=== PATIENT | female | born 1955 | race Caucasian/White ===

== ENCOUNTER → 2016-07-27 | Outpatient (CLI) | payer OTHER ==
[~2016-07-27] MED LIST: AMLO-114 PO; ASPCH81X PO; ASPEC81 PO; BUSP5TAB59 PO; CARV12.52 PO; CARV25TA2 PO; CYM/30 PO; DIAZ10GE; DORZ1SOL6 OPB; DSY/150 PO; DULO60CA44 PO; ESTCR PV; FESO4TAB PO; FURO-85 PO; HYDR-5688 PO; LPT20 PO; LRS20 PO; LSN40 PO; LYR50 PO; MTR/600 PO; OXYC-57 PO; PHEN-876 PO; POTA20TA16 PO; SULF400T7 PO; VITAMIN D3 PO
[2016-07-27 13:06] LABS: BLOOD UREA NITROGEN 16 mg/dl (7-18); BUN/CREATININE RATIO 15.5 (10-20); CARBON DIOXIDE 30 mmol/L (21-32); CHLORIDE 95 mmol/L (98-107); GLUCOSE 108 mg/dl (70-99); POTASSIUM 3.4 mmol/L (3.5-5.1); SODIUM 132 mmol/L (136-145)
== END | disposition home or self-care (01) ==
LOC: C.LABPBG 11:15
PROVIDERS: ATTEND Family Medicine
DX: E87.6 Hypokalemia (principal); E87.1 Hypo-osmolality and hyponatremia

== ENCOUNTER → 2016-08-05 | Outpatient (CLI) | payer OTHER ==
--- NOTE | 2016-08-05 11:52 | DIAGNOSTIC IMAGING REPORT ---
RIGHT HIP UNILATERAL 2 VIEWS CLINICAL HISTORY: M25.551 Hip pain, bilateral with bilateral hip pain. R/o [id number] Right COMPARISON: None. DISCUSSION: The bones and joint spaces appear intact. There is no evidence of fracture, dislocation or bony disease. There is no evidence for soft tissue swelling. IMPRESSION: Negative study. Electronically signed by: Sandip Flood M.D. 08/05/2016 11:51 AM Dictated Date/Time: 08/05/2016 11:49 AM
--- NOTE | 2016-08-05 11:54 | DIAGNOSTIC IMAGING REPORT ---
LEFT HIP UNILATERAL 2 VIEWS CLINICAL HISTORY: Left hip pain COMPARISON: None. DISCUSSION: No fractures or dislocations are visualized. There are no erosive or destructive changes. IMPRESSION: Unremarkable conventional radiographic evaluation left hip. Electronically signed by: Juvenal Sen M.D. 08/05/2016 11:53 AM Dictated Date/Time: 08/05/2016 11:52 AM
== END | disposition home or self-care (01) ==
LOC: C.RAD1850 11:21
PROVIDERS: ATTEND Family Medicine
DX: M25.551 Pain in right hip (principal); M25.552 Pain in left hip

== ENCOUNTER → 2016-08-18 | Outpatient (CLI) | payer OTHER ==
[2016-08-18 13:09] LABS: BLOOD UREA NITROGEN 14 mg/dl (7-18); BUN/CREATININE RATIO 15.1 (10-20); CALCIUM 8.9 mg/dl (8.5-10.1); CARBON DIOXIDE 24 mmol/L (21-32); CHLORIDE 105 mmol/L (98-107); CREATININE 0.94 mg/dl (0.60-1.20); GLUCOSE 116 mg/dl (70-99); MAGNESIUM 2.1 mg/dl (1.8-2.4); POTASSIUM 3.5 mmol/L (3.5-5.1); SODIUM 138 mmol/L (136-145); URIC ACID 4.9 mg/dl (2.6-7.2)
[2016-08-18 13:10] LABS: PHOSPHORUS 2.8 mg/dl (2.5-4.9)
== END | disposition home or self-care (01) ==
LOC: C.LABPBG 09:49
PROVIDERS: ATTEND Internal Medicine Nephrology
DX: I10 Essential (primary) hypertension (principal)

== ENCOUNTER 2016-11-15 12:54 | Inpatient (IN) | payer OTHER ==
[~2016-11-15] VITALS: Ht 165.1 cm; Wt 70.6 kg
[~2016-11-15 12:54] MED LIST changes: -AMLO-114 PO; -ASPCH81X PO; -ASPEC81 PO; -BUSP5TAB59 PO; -CARV25TA2 PO; -CYM/30 PO; -DIAZ10GE; -FESO4TAB PO; -FURO-85 PO; -HYDR-5688 PO; -LPT20 PO; -LYR50 PO; -PHEN-876 PO; -POTA20TA16 PO; -SULF400T7 PO
[2016-11-15] MEDS ORDERED: CARV25TA2 PO (13:47)
[2016-11-15] MEDS ORDERED: LYR50 PO (13:47)
[2016-11-15] MEDS ORDERED: BUSP5TAB59 PO (13:47)
[2016-11-15] MEDS ORDERED: CYM/30 PO (13:48)
[2016-11-15 13:57] LABS: BASO % 0.6 %; BASO ABS # 0.03 K/uL (0-0.2); COMPLETE YES; EOS % 4.5 %; HEMATOCRIT 43.1 % (37-47); IG% 0.2 %; LYMPH % 31.5 %; LYMPH ABS # 1.54 K/uL (1.2-3.4); MEAN CORPUSCULAR HGB CONC 34.1 g/dl (32-36); MEAN PLATELET VOLUME 10.6 fL (7.4-10.4); MONO % 3.9 %; NEUT % 59.3 %; PLATELET COUNT 154 K/uL (130-400); RED BLOOD COUNT 5.07 M/uL (4.2-5.4); WHITE BLOOD COUNT 4.89 K/uL (4.8-10.8)
--- NOTE | 2016-11-15 13:58 | EMERGENCY ROOM VISIT NOTE ---
History Report prepared by Kendal: Hilaria Negron Under the Supervision of: Dr. Bertha Kuhn D.O. First contact with patient: 13:00 Chief Complaint: HYPERTENSION Stated Complaint: HYPERTENSION REFERRED BY MD History of Present Illness The patient is a 61 year old female who presents to the Emergency Room with complaints of constant hypertension beginning [employer]. The patient has a history of hypertension and has been on medication for this for years. She states that recently her hypertension has not been well controlled on her medications. Her PCP referred her to Dr. Sánchez of nephrology for further management. The patient was at Dr. Sánchez's office today. Her BP was 180/109 and she was sent to the ED for further evaluation. The patient notes a burning sensation in her throat and chest that has been going on for a couple of days. The patient denies fevers, chills, shortness of breath, vomiting, nausea, leg pain or swelling, recent changes in medications, and any increased stress of anxiety. She has occasional headaches that she thinks are due to neck pain from her fibromyalgia. She has a significant family history of heart disease. She denies any personal cardiac history. She had a stress test a couple of years ago and has never been followed by cardiology. She started taking Lyrica in May and has noticed some increased swelling since starting that. The patient had yogurt, cereal, and fruit for breakfast. Last night she had a chicken sandwich at [id number] for dinner. Source of History: patient Onset: [employer]WER Position: other (global) Symptom Intensity: 180/109 Quality: other (hypertension) Timing: constant Associated Symptoms: + chest pain, No SOB, No fevers, No nausea, No vomiting Note: Pt notes burning pain in throat. Review of Systems See HPI for pertinent positives & negatives. A total of 10 systems reviewed and were otherwise negative. Past Medical & Surgical Medical Problems: (1) Fibromyalgia (2) Hypertension (3) Lumbar degenerative disc disease Family History Heart disease Social History Smoking Status: Never Smoker Drug Use: none Marital Status: Housing Status: lives with family Current/Historical Medications Scheduled Buspirone Hcl (Buspirone Hcl), 1 TAB PO BID Carvedilol (Coreg), 25 MG PO BID Dorzolamide Hcl-Timolol Maleat (Cosopt Oph), 1 DROPS OPB BID Duloxetine HCl (Cymbalta), 1 CAP PO DAILY Lisinopril (Lisinopril), 1 TAB PO DAILY Pregabalin (Lyrica), 50 MG PO BID Trazodone HCl (Trazodone HCl), 1 TAB PO HS Allergies Coded Allergies: No Known Allergies (Verified , NONE, 12/03/15) Physical Exam Vital Signs Date Time Temp Pulse Resp B/P Pulse Ox O2 Delivery O2 Flow Rate FiO2 11/15/16 15:21 198/101 11/15/16 15:16 206/142 11/15/16 15:11 214/102 11/15/16 15:06 194/131 11/15/16 15:02 195/146 11/15/16 14:56 181/98 11/15/16 14:54 55 12 96 11/15/16 14:52 173/120 11/15/16 14:46 161/88 11/15/16 14:45 64 20 161/88 94 Room Air 11/15/16 14:41 169/120 11/15/16 14:36 178/94 11/15/16 14:31 175/97 11/15/16 14:26 167/95 11/15/16 14:26 60 16 167/95 94 Room Air 11/15/16 14:25 55 11/15/16 14:24 63 13 93 11/15/16 14:20 Room Air 11/15/16 14:19 58 18 173/100 96 Room Air 11/15/16 14:16 173/100 11/15/16 13:01 36.4 57 18 195/90 98 Room Air Physical Exam HEENT: Head - normocephalic and atraumatic Pupils are equal, round, and reactive to light. Extraocular eye muscles are intact, and sclera are anicteric. Nose - moist nasal mucosa without discharge. Mouth - moist buccal mucosa. Oropharynx is nonerythematous and there is no tonsillar exudate or edema noted. Neck: Supple; no JVD, nuchal rigidity, cervical lymphadenopathy. Heart: Regular rate and rhythm. There is a normal S1 and S2 with no murmurs, clicks, or gallops appreciated. Lungs: Clear to auscultation bilaterally with no wheezes, rales, or rhonchi. Abdomen: Soft, completely nontender, nondistended, with good bowel sounds. There are no palpable pulsatile masses or hepatosplenomegaly. There is no guarding, rigidity, or rebound noted. Extremities: No evidence of cyanosis, clubbing, or edema. There are easily palpable peripheral pulses. Skin: warm and dry with good turgor and no rashes. Medical Decision & Procedures ER Provider Diagnostic Interpretation: Radiology results as stated below per my review and the radiologist's interpretation: CHEST ONE VIEW PORTABLE CLINICAL HISTORY: Chest pain. Hypertension. COMPARISON STUDY: Chest radiograph November 20, 2015. FINDINGS: Lung volumes are normal. Lungs are clear. Cardiac size is at upper limits of normal. There is no evidence of pulmonary edema. No pneumothorax or pleural effusion is present. IMPRESSION: No acute cardiopulmonary findings. Electronically signed by: Zack Villela M.D. 11/15/2016 1:57 PM Dictated Date/Time: 11/15/2016 1:56 PM Laboratory Results 11/15/16 13:48 Red Blood Count 5.07, Mean Corpuscular Volume 85.0, Mean Corpuscular Hemoglobin 29.0, Mean Corpuscular Hemoglobin Concent 34.1, Mean Platelet Volume 10.6, Neutrophils (%) (Auto) 59.3, Lymphocytes (%) (Auto) 31.5, Monocytes (%) (Auto) 3.9, Eosinophils (%) (Auto) 4.5, Basophils (%) (Auto) 0.6, Neutrophils # (Auto) 2.90, Lymphocytes # (Auto) 1.54, Monocytes # (Auto) 0.19, Eosinophils # (Auto) 0.22, Basophils # (Auto) 0.03 11/15/16 13:48 Test 11/15/16 13:48 White Blood Count 4.89 K/uL (4.8-10.8) Red Blood Count 5.07 M/uL (4.2-5.4) Hemoglobin 14.7 g/dL (12.0-16.0) Hematocrit 43.1 % (37-47) Mean Corpuscular Volume 85.0 fL (80-100) Mean Corpuscular Hemoglobin 29.0 pg (25-34) Mean Corpuscular Hemoglobin Concent 34.1 g/dl (32-36) Platelet Count 154 K/uL (130-400) Mean Platelet Volume 10.6 fL (7.4-10.4) Neutrophils (%) (Auto) 59.3 % Lymphocytes (%) (Auto) 31.5 % Monocytes (%) (Auto) 3.9 % Eosinophils (%) (Auto) 4.5 % Basophils (%) (Auto) 0.6 % Neutrophils # (Auto) 2.90 K/uL (1.4-6.5) Lymphocytes # (Auto) 1.54 K/uL (1.2-3.4) Monocytes # (Auto) 0.19 K/uL (0.11-0.59) Eosinophils # (Auto) 0.22 K/uL (0-0.5) Basophils # (Auto) 0.03 K/uL (0-0.2) RDW Standard Deviation 39.6 fL (36.4-46.3) RDW Coefficient of Variation 12.8 % (11.5-14.5) Immature Granulocyte % (Auto) 0.2 % Immature Granulocyte # (Auto) 0.01 K/uL (0.00-0.02) Prothrombin Time 10.8 SECONDS (9.0-12.0) Prothromb Time International Ratio 1.0 (0.9-1.1) Activated Partial Thromboplast Time 26.8 SECONDS (21.0-31.0) Partial Thromboplastin Ratio 1.0 Anion Gap 7.0 mmol/L (3-11) Est Creatinine Clear Calc Drug Dose 66.7 ml/min Estimated GFR () 82.2 Estimated GFR (Non- 70.9 BUN/Creatinine Ratio 13.7 (10-20) Calcium Level 8.9 mg/dl (8.5-10.1) Magnesium Level 2.2 mg/dl (1.8-2.4) Total Bilirubin 1.0 mg/dl (0.2-1) Direct Bilirubin 0.2 mg/dl (0-0.2) Aspartate Amino Transf (AST/SGOT) 12 U/L (15-37) Alanine Aminotransferase (ALT/SGPT) 21 U/L (12-78) Alkaline Phosphatase 81 U/L (45-117) Total Creatine Kinase 82 U/L (26-192) Creatine Kinase MB < 0.5 ng/ml (0.5-3.6) Creatine Kinase MB Ratio (0-3.0) Troponin I < 0.015 ng/ml (0-0.045) Pro-B-Type Natriuretic Peptide 271 pg/ml (0-900) Total Protein 7.4 gm/dl (6.4-8.2) Albumin 4.0 gm/dl (3.4-5.0) Triglycerides Level 343 mg/dl (0-150) Cholesterol Level 189 mg/dl (0-200) HDL Cholesterol 38 mg/dl LDL Cholesterol, Calculated 82 mg/dl VLDL Cholesterol, Calculated 69 mg/dl Cholesterol/HDL Ratio 5.0 Thyroid Stimulating Hormone (TSH) 1.910 uIu/ml (0.300-4.500) Laboratory results per my review. Medications Administered Medications (Trade) Dose Ordered Sig/Ana Cristina Route Start Time Stop Time Status Last Admin Dose Admin Nitroglycerin (Nitrostat Tab) 0.4 mg NOW STAT SL 11/15/16 14:17 11/15/16 14:19 DC 11/15/16 14:20 0.4 MG Procedure Medications Administered: Nitrostat Tab 0.4 mg SL ECG Indication: chest pain Rate (beats per minute): 62 Rhythm: normal sinus Findings: no acute ischemic change, other (Trigeminy) Comparison ECG Date: 11/19/16 Change: PVCs are new. ED Course 1325: Past medical records reviewed. The patient was evaluated in room A10. A complete history and physical exam was performed. A twelve-lead EKG was obtained. An IV lock was initiated and labs are drawn as above. She had chest x-ray as described above. 1415: I reevaluated the patient. She is still having chest tightness and her repeat BP is 173/100. 1417: Nitrostat Tab 0.4 mg SL 1432: Per nurse, the patient's chest pressure has resolved with the nitro and her BP has improved. 1451: I spoke with Dr. Garcia. We discussed the patient's results and treatment plan. The patient will be evaluated by the [facility] for further management. 1457: I reassessed the patient at this time. She is feeling better and resting comfortably. I discussed the results and treatment plan with the patient. I answered all pertaining questions that she had. She expressed understanding and verbalized agreement. Medical Decision The patient is a 61 year old female who presents to the ED with hypertension. Differential diagnosis includes hypertensive crisis, cardiac ischemia, acute coronary syndrome, STEMI. Laboratory results as stated below per my review. Normal white count, stable H&H, normal renal function and glucose, normal LFTs, negative troponin, normal BNP. The patient presents with some upper chest tightness and elevated blood pressure. She was referred here by her dining room manager. EKG and cardiac enzymes were negative but the patient's chest discomfort was relieved with nitroglycerin. I discussed the case with the [facility] hospitalist and they will evaluate for further management. Consults Time Called: [phone] Consulting Physician: Dr. Garcia Returned Call: [phone] Garcia. We discussed the patient's results and treatment plan. The patient will be evaluated by the [facility] for further management. Impression Primary Impression: Chest tightness Additional Impression: Uncontrolled hypertension Scribe Attestation The scribe's documentation has been prepared under my direction and personally reviewed by me in its entirety. I confirm that the note above accurately reflects all work, treatment, procedures, and medical decision making performed by me. Departure Information Dispostion Being Evaluated By Hospitalist Referrals Natasha Saldaña MD (PCP) Patient Instructions My [facility] Health Problem Qualifiers
[2016-11-15 14:17] LABS: ALT/SGPT 21 U/L (12-78); AST/SGOT 12 U/L (15-37); BLOOD UREA NITROGEN 12 mg/dl (7-18); BUN/CREATININE RATIO 13.7 (10-20); CALCIUM 8.9 mg/dl (8.5-10.1); CARBON DIOXIDE 30 mmol/L (21-32); CHLORIDE 108 mmol/L (98-107); CREATININE 0.88 mg/dl (0.60-1.20); GLUCOSE 98 mg/dl (70-99); POTASSIUM 3.7 mmol/L (3.5-5.1); SODIUM 145 mmol/L (136-145)
[2016-11-15] MEDS ORDERED: NITROGLYCERIN 0.4 MG SL PER TAB CHARGE SL STA (14:17)
[2016-11-15] MEDS ORDERED: NITROGLYCERIN 0.4 MG SL PER TAB CHARGE ONE (14:19)
[2016-11-15 14:22] LABS: ALKALINE PHOSPHATASE 81 U/L (45-117)
[2016-11-15] MEDS ORDERED: PANTOprazole SOD 40 MG TAB PO SCH (15:22)
[2016-11-15] MEDS ORDERED: HYDROCHLOROTHIAZIDE 25 MG TAB PO SCH (15:23)
[2016-11-15] MEDS ORDERED: ACETAMINOPHEN 325 MG TAB PO PRN (15:30)
[2016-11-15] MEDS ORDERED: MAGNESIUM HYDROXIDE SUSP 30 ML UDC PO PRN (15:30)
[2016-11-15] MEDS ORDERED: ONDANSETRON INJ 2 MG/ML 2 ML VIAL IV PRN (15:30)
[2016-11-15] MEDS ORDERED: HydrALAZINE HCL 20 MG/ML VIAL IV. PRN (15:30)
--- NOTE | 2016-11-15 15:39 | History and Physical ---
History & Physical Date & Time of Service: November 15, 2016 at 15:25 Chief Complaint: Hypertension Referred By Primary Care Physician: Natasha Saldaña MD History of Present Illness Source: patient Pt is a 61 yo female with hx of HTN, depression, fibromyalgia presents to the ER as a referral from Dr Sánchez for accelerated blood pressure. Pt has been treated for HTN for many years, and is currently taking coreg and lisinopril. Pt reports taking her blood pressure on and off for past few weeks with SBP ranging from 140s - 170s. Pt also reports on and off chest pressure for past few weeks with burning sensation in her throat. Pt reports chest pressure today resolved with nitro. She has strong fam hx with noted brother and mother with cardiovascular events in their 30s. She has had a stress ECHO two yrs ago which was unremarkable. Pt reports numbness in her bilateral feet but states she has had this for many yrs. . Family History Heart disease CA DM II Social History Smoking Status: Never Smoker Smokeless Tobacco Use: No Alcohol Use: none Drug Use: none Marital Status: Immunizations History of Influenza Vaccine: Unknown History of Tetanus Vaccine?: Unknown History of Pneumococcal: Unknown History of Hepatitis B Vaccine: Unknown Multi-Drug Resistant Organisms History of MDRO: No Allergies Coded Allergies: No Known Allergies (Verified , NONE, 12/03/15) Home Medications Scheduled Buspirone Hcl (Buspirone Hcl), 1 TAB PO BID Carvedilol (Coreg), 25 MG PO BID Dorzolamide Hcl-Timolol Maleat (Cosopt Oph), 1 DROPS OPB BID Duloxetine HCl (Cymbalta), 1 CAP PO DAILY Lisinopril (Lisinopril), 1 TAB PO DAILY Pregabalin (Lyrica), 50 MG PO BID Trazodone HCl (Trazodone HCl), 1 TAB PO HS Review of Systems Constitutional: No chills, No fever Eyes: No eye pain, No worsening of vision ENT: No hearing loss, No unusual epistaxis Respiratory: No cough, No sputum Cardiovascular: No chest pain, No orthopnea Abdomen: No nausea, No pain Musculoskeletal: No joint pain, No muscle pain Genitourinary - Female: No dysuria, No urinary frequency, No urinary urgency Neurologic: + numbness/tingling (bilateral feet), No paralysis, No weakness Psychiatric: + anxiety, No depression symptoms Integumentary: No itch, No rash Physical Exam Vital Signs Date Time Temp Pulse Resp B/P Pulse Ox O2 Delivery O2 Flow Rate FiO2 11/15/16 14:45 64 20 161/88 94 Room Air 11/15/16 14:26 60 16 167/95 94 Room Air 11/15/16 14:25 55 11/15/16 14:20 Room Air 11/15/16 14:19 58 18 173/100 96 Room Air 11/15/16 13:01 36.4 57 18 195/90 98 Room Air General Appearance: WD/WN, no apparent distress Head: normocephalic, atraumatic Eyes: normal inspection, PERRL, EOMI Neck: supple, no adenopathy Respiratory/Chest: chest non-tender, lungs clear, normal breath sounds Cardiovascular: no edema, no gallop Abdomen/GI: non tender, soft Back: no CVA tenderness, no muscle spasm Extremities/Musculoskelatal: normal inspection, no calf tenderness Neurologic/Psych: alert, oriented x 3 Skin: warm/dry, no rash Diagnostics Laboratory Results Results Past 24 Hours Test 11/15/16 13:48 Range/Units White Blood Count 4.89 4.8-10.8 K/uL Red Blood Count 5.07 4.2-5.4 M/uL Hemoglobin 14.7 12.0-16.0 g/dL Hematocrit 43.1 37-47 % Mean Corpuscular Volume 85.0 80-100 fL Mean Corpuscular Hemoglobin 29.0 25-34 pg Mean Corpuscular Hemoglobin Concent 34.1 32-36 g/dl Platelet Count 154 130-400 K/uL Mean Platelet Volume 10.6 7.4-10.4 fL Neutrophils (%) (Auto) 59.3 % Lymphocytes (%) (Auto) 31.5 % Monocytes (%) (Auto) 3.9 % Eosinophils (%) (Auto) 4.5 % Basophils (%) (Auto) 0.6 % Neutrophils # (Auto) 2.90 1.4-6.5 K/uL Lymphocytes # (Auto) 1.54 1.2-3.4 K/uL Monocytes # (Auto) 0.19 0.11-0.59 K/uL Eosinophils # (Auto) 0.22 0-0.5 K/uL Basophils # (Auto) 0.03 0-0.2 K/uL RDW Standard Deviation 39.6 36.4-46.3 fL RDW Coefficient of Variation 12.8 11.5-14.5 % Immature Granulocyte % (Auto) 0.2 % Immature Granulocyte # (Auto) 0.01 0.00-0.02 K/uL Sodium Level 145 136-145 mmol/L Potassium Level 3.7 3.5-5.1 mmol/L Chloride Level 108 98-107 mmol/L Carbon Dioxide Level 30 21-32 mmol/L Anion Gap 7.0 3-11 mmol/L Blood Urea Nitrogen 12 7-18 mg/dl Creatinine 0.88 0.60-1.20 mg/dl Est Creatinine Clear Calc Drug Dose 66.7 ml/min Estimated GFR () 82.2 Estimated GFR (Non- 70.9 BUN/Creatinine Ratio 13.7 10-20 Random Glucose 98 70-99 mg/dl Calcium Level 8.9 8.5-10.1 mg/dl Total Bilirubin 1.0 0.2-1 mg/dl Direct Bilirubin 0.2 0-0.2 mg/dl Aspartate Amino Transf (AST/SGOT) 12 15-37 U/L Alanine Aminotransferase (ALT/SGPT) 21 12-78 U/L Alkaline Phosphatase 81 45-117 U/L Total Creatine Kinase 82 26-192 U/L Creatine Kinase MB < 0.5 0.5-3.6 ng/ml Creatine Kinase MB Ratio 0-3.0 Troponin I < 0.015 0-0.045 ng/ml Pro-B-Type Natriuretic Peptide 271 0-900 pg/ml Total Protein 7.4 6.4-8.2 gm/dl Albumin 4.0 3.4-5.0 gm/dl Impression Assessment and Plan Pt is a 61 yo female referred to ED by Dr Sánchez for uncontrolled BP in addition to chest pressure on/off for past few weeks Chest pain r/o ACS - Will cont to trend trops, EKG noted sinus rhythm with noted PVCs. Due to strong fam hx and chest pressure relieved with nitro, will also obtain stress ECHO. Noted GERD in past and pt reports possibly taking omeprazole at that time. Will also start on PPI as well. Will cont on lisinopril and add ASA and statin daily in addition to nitro PRN chest pressures. Will also check HgA1c and lipid panel. Hypertensive urgency - Will restart on coreg, lisinopril and add amlodipine and hydralazine PRN. Fibromylagia - Cont lyrica at this time Anxiety - Cont buspar VTE Prophylaxis VTE Risk Assessment Done? Y/N: Yes Risk Level: Moderate
[2016-11-15] MEDS ORDERED: ATORVASTATIN 40 MG TAB PO SCH (15:40)
[2016-11-15] MEDS ORDERED: AMLODIPINE BESYLATE 5 MG TAB PO SCH (15:45)
[2016-11-15 16:01] VITALS: BP 207/113; PULSE 60; TEMP 36.6; O2SAT 97; Ht 165.1 cm; Wt 70.6 kg
[2016-11-15 16:24] LABS: PROTHROMBIN TIME (PATIENT) 10.8 SECONDS (9.0-12.0)
[2016-11-15 16:30] LABS: MAGNESIUM 2.2 mg/dl (1.8-2.4); THYROID STIMULATING HORMONE 1.91 uIu/ml (0.300-4.500)
[2016-11-15 18:10] VITALS: BP 170/90; PULSE 66
[2016-11-15 19:04] VITALS: BP 163/97; PULSE 65; TEMP 36.9; O2SAT 97
[2016-11-15 20:00] VITALS: O2SAT 97
[2016-11-15] MEDS: BusPIRone 15 MG TAB PO SCH (20:49)
[2016-11-15] MEDS: PREGABALIN 50 MG CAP PO SCH (20:49)
[2016-11-15] MEDS: CARVEDILOL 25 MG TAB PO SCH (20:50)
[2016-11-15] MEDS: DORZOLAMIDE/TIMOLOL 22.3/6.8MG/ML 10 ML BTL OPB SCH (20:51)
[2016-11-15] MEDS ORDERED: TRAZODONE HCL 50 MG TAB PO SCH (21:00)
[2016-11-15] MEDS: HEPARIN SOD 5000 UNIT/0.5 ML CARP SQ SCH (21:34)
[2016-11-15 22:20] VITALS: BP 130/80; PULSE 49
[2016-11-15 23:32] VITALS: BP 113/67; PULSE 68; TEMP 36.7; O2SAT 95
[2016-11-16] VITALS (8 sets, daily range): BP systolic 120–176; BP diastolic 72–82; PULSE 57–64; TEMP 36.5–36.7; O2SAT 96–97
[2016-11-16 06:22] LABS: ESTIMATED AVERAGE GLUCOSE 114 mg/dl; HA1C FLAG Normal (Normal)
[2016-11-16] MEDS: HEPARIN SOD 5000 UNIT/0.5 ML CARP SQ SCH ×2 (06:22→14:00)
[2016-11-16 06:47] LABS: BASO % 0.8 %; BASO ABS # 0.04 K/uL (0-0.2); COMPLETE YES; HEMATOCRIT 41.4 % (37-47); IG% 0.2 %; LYMPH % 33.4 %; LYMPH ABS # 1.65 K/uL (1.2-3.4); MEAN CELL VOLUME 84.8 fL (80-100); MEAN CORPUSCULAR HEMOGLOBIN 29.3 pg (25-34); MEAN CORPUSCULAR HGB CONC 34.5 g/dl (32-36); MEAN PLATELET VOLUME 10.5 fL (7.4-10.4); MONO % 5.1 %; NEUT % 56.5 %; PLATELET COUNT 151 K/uL (130-400); RED BLOOD COUNT 4.88 M/uL (4.2-5.4); WHITE BLOOD COUNT 4.94 K/uL (4.8-10.8)
[2016-11-16 07:18] LABS: BLOOD UREA NITROGEN 18 mg/dl (7-18); CARBON DIOXIDE 31 mmol/L (21-32); CHLORIDE 108 mmol/L (98-107); GLUCOSE 111 mg/dl (70-99); POTASSIUM 3.6 mmol/L (3.5-5.1); SODIUM 145 mmol/L (136-145)
[2016-11-16] MEDS ORDERED: LISINOPRIL 40 MG TAB PO SCH (09:00)
[2016-11-16] MEDS ORDERED: DULOXETINE (CYMBALTA) 30 MG CAP PO SCH (09:00)
[2016-11-16] MEDS ORDERED: PANTOprazole SOD 40 MG TAB PO SCH (09:00)
[2016-11-16] MEDS ORDERED: ASPIRIN 81 MG ECTAB PO SCH (09:00)
[2016-11-16] MEDS ORDERED: AMLODIPINE BESYLATE 5 MG TAB PO SCH (09:00)
[2016-11-16] MEDS ORDERED: ATORVASTATIN 40 MG TAB PO SCH (09:00)
[2016-11-16] MEDS ORDERED: HYDROCHLOROTHIAZIDE 25 MG TAB PO SCH (09:00)
[2016-11-16] MEDS: DORZOLAMIDE/TIMOLOL 22.3/6.8MG/ML 10 ML BTL OPB SCH (10:15)
[2016-11-16] MEDS: BusPIRone 15 MG TAB PO SCH (10:16)
[2016-11-16] MEDS: CARVEDILOL 25 MG TAB PO SCH (10:17)
[2016-11-16] MEDS: PREGABALIN 50 MG CAP PO SCH (10:23)
--- NOTE | 2016-11-16 11:50 | CARDIOLOGY CONSULTATION ---
DATE OF CONSULTATION: 11/16/2016 DATE OF CONSULTATION: 11/16/2016. REFERRING PHYSICIAN: Dr. Jaleesa Rodriguez. CHIEF COMPLAINT: Chest pain. HISTORY OF PRESENT ILLNESS: Mrs. Selina Hopkins is a 61-year-old woman without a known history of cardiac disease who was seen by her director of casino marketing yesterday for symptoms of hypertension. At that visit, the patient did describe symptoms of mild chest discomfort across the upper precordium in association with some left sided throat burning. These symptoms have been present for approximately 2 days prior to that evaluation. Based on her elevated blood pressures and symptoms, she was advised to proceed to [facility] for evaluation. The patient was admitted to the hospital and over a period of several hours, her symptoms of chest discomfort eventually resolved. Did not appear to be any specific intervention which relieved her symptoms. The patient states that in general, she is an active person but unable to perform routine exercise due to polymyalgia. She has muscle aches and pains with significant activity but is able to walk regularly and ascend hills. She denies any symptoms of exertional chest pressure or similar symptoms, which she experienced prior to admission during these episodes during activity. She denies limiting dyspnea. She denies orthopnea or paroxysmal nocturnal dyspnea. She has a rare palpitation that is fleeting and mild in nature, not associated with additional symptoms. She has not had any recent dizziness, lightheadedness, or syncope. At the time of this interview, the patient claims to be feeling well. She has not had any recurrence of her mild chest discomfort. She does complain of persistent left sided throat burning. PAST MEDICAL HISTORY: Significant for: 1. Aforementioned hypertension which has been difficult to control. 2. Anemia. 3. Depression. 4. Hyperlipidemia. 5. Fibromyalgia. 6. Glaucoma. 7. Heartburn. 8. Degenerative disc disease involving the lumbar spine. 9. Trigger finger. 10. Trochanteric bursitis. 11. Uterine leiomyomas. PAST SURGICAL HISTORY: Significant for dilatation and curettage and hysterectomy. FAMILY HISTORY: Significant for coronary artery disease as well as cancer. SOCIAL HISTORY: The patient denies significant alcohol use. She is a lifelong nonsmoker. OUTPATIENT MEDICATIONS: Include amlodipine, buspirone, carvedilol, duloxetine, furosemide, potassium supplementation, lisinopril, Lyrica, and eyedrops for glaucoma. MEDICAL ALLERGIES: No known medical allergies. REVIEW OF SYSTEMS: A complete 10-system review of systems was performed and the pertinent positives noted in the history of present illness, the remainder being negative. PHYSICAL EXAMINATION: GENERAL: The patient does not appear in acute distress. She is a pleasant individual who is alert and oriented. Mood and affect appear normal and she answered all questions appropriately. CURRENT VITAL SIGNS: Include blood pressure 176/79 with pulse of 64. HEAD, EYES, EARS, NOSE, AND THROAT: Sclerae are anicteric. Pupils equal, reactive to light and accommodation. Extraocular movements were intact. Palpation of submandibular region did not reveal any significant lymphadenopathy. The carotids are palpable bilaterally. There were no bruits on auscultation. I did not appreciate any jugular venous distention. Thyroid was not enlarged. LUNGS: Auscultation of both lung baugh reveal them to be clear. There were no rales, wheezes or rhonchi. She had normal respiratory effort without use of accessory muscles. CARDIAC EXAMINATION: Revealed her to be in a regular rhythm. There were no murmurs appreciated. S1, S2 appeared normal. PMI was not markedly displaced. ABDOMEN: Soft and nontender. EXTREMITIES: Evaluation of both wrists revealed radial pulses that were equal in intensity. There is no evidence of cyanosis or clubbing. Evaluation of lower extremities did not reveal any significant peripheral edema. I did not appreciate any rashes on exam today. LABORATORY STUDIES: Since admission include a white cell count of 4.9, hemoglobin of 14.3 and a platelet count of 151. Sodium is 145, potassium is 3.6, BUN was 18, creatinine was 1. Cardiac troponins were all less than detectable limit. A 12-lead EKG was also obtained at the time of admission. This revealed the patient to be in a normal sinus rhythm with a single PVC. There are no acute ST or T-wave changes. Review of the patient's records reveals a stress echocardiogram performed in 2014 that did not demonstrate any evidence of inducible ischemia. Preserved left ventricular function was noted at that time. ASSESSMENT AND PLAN: 1. Atypical chest discomfort: The patient does have risk factors for coronary artery disease. The symptoms could be construed as ischemic in nature. However, the prolonged duration of her symptoms in the absence of rise in her cardiac biomarkers suggests that this was not cardiac in nature. The patient is scheduled to undergo stress echocardiogram again today and we will review those results. At this point, I will not pursue any additional cardiac evaluation provided that study is normal. 2. Hypertension. The patient continues to have evidence of high blood pressures; however, medical regimen has just been adjusted. Will defer management of this to her director of casino marketing currently.
--- NOTE | 2016-11-16 13:10 | EXERCISE STRESS ECHO ---
*NOTICE TO RECEIVING DEMOCRAT AGENCY This information is strictly Confidential and protected under [place] law. [place] law prohibits you from making any further disclosure of this information unless further disclosure is expressly permitted by the written consent of the person to whom it pertains or is authorized by law. A general authorization for the release of medical or other information is not sufficient for this purpose. Hospital accepts no responsibility if the information is made available to any other person, INCLUDING THE PATIENT. Interpretation Summary * Name: JALIL DIETRICH Study Date: 11/16/2016 08:36 AM BP: 145/97 mmHg * Patient Location: .2T\S\S234\S\1 HR: 50 * : 1955 (M/d/yyyy) Gender: Female Height: 65 in * Age: 61 yrs Ethnicity: [place] Weight: 158 lb * Ordering Physician: Ben Garcia * Referring Physician: Ludmila Sánchez * Performed By: Kira Medel [facility] * * Reason For Study: CHEST PRESSURE * BSA: 1.8 m2 * -- Conclusions -- * There is mild asymmetric left ventricular hypertrophy. * Left ventricular systolic function is normal. * Diagnostic exercise echocardiogram with likely false positive EKG response but no evidence of inducible ischemia. * Hypertensive BP response to exercise. * Right ventricular systolic pressure is elevated at 30-40mmHg. Procedure Details * ECHOEX, CPT #[id number] * ECHO COLOR FLOW, CPT #[id number] * ECHO DOPPLER, CPT #[id number] Left Ventricular Findings with Stress * Diagnostic exercise echocardiogram with likely false positive EKG response but no evidence of inducible ischemia. Hypertensive BP response to exercise. Left Ventricle * There is mild asymmetric left ventricular hypertrophy. * Left ventricular systolic function is normal. * Ejection Fraction = 55-60%. Right Ventricle * The right ventricle is normal in size and function. Atria * The left atrial size is normal. * Right atrial size is normal. Mitral Valve * The mitral valve anatomy is normal. * There is trace mitral regurgitation. Tricuspid Valve * The tricuspid valve is not well visualized, but is grossly normal. * There is trace tricuspid regurgitation. * Right ventricular systolic pressure is elevated at 30-40mmHg. Aortic Valve * The aortic valve is normal in structure and function. * No hemodynamically significant valvular aortic stenosis. * There is no significant aortic regurgitation. Great Vessels * The aortic root is normal size. Pericardium * There is no pericardial effusion. Stress Parameters * Normal baseline electrocardiogram. * There was 1mm flat to upsloping ST segement depressions at peak exertion. * The stress portion of this study was personally supervised by the undersigned interpreting physician. * Rest heart rate was '50' BPM. * Rest blood pressure was '145/97' * Maximum heart rate achieved was 131 bpm. * Maximum heart rate was 82 % of maximum age-predicted heart rate. * Maximum blood pressure was '210/95' * Total exercise time was '06:00' * Maximum exercise MET level achieved was '7.00' METS * Maximum treadmill speed was '2.50' miles per hour. * Maximum treadmill elevation was '12.00'% grade. Left Ventricular Findings with Stress * The baseline EKG was normal. There were ischemic ST segment depressions at peak exertion. Baseline echocardiogram was normal. There was normal augmentation and no inducible wall abnormalities with exertion. Hypertensive BP response No symptoms reported Norris treadmill score: 1 (moderate risk) MMode 2D Measurements and Calculations IVSd 1.5 cm IVSs 1.9 cm LVIDd 3.6 cm LVIDs 2.5 cm LVPWd 1.1 cm LVPWs 1.5 cm IVS/LVPW 1.4 FS 32.7 % EDV(Teich) 56.0 ml ESV(Teich) 21.2 ml EF(Teich) 62.0 % EDV(cubed) 48.3 ml ESV(cubed) 14.7 ml EF(cubed) 69.5 % % IVS thick 29.8 % % LVPW thick 39.9 % LV mass(C)d 156.8 grams LV mass(C)dI 87.6 grams/m\S\2 LV mass(C)s 155.0 grams LV mass(C)sI 86.6 grams/m\S\2 SV(Teich) 34.7 ml SI(Teich) 19.4 ml/m\S\2 SV(cubed) 33.6 ml SI(cubed) 18.8 ml/m\S\2 Ao root diam 3.2 cm Ao root area 8.2 cm\S\2 ACS 1.9 cm LA dimension 3.8 cm LA/Ao 1.2 LVOT diam 2.1 cm LVOT area 3.4 cm\S\2 LVAd ap4 24.9 cm\S\2 LVLd ap4 7.2 cm EDV(MOD-sp4) 71.4 ml EDV(sp4-el) 73.2 ml LVAs ap4 14.3 cm\S\2 LVLs ap4 5.9 cm ESV(MOD-sp4) 30.3 ml ESV(sp4-el) 29.6 ml EF(MOD-sp4) 57.6 % EF(sp4-el) 59.5 % LVAd ap2 26.6 cm\S\2 LVLd ap2 7.6 cm EDV(MOD-sp2) 79.1 ml EDV(sp2-el) 79.1 ml LVAs ap2 14.6 cm\S\2 LVLs ap2 6.0 cm ESV(MOD-sp2) 30.2 ml ESV(sp2-el) 30.1 ml EF(MOD-sp2) 61.8 % EF(sp2-el) 61.9 % LVLd %diff 4.9 % EDV(MOD-bp) 73.7 ml LVLs %diff 2.5 % ESV(MOD-bp) 30.1 ml EF(MOD-bp) 59.1 % SV(MOD-sp4) 41.1 ml SI(MOD-sp4) 23.0 ml/m\S\2 SV(MOD-sp2) 48.8 ml SI(MOD-sp2) 27.3 ml/m\S\2 SV(MOD-bp) 43.6 ml SI(MOD-bp) 24.4 ml/m\S\2 SV(sp4-el) 43.5 ml SI(sp4-el) 24.3 ml/m\S\2 SV(sp2-el) 49.0 ml SI(sp2-el) 27.4 ml/m\S\2 Doppler Measurements and Calculations MV E max brown 74.4 cm/sec MV A max brown 73.3 cm/sec MV E/A 1.0 MV P1/2t max brown 87.1 cm/sec MV P1/2t 78.4 msec MVA(P1/2t) 2.8 cm\S\2 MV dec slope 325.6 cm/sec\S\2 MV dec time 0.27 sec Ao V2 max 103.6 cm/sec Ao max PG 4.3 mmHg Ao max PG (full) 0.35 mmHg JORY(V,A) 3.2 cm\S\2 JORY(V,D) 3.2 cm\S\2 LV V1 max PG 3.9 mmHg LV V1 max 99.2 cm/sec PA V2 max 83.6 cm/sec PA max PG 2.8 mmHg PI max brown 194.2 cm/sec PI max PG 15.1 mmHg PI dec slope 119.3 cm/sec\S\2 PI P1/2t 476.7 msec TR max brown 289.6 cm/sec
[2016-11-16] MEDS ORDERED: FUROSEMIDE 20 MG TAB PO ONE (15:15)
[2016-11-16] MEDS ORDERED: ASPEC81 PO (15:16)
[2016-11-16] MEDS ORDERED: LPT20 PO (15:16)
[2016-11-16] MEDS ORDERED: AMLO-114 PO (15:16)
[2016-11-16] MEDS ORDERED: FURO-85 PO (15:16)
--- NOTE | 2016-11-16 15:24 | Discharge Instructions ---
Discharge Instructions Date of Service November 16, 2016. Admission Reason for Admission: Chest Tightness, Uncontrolled Hypertension Discharge Discharge Diagnosis / Problem: Chest pain, Hypertensive urgency Discharge Goals Goal(s): Improve disease control, Diagnostic testing, Therapeutic intervention Activity Recommendations Activity Limitations: resume your previous activity Driving or Machine Use: no limitations . Instructions / Follow-Up Instructions / Follow-Up You were admitted for uncontrolled blood pressure and chest pain. You had testing that showed you did not have a heart attack, and your cardiac stress test was negative for signs of heart disease. You were started on amlodipine 10mg daily and restarted on your home furosemide (water pill), in addition to your lisinopril and Coreg. Your cholesterol is also a bit high and it is recommended that you start on a cholesterol pill called atorvastatin. You should also remain on a baby aspirin 81mg once daily. An ultrasound of your heart showed elevated pressure on the right side of the heart. Because of your history of daytime fatigue and snoring, you should be referred to a Sleep Medicine specialist for a sleep study. Untreated sleep apnea can lead to elevated blood pressure and heart problems. Please follow up with your PCP within 1 week. Current Hospital Diet Patient's current hospital diet: Low Sodium Diet (2gm Na) Discharge Diet Recommended Diet: AHA Diet (Heart Healthy), Diabetes Type 2 Diet Procedures Procedures Performed: Stress Echocardiogram Chest xray Pending Studies Studies pending at discharge: no Laboratory Results Hemoglobin A1c Test 11/15/16 13:48 Range/Units Estimated Average Glucose 114 mg/dl Hemoglobin A1c 5.6 4.5-5.6 % Lipid Panel Test 11/15/16 13:48 Range/Units Triglycerides Level 343 H 0-150 mg/dl Cholesterol Level 189 0-200 mg/dl HDL Cholesterol 38 mg/dl Cholesterol/HDL Ratio 5.0 LDL Cholesterol, Calculated 82 mg/dl Medical Emergencies . Who to Call and When: Medical Emergencies: If at any time you feel your situation is an emergency, please call 911 immediately. . Non-Emergent Contact Non-Emergency issues call your: Primary Care Provider Call Non-Emergent contact if: your pain is not controlled, your pain is worsening, your pain is unusual for you, you have any medication questions . . "Provider Documentation" section prepared by Jaleesa Rodriguez. . VTE Core Measure Inpt VTE Proph given/why not?: Unfractionated heparin SQ
[2016-12-02] MEDS ORDERED: ASPCH81X PO (14:08)
[2016-12-02] MEDS ORDERED: POTA20TA16 PO (14:08)
[2016-12-02] MEDS ORDERED: AMLO-114 PO (14:08)
[2016-12-02] MEDS ORDERED: CYM/30 PO (14:09)
[2016-12-06] MEDS ORDERED: SULF400T7 PO (07:43)
[2016-12-06] MEDS ORDERED: HYDR-5688 PO (08:12)
--- NOTE | 2016-12-08 14:52 | Discharge Summary ---
Discharge Summary Date of Service November 16, 2016. 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 * Left ventricular systolic function is normal. * Diagnostic exercise echocardiogram with likely false positive EKG response but no evidence of inducible ischemia. * Hypertensive BP response to exercise. * Right ventricular systolic pressure is elevated at 30-40mmHg. Chest xray-negative Consultations: Cardiology Medication Reconciliation New Medications: Furosemide (Lasix) 20 Mg Tab 20 MG PO QAM, #30 TAB Continued Medications: Carvedilol (Coreg) 25 Mg Tab 25 MG PO BID, TAB Dorzolamide Hcl-Timolol Maleat (Cosopt Oph) 1 Minerva Minerva 1 DROPS OPB BID, #10 ML 3 Refills Lisinopril (Lisinopril) 40 Mg Tab 1 TAB PO QAM Pregabalin (Lyrica) 50 Mg Cap 50 MG PO BID, CAP Trazodone HCl (Trazodone HCl) 150 Mg Tab 1 TAB PO HS Referrals At Discharge Follow up Referrals: Gis Mapping Technician Referral - Within 2 Weeks with Osmany Obrien, DO Discharge Exam Physical Exam: General Appearance: WD/WN, no apparent distress Head: normocephalic, atraumatic Eyes: normal inspection, PERRL, EOMI Neck: supple, no adenopathy Respiratory/Chest: chest non-tender, lungs clear, normal breath sounds Cardiovascular: no edema, no gallop Abdomen/GI: non tender, soft Back: no CVA tenderness, no muscle spasm Extremities/Musculoskelatal: normal inspection, no calf tenderness Neurologic/Psych: alert, oriented x 3 Skin: warm/dry, no rash Review of Systems: Constitutional: No fever, No chills Eyes: No problem reported ENT: No problem reported Respiratory: + problem reported (possible sleep apnea symptoms), No shortness of breath Cardiovascular: No chest pain Abdomen: No problem reported Musculoskeletal: No problem reported Genitourinary - Female: No problem reported Neurologic: No problem reported Psychiatric: No problem reported Endocrine: No problem reported Hematologic / Lymphatic: No problem reported Integumentary: No problem reported Hospital Course Pt is a 61 yo female with hx of HTN, depression, fibromyalgia presents to the ER as a referral from Dr Sánchez for accelerated blood pressure. Pt has been treated for HTN for many years, and is currently taking coreg and lisinopril. Pt reports taking her blood pressure on and off for past few weeks with SBP ranging from 140s - 170s. Pt also reports on and off chest pressure for past few weeks with burning sensation in her throat. Pt reports chest pressure today resolved with nitro. She has strong fam hx with noted brother and mother with cardiovascular events in their 30s. She has had a stress ECHO two yrs ago which was unremarkable. Pt reports numbness in her bilateral feet but states she has had this for many yrs. Chest pain r/o ACS, Hypertensive urgency - EKG noted sinus rhythm with noted PVCs. Troponins trended and were all negative. Stress ECHO and Cardiology consultation obtained. Stress test was negative for signs of ischemia. Cardiology did not advocate for any further workup at this time. Because of the elevated right sided pressures and possible symptoms of MARIE at home, she was referred to Sleep/Pulm medicine for as an outpatient to obtain sleep study. Noted GERD in past and pt reports possibly taking omeprazole at that time. She was also started on PPI as well. She had no further episodes of chest pain during her hospitalization. Lipid panel showed hypertriglyceridemia and low HDL. She was started on atorvastatin and should have LFTs and repeat lipid panel done in 4-6 weeks. For her hypertensive urgency, she was started on amlodipine 10mg daily and restarted on her home furosemide in addition to her lisinopril and Coreg. She was recommended to remain on a baby aspirin 81mg once daily. Fibromylagia - Cont lyrica at this time Anxiety - Cont buspar Dispo-to home Total Time Spent: Greater than 30 minutes This includes examination of the patient, discharge planning, medication reconciliation, and communication with other providers. Discharge Instructions Please refer to the electronic Patient Visit Report (Discharge Instructions) for additional information. Follow-Up PCP within 1 week Sleep Medicine/Pulm within 1 month Additional Copies To Natasha Saldaña MD
[2017-02-24] MEDS ORDERED: PHEN-876 PO (10:05)
[2017-02-24] MEDS ORDERED: FESO4TAB PO (10:05)
[2017-02-24] MEDS ORDERED: OXYC-57 PO (10:05)
[2017-02-24] MEDS ORDERED: DIAZ10GE (10:05)
== END 2016-11-16 16:19 | disposition home or self-care (01) | DRG 305 ==
LOC: ENRESERVTM → ENRESERVDT → C.EDB 12:55 → C.2T 15:21
PROVIDERS: ADMIT Hospitalist; ATTEND Hospitalist
DX: I16.0 Hypertensive urgency (principal); R07.89 Other chest pain; I10 Essential (primary) hypertension; M79.7 Fibromyalgia; H40.9 Unspecified glaucoma; F32.9 Major depressive disorder, single episode, unspecified; F41.9 Anxiety disorder, unspecified; Z82.49 Family history of ischemic heart disease and other diseases of the circulatory system; Z79.899 Other long term (current) drug therapy

== ENCOUNTER → 2016-11-18 | Outpatient (CLI) | payer OTHER ==
[~2016-11-18] MED LIST changes: +AMLO-114 PO; +ASPCH81X PO; +ASPEC81 PO; +BUSP5TAB59 PO; -CARV12.52 PO; +CARV25TA2 PO; +CYM/30 PO; +DIAZ10GE; -DULO60CA44 PO; -ESTCR PV; +FESO4TAB PO; +FURO-85 PO; +HYDR-5688 PO; +LPT20 PO; -LRS20 PO; +LYR50 PO; -MTR/600 PO; +PHEN-876 PO; +POTA20TA16 PO; +SULF400T7 PO; -VITAMIN D3 PO
--- NOTE | 2016-11-18 09:33 | DIAGNOSTIC IMAGING REPORT ---
DOPPLER ULTRASOUND OF THE RENAL ARTERIES CLINICAL HISTORY: Hypertension. COMPARISON STUDY: No priors. TECHNIQUE: Doppler sonography of the renal arteries was performed to assess renal artery stenosis. Images are reviewed in the transverse and longitudinal planes. FINDINGS: The kidneys appear normal in size and echotexture. There is no hydronephrosis. The right kidney measures 11.3 cm in length and the left kidney measures 10.9 cm in length. On the right, intrarenal arterial resistive indices range from 0.69 to 0.73. Intrarenal arterial waveforms are normal with brisk upstrokes. The right renal arterial waveform is normal, and velocities within the right renal artery measure up to 98 cm/sec. The right renal vein is patent. On the left, intrarenal arterial resistive indices range from 0.64 to 0.65. Intrarenal arterial waveforms are normal with brisk upstrokes. The left renal arterial waveform is normal, and velocities within the left renal artery measure up to 57 cm/sec. The left renal vein is patent. The abdominal aorta is patent. Velocities within the abdominal aorta measure up to 83 cm/s. IMPRESSION: There is no sonographic evidence of renal artery stenosis. Electronically signed by: Checo Titus M.D. 11/18/2016 9:31 AM Dictated Date/Time: 11/18/2016 9:30 AM
== END | disposition home or self-care (01) ==
LOC: C.ULTR 08:27
PROVIDERS: ATTEND Internal Medicine Nephrology
DX: I10 Essential (primary) hypertension (principal)

== ENCOUNTER → 2016-12-06 | Day surgery (SDC) | payer OTHER ==
[2016-12-02 14:09] VITALS: Ht 165.1 cm; Wt 68.2 kg
[~2016-12-06] VITALS: Ht 165.1 cm; Wt 68.2 kg
[~2016-12-06] MED LIST changes: -ASPEC81 PO; +ATROPINE SULFATE 0.1 MG/ML 5ML SYR IV PRN; +BUPIVACAINE 0.5 % 5 MG/1 ML MPF 30ML VIAL ONE; -BUSP5TAB59 PO; +CEFAZOLIN 1000MG/55 ML D5W IV SCH; +EpHEDrine SULFATE INJ 50 MG/ML AMP IV PRN; +FENTANYL CITRATE INJ 50 MCG/1 ML 2 ML VIAL IV PRN; +FENTANYL CITRATE INJ 50 MCG/1 ML 2 ML VIAL ONE; +LACTATED RINGER'S 1000ML 1,000 ML IV SCH; +LIDOCAINE HCL 1% 20 ML VIAL ONE; +LIDOCAINE HCL 2% 2 ML VIAL (20MG/ML) ONE; -LPT20 PO; +MIDAZOLAM HCL 1 MG/ML 2ML VIAL ONE; +ONDANSETRON INJ 2 MG/ML 2 ML VIAL IV PRN; +ONDANSETRON INJ 2 MG/ML 2 ML VIAL ONE; +OXYCODONE/ACETAMINOPHEN 5-325 TAB PO PRN; +PROPOFOL IV EMULSION 10 MG/ML 20 ML VIAL IV ONE; +SODIUM CHLORIDE 0.9% 1000ML 1,000 ML IV SCH
--- NOTE | 2016-12-06 07:13 | History & Physical Bridge - SC ---
H&P Re-Evaluation Bridge Note: I have examined the patient, reviewed the History & Physical and in the interval since the performance of the History & Physical I have noted the following changes of clinical significance: No changes noted
--- NOTE | 2016-12-06 08:08 | [facility] Post Operative Brief Note ---
Immediate Operative Summary Operative Date Dec 06, 2016. Pre-Operative Diagnosis Left Ring Finger Trigger Digit Post-Operative Diagnosis Same Procedure(s) Performed Left Ring Finger Trigger Finger Release Surgeon Dr Mcclelland Fiberglass Boat Maker Surgeon(s) Oneil Eubanks PA-C Estimated Blood Loss 0ml Findings ABOVE Specimens None Anesthesia LOCAL IV SEDATION Complication(s) None Disposition
[2016-12-06 08:10] VITALS: TEMP 36.6
--- NOTE | 2016-12-06 08:13 | Discharge Instructions-SurgCtr ---
Discharge Instructions Date of Service Dec 06, 2016. Visit Reason for Visit: Left Ring Trigger Finger Discharge Discharge Diagnosis / Problem: SAME ABOVE Discharge Goals Goal(s): Decrease discomfort, Improve function Activity Recommendations Activity Limitations: as noted below Lifting Limitations: gradually increase as tolerated Exercise/Sports Limitations: until after follow-up appointment Shower/Bathe: may shower/bathe in 3 days Anesthesia . Post Anesthesia Instructions: If you have had General Anesthesia or IV Sedation: * Do not drive today. * Resume driving when surgeon permits. * Do not make important decisions or sign legal documents today. * Call surgeon for: 1. Temperature elevations greater than 101 degrees F. 2. Uncontrollable pain. 3. Excessive bleeding. 4. Persistent nausea and vomiting. 5. Medication intolerance (nausea, vomiting or rash). * For nausea and vomiting use only clear liquids such as: tea, soda, bouillon until nausea subsides, then gradually increase diet as tolerated. * If you have any concerns or questions, call your surgeon's office. If physician is unavailable and it is an emergency, call 911 or go to the nearest emergency room. . Instructions / Follow-Up Instructions / Follow-Up MEDICATIONS: * Resume previous medications unless instructed otherwise by your surgeon. * Always take pain medication on a full stomach or with food to avoid upset stomach. * Do not drink alcohol or drive while taking narcotics. * Ibuprofen or Tylenol may be taken if narcotic not needed. SPECIAL CARE INSTRUCTIONS: __ None _X_ Keep extremity elevated and iced x 48 hours; apply ice 20-30 minutes 8-10 times/day. May remove at night. __ Sling __24 hrs/day __ Remove at night __ Shoulder Immobilizer __ 24 hrs/day __ Remove at night _X_ Dressing __ Maintain until seen in office, may shower with plastic over site _X_ Remove dressings in 24-48 hours and then may shower _X_ Cover incisions with band-aids after showering __ Do not remove steri-strips Call physician if chills or temperature rises above 102 degrees or pain unrelieved by prescribed pain medications at . . Diet Recommendations Home Diet: resume previous diet Procedures Procedures Performed: Left Ring Finger Trigger Finger Release Pending Studies Studies pending at discharge: no Medical Emergencies . Who to Call and When: Medical Emergencies: If at any time you feel your situation is an emergency, please call 911 immediately. . Non-Emergent Contact Non-Emergency issues call your: Primary Care Provider . . "Provider Documentation" section prepared by Rivera Eubanks. .
--- NOTE | 2016-12-06 08:33 | Anesthesia Progress Nt - [facility] ---
Anesthesia Post Op Note Date & Time Dec 06, 2016 at 08:32 Vital Signs Pain Intensity: 0 Vital Signs Past 12 Hours Date Time Temp Pulse Resp B/P (MAP) Pulse Ox O2 Delivery O2 Flow Rate FiO2 12/06/16 08:10 36.6 43 12 97/61 (73) 93 Room Air 12/06/16 07:20 36.3 54 16 124/70 (88) 97 Room Air Notes Mental Status: alert / awake / arousable, participated in evaluation Pt Amnestic to Procedure: Yes Nausea / Vomiting: adequately controlled Pain: adequately controlled Airway Patency, RR, SpO2: stable & adequate BP & HR: stable & adequate Hydration State: stable & adequate Anesthetic Complications: no major complications apparent
--- NOTE | 2016-12-06 08:35 | OPERATIVE REPORT ---
DATE OF OPERATION: 12/06/2016 PREOPERATIVE DIAGNOSIS: Left ring trigger finger. POSTOPERATIVE DIAGNOSIS: Same with flexor tendon sheath cyst of the A1 lisa. PROCEDURE: Left ring finger trigger release with removal of cyst and release of the A1 lisa, left ring finger. SURGEON: Dr. Mcclelland. ROOFER HELPER VINYL COATING: Rivera Eubanks PA-C. ANESTHESIOLOGIST: Dr. Baum. ANESTHESIA: Local with IV sedation. DRAINS: None. COMPLICATIONS: None. CONDITION: The patient tolerated the procedure well and returned to the recovery room in apparent satisfactory condition. INDICATIONS FOR SURGERY: Selina is a 51-year-old female who has had triggering of her left ring finger. It has gotten progressively worse. We went over treatment options and elected to go ahead and proceed with surgery. Procedure, expected outcomes and side effects were all explained in detail. OPERATION AND FINDINGS: PROCEDURE: The patient was taken to the OR at which time she was placed supine on the operating table and given IV sedation by the anesthesia department. Left hand was prepped and draped in the usual sterile manner for surgery. We infiltrated the anticipated incision site 1% Xylocaine then we put a forearm tourniquet up to 250 mmHg. We made a transverse incision over the A1 lisa, dissected it out. We encountered a flexor tendon sheath cyst which was removed at that time and then we divided the A1 lisa with an 11 blade. Wound was inspected, finger taken through a range of motion and no longer triggering. The wound was copiously irrigated. Incision was closed with 4-0 nylon sutures. ____ Marcaine without Marcaine without epinephrine was placed in skin edges. We first dressed with Xeroform, 2 x 2, and some postoperative dressing and a Coban and returned back to recovery room in apparent satisfactory condition. I attest to the content of the Intraoperative Record and any orders documented therein. Any exception s are noted below.
[2016-12-06 08:44] VITALS: BP 133/69; PULSE 77; O2SAT 95
== END | disposition home or self-care (01) ==
LOC: X.SURG 06:52
PROVIDERS: ATTEND Orthopaedic Surgery
DX: M65.342 Trigger finger, left ring finger (principal); M67.842 Other specified disorders of synovium, left hand; I10 Essential (primary) hypertension; F32.9 Major depressive disorder, single episode, unspecified

== ENCOUNTER → 2016-12-07 | Outpatient (CLI) | payer OTHER ==
[~2016-12-07] MED LIST changes: -ATROPINE SULFATE 0.1 MG/ML 5ML SYR IV PRN; -BUPIVACAINE 0.5 % 5 MG/1 ML MPF 30ML VIAL ONE; -CEFAZOLIN 1000MG/55 ML D5W IV SCH; -EpHEDrine SULFATE INJ 50 MG/ML AMP IV PRN; -FENTANYL CITRATE INJ 50 MCG/1 ML 2 ML VIAL IV PRN; -FENTANYL CITRATE INJ 50 MCG/1 ML 2 ML VIAL ONE; -LACTATED RINGER'S 1000ML 1,000 ML IV SCH; -LIDOCAINE HCL 1% 20 ML VIAL ONE; -LIDOCAINE HCL 2% 2 ML VIAL (20MG/ML) ONE; -MIDAZOLAM HCL 1 MG/ML 2ML VIAL ONE; -ONDANSETRON INJ 2 MG/ML 2 ML VIAL IV PRN; -ONDANSETRON INJ 2 MG/ML 2 ML VIAL ONE; -OXYCODONE/ACETAMINOPHEN 5-325 TAB PO PRN; -PROPOFOL IV EMULSION 10 MG/ML 20 ML VIAL IV ONE; -SODIUM CHLORIDE 0.9% 1000ML 1,000 ML IV SCH
--- NOTE | 2016-12-07 11:15 | DIAGNOSTIC IMAGING REPORT ---
CT LUMBAR SPINE WITHOUT CT DOSE: 521.20 mGycm CLINICAL HISTORY: SPINAL STENOSIS TECHNIQUE: Helical images were acquired in transverse plane. Reformatted sagittal and coronal images were reviewed. CONTRAST: No contrast was administered COMPARISON STUDY: MRI dated 11/17/2015 FINDINGS: L1-2 level: There is no evidence of significant disc bulge or focal herniation. There is no evidence of spinal or foraminal stenosis. L2-3 level: There is no stomach and disc bulge or focal herniation. There is no significant spinal or foraminal stenosis. No evidence of recurrent disc herniation. No evidence of spinal or foraminal stenosis L3-4 level: There is a mild circumferential disc bulge. There is minimal triangular spinal canal narrowing. There is no foraminal stenosis. L4-5 level: There are postsurgical changes of a discectomy and interbody fusion. There is a posterior laminectomy defect. There is a posterior spinal fusion with pedicle screw fixation. There is a small left-sided bony epidural fragment. There is no spinal or foraminal stenosis. L5-S1 level: There is a mild circumferential disc bulge. In addition there is an equivocal small left foraminal disc protrusion. There is no significant spinal stenosis. IMPRESSION: 1. Postsurgical changes at the L4-5 level. There is a 4 mm left-sided bony epidural fragment. There is no significant spinal stenosis 2. Mild disc bulge and minimal spinal stenosis the L3-4 level 3. Mild circumferential disc bulge the L5-S1 level. In addition there is equivocal small left foraminal disc protrusion. Electronically signed by: Juvenal Sen M.D. 12/07/2016 11:14 AM Dictated Date/Time: 12/07/2016 11:07 AM
== END | disposition home or self-care (01) ==
LOC: C.CTS 10:48
PROVIDERS: ATTEND Orthopaedic Surgery Orthopaedic Surgery of the Spine
DX: M48.06 Spinal stenosis, lumbar region (principal)

== ENCOUNTER → 2016-12-19 | Outpatient (CLI) | payer OTHER ==
--- NOTE | 2016-12-19 09:32 | DIAGNOSTIC IMAGING REPORT ---
RENAL ULTRASOUND HISTORY: Pain R30.0 Dysuria with c/o recurrent dysuria w/o [id number] COMPARISON: None. FINDINGS: Right kidney: Maximum dimension 11.3 cm. Maximum dimension 11.0 cm. Left kidney: No hydronephrosis. Normal corticomedullary differentiation and cortical thickness. Bladder: No bladder wall thickening. The bilateral ureteral jets were identified. IMPRESSION: Normal renal ultrasound. No evidence for hydronephrosis. Electronically signed by: Sandip Flood M.D. 12/19/2016 9:30 AM Dictated Date/Time: 12/19/2016 9:29 AM
== END | disposition home or self-care (01) ==
LOC: C.ULTRBC 08:36
PROVIDERS: ATTEND Family Medicine
DX: R30.0 Dysuria (principal)

== ENCOUNTER → 2017-01-18 | Outpatient (CLI) | payer OTHER | END | disposition home or self-care (01) | LOC: C.PATHSPEC 16:57 | PROVIDERS: ATTEND Nurse Practitioner Adult Health | DX: R31.0 Gross hematuria (principal) ==

== ENCOUNTER → 2017-01-18 | Outpatient (CLI) | payer OTHER ==
[2017-01-18 17:28] LABS: BLOOD UREA NITROGEN 16 mg/dl (7-18); BUN/CREATININE RATIO 17.6 (10-20); CALCIUM 9.3 mg/dl (8.5-10.1); CARBON DIOXIDE 28 mmol/L (21-32); CHLORIDE 106 mmol/L (98-107); CREATININE 0.91 mg/dl (0.60-1.20); GLUCOSE 93 mg/dl (70-99); POTASSIUM 3.9 mmol/L (3.5-5.1); SODIUM 139 mmol/L (136-145)
== END | disposition home or self-care (01) ==
LOC: C.LABPBG 12:13
PROVIDERS: ATTEND Family Medicine
DX: E87.6 Hypokalemia (principal); E87.1 Hypo-osmolality and hyponatremia

== ENCOUNTER → 2017-02-01 | Outpatient (CLI) | payer OTHER ==
[~2017-02-01] MED LIST changes: +OPTIRAY 320 IV PRN
--- NOTE | 2017-02-01 12:22 | DIAGNOSTIC IMAGING REPORT ---
ABDOMEN AND PELVIS CT WITH AND WITHOUT IV CONTRAST, UROGRAM PROTOCOL CT DOSE: 1889.72 mGycm HISTORY: R31.0 Gross hematuria. not diabetic, no latex allergy, no iodine a TECHNIQUE: Multiaxial CT images of the abdomen and pelvis were performed both before and after the use of intravenous contrast to evaluate the urinary system. Maximal intensity projection images were performed at the workstation by the radiologist. A dose lowering technique was utilized adhering to the principles of ALARA. COMPARISON STUDY: Renal ultrasound 12/19/2016. FINDINGS: No renal or ureteral calculi. No hydronephrosis. No suspicious filling defects seen within the opacified bilateral renal collecting systems, ureters, or bladder. Of note, only the posterior bladder is opacified. There are few tiny hypodense lesions within the kidneys measure up to 3 mm. These are too small to characterize. Small bilateral pleural effusions. Patchy bibasilar densities favor atelectasis. L4-5 posterior decompression and fusion. Small fat-containing umbilical hernia. Mild hepatic steatosis. The spleen, adrenal glands, pancreas, and gallbladder are unremarkable. No retroperitoneal lymphadenopathy. Hysterectomy. No bowel wall thickening or obstruction. Normal appendix. IMPRESSION: 1. No renal or ureteral stones. No hydronephrosis. 2. No suspicious filling defects seen within the opacified bilateral renal collecting systems, ureters, or bladder. 3. Small bilateral pleural effusions. Electronically signed by: Andrez Santana M.D. 02/01/2017 12:21 PM Dictated Date/Time: 02/01/2017 12:11 PM
== END | disposition home or self-care (01) ==
LOC: C.CTS 10:48
PROVIDERS: ATTEND Nurse Practitioner Adult Health
DX: R31.0 Gross hematuria (principal); J90 Pleural effusion, not elsewhere classified

== ENCOUNTER → 2017-03-15 | Outpatient (CLI) | payer OTHER ==
[~2017-03-15] MED LIST changes: -HYDR-5688 PO; -LYR50 PO; -OPTIRAY 320 IV PRN; -SULF400T7 PO
--- NOTE | 2017-03-15 15:17 | MAMMOGRAPHY REPORT ---
BILATERAL DIGITAL SCREENING MAMMOGRAM TOMOSYNTHESIS WITH CAD: 03/15/2017 CLINICAL HISTORY: Routine screening. TECHNIQUE: Breast tomosynthesis in addition to standard 2D mammography was performed. Current study was also evaluated with a Computer Aided Detection (CAD) system. COMPARISON: Comparison is made to exams dated: 02/15/2016 mammogram - [facility], mammogram, 08/14/2013 mammogram, 08/07/2012 mammogram, 08/02/2011 mammogram, and 12/23/2009 mammo gram - [facility] BREAST COMPOSITION: There are scattered areas of fibroglandular density in both breasts. FINDINGS: The parenchymal pattern is unchanged. No developing mass, architectural distortion or clus ter of suspicious microcalcifications is seen in either breast. IMPRESSION: ACR BI-RADS CATEGORY 2: BENIGN There is no mammographic evidence of malignancy. A 1 year screening mammogram is recommended. The pa tient will receive written notification of the results. Approximately 10% of breast cancers are not detected with mammography. A negative mammographic report should not delay biopsy if a clinically suggestive mass is present. Oly Hernandez M.D. ay/:03/15/2017 13:32:40 Research Assistant Professor: Isabella SAMANIEGO(Delfina)(Fidel), [facility] letter sent: Normal 1/2 BI-RADS Code: ACR BI-RADS Category 2: Benign
== END | disposition home or self-care (01) ==
LOC: C.MAMM 13:02
PROVIDERS: ATTEND Family Medicine
DX: Z12.31 Encounter for screening mammogram for malignant neoplasm of breast (principal)

== ENCOUNTER → 2017-05-16 | Outpatient (CLI) | payer OTHER ==
[2017-05-16 12:20] LABS: BLOOD UREA NITROGEN 16 mg/dl (7-18); BUN/CREATININE RATIO 18.8 (10-20); CALCIUM 9.2 mg/dl (8.5-10.1); CARBON DIOXIDE 29 mmol/L (21-32); CHLORIDE 104 mmol/L (98-107); CHOLESTEROL 191 mg/dl (0-200); CREATININE 0.87 mg/dl (0.60-1.20); GLUCOSE 89 mg/dl (70-99); POTASSIUM 3.8 mmol/L (3.5-5.1); SODIUM 138 mmol/L (136-145)
[2017-05-16 12:24] LABS: CHOLESTEROL/HDL RATIO 3.5; HDL CHOLESTEROL 55 mg/dl; LDL CHOLESTEROL CALCULATED 90 mg/dl; TRIGLYCERIDES 229 mg/dl (0-150); VERY LOW DENSITY LIPOPROT CALC 46 mg/dl
== END | disposition home or self-care (01) ==
LOC: C.LABPBG 09:16
PROVIDERS: ATTEND Family Medicine
DX: I10 Essential (primary) hypertension (principal); E78.5 Hyperlipidemia, unspecified

== ENCOUNTER → 2017-05-24 | Outpatient (CLI) | payer OTHER ==
[~2017-05-24] MED LIST changes: -FURO-85 PO
--- NOTE | 2017-05-24 13:15 | DIAGNOSTIC IMAGING REPORT ---
CERVICAL SPINE 3 VIEWS CLINICAL HISTORY: Cervicalgia. FINDINGS: AP, lateral, and odontoid views of the cervical spine are obtained. No prior studies are available for comparison at the time of dictation. The skeletal structures are osteopenic. There is no radiographic evidence of fracture or subluxation involving the cervical spine. The odontoid process and lateral masses are intact as visualized on the open-mouth view. The spinolaminar line is preserved. Vertebral body height is maintained throughout the cervical spine. There is minimal anterolisthesis at C3-C4 and C4-C5. Alignment is otherwise preserved. Small anterior osteophytes are seen in the lower cervical region. There is moderate disc space narrowing at C5-C6. A posterior disc osteophyte complex at this level may contribute to mild acquired compromise of the central canal. The disc spaces are otherwise preserved. Multilevel facet arthropathy is noted on the frontal view. The prevertebral soft tissues are within normal limits. Partially imaged apical lung parenchyma appears clear. IMPRESSION: 1. No acute bony abnormality is seen involving the cervical spine. 2. Mild spondylotic change as above, greatest at C5-C6. Dictated: 05/24/2017 12:54 PM Transcribed: 05/24/2017 1:15 PM CHERELLE_Sean Electronically signed by: Checo Titus M.D. 05/24/2017 1:26 PM Dictated Date/Time: 05/24/2017 12:54 PM
== END | disposition home or self-care (01) ==
LOC: C.RAD1850 12:16
PROVIDERS: ATTEND Family Medicine
DX: M54.2 Cervicalgia (principal)

== ENCOUNTER → 2018-01-22 | Outpatient (CLI) | payer OTHER ==
[~2018-01-22] MED LIST changes: -AMLO-114 PO; +AMLO10TA3 PO; +LISI40TA3 PO; -LSN40 PO; +POTA-639 PO; -POTA20TA16 PO
== END | disposition home or self-care (01) ==
LOC: C.PATHSPEC 17:09
PROVIDERS: ATTEND Urology
DX: R31.0 Gross hematuria (principal)

== ENCOUNTER 2019-01-26 17:03 | Inpatient (IN) ==
[2019-01-26] MEDS ORDERED: ASPIRIN CHEW 324 MG PO STA (17:15)
[2019-01-26] MEDS ORDERED: NITROGLYCERIN 2% OINTMENT 30GM TUBE EXT STA ×2 (17:15→18:05)
[2019-01-26] MEDS ORDERED: ACETAMINOPHEN 325 MG TAB PO STA (17:17)
[2019-01-26 17:35] LABS: Basophils # (auto) 0.03 K/uL (0-0.2); Basophils % (auto) 0.6 %; Eosinophils # (auto) 0.22 K/uL (0-0.5); Eosinophils % (auto) 4.6 %; Hematocrit (blood only) 41.7 % (37-47); Hemoglobin 14.4 g/dL (12.0-16.0); Immature Granulocytes # (auto) 0.01 K/uL (0.00-0.02); Immature Granulocytes % (auto) 0.2 %; Lymphocytes # (auto) 1.34 K/uL (1.2-3.4); Mean Corpuscular Hgb Conc 34.5 g/dL (32-36); Mean Platelet Volume 9.8 fL (7.4-10.4); Monocytes # (auto) 0.37 K/uL (0.11-0.59); Monocytes % (auto) 7.7 %; Neutrophils # (auto) 2.82 K/uL (1.4-6.5); Neutrophils % (auto) 58.9 %; Platelet Count 140 K/uL (130-400); RDW Coefficient of Variation 12.6 % (11.5-14.5); RDW Standard Deviation 39.7 fL (36.4-46.3); Red Blood Count 4.85 M/uL (4.2-5.4); White Blood Count 4.79 K/uL (4.8-10.8)
--- NOTE | 2019-01-26 17:38 | XRay Report ---
XR chest 1V portable HISTORY: 63 years-old Female Chest Pain acute atypical chest pain COMPARISON: Chest radiograph 11/15/2016 TECHNIQUE: Portable AP view of the chest FINDINGS: Cardiomediastinal and hilar silhouettes are within normal limits. No pneumothorax, pleural effusion, focal airspace consolidation or overt pulmonary edema. Bones of the chest appear grossly intact. IMPRESSION: No acute process. The above report was generated using voice recognition software. It may contain grammatical, syntax o r spelling errors. Electronically signed by: Hebert Wilkins M.D. 01/26/2019 5:37 PM
[2019-01-26 17:49] LABS: Partial Thromboplastin Ratio 0.9; Partial Thromboplastin Time 25.2 Seconds (21.0-31.0); Prothrombin Time 10.3 Seconds (9.0-12.0)
[2019-01-26 17:54] LABS: Alanine Aminotransferase 38 U/L (12-78); Albumin Level 4.1 gm/dl (3.4-5.0); Aspartate Aminotransferase 23 U/L (15-37); BUN Creatinine Ratio 14.7 (10-20); Blood Urea Nitrogen 15 mg/dl (7-18); Calcium 9.4 mg/dl (8.5-10.1); Carbon Dioxide 28 mmol/L (21-32); Chloride 107 mmol/L (98-107); Est GFR (African American) 69.4; Est GFR (Non-African American) 59.9; Glucose 127 mg/dl (70-99); Magnesium 2.2 mg/dl (1.8-2.4); Potassium 3.3 mmol/L (3.5-5.1); Sodium 141 mmol/L (136-145)
[2019-01-26 17:58] LABS: Albumin Globulin Ratio 1.2 (0.9-2); Alkaline Phosphatase 100 U/L (45-117); Bilirubin,Total 0.8 mg/dl (0.2-1); Globulin 3.3 gm/dl (2.5-4.0); Total Protein 7.4 gm/dl (6.4-8.2); Troponin I < 0.015 ng/ml (0-0.045)
[2019-01-26] MEDS ORDERED: ONDANSETRON INJ 2 MG/ML 2 ML VIAL IV STA (18:15)
[2019-01-26] MEDS ORDERED: MoRPHine SULFATE 2 MG/ML CARP IV STA (18:15)
[2019-01-26] MEDS ORDERED: fentaNYL citrate 100 MCG/2 ML VIAL ONE (18:28)
[2019-01-26] MEDS ORDERED: MIDAZOLAM HCL 1 MG/ML 2ML VIAL ONE (18:28)
[2019-01-26] MEDS ORDERED: HEPARIN (PORCINE) 1000 UNIT/ML 10 ML (CATH LAB USE ONLY) ONE (18:28)
[2019-01-26] MEDS ORDERED: NITROGLYCERIN/D5W 100MCG/ML 20ML SYR ONE (18:28)
[2019-01-26] MEDS ORDERED: NiCARDipine HCL INJ 2.5 MG/ML 10 ML AMP ONE (18:28)
[2019-01-26] MEDS ORDERED: HydrALAZINE HCL 20 MG/ML VIAL ONE (19:07)
[2019-01-26] MEDS ORDERED: EPTIFIBATIDE 2 MG/ML 10 ML VIAL (CATH LAB USE ONLY) ONE (19:27)
[2019-01-26] MEDS ORDERED: EPTIFIBATIDE 0.75 MG/ML 75MG VIAL (CATH LAB USE ONLY) ONE (19:27)
[2019-01-26] MEDS ORDERED: TICAGRELOR 90 MG TAB PO ONE (19:38)
--- NOTE | 2019-01-26 19:59 | Critical Care Consultation ---
Date of Consultation January 26, 2019 Assessment & Plan (1) Admitted to intensive care unit: Reason critically ill: Selina Hopkins is a 63 y/o female with hx HTN, fibromyaglia, hld, depression, interstitial cystitis who is s/p PCI with overlapping stent placement x4 to distal LAD for 95% lesion causing symptoms of typical cardiac chest pain. 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 - initial in ED was negative but might have been drawn too acutely since takes 3-6 hours after sx onset, useful to check for any significant cardiac myocyte damage Pulm lungs clear to auscultation, no signs of ischemic HF causing pulmonary edema 95% on RA GI Diet: Heart healthy Renal/Lytes Hypokalemic 3.3, will replace Creatinine 1.0, will monitor trend BMP IVF: Normosol @ 100mL/hr Does not have strong Is on Elmiron at home TID dosing for interstitial cystitis; called pharmacist and ordered Endo No hx of DM or thyroid dysfunction, will work up with A1C and TSH, respectively Heme: Recheck platelets tonight per osteologist recs s/p PCI w/CBC * WBC, Hgb, Plt all WNL CBC in AM ID No concerns for infectious process, feeling well prior to events today, no recent cough, colds, illnesses afebrile Lines PIV: Right AC 20G Left AC 18G DVT: SCDs Resuscitation status: Full Code (2) ACS (acute coronary syndrome): (3) Hyperlipidemia: (4) Chest pain, precordial: (5) Abnormal EKG: (6) Fibromyalgia: (7) Hypertension: (8) Depression: Supervising Physician Co-Signing Physician Notes Dr. Tello was resident physician during care of patient. I discussed the case with the resident. I generally agree with the findings and plan. Ordered Brilinta, could consider transition to Plavix will defer to cardiology. History of Present Illness Reason for Consultation: s/p PCI w/stent placement History of Present Illness Mrs. Selina Hopkins is a 63 y/o female w/past medical history of HTN, fibromyalgia, depression, HLD, interstitial cystitis who presented to the [facility] ED with chest pain. She notes onset of exertional chest pain for about one week with one episode while walking in [place], another episode yesterday while walking outside visiting [facility], and an episode starting today at 2:30pm while carrying boxes up stairs. She noted chest pain was across her chest and felt like a tightness, which she attributed to her Fibromyaglia pain. She noted pain radiated to her throat and described it as a 4/10 pain. Pain would relieve with rest. She never took an ASA. No prior history of CAD, but significant family history. Her daughter urged her to go to ED for evaluation. She notes having mild shortness of breath with chest pain. No nausea, vomiting, syncope, diaphoresis with chest pain episodes. At [facility] she had abnormal ECG changes and a code heart alert was callled for ST elevation in V2 and changes from prior ECG. 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 She tolerated the procedure well without complications. She notes that her chest pain is much better s/p procedure with pain 1/10. She notes she has a headache. Otherwise, no shortness of breath, diaphoresis, palpitations, nausea, dizziness. Allergies Allergy/AdvReac Type Severity Reaction Status Date / Time No Known Allergies Allergy NONE Verified 01/26/19 17:59 Home Medications Home Medications Medication Instructions Recorded Confirmed Type amlodipine 0 mg PO DAILY 01/26/19 01/26/19 History carvedilol 25 mg PO BID 01/26/19 01/26/19 History dorzolamide-timolol 1 drp OPB BID 01/26/19 01/26/19 History duloxetine 60 mg PO BID 01/26/19 01/26/19 History fexofenadine [Kelly Allergy] 0 mg PO DAILY PRN 01/26/19 01/26/19 History furosemide 20 mg PO DAILY 01/26/19 01/26/19 History oxycodone-acetaminophen 1 tab PO BID PRN 01/26/19 01/26/19 History pentosan polysulfate sodium 100 mg PO AC 01/26/19 01/26/19 History [Elmiron] pregabalin [Lyrica] 150 mg PO BID 01/26/19 01/26/19 History trazodone 150 mg PO HS 01/26/19 01/26/19 History Patient History Medical History Fibromyalgia (Chronic) Hypertension (Chronic) Anxiety (Chronic) Depression (Chronic) Lumbar degenerative disc disease (Chronic) Snoring (Chronic) Surgical History H/O dilation and curettage (Chronic) H/O: hysterectomy (Chronic) History of lumbar spinal fusion (Chronic) Social History Preferred Language: Sami Communication Ability: Effective 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: No Beliefs That Will Affect Care: None Current Living Situation: Spouse Other Information That Helps Us Care for You: No Feels Safe at Home: Yes Safety Concerns: Feels Safe At This Time Smoking Status: Unknown if ever smoked Hx Alcohol Use: No Hx Substance Use: No Review of Systems Review of Systems: All systems reviewed & are unremarkable except as noted in HPI & below Constitutional: no fever and no chills Eyes: no diplopia and no loss of peripheral vision Ear, Nose, Mouth, Throat: no ear pain and no nasal discharge Respiratory: + dyspnea on exertion; no cough Cardiovascular: + chest pain and + radiating jaw, neck or arm pain; no palpitations and no edema Gastrointestinal: no abdominal pain, no nausea, no vomiting, no blood in stools and no melena Genitourinary: no dysuria and no difficulty urinating Musculoskeletal: + body aches (crhonic consistent with fibromyaglia); no muscle weakness Integumentary: + alopecia (chronic); no rash Neurologic: + headache(s) (s/p NTG); no dizziness and no syncope Psychiatric: no confusion Endocrine: no polydipsia and no polyphagia Hematologic / Lymphatic: no easy bleeding and no coagulopathy Physical Exam Constitutional: WD/WN, vitals as above cooperative and comfortable Eyes: + anicteric sclerae and EOM intact bilaterally Neck: normal visual inspection and trachea midline Respiratory: normal respiratory effort, lungs clear to auscultation Cardiovascular: Rate/Rhythm: regular rate and regular rhythm Extremities: no pedal edema Gastrointestinal (Abdomen): Percussion/Palpation: abdomen soft; abdomen nontender and no guarding Musculoskeletal: Head/Neck/Chest: normocephalic and head atraumatic Skin: no rashes, warm and dry Neurologic: moves all extremities and awake Psychiatric: A+Ox3, euthymic affect Results & Data Vital Signs (Past 12 Hours) Vital Signs Temp Pulse Pulse Resp BP BP Pulse Ox 01/26/19 18:21 65 22 165/89 H 95 01/26/19 17:06 36.6 C 75 16 158/71 H 96 Laboratory Results Laboratory Results - last 24 hr 01/26/19 01/26/19 01/26/19 17:27 17:27 17:27 WBC 4.79 L RBC 4.85 Hgb 14.4 Hct 41.7 MCV 86.0 MCH 29.7 MCHC 34.5 RDW Std Deviation 39.7 RDW Coeff of Beka 12.6 Plt Count 140 MPV 9.8 Immature Gran % (Auto) 0.2 Neut % (Auto) 58.9 Lymph % (Auto) 28.0 Sunflower % (Auto) 7.7 Eos % (Auto) 4.6 Baso % (Auto) 0.6 Immature Gran # (Auto) 0.01 Neut # (Auto) 2.82 Lymph # (Auto) 1.34 Sunflower # (Auto) 0.37 Eos # (Auto) 0.22 Baso # (Auto) 0.03 PT 10.3 INR 1.0 APTT 25.2 PTT Ratio 0.9 Activ Coag Time Kaolin Sodium 141 Potassium 3.3 L Chloride 107 Carbon Dioxide 28 Anion Gap 6.0 BUN 15 Creatinine 1.00 Est Cr Clr Drug Dosing 58.0 Est GFR ( Amer) 69.4 Est GFR (Non-Af Amer) 59.9 BUN/Creatinine Ratio 14.7 Glucose 127 H Calcium 9.4 Magnesium 2.2 Total Bilirubin 0.8 AST 23 ALT 38 Alkaline Phosphatase 100 POC Troponin I Troponin I < 0.015 Total Protein 7.4 Albumin 4.1 Globulin 3.3 Albumin/Globulin Ratio 1.2 Lipase 224 Nasal Screen MRSA (PCR) 01/26/19 01/26/19 01/26/19 17:30 19:07 21:55 WBC 4.90 RBC 4.81 Hgb 14.4 Hct 41.2 MCV 85.7 MCH 29.9 MCHC 35.0 RDW Std Deviation 39.5 RDW Coeff of Beka 12.6 Plt Count 131 MPV 10.2 Immature Gran % (Auto) Neut % (Auto) Lymph % (Auto) Sunflower % (Auto) Eos % (Auto) Baso % (Auto) Immature Gran # (Auto) Neut # (Auto) Lymph # (Auto) Sunflower # (Auto) Eos # (Auto) Baso # (Auto) PT INR APTT PTT Ratio Activ Coag Time Kaolin 279 H Sodium Potassium Chloride Carbon Dioxide Anion Gap BUN Creatinine Est Cr Clr Drug Dosing Est GFR ( Amer) Est GFR (Non-Af Amer) BUN/Creatinine Ratio Glucose Calcium Magnesium Total Bilirubin AST ALT Alkaline Phosphatase POC Troponin I < 0.03 Troponin I Total Protein Albumin Globulin Albumin/Globulin Ratio Lipase Nasal Screen MRSA (PCR) 01/26/19 Unknown WBC RBC Hgb Hct MCV MCH MCHC RDW Std Deviation RDW Coeff of Beka Plt Count MPV Immature Gran % (Auto) Neut % (Auto) Lymph % (Auto) Sunflower % (Auto) Eos % (Auto) Baso % (Auto) Immature Gran # (Auto) Neut # (Auto) Lymph # (Auto) Sunflower # (Auto) Eos # (Auto) Baso # (Auto) PT INR APTT PTT Ratio Activ Coag Time Kaolin Sodium Potassium Chloride Carbon Dioxide Anion Gap BUN Creatinine Est Cr Clr Drug Dosing Est GFR ( Amer) Est GFR (Non-Af Amer) BUN/Creatinine Ratio Glucose Calcium Magnesium Total Bilirubin AST ALT Alkaline Phosphatase POC Troponin I Troponin I Total Protein Albumin Globulin Albumin/Globulin Ratio Lipase Nasal Screen MRSA (PCR) Negative Medications Administered Carvedilol (Coreg) 25 mg PO BID RINA Stop: 02/25/19 20:59 Last Admin: 01/26/19 21:44 Dose: 25 mg Documented by: [id number] Dorzolamide/Timolol (Cosopt) 1 drops OPB BID RINA Stop: 02/25/19 20:59 Last Admin: 01/26/19 21:43 Dose: 1 drops Documented by: [id number] Duloxetine HCl (Cymbalta) 60 mg PO BID RINA Stop: 02/25/19 20:59 Last Admin: 01/26/19 21:43 Dose: 60 mg Documented by: [id number] Parenteral Electrolytes (Normosol-R) 1,000 mls @ 100 mls/hr IV .Q10H RINA Stop: 02/25/19 21:29 Last Admin: 01/26/19 21:47 Dose: 100 mls/hr Documented by: [id number] Pregabalin (Lyrica) 150 mg PO BID RINA Stop: 02/25/19 20:59 Last Admin: 01/26/19 21:43 Dose: 150 mg Documented by: [id number] Trazodone HCl (Desyrel) 150 mg PO HS RINA Stop: 02/25/19 20:59 Last Admin: 01/26/19 21:44 Dose: 150 mg Documented by: [id number] Resident Activity Tracking Resident Involvement: Resident Care Provided Care Provided: Adult Hospital Medicine (ICU)
--- NOTE | 2019-01-26 20:05 | Cardiac Catheterization ---
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 Today had severe chest tightness and radiation to back and throat. Initial EKG with borderline anterior ST elevations. Initial consultation with general cardiology. Recommended activation of cath lab tech. On my arrival patient HD stable with persistent symptoms and borderline EKG with ischemic appearing changes. Decision made for emergent cardiac cath. Full consent obtained and patient and agreed for cath +/- PCI as indicated. CAD Presenation: STEMI Anginal Classification: CCS IV Heart Failure: No Cardiogenic Shock within 24 Hours: No Cardiac Arrest within 24 Hours: No Imaging Studies Past 6 Months: No Stress Studies Past 6 Months: No STEMI OR Non-STEMI Symptom Onset Date: 01/26/19 Symptom Onset Time: 15:01 Thrombolytics: No Coronary Anatomy Dominant: Right Left Main (% Stenosis): Normal LAD (% Stenosis): Mid (40-50% calcified) and Distal (95% (culprit). ROMÁN I) D1 (% Stenosis): Ostial and Normal D2 (% Stenosis): Ostial (90%) D3 (% Stenosis): Normal Circumflex (% Stenosis): Normal OM1 (% Stenosis): Normal OM2 (% Stenosis): Normal OM3 (% Stenosis): Normal L PL1 (% Stenosis): Normal RCA (% Stenosis): Normal R PDA (% Stenosis): Normal R PL1 (% Stenosis): Normal Diagnostic Physicians Name: Jose Francisco Umaña MD Status: Emergency Closure Device Percutaneous Entry Location: Radial Closure Device: Radial Band Recommendations: PCI without planned CABG PCI Indication: PCI for STEMI - Stable First Noted: First EKG Lesion Segment Name: distal LAD Culprit Artery: Yes Stenosis Prior to Rx (%): 95% Pre-Procedure ROMÁN Flow: 1 Previously Treated Lesion: No Lesion Complexity: Non-High/Non-C Lesion Length (mm): 10 mm Thrombus Present: Yes Bifurcation Lesion: No Guidewire Across Lesion: Yes Intraprocedure Events Significant Disection: No Perforation: No Cardiac Cath Procedure Full Procedure Date January 26, 2019 Pre-Procedure Diagnosis Pre-Procedure Diagnosis: STEMI AUC Score AUC Score: 09 Post-Procedure Diagnosis Post-Procedure Diagnosis: Severe CAD Procedure(s) Performed Procedure(s) Performed: Coronary Angiography, Left Heart Cath and Drug Eluting Stent Photography Editor Jose Francisco Umaña MD Estimated Blood Loss Estimated Blood Loss: None (5 ml) Medication(s) Medication(s): Aspirin, Fentanyl, Heparin, Hydralazine, Integrilin, Lidocaine 1%, Nicardipine, Nitroglycerin and Versed Medication(s): Brilinta 180 mg po x1 Summary of Findings LMT: normal LAD: prox normal, Mid long eccentric calcified 40-50%,early distal focal, hazy 95% with ROMÁN I flow. D1-ok, D2-ostial 90%, D3-ok LCx: non dominant mild non-occlusive disease. OM1 small, OM2 lg, branching, OM3 small, L-PLB small RCA: large, Dom. Branches to PDA and R PLB. No significant disease. PCI to LAD with 4 overlapped ROLAN: 0% residual stenosis post PCI ROMÁN III flow post PCI no evidence of dissection/perforation post PCI BRIEF PROCEDURE DESCRIPTION; Patient brought to cath lab tech, prepped and draped in a sterile fashion. Sedated with fentanyl and versed. Soft tissues of right wrist anesthetized with Xylocaine. Right radial access with modified Seldinger technique and 6F radial artery glide sheath placed. Anticoagulation with IV Heparin and antispasmodics with nicardipine and NTG. All catheters advanced and exchanged over J wire. Selective L coronary angiography in orthogonal views with 5F TIG-R diagnostic cath Selective R coronary angiography in orthogonal views with 5F TIG-R diagnostic cath Diagnostic catheters removed. We moved to PCI of the LAD. A 6F EBU 3.5 guide catheter was used to engage the LM. A BMW universal was advanced and positioned distally in the LAD. Patient provided additional IV Heparin as needed to maintain therapeutic anticoagu lation. Integrilin was provided as a double bolus administration. Predilitation was performed with a 2.0x12 mm MINITREK balloon up to 8 isabelle. Given the extent of the diseased segment and geometry of the vessel decision was made to utilize multiple stents. First, a Neena 2.5x15 mm ROLAN was advanced and positioned across the lesion. It was deployed using 11 atms. Balloon was removed and decision was made to place a Neena 2.25x8 mm with its proximal edge just within the distal edge of the first stent in order to properly taper the distal stented segment for vessel size. Deployed at 9 isabelle. The overlapped segment was then post dilated to 16 isabelle. We next implanted a Neena 2.5x12 mm stent at 11 isabelle with its distal edge overlapped with the proximal edge of the first stent to cover the diseased and tortuous mid vessel. Stent balloon removed. Angiography performed. There appeared to be additional unstented disease in the segment so a final Neena 2.5x15 mm stent was deployed at 12 isabelle (overlapped with last stent) to cover this disease. The stent balloon was removed and angiography performed. The BMW guidewire was removed and final angiography performed in orthogonal views. The guide catheter was removed over the J wire. We next completed diagnostic portion of the study. A 5F pigtail catheter was advanced across the aortic valve into the LV. Hemodynamics obtained. LG gram was deferred secondary to IVP dye load, renal function, and possibility of apical thrombus. Catheter was pulled back across aortic valve and aortic hemodynamics recorded. Catheter was then removed from the patient. Radial artery sheath removed. Hemostasis obtained with TR band. The patient remained hemodynamically stable and was asymptomatic. She received 180 mg loading dose of Brilinta. She was then transferred to the ICU for further management. This ended the case. Hemodynamics Rest Ao:: 144/66 mm Hg, 99 mm Hg Final Ao: 139/59 mm Hg, mean 87 mm Hg LV: 135/-11 mm Hg, LVEDP 5 mm Hg Recommendations Recommendations: PCI without planned CABG Radiation Exposure (mGy) 2229, flouro time 16.6 min Contrast (mls) 200 ml visi Fluids (cc crystalloids) Fluids (cc crystalloids): 100 ml Procedural Complication(s) None Disposition ICU
[2019-01-26] MEDS ORDERED: OXYCODONE HCL IR 5 MG TAB (IMMEDIATE RELEASE) PO PRN (20:10)
[2019-01-26] MEDS ORDERED: FEXOFENADINE 60 MG TAB PO PRN (20:10)
[2019-01-26] MEDS ORDERED: MoRPHine SULFATE 4 MG/ML 1 ML CARP\\VIAL IV PRN (20:10)
[2019-01-26] MEDS ORDERED: MoRPHine SULFATE 2 MG/ML CARP IV PRN (20:10)
[2019-01-26] MEDS ORDERED: ICU PROTOCOL FOR HYPERGLYCEMIA PRN ×2 (20:10→21:06)
--- NOTE | 2019-01-26 20:26 | Emergency Department Note ---
Entered by Grace Oshea acting as a scribe for Checo Simpson MD History of Present Illness General Chief complaint: Cardiac Assessment Stated complaint: CHEST DISCOMFORT THAT GOES INTO THROAT,DIZZY Time Seen by Provider: 01/26/19 17:08 Source: patient History of Present Illness Onset (ago): hour(s) 3 Location: chest Radiation: neck Pain Consistency: + other (worsening) Maximum Pain Intensity: 4 Current Pain Intensity: 4 Quality: + other ("gripping") Associated symptoms: + denies other symptoms (congestion) and + other (dizziness); no cough, no diaphoresis, no nausea/vomiting and no shortness of breath The patient is a 63 year old F who presents to the Emergency Room with complai nts of worsening chest pain that started 3 hours ago. She states that her chest pain started today after carrying empty boxes. She notes that she has experienced episodes of chest pain intermittently for the past couple of weeks. She adds that her worst episode of chest pain was one week ago in [facility]. She notes that she was walking when the episode of chest pain occurred, which lasted for 1 hour. She rates her current chest pain as 4 out of 10. She states that her chest pain radiates to her throat. She describes her chest pain as gripping. She notes that she is currently experiencing dizziness. She denies experiencing sweating, nausea, coughing, congestion and shortness of breath. She also denies taking aspirin regularly. She denies a personal history of heart disease. She notes that she has a family history of heart attacks. She adds that her mom had heart problems in her 30s and when she was 63. She states that her brother of a heart attack when he was in his 30s. She states that she has a history of HTN and fibromyalgia. She denies a history of diabetes, high cholesterol, and smoking. Home Medications Home Medications Medication Instructions Recorded Confirmed Type amlodipine 0 mg PO DAILY 01/26/19 01/26/19 History carvedilol 25 mg PO BID 01/26/19 01/26/19 History dorzolamide-timolol 1 drp OPB BID 01/26/19 01/26/19 History duloxetine 60 mg PO BID 01/26/19 01/26/19 History fexofenadine [Kelly Allergy] 0 mg PO DAILY PRN 01/26/19 01/26/19 History furosemide 20 mg PO DAILY 01/26/19 01/26/19 History oxycodone-acetaminophen 1 tab PO BID PRN 01/26/19 01/26/19 History pentosan polysulfate sodium 100 mg PO AC 01/26/19 01/26/19 History [Elmiron] pregabalin [Lyrica] 150 mg PO BID 01/26/19 01/26/19 History trazodone 150 mg PO HS 01/26/19 01/26/19 History Allergies Allergy/AdvReac Type Severity Reaction Status Date / Time No Known Allergies Allergy NONE Verified 01/26/19 17:59 Past Med/Surg History Medical History Fibromyalgia (Chronic) Hypertension (Chronic) Anxiety (Chronic) Depression (Chronic) Lumbar degenerative disc disease (Chronic) Snoring (Chronic) Surgical History H/O dilation and curettage (Chronic) H/O: hysterectomy (Chronic) History of lumbar spinal fusion (Chronic) Social History Preferred Language: Tajik Communication Ability: Effective 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 and A total of 10 systems reviewed and were otherwise negative Physical Exam Vital Signs Vital Signs - 24 hr 01/26/19 17:06 01/26/19 18:21 01/26/19 20:00 Temperature 36.6 C 36.7 C Temperature Source Oral Oral Sepsis Recent Fever Within 48 Hours No Sepsis New/Unexplained Change in Mental Status No Sepsis Action Taken by Nursing No Action Required Pulse Rate 75 Pulse Rate [Right Finger] 65 66 Pulse Rhythm [Right Finger] Regular Regular Pulse Strength [Right Finger] Normal Normal Respiratory Rate 16 22 16 Respiratory Effort / Characteristics Non-Labored Non-Labored Non-Labored Spontaneous Respiratory Depth Normal Normal Normal Respiratory Pattern Regular Regular Blood Pressure 158/71 H Blood Pressure [Left Arm] 165/89 H 153/85 H Blood Pressure Mean 100 Blood Pressure Mean [Left Arm] 114 107 Blood Pressure Position [Left Arm] Lying Lying Pulse Oximetry 96 95 95 Oxygen Delivery Method Room Air Room Air GENERAL: Patient is in no acute distress. HEENT: No acute trauma, normocephalic atraumatic, mucous membranes moist, no nasal congestion, no scleral icterus. NECK: No stridor, no adenopathy, no meningismus, trachea is midline. LUNGS: Clear to auscultation bilaterally, no wheeze, no rhonchi, breath sounds equal. HEART: Without murmurs gallops or rubs, regular rate and rhythm. CHEST: Non-tender chest wall. ABDOMEN: Soft, nontender, bowel sounds positive, no hernias, no peritonitis. EXTREMITIES: No cyanosis or edema, full range of motion of all the joints without pain or difficulty, no signs for acute trauma. NEUROLOGIC: Oriented x 3, no acute motor or sensory deficits, no focal weakness. SKIN: No rash, no jaundice, no diaphoresis. Course 171: The patient was evaluated in room B12B. A complete history and physical exam was performed. 1750: I re-checked the patient and gave her some medications. She states that she is feeling better. 175: I reviewed the patient's case with Dr. Madhu Nova, [facility] [place]. He told me to send him the patient's EKG for him to review. He states that he will call me back after reviewing the EKG. 180: I reviewed the patient's case with Dr. Nova, [facility] [place]. He states that the patient should be sent to the cathode maker. 181: I reviewed the patient's case with Dr. Rothman, [facility] hospitalist. He will evaluate the patient for further management. 1830: I updated Dr. Umaña on the patient's condition. Consultations Consultation #1: I reviewed the patient's case with Dr. Rothman, [facility] hospitalist. He will evaluate the patient for further management. Time: 18:16 Administered Medications Carvedilol (Coreg) 25 mg PO BID [facility] Stop: 02/25/19 20:59 Last Admin: 01/26/19 21:44 Dose: 25 mg Documented by: [id number] Dorzolamide/Timolol (Cosopt) 1 drops OPB BID [facility] Stop: 02/25/19 20:59 Last Admin: 01/26/19 21:43 Dose: 1 drops Documented by: [id number] Duloxetine HCl (Cymbalta) 60 mg PO BID [facility] Stop: 02/25/19 20:59 Last Admin: 01/26/19 21:43 Dose: 60 mg Documented by: [id number] Parenteral Electrolytes (Normosol-R) 1,000 mls @ 100 mls/hr IV .Q10H [facility] Stop: 02/25/19 21:29 Last Admin: 01/26/19 21:47 Dose: 100 mls/hr Documented by: [id number] Pregabalin (Lyrica) 150 mg PO BID [facility] Stop: 02/25/19 20:59 Last Admin: 01/26/19 21:43 Dose: 150 mg Documented by: [id number] Trazodone HCl (Desyrel) 150 mg PO HS [facility] Stop: 02/25/19 20:59 Last Admin: 01/26/19 21:44 Dose: 150 mg Documented by: [id number] Discontinued Medications Acetaminophen (Tylenol) 650 mg PO NOW STA Stop: 01/26/19 17:18 Last Admin: 01/26/19 17:25 Dose: 650 mg Documented by: [id number] Aspirin (Aspirin) 324 mg PO NOW STA Stop: 01/26/19 17:16 Last Admin: 01/26/19 17:25 Dose: 324 mg Documented by: [id number] Eptifibatide (Integrilin (Engineer Chief Use Only)) Confirm Administered Dose 75 mg .ROUTE .STK-MED ONE Stop: 01/26/19 19:28 Last Admin: 01/26/19 19:31 Dose: 75 mg Documented by: [id number] Eptifibatide (Integrilin (Engineer Chief Use Only)) Confirm Administered Dose 40 mg .ROUTE .STK-MED ONE Stop: 01/26/19 19:28 Last Admin: 01/26/19 19:30 Dose: 27.2 mg Documented by: [id number] Fentanyl Citrate (Fentanyl Citrate) Confirm Administered Dose 100 mcg .ROUTE .STK-MED ONE Stop: 01/26/19 18:29 Last Increment: 01/26/19 19:43 Dose: 25 mcg Documented by: [id number] Heparin Sodium (Porcine) (Heparin Iv Bolus (Engineer Chief Use Only)) Confirm Administered Dose 10,000 units .ROUTE .STK-MED ONE Stop: 01/26/19 18:29 Last Admin: 01/26/19 19:43 Dose: 6,000 units Documented by: [id number] Heparin Sodium/Sodium Chloride (Heparin/Nss 1000 Unit/500ml Flush Bag) Confirm Administered Dose 3,000 units IV .STK-MED ONE Stop: 01/26/19 18:29 Last Admin: 01/26/19 19:25 Dose: 3,000 units Documented by: [id number] Hydralazine HCl (Hydralazine Hcl) Confirm Administered Dose 20 mg .ROUTE .STK- MED ONE Stop: 01/26/19 19:08 Last Increment: 01/26/19 19:25 Dose: 10 mg Documented by: [id number] Midazolam HCl (Versed) Confirm Administered Dose 2 mg .ROUTE .ST-MED ONE Stop: 01/26/19 18:29 Last Increment: 01/26/19 19:44 Dose: 1 mg Documented by: [id number] Morphine Sulfate (Morphine Sulfate) 2 mg IV NOW STA Stop: 01/26/19 18:16 Last Admin: 01/26/19 18:26 Dose: 2 mg Documented by: [id number] Nicardipine HCl (Cardene) Confirm Administered Dose 25 mg .ROUTE .STK-MED ONE Stop: 01/26/19 18:29 Last Admin: 01/26/19 19:24 Dose: 25 mg Documented by: [id number] Nitroglycerin (Nitro-Bid 2%) 1 inch EXT NOW STA Stop: 01/26/19 17:16 Last Admin: 01/26/19 17:25 Dose: 1 inch Documented by: [id number] Nitroglycerin (Nitro-Bid 2%) 2 inch EXT NOW STA Stop: 01/26/19 18:06 Last Admin: 01/26/19 18:14 Dose: 2 inch Documented by: [id number] Nitroglycerin/Dextrose (Nitroglycerin/D5w 100 Mcg/Ml 20ml Syringe) Confirm Administered Dose 2,000 mcg .ROUTE .ST-MED ONE Stop: 01/26/19 18:29 Last Admin: 01/26/19 19:25 Dose: 2,000 mcg Documented by: [id number] Ondansetron HCl (Zofran) 4 mg IV NOW STA Stop: 01/26/19 18:16 Last Admin: 01/26/19 18:26 Dose: 4 mg Documented by: [id number] Ticagrelor (Brilinta) Confirm Administered Dose 180 mg PO .EyesBot ONE Stop: 01/26/19 19:39 Last Admin: 01/26/19 19:44 Dose: 180 mg Documented by: [id number] Medical Decision Making Differential Diagnosis Differential diagnosis includes: NC, angina, anemia, electrolyte imbalance, aortic dissection, PE Medical Records Attestation: I reviewed the patient's medical records. Home Medications Current Medication List: was personally reviewed by me Laboratory Data Attestation: I reviewed the patient's lab results. Result diagrams: 01/26/19 21:55 01/26/19 17:27 Lab Results 01/26/19 01/26/19 01/26/19 Range/Units 17:27 17:27 17:27 WBC 4.79 L (4.8-10.8) K/uL RBC 4.85 (4.2-5.4) M/uL Hgb 14.4 (12.0-16.0) g/dL Hct 41.7 (37-47) % MCV 86.0 (80-100) fL MCH 29.7 (25-34) pg MCHC 34.5 (32-36) g/dL RDW Std Deviation 39.7 (36.4-46.3) fL RDW Coeff of Beka 12.6 (11.5-14.5) % Plt Count 140 (130-400) K/uL MPV 9.8 (7.4-10.4) fL Immature Gran % (Auto) 0.2 % Neut % (Auto) 58.9 % Lymph % (Auto) 28.0 % Churchill % (Auto) 7.7 % Eos % (Auto) 4.6 % Baso % (Auto) 0.6 % Immature Gran # (Auto) 0.01 (0.00-0.02) K/uL Neut # (Auto) 2.82 (1.4-6.5) K/uL Lymph # (Auto) 1.34 (1.2-3.4) K/uL Churchill # (Auto) 0.37 (0.11-0.59) K/uL Eos # (Auto) 0.22 (0-0.5) K/uL Baso # (Auto) 0.03 (0-0.2) K/uL PT 10.3 (9.0-12.0) Seconds INR 1.0 (0.9-1.1) APTT 25.2 (21.0-31.0) Seconds PTT Ratio 0.9 Activ Coag Time Kaolin (94-140) SECONDS Sodium 141 (136-145) mmol/L Potassium 3.3 L (3.5-5.1) mmol/L Chloride 107 (98-107) mmol/L Carbon Dioxide 28 (21-32) mmol/L Anion Gap 6.0 (3-11) BUN 15 (7-18) mg/dl Creatinine 1.00 (0.6-1.2) mg/dl Est Cr Clr Drug Dosing 58.0 ml/min Est GFR ( Amer) 69.4 Est GFR (Non-Af Amer) 59.9 BUN/Creatinine Ratio 14.7 (10-20) Glucose 127 H (70-99) mg/dl Calcium 9.4 (8.5-10.1) mg/dl Magnesium 2.2 (1.8-2.4) mg/dl Total Bilirubin 0.8 (0.2-1) mg/dl AST 23 (15-37) U/L ALT 38 (12-78) U/L Alkaline Phosphatase 100 (45-117) U/L POC Troponin I (0-0.045) ng/ml Troponin I < 0.015 (0-0.045) ng/ml Total Protein 7.4 (6.4-8.2) gm/dl Albumin 4.1 (3.4-5.0) gm/dl Globulin 3.3 (2.5-4.0) gm/dl Albumin/Globulin Ratio 1.2 (0.9-2) Lipase 224 (73-393) U/L 01/26/19 01/26/19 Range/Units 17:30 19:07 WBC (4.8-10.8) K/uL RBC (4.2-5.4) M/uL Hgb (12.0-16.0) g/dL Hct (37-47) % MCV (80-100) fL MCH (25-34) pg MCHC (32-36) g/dL RDW Std Deviation (36.4-46.3) fL RDW Coeff of Beka (11.5-14.5) % Plt Count (130-400) K/uL MPV (7.4-10.4) fL Immature Gran % (Auto) % Neut % (Auto) % Lymph % (Auto) % Churchill % (Auto) % Eos % (Auto) % Baso % (Auto) % Immature Gran # (Auto) (0.00-0.02) K/uL Neut # (Auto) (1.4-6.5) K/uL Lymph # (Auto) (1.2-3.4) K/uL Churchill # (Auto) (0.11-0.59) K/uL Eos # (Auto) (0-0.5) K/uL Baso # (Auto) (0-0.2) K/uL PT (9.0-12.0) Seconds INR (0.9-1.1) APTT (21.0-31.0) Seconds PTT Ratio Activ Coag Time Kaolin 279 H (94-140) SECONDS Sodium (136-145) mmol/L Potassium (3.5-5.1) mmol/L Chloride (98-107) mmol/L Carbon Dioxide (21-32) mmol/L Anion Gap (3-11) BUN (7-18) mg/dl Creatinine (0.6-1.2) mg/dl Est Cr Clr Drug Dosing ml/min Est GFR ( Amer) Est GFR (Non-Af Amer) BUN/Creatinine Ratio (10-20) Glucose (70-99) mg/dl Calcium (8.5-10.1) mg/dl Magnesium (1.8-2.4) mg/dl Total Bilirubin (0.2-1) mg/dl AST (15-37) U/L ALT (12-78) U/L Alkaline Phosphatase (45-117) U/L POC Troponin I < 0.03 (0-0.045) ng/ml Troponin I (0-0.045) ng/ml Total Protein (6.4-8.2) gm/dl Albumin (3.4-5.0) gm/dl Globulin (2.5-4.0) gm/dl Albumin/Globulin Ratio (0.9-2) Lipase (73-393) U/L Imaging Data Radiologist's Impression: Radiology results as stated below per my review and the radiologist's interpretation: XR chest 1V portable HISTORY: 63 years-old Female Chest Pain acute atypical chest pain COMPARISON: Chest radiograph 11/15/2016 TECHNIQUE: Portable AP view of the chest FINDINGS: Cardiomediastinal and hilar silhouettes are within normal limits. No pneumothorax, pleural effusion, focal airspace consolidation or overt pulmonary edema. Bones of the chest appear grossly intact. IMPRESSION: No acute process. The above report was generated using voice recognition software. It may contain grammatical, syntax or spelling errors. Electronically signed by: Hebert Wilkins M.D. 01/26/2019 5:37 PM ECG Data Attestation: I personally reviewed and interpreted this ECG as follows: Indication: chest pain Rate (beats per minute): 73 Rhythm: normal sinus Findings: + other (biphasic T-waves in anterior and lateral leads) and + T-wave inversion (Anterior and Lateral); no PVC Comparison ECG Date: from (11/16/16) Change: the following changes noted (T-wave changes are new) Additional Comments: 9401: The patient's second EKG is unchanged. Blood Pressure Blood Pressure Findings: Elevated blood pressure Blood Pressure Disposition: further management by hospitalist [facility] Narrative There is no leukocytosis or concerning anemia. No coagulopathy. No significant electrolyte abnormality or kidney failure. No evidence for liver enzyme elevation. No evidence for pancreatitis. EKG shows biphasic T waves in the anterior and lateral leads. No ST elevation that would meet acute NC and heart alert criteria. This EKG though is markedly changed from previous EKGs. Chest film does not show pneumonia or mediastinal widening. Cardiac troponin testing x1 is not consistent with acute cardiac injury. On exam, the patient was not toxic or tachycardic, she was not hypoxic. The patient received nitroglycerin paste, 1 inch, she was then increased to 2 inches. She was given 4 baby aspirin orally. She received IV morphine for pain, IV Zofran for nausea. Despite this medication regimen, the patient was still having chest discomfort. A repeat EKG was done showing similar findings to the first. The patient has multiple cardiac risk factors. She has EKG changes and chest pain that sounds cardiac in origin. I consulted cardiology and they recommended a heart cath as the patient was still having chest pain with persistent EKG changes. A heart alert was then called. The patient was taken to the cardiac catheterization laboratory for potential intervention. I spoke to cardiology, I spoke to the coin machine servicer repairer on-call. I spoke to case management. I talked with the on-call hospitalist. The patient is aware of all her findings and our concerns. Impression & Plan Chest pain, precordial, Abnormal EKG Critical Care Time Critical Care Time: Yes I have personally spent 50 minutes of critical care time in the direct management of this patient. This includes bedside care, interpretation of d iagnostic studies, and testing, discussion with consultants, patient, and family members, and other required patient management activities. This 50 minutes is in excess of all separately billable procedures. Discharge Plan Visit Data *Final* Discharge Date/Time: 01/26/19 18:37 Chief Complaint: Cardiac Assessment Stated Complaint: CHEST DISCOMFORT THAT GOES INTO THROAT,DIZZY ED Provider: Checo Simpson Discharge Problem: Chest pain, precordial, Abnormal EKG Patient Disposition: Admitted As Inpatient Discharge Instructions Interventions: ED Discharge Assessment Last Done: 01/26/19 18:37 The audeliaibe's documentation has been prepared under my direction and personally reviewed by me in its entirety. I confirm that the note above accurately reflects all work, treatment, procedures, and medical decision making performed by me.
--- NOTE | 2019-01-26 20:34 | Pre Anesthesia Assessment ---
Date of Service January 26, 2019 Pre Sedation Assessment Vital Signs Temp Pulse Pulse Resp BP BP Pulse Ox 01/26/19 18:21 65 22 165/89 H 95 01/26/19 17:06 36.6 C 75 16 158/71 H 96 Cardiovascular RRR, no murmur, no edema + peripheral pulses normal Respiratory normal respiratory effort, lungs clear to auscultation Pre-Sedation Airway Assessment Smoking Status: Unknown if ever smoked Hx Sleep Apnea: No Hx Difficult Intubation: No Short, Thick Neck: No Thyromental Distance: > or= 3.5 Finger Breadths Oral Cavity: + WNL Mallampati Class: II ASA: ASA3 Procedure Planning Contraindications for Sedation: none Notes The planned sedation has been discussed with the patient. Informed Consent was obtained. I have identified the patient, determined the appropriateness of sedation and have assessed the patient immediately prior to the procedure. All medicine(s) and interventions are by my order.
--- NOTE | 2019-01-26 20:35 | Post Anesthesia Assessment ---
Date of Service January 26, 2019 Post Sedation Assessment Vital Signs Temp Pulse Pulse Resp BP BP Pulse Ox 01/26/19 20:30 75 16 160/87 H 95 01/26/19 20:15 67 14 154/86 H 94 01/26/19 18:21 65 22 165/89 H 95 01/26/19 17:06 36.6 C 75 16 158/71 H 96 Recovery Score Activity: Moves 4 extremities Respiration: Deep Breath/Cough Circulation: +/-20% PreAnes Value Consciousness: Fully Awake Oxygen Saturation: > 92% On Room Air Discharge Sedation Level of Care: Fast Track Phase II Post Sedation Plan On clinical assessment, the patient appears to have tolerated the sedation without complications. Patient is recovering as anticipated. Patient will continue to be monitored by nursing and may be discharged to the ICU for management of ME. . Upon Completions of procedure and additional 15 minutes continue every 5 minute vital signs and the P.A.R. score; then discharge to a Phase I or Fast Track to Phase II per the following guidelines: * Discharge Patient to appropriate Phase II area if PAR is 8 or greater or return to pre- procedure baseline. The post - procedure orders will be as directed. * If PAR score is less than 8 or not return to pre-procedure baseline then patient will follow Phase I monitoring till PAR is reached for Phase II. The Phase I may be done in procedure room or may call to secure a Phase I area. * If naloxone or flumazenil are used for reversal, hold in Phase I for continued monitoring from when last reversal dose was given for a minimum of 60 minutes or longer pending the nurse and/or physician discretion of patient condition before discharge to Phase II. Please call the Sedation Physician to re-evaluate and complete post-note for discharge to Phase II area. Do NOT discharge from procedure sedation or Phase 1 until post- sedation evaluation note is complete by procedure /sedation MD Sedation Discharge Instructions to be given to the patient at discharge to home.
--- NOTE | 2019-01-26 21:02 | History & Physical Report ---
Date of Service January 26, 2019 Assessment & Plan (1) ACS (acute coronary syndrome): 63-year-old female with a past medical history of resistant hypertension, hypertriglyceridemia, depression, alopecia and fibromyalgia presents with chest pain that started today at 2:30 PM while carrying boxes upstairs. In the ED, the patient was found to have concerning signs in the anterior leads, borderline ST elevation. Patient was subsequently brought to the Mine Analyst and received stents to her LAD. STEMI, status post stents to LAD Patient transferred to ICU after procedure, critical care consult placed, followed by cardiology Continue home blood pressure medications including carvedilol, amlodipine, furosemide Initiate dual antiplatelet therapy aspirin, Brilinta Initiate high intensity statin Hypertension Continue home meds Depression Continue duloxetine, trazodone Fibromyalgia Continue Lyrica CODE STATUS Full (2) Hyperlipidemia: (3) Chest pain, precordial: (4) Abnormal EKG: (5) Fibromyalgia: (6) Hypertension: (7) Depression: History of Present Illness Primary Care Provider: Natasha Saldaña MD 63-year-old female with a past medical history of resistant hypertension, hypertriglyceridemia, depression, alopecia universalis - presents with chest pain that started today at 2:30 PM while carrying boxes upstairs. She states that the chest pain lasted approximately 1 hour and would come back when she was doing activity. She denies any shortness of breath, but she says that she became dizzy. She denies any lower extremity edema. The patient endorses having an episode of chest pain about a week ago while walking through [place]. She denies a history of previous heart caths or diagnosis of CAD. She denies a history of smoking, but she does report a family history significant for coronary artery disease and arrhythmias. In the ED, the patient was found to have concerning signs in the anterior leads, borderline ST elevation. Patient was subsequently brought to the [facility] and received stents to her LAD. Allergies Allergy/AdvReac Type Severity Reaction Status Date / Time No Known Allergies Allergy NONE Verified 01/26/19 17:59 Home Medications Home Medications Medication Instructions Recorded Confirmed Type amlodipine 0 mg PO DAILY 01/26/19 01/26/19 History carvedilol 25 mg PO BID 01/26/19 01/26/19 History dorzolamide-timolol 1 drp OPB BID 01/26/19 01/26/19 History duloxetine 60 mg PO BID 01/26/19 01/26/19 History fexofenadine [Kelly Allergy] 0 mg PO DAILY PRN 01/26/19 01/26/19 History furosemide 20 mg PO DAILY 01/26/19 01/26/19 History oxycodone-acetaminophen 1 tab PO BID PRN 01/26/19 01/26/19 History pregabalin [Lyrica] 150 mg PO BID 01/26/19 01/26/19 History trazodone 150 mg PO HS 01/26/19 01/26/19 History Past Med/Surg History Medical History Fibromyalgia (Chronic) Hypertension (Chronic) Anxiety (Chronic) Depression (Chronic) Lumbar degenerative disc disease (Chronic) Snoring (Chronic) Surgical History H/O dilation and curettage (Chronic) H/O: hysterectomy (Chronic) History of lumbar spinal fusion (Chronic) Social History Preferred Language: Mongolian Communication Ability: Effective Rag Grader Required: No Beliefs That Will Affect Care: None Current Living Situation: Spouse Other Information That Helps Us Care for You: No Feels Safe at Home: Yes Safety Concerns: Feels Safe At This Time Smoking Status: Unknown if ever smoked Hx Alcohol Use: No Hx Substance Use: No Review of Systems Review of Systems: All systems reviewed & are unremarkable except as noted in HPI & below Physical Exam Constitutional: WD/WN, vitals as above Eyes: PERRL, conjunctivae normal, anicteric sclerae ENMT: external ear and nose normal, oropharynx normal Neck: trachea midline, no thyromegaly Respiratory: normal respiratory effort, lungs clear to auscultation Cardiovascular: RRR, no murmur, no edema Gastrointestinal (Abdomen): normal bowel sounds, soft, nontender, no hepatosplenomegaly Musculoskeletal: no cyanosis or clubbing, extremities motor strength 5/5 Skin: no rashes, warm and dry Neurologic: PERRL, EOMI, accommodation nl, no face palsy, no dysarthria Psychiatric: A+Ox3, euthymic affect Results & Data Vital Signs (Past 12 Hours) Vital Signs Temp Pulse Pulse Resp BP BP Pulse Ox 08/03/19 20:30 75 16 160/87 H 95 01/26/19 20:15 67 14 154/86 H 94 01/26/19 18:21 65 22 165/89 H 95 01/26/19 17:06 36.6 C 75 16 158/71 H 96 Diagnostic Findings [facility], [place] [phone] XRay Report Patient: AJLIL DIETRICH AAdmit Date: 01/26/19 MR#: [id number]: [id number] Acct ID:[id number]: Date: 1955[facility] Zip: [place] [address] Age: 63Location: ED Sex: F Room/Bed: Att Phy: Diagnosis: CHEST DISCOMFORT THAT GOES INTO THROAT,DIZZY Haleigh Phy: Natasha Saldaña MDService Date: 01/26/19 Fam Phy: Interpreting Phy: Austin Wilkins Admit Phy: Ordering Phy: Checo Simpson M.D. cc: ~ XR chest 1V portable HISTORY: 63 years-old Female Chest Pain acute atypical chest pain COMPARISON: Chest radiograph 11/15/2016 TECHNIQUE: Portable AP view of the chest FINDINGS: Cardiomediastinal and hilar silhouettes are within normal limits. No pneumothorax, pleural effusion, focal airspace consolidation or overt pulmonary edema. Bones of the chest appear grossly intact. IMPRESSION: No acute process. The above report was generated using voice recognition software. It may contain grammatical, syntax or spelling errors. Electronically signed by: Hebert Wilkins M.D. 01/26/2019 5:37 PM Dictated: 01/26/19 1736 Transcribed: 01/26/19 1736 Code Status & VTE Plan Code Status Full code VTE Prophylaxis Plan VTE Prophylaxis will be ordered: Yes Supervising Physician Co-Signing Physician Notes Pt seen examined after she arrived in the ICU from the r&d lab technician. The plan and orders were discussed with the medical professionals Fidel Pandya who completed the initial H & P. 63 y/o F Hx HTN, HLD, depression, alopecia universalis - presented with intermittent chest pain brought about with activity. This was accompanied by dizziness. On arrival to the ER with persistent CP, an EKG was diagnostic of an anterior STEMI. She proceeded to the r&d lab technician and her LAD was subsequently stented. She is sitting up and enjoying a turkey sandwich at the time of medical evaluation. She denies any CP, SOB, N/V. OE: AAO x 3 S1,2 R CTAB NT, ND No CCE No deficits P: Placed on a statin, Brilinta, ASA We will have to do better controlling her BP which has been historically difficult - she is taking Norvasc, Coreg, Lasix - a dose adjustment or substitutions would be prudent and will be addressed with cardiology. She should remain on a statin as tolerated PG Care Time/CCT Total # of Minutes Spent Total Time Spent with Patient: Total time spent is greater than 50% in coordination of care (as documented) at patient's floor/unit and/or counseling patient: Resident Activity Tracking Resident Involvement: Resident Care Provided Care Provided: Adult Hospital Medicine
--- NOTE | 2019-01-26 21:05 | Cardiology Consultation ---
Date of Consultation January 26, 2019 Assessment & Plan (1) Hyperlipidemia: check fasting lipid panel. initiate high intensity statin therapy. Present on Admission?: Yes (2) ACS (acute coronary syndrome): s/p PCI. Will remain on DAPT with ASA 81 mg and Brilinta 90 mg bid. Received 180 mg loading dose in dental laboratory supervisor. ASA in ED. Will initiate guideline directed medical therapy for secondary prevention of CAD to include; beta april, statin, +/- ACEi/ARB. Follow cardiac troponin. Obtain ECHO as LVG deferred and EF unknown. Further recommendations pending results. ICU for 24 hours. post procedure labs: CBC, BMP. Present on Admission?: Yes (3) Hypertension: continue coreg at home dose. d/c amlodipine and start ACEi. Titrate for SBP <140 mm Hg. Can use IV hydralazine as needed. Monitor renal function. History of Present Illness Reason for Consultation: Heart Alert Requesting Physician: Checo Simpson Attending Physician: Nirmal Rothman MD History of Present Illness 63 yo female with several week history of intermittent chest, back, and throat discomfort presented with recurrent chest tightness, radiation to back and throat which occurred after walking up basement steps. She decided to seek medical attention as her symptoms did not resolve with rest. In ED symptoms were persistent. EKG was borderline for STEMI. General cardiology was called and recommended patient for emergent cardiac cath. The EKG remained borderline for STEMI and had changes for ongoing ischemia. Since she remained symptomatic she was taken to dental laboratory supervisor for coronary angiography. This demonstrated a severe lesion in the early distal LAD with haziness and reduced distal flow (ROMÁN I). Her LAD was a bit tortuous and there was a long 50% stenosis in the mid LAD immediately preceding the distal lesion. A total of 4 overlapped ROLAN were implanted in the mid and distal LAD to completely cover the diseases segments an d properly taper to vessel size. After PCI there was ROMÁN III flow and the patients symptoms were resolved. No angiographic evidence of complication. She is now ready for admission to ICU. She denies recent syncope, near syncope, orthopnea, PND, tachycardia, palpitations and edema. She does have fibromyalgia so states she has lots of areas which hurt. She thought her angina symptoms were fibromyalgia related. Allergies Allergy/AdvReac Type Severity Reaction Status Date / Time No Known Allergies Allergy NONE Verified 01/26/19 17:59 Home Medications Home Medications Medication Instructions Recorded Confirmed Type amlodipine 0 mg PO DAILY 01/26/19 01/26/19 History carvedilol 25 mg PO BID 01/26/19 01/26/19 History dorzolamide-timolol 1 drp OPB BID 01/26/19 01/26/19 History duloxetine 60 mg PO BID 01/26/19 01/26/19 History fexofenadine [Kelly Allergy] 0 mg PO DAILY PRN 01/26/19 01/26/19 History furosemide 20 mg PO DAILY 01/26/19 01/26/19 History oxycodone-acetaminophen 1 tab PO BID PRN 01/26/19 01/26/19 History pregabalin [Lyrica] 150 mg PO BID 01/26/19 01/26/19 History trazodone 150 mg PO HS 01/26/19 01/26/19 History Patient History Medical History Fibromyalgia (Chronic) Hypertension (Chronic) Anxiety (Chronic) Depression (Chronic) Lumbar degenerative disc disease (Chronic) Snoring (Chronic) Surgical History H/O dilation and curettage (Chronic) H/O: hysterectomy (Chronic) History of lumbar spinal fusion (Chronic) Social History Feels Safe at Home: Yes Smoking Status: Unknown if ever smoked Review of Systems Review of Systems: All systems reviewed & are unremarkable except as noted in HPI & below Physical Exam Constitutional: WD/WN, vitals as above Eyes: PERRL, conjunctivae normal, anicteric sclerae ENMT: external ear and nose normal, oropharynx normal Mallampati Class: II Neck: No JVD, bruits appreciated Respiratory: normal respiratory effort, lungs clear to auscultation Cardiovascular: RRR, no murmur, no edema Vessels: normal peripheral pulses Extremities: normal capillary refill Gastrointestinal (Abdomen): normal bowel sounds, soft, nontender, no hepatosplenomegaly Neurologic: moves all extremities and awake Cranial Nerves: PERRL, EOM intact bilaterally, normal facial strength and tongue midline No tremor Results & Data Vital Signs (Past 12 Hours) Vital Signs Temp Pulse Pulse Resp BP BP Pulse Ox 01/26/19 20:30 75 16 160/87 H 95 01/26/19 20:15 67 14 154/86 H 94 01/26/19 18:21 65 22 165/89 H 95 01/26/19 17:06 36.6 C 75 16 158/71 H 96 PG Care Time/CCT Total # of Minutes Spent Total Time Spent with Patient: Total time spent is greater than 50% in coordination of care (as documented) at patient's floor/unit and/or counseling patient: Critical Care Time: Yes Total Critical Care Time: 1 (hour exclusive of time spent in procedure.)
[2019-01-26] MEDS ORDERED: HydrALAZINE HCL 20 MG/ML VIAL IV PRN (21:16)
[2019-01-26] MEDS: DORZOLAMIDE/TIMOLOL 22.3/6.8MG/ML 10 ML BTL OPB SCH (21:43)
[2019-01-26] MEDS: PREGABALIN 75 MG CAP PO SCH (21:43)
[2019-01-26] MEDS: DULOXETINE HCL 60 MG CAP PO SCH (21:43)
[2019-01-26] MEDS: CARVEDILOL 25 MG TAB PO SCH (21:44)
[2019-01-26] MEDS: TRAZODONE HCL 50 MG TAB PO SCH (21:44)
[2019-01-26] MEDS ORDERED: POTASSIUM CHLORIDE 20 MEQ TABCR PO STA (21:46)
[2019-01-26] MEDS: NORMOSOL-R 1,000 ML IV SCH (21:47)
[2019-01-26 22:11] LABS: Hematocrit (blood only) 41.2 % (37-47); Hemoglobin 14.4 g/dL (12.0-16.0); Mean Corpuscular Volume 85.7 fL (80-100); Mean Platelet Volume 10.2 fL (7.4-10.4); Platelet Count 131 K/uL (130-400); RDW Coefficient of Variation 12.6 % (11.5-14.5); RDW Standard Deviation 39.5 fL (36.4-46.3); Red Blood Count 4.81 M/uL (4.2-5.4)
[2019-01-26] MEDS: PENTOSAN POLYSULFATE SODIUM 100 MG CAP PO SCH (22:25)
[2019-01-27 06:15] LABS: BUN Creatinine Ratio 23.4 (10-20); Blood Urea Nitrogen 18 mg/dl (7-18); Calcium 8.2 mg/dl (8.5-10.1); Carbon Dioxide 28 mmol/L (21-32); Chloride 112 mmol/L (98-107); Chol HDL Ratio 4; Cholesterol 158 mg/dl (0-200); Creatinine Clr Calc Pharmacy 76.3 ml/min; Est GFR (African American) 96.8; Est GFR (Non-African American) 83.5; Glucose 108 mg/dl (70-99); HDL Cholesterol 42 mg/dl; LDL Cholesterol Calculated 74 mg/dl; Potassium 3.9 mmol/L (3.5-5.1); Sodium 143 mmol/L (136-145); Triglycerides 210 mg/dl (0-150); Troponin I < 0.015 ng/ml (0-0.045); VLDL Cholesterol 42 mg/dl
--- NOTE | 2019-01-27 07:04 | Critical Care Progress Note ---
Date of Service January 27, 2019 Assessment & Plan (1) Admitted to intensive care unit: Reason critically ill: Selina Hopkins is a 63 y/o female with hx HTN, fibromyaglia, hld, depression, interstitial cystitis who is s/p PCI with overlapping stent placement x4 to distal LAD for 95% lesion causing symptoms of typical cardiac chest pain. Neuro: Cam negative Morphine 2-4 mg IV PRN q4h for moderate-severe pain respectively okay to continue with home duloxetine 60mg PO BID for depression/anxiety okay to continue with home Lyrica 150 mg PO BID for fibromyalgia Cardiac/vascular PMHX: HTN PCI for 95% occlusion of distal LAD with 4 overlapping ROLAN without any complications Received Brilinta load in dental laboratory assistant, will continue dual anti-platelet therapy with Brilinta 90mg BID and ASA low dose 81mg. Started on high intensity statin therapy with Lipitor 40mg PO qAM, Lisinopril 10mg PO qAM Already on Coreg 25mg PO BID which is adequate dose for Beta-blockade; will discontinue Amlodipine Hydralazine 10mg IV PRN for HTN >150 systolic per cardio recs Will look for underlying causes with A1C for DM (pending), lipid panel (only elevated Triglycerides; LDL 74), TSH normal Currently hemodynamically stable; okay to continue with home Lasix 20mg PO qAM Echocardiogram ordered and pending to look for EF and wall motion abnormalities. [id number] developer Trend troponins - initial in ED was negative but might have been drawn too acutely since takes 3-6 hours after sx onset, useful to check for any s ignificant cardiac myocyte damage Consider sleep study on outpatient basis if not completed previously Pulm lungs clear to auscultation, no signs of ischemic HF causing pulmonary edema 95% on RA GI Diet: Heart healthy Renal/Lytes Hypokalemic 3.9 Creatinine 0.76, will monitor trend BMP IVF: Normosol @ 100mL/hr Does not have strong Is on Elmiron at home TID dosing for interstitial cystitis; called pharmacist and ordered Endo No hx of DM or thyroid dysfunction, A1C pending and TSH WNL Heme: Recheck platelets tonight per licensing worker recs s/p PCI w/CBC * WBC, Hgb, Plt all WNL CBC 8/4 without any significant abnormalities ID No concerns for infectious process, feeling well prior to events today, no recent cough, colds, illnesses afebrile Lines PIV: Right AC 20G Left AC 18G DVT: SCDs Resuscitation status: Full Code (2) ACS (acute coronary syndrome): (3) Hyperlipidemia: (4) Chest pain, precordial: (5) Abnormal EKG: (6) Fibromyalgia: (7) Hypertension: (8) Depression: Supervising Physician Co-Signing Physician Notes Dr. Tello was resident physician during care of patient. I separately evaluated patient for [place] portions of the history and the exam. I was present during the critical portion of medical decision making, and I discussed the case with the resident. I generally agree with the findings and plan. Patient largely symptomatic stable for downgrade out of ICU today Subjective No acute events overnight. No worsening chest pain, shortness of breath, nausea, vomiting, syncope, dizziness, fever. Review of Systems Review of Systems: All systems reviewed & are unremarkable except as noted in HPI & below Physical Exam Constitutional: WD/WN, vitals as above cooperative and comfortable Eyes: + anicteric sclerae and EOM intact bilaterally Neck: normal visual inspection and trachea midline Respiratory: normal respiratory effort, lungs clear to auscultation Cardiovascular: Rate/Rhythm: regular rate and regular rhythm Extremities: no pedal edema Gastrointestinal (Abdomen): Percussion/Palpation: abdomen soft; abdomen nontender and no guarding Musculoskeletal: Head/Neck/Chest: normocephalic and head atraumatic Skin: no rashes, warm and dry Neurologic: moves all extremities and awake Psychiatric: A+Ox3, euthymic affect Results & Data Vital Signs (Past 12 Hours) Vital Signs Temp Pulse Pulse Resp BP BP Pulse Ox 01/27/19 04:00 37 C 57 L 11 L 95/58 L 90 01/27/19 03:30 57 L 11 L 96/63 L 92 01/27/19 03:00 59 L 11 L 104/67 92 01/27/19 02:30 57 L 11 L 97/58 L 92 01/27/19 02:00 61 13 94/56 L 92 01/27/19 01:30 59 L 12 104/65 92 01/27/19 01:00 55 L 14 89/61 L 92 01/27/19 00:30 54 L 16 101/63 93 01/27/19 00:15 55 L 9 L 96/58 L 93 01/27/19 00:00 56 L 12 94/58 L 94 01/26/19 23:45 65 18 100/62 92 01/26/19 23:30 59 L 10 L 97/59 L 92 01/26/19 23:15 62 13 109/64 92 01/26/19 23:00 55 L 13 127/65 94 01/26/19 22:47 58 L 15 126/79 95 01/26/19 22:30 61 15 142/81 H 95 01/26/19 22:15 61 13 119/71 94 01/26/19 22:00 66 19 144/75 H 95 01/26/19 21:45 70 24 138/82 94 01/26/19 21:30 80 12 135/82 95 01/26/19 21:15 67 23 161/78 H 94 01/26/19 21:05 70 18 145/92 H 94 01/26/19 20:45 65 16 170/99 H 94 01/26/19 20:30 75 16 160/87 H 95 01/26/19 20:15 67 14 154/86 H 94 01/26/19 20:00 36.7 C 66 16 153/85 H 95 Laboratory Results Laboratory Results - last 24 hr 01/26/19 01/26/19 01/26/19 17:27 17:27 17:27 WBC 4.79 L RBC 4.85 Hgb 14.4 Hct 41.7 MCV 86.0 MCH 29.7 MCHC 34.5 RDW Std Deviation 39.7 RDW Coeff of Beka 12.6 Plt Count 140 MPV 9.8 Immature Gran % (Auto) 0.2 Neut % (Auto) 58.9 Lymph % (Auto) 28.0 Clarke % (Auto) 7.7 Eos % (Auto) 4.6 Baso % (Auto) 0.6 Immature Gran # (Auto) 0.01 Neut # (Auto) 2.82 Lymph # (Auto) 1.34 Clarke # (Auto) 0.37 Eos # (Auto) 0.22 Baso # (Auto) 0.03 PT 10.3 INR 1.0 APTT 25.2 PTT Ratio 0.9 Activ Coag Time Kaolin Sodium 141 Potassium 3.3 L Chloride 107 Carbon Dioxide 28 Anion Gap 6.0 BUN 15 Creatinine 1.00 Est Cr Clr Drug Dosing 58.0 Est GFR ( Amer) 69.4 Est GFR (Non-Af Amer) 59.9 BUN/Creatinine Ratio 14.7 Glucose 127 H Estimat Average Glucose Hemoglobin A1c Calcium 9.4 Magnesium 2.2 Total Bilirubin 0.8 AST 23 ALT 38 Alkaline Phosphatase 100 POC Troponin I Troponin I < 0.015 Total Protein 7.4 Albumin 4.1 Globulin 3.3 Albumin/Globulin Ratio 1.2 Triglycerides Cholesterol LDL Cholesterol, Calc VLDL Cholesterol, Calc HDL Cholesterol Cholesterol/HDL Ratio Lipase 224 TSH Nasal Screen MRSA (PCR) 01/26/19 01/26/19 01/26/19 17:30 19:07 21:55 WBC 4.90 RBC 4.81 Hgb 14.4 Hct 41.2 MCV 85.7 MCH 29.9 MCHC 35.0 RDW Std Deviation 39.5 RDW Coeff of Beka 12.6 Plt Count 131 MPV 10.2 Immature Gran % (Auto) Neut % (Auto) Lymph % (Auto) Clarke % (Auto) Eos % (Auto) Baso % (Auto) Immature Gran # (Auto) Neut # (Auto) Lymph # (Auto) Clarke # (Auto) Eos # (Auto) Baso # (Auto) PT INR APTT PTT Ratio Activ Coag Time Kaolin 279 H Sodium Potassium Chloride Carbon Dioxide Anion Gap BUN Creatinine Est Cr Clr Drug Dosing Est GFR ( Amer) Est GFR (Non-Af Amer) BUN/Creatinine Ratio Glucose Estimat Average Glucose Hemoglobin A1c Calcium Magnesium Total Bilirubin AST ALT Alkaline Phosphatase POC Troponin I < 0.03 Troponin I Total Protein Albumin Globulin Albumin/Globulin Ratio Triglycerides Cholesterol LDL Cholesterol, Calc VLDL Cholesterol, Calc HDL Cholesterol Cholesterol/HDL Ratio Lipase TSH Nasal Screen MRSA (PCR) 01/26/19 01/26/19 01/27/19 22:58 Unknown 05:16 WBC RBC Hgb Hct MCV MCH MCHC RDW Std Deviation RDW Coeff of Beka Plt Count MPV Immature Gran % (Auto) Neut % (Auto) Lymph % (Auto) Clarke % (Auto) Eos % (Auto) Baso % (Auto) Immature Gran # (Auto) Neut # (Auto) Lymph # (Auto) Clarke # (Auto) Eos # (Auto) Baso # (Auto) PT INR APTT PTT Ratio Activ Coag Time Kaolin Sodium 143 Potassium 3.9 D Chloride 112 H Carbon Dioxide 28 Anion Gap 3.0 BUN 18 Creatinine 0.76 Est Cr Clr Drug Dosing 76.3 Est GFR ( Amer) 96.8 Est GFR (Non-Af Amer) 83.5 BUN/Creatinine Ratio 23.4 H Glucose 108 H Estimat Average Glucose Hemoglobin A1c Calcium 8.2 L Magnesium Total Bilirubin AST ALT Alkaline Phosphatase POC Troponin I Troponin I 0.032 < 0.015 Total Protein Albumin Globulin Albumin/Globulin Ratio Triglycerides 210 H Cholesterol 158 LDL Cholesterol, Calc 74 VLDL Cholesterol, Calc 42 HDL Cholesterol 42 Cholesterol/HDL Ratio 4 Lipase TSH 2.120 Nasal Screen MRSA (PCR) Negative 01/27/19 01/27/19 05:16 05:16 WBC RBC Hgb Hct MCV MCH MCHC RDW Std Deviation RDW Coeff of Beka Plt Count MPV Immature Gran % (Auto) Neut % (Auto) Lymph % (Auto) Clarke % (Auto) Eos % (Auto) Baso % (Auto) Immature Gran # (Auto) Neut # (Auto) Lymph # (Auto) Clarke # (Auto) Eos # (Auto) Baso # (Auto) PT INR APTT PTT Ratio Activ Coag Time Kaolin Sodium Potassium Chloride Carbon Dioxide Anion Gap BUN Creatinine Est Cr Clr Drug Dosing Est GFR ( Amer) Est GFR (Non-Af Amer) BUN/Creatinine Ratio Glucose Estimat Average Glucose Pending Hemoglobin A1c Pending Calcium Magnesium Total Bilirubin AST ALT Alkaline Phosphatase POC Troponin I Troponin I Cancelled Total Protein Albumin Globulin Albumin/Globulin Ratio Triglycerides Cholesterol LDL Cholesterol, Calc VLDL Cholesterol, Calc HDL Cholesterol Cholesterol/HDL Ratio Lipase TSH Nasal Screen MRSA (PCR) Medications Administered Carvedilol (Coreg) 25 mg PO BID RINA Stop: 02/25/19 20:59 Last Admin: 01/26/19 21:44 Dose: 25 mg Documented by: [id number] Dorzolamide/Timolol (Cosopt) 1 drops OPB BID RINA Stop: 02/25/19 20:59 Last Admin: 01/26/19 21:43 Dose: 1 drops Documented by: [id number] Duloxetine HCl (Cymbalta) 60 mg PO BID RINA Stop: 02/25/19 20:59 Last Admin: 01/26/19 21:43 Dose: 60 mg Documented by: [id number] Parenteral Electrolytes (Normosol-R) 1,000 mls @ 100 mls/hr IV .Q10H RINA Stop: 02/25/19 21:29 Last Admin: 01/26/19 21:47 Dose: 100 mls/hr Documented by: [id number] Pentosan Polysulfate Sodium (Elmiron) 100 mg PO AC RINA Stop: 02/25/19 22:14 Last Admin: 01/26/19 22:25 Dose: 100 mg Documented by: [id number] Pregabalin (Lyrica) 150 mg PO BID RINA Stop: 02/25/19 20:59 Last Admin: 01/26/19 21:43 Dose: 150 mg Documented by: [id number] Trazodone HCl (Desyrel) 150 mg PO HS RINA Stop: 02/25/19 20:59 Last Admin: 01/26/19 21:44 Dose: 150 mg Documented by: [id number] Resident Activity Tracking Resident Involvement: Resident Care Provided Care Provided: Adult Hospital Medicine (ICU)
[2019-01-27] MEDS: PREGABALIN 75 MG CAP PO SCH ×2 (08:15→21:53)
[2019-01-27] MEDS: CARVEDILOL 25 MG TAB PO SCH (08:16)
[2019-01-27] MEDS: TICAGRELOR 90 MG TAB PO SCH ×2 (08:16→21:51)
[2019-01-27] MEDS: PENTOSAN POLYSULFATE SODIUM 100 MG CAP PO SCH ×3 (08:16→16:52)
[2019-01-27] MEDS: DULOXETINE HCL 60 MG CAP PO SCH ×2 (08:17→21:48)
[2019-01-27] MEDS: ASPIRIN 81 MG ECTAB PO SCH (08:17)
[2019-01-27] MEDS: FUROSEMIDE 40 MG TAB PO SCH (08:17)
[2019-01-27] MEDS: DORZOLAMIDE/TIMOLOL 22.3/6.8MG/ML 10 ML BTL OPB SCH ×2 (08:17→21:48)
[2019-01-27] MEDS: LISINOPRIL 10 MG TAB PO SCH (08:18)
[2019-01-27] MEDS: NORMOSOL-R 1,000 ML IV SCH (08:32)
[2019-01-27] MEDS ORDERED: ATORVASTATIN 40 MG TAB PO SCH (09:00)
[2019-01-27] MEDS ORDERED: AMLODIPINE BESYLATE 5 MG TAB PO SCH (09:00)
--- NOTE | 2019-01-27 09:56 | Family Medicine Progress Note ---
Date of Service January 27, 2019 Assessment & Plan (1) ACS (acute coronary syndrome): 63-year-old female with a past medical history of resistant hypertension, hypertriglyceridemia, depression, alopecia universalis, and fibromyalgia presents with chest pain that started today at 2:30 PM while carrying boxes upstairs. In the ED, the patient was found to have concerning signs in the anterior leads, borderline ST elevation. Patient was subsequently brought to the [facility] and received stents to her LAD. STEMI, status post stents to LAD -Patient had 4 ROLAN placed in the distal LAD. -Patient transferred to ICU after procedure, critical care consult placed, followed by cardiology. -Cardiology is on board. -Cardiac Rehab - Consult placed -BMP, CBC in AM -If no arrhythmias overnight patient can be d/c tomorrow if troponins neg. -Troponin 0.020 at 10:09 today. Recheck at 16:00 Troponin 0.015. -Dual Antiplatelet therapy with Brilinta x1 year and ASA for life. Continue home blood pressure medications including carvedilol and furosemide. Amlodipine was DC'd. -Carvedilol dose adjusted to 12.5mg BID per cardiology. -Lisinopril 10mg PO QAM was added on in place of home amlodipine. Initiate high intensity statin - Lipitor 40mg PO QAM. -Echocardiogram today - EF 55-60% -Morphine 2mg IV Q4H PRN pain. -Oxycodone 10mg PO Q6H PRN pain. -Transfer ordered for placement in PCU with Telemetry. Hypertension Continue home meds Carvedilol and Furosemide. -Add Lisinopril 10mg. -Hydralazine 10mg IV PRN for HTN >150 systolic per cardio recs -DC'd home Amlodipine. -Consider Sleep study in outpatient if not done in past. Depression Continue home duloxetine, trazodone Fibromyalgia Continue home Lyrica Glaucoma -Continue home Cosept eye drops Interstitial Cystitis -Continue home Elmiron Alopecia Universalis -No treatment currently. -See's a Meat C[facility] in [facility]. FEN/GI - No Fluids, Replete electrolytes as needed, Heart Healthy diet Code - Full DVT - SCDs Dispo - PCU-Tele (2) Chest pain, precordial: (3) Abnormal EKG: (4) Hypertension: (5) Fibromyalgia: (6) Depression: (7) Glaucoma: (8) Alopecia universalis: (9) Interstitial cystitis: Supervising Physician Co-Signing Physician Notes Resident Physician Supervision Note: I independently interviewed and examined the patient and verified the [place] history and physical, reviewed labs and image studies, discussed the case with the resident Dr. Rivera and agree with the findings and care plan. Subjective Patient seen at the bedside this AM while having an Echocardiogram, physical exam was conducted between changing positions for echo. Patient notes that she is feeling significantly better this morning and that her chest pain and headaches have resolved. She recalled that she had actually been experiencing similar symptoms to yesterday afternoon over 3 weeks ago, but stated she thought it was "just muscle pain." She notes that she had presented to the ED after 3 hours of having 4/10 "gripping chest pain that went into my throat" after moving empty boxes. Today she is feeling well and denies any continuing symptoms of chest pain, chest pressure, dizziness, or headache. Review of Systems Constitutional: no fever, no chills and no sweats Eyes: no eye pain, no loss of peripheral vision, no photophobia and no worsening vision Ear, Nose, Mouth, Throat: no ear pain, no tinnitus and no dizziness Respiratory: no cough, no chest congestion, no dyspnea and no pain on inspira tion Cardiovascular: no chest pain, no chest pain at rest and no radiating jaw, neck or arm pain Gastrointestinal: no abdominal pain, no nausea, no vomiting and no constipa tion Genitourinary: + urinary frequency (Likely secondary to Lasix); no dysuria, no difficulty urinating, no urinary hesitancy and no decreased urination Musculoskeletal: + body aches (chronic consistent with fibromyaglia); no muscle weakness Integumentary: + alopecia (chronic); no rash Neurologic: no paralysis, no headache(s) and no confusion Physical Exam Constitutional: WD/WN, vitals as above well developed, cooperative and comfortable Eyes: PERRL, conjunctivae normal, anicteric sclerae + anicteric sclerae and EOM intact bilaterally ENMT: Ears: no external ear abnormality Nose: no external nose abnormality Neck: trachea midline, no thyromegaly normal visual inspection and trachea midline Respiratory: normal respiratory effort, lungs clear to auscultation Cardiovascular: RRR, no murmur, no edema Rate/Rhythm: regular rate and regular rhythm Heart Sounds: no gallop, no murmur and no cardiac rub Extremities: no pedal edema Gastrointestinal (Abdomen): normal bowel sounds, soft, nontender, no hepatosplenomegaly Percussion/Palpation: abdomen soft; abdomen nontender and no guarding Musculoskeletal: Head/Neck/Chest: normocephalic and head atraumatic Skin: no rashes, warm and dry Chronic Alopecia. Patient states it typically isn't as bad and that it comes and goes. Neurologic: CN's II-XI intact bilaterally, moves all extremities and awake; not confused and not obtunded Psychiatric: A+Ox3, euthymic affect Results & Data Vital Signs (Past 12 Hours) Vital Signs Temp Pulse Resp BP Pulse Ox 01/27/19 04:00 37 C 57 L 11 L 95/58 L 90 01/27/19 03:30 57 L 11 L 96/63 L 92 01/27/19 03:00 59 L 11 L 104/67 92 01/27/19 02:30 57 L 11 L 97/58 L 92 01/27/19 02:00 61 13 94/56 L 92 01/27/19 01:30 59 L 12 104/65 92 01/27/19 01:00 55 L 14 89/61 L 92 01/27/19 00:30 54 L 16 101/63 93 01/27/19 00:15 55 L 9 L 96/58 L 93 01/27/19 00:00 56 L 12 94/58 L 94 01/26/19 23:45 65 18 100/62 92 01/26/19 23:30 59 L 10 L 97/59 L 92 01/26/19 23:15 62 13 109/64 92 01/26/19 23:00 55 L 13 127/65 94 01/26/19 22:47 58 L 15 126/79 95 01/26/19 22:30 61 15 142/81 H 95 01/26/19 22:15 61 13 119/71 94 01/26/19 22:00 66 19 144/75 H 95 Laboratory Results Abnormal lab results 01/26/19 01/26/19 01/26/19 Range/Units 17:27 17:27 19:07 WBC 4.79 L (4.8-10.8) K/uL Activ Coag Time Kaolin 279 H (94-140) SECONDS Potassium 3.3 L (3.5-5.1) mmol/L Chloride (98-107) mmol/L BUN/Creatinine Ratio (10-20) Glucose 127 H (70-99) mg/dl Calcium (8.5-10.1) mg/dl Triglycerides (0-150) mg/dl 01/27/19 Range/Units 05:16 WBC (4.8-10.8) K/uL Activ Coag Time Kaolin (94-140) SECONDS Potassium (3.5-5.1) mmol/L Chloride 112 H (98-107) mmol/L BUN/Creatinine Ratio 23.4 H (10-20) Glucose 108 H (70-99) mg/dl Calcium 8.2 L (8.5-10.1) mg/dl Triglycerides 210 H (0-150) mg/dl Diagnostic Findings Impression from Echocardiogram 01/27/19: The left ventricle is grossly normal size. There is mild concentric left ventricular hypertrophy. Left ventricular systolic function is normal. Ejection Fraction=55-60% The very distal anterior wall and apex are severely hypokinetic. The distal anterior lateral wall is mildly hypokinetic. The distal anterior lateral wall is mildly hypokinetic. In the short axis images the diagonal territory appears hypokinetic. The right ventricle is normal in size and function. The left atrium is moderately dilated. Diastolic dysfunction, Grade II, consistent with elevated left atrial pressure. Medications Administered Current Inpatient Medications Aspirin (Ecotrin Ectab) 81 mg PO QAM COUNTS INCLUDE 234 BEDS AT THE [facility] Stop: 02/26/19 08:59 Last Admin: 01/27/19 08:17 Dose: 81 mg Documented by: Atorvastatin Calcium (Lipitor) 20 mg PO QAM COUNTS INCLUDE 234 BEDS AT THE [facility] Stop: 02/27/19 08:59 Carvedilol (Coreg) 12.5 mg PO BID COUNTS INCLUDE 234 BEDS AT THE [facility] Stop: 02/26/19 20:59 Dorzolamide/Timolol (Cosopt) 1 drops OPB BID COUNTS INCLUDE 234 BEDS AT THE [facility] Stop: 02/25/19 20:59 Last Admin: 01/27/19 08:17 Dose: 1 drops Documented by: Duloxetine HCl (Cymbalta) 60 mg PO BID COUNTS INCLUDE 234 BEDS AT THE [facility] Stop: 02/25/19 20:59 Last Admin: 01/27/19 08:17 Dose: 60 mg Documented by: Fexofenadine HCl (Kelly) 60 mg PO DAILY PRN PRN Reason: Allergy Symptoms Stop: 02/25/19 20:09 Furosemide (Lasix) 20 mg PO DAILY COUNTS INCLUDE 234 BEDS AT THE [facility] Stop: 02/26/19 08:59 Last Admin: 01/27/19 08:17 Dose: 20 mg Documented by: Hydralazine HCl (Hydralazine Hcl) 10 mg IV TID PRN PRN Reason: Hypertension Stop: 02/25/19 21:15 Lisinopril (Zestril) 10 mg PO QAM COUNTS INCLUDE 234 BEDS AT THE [facility] Stop: 02/26/19 08:59 Last Admin: 01/27/19 08:18 Dose: 10 mg Documented by: Morphine Sulfate (Morphine Sulfate) 2 mg IV Q4 PRN PRN Reason: Pain Stop: 02/09/19 20:09 Oxycodone HCl (Roxicodone Immediate Rel) 10 mg PO Q6 PRN PRN Reason: Pain Stop: 02/09/19 20:09 Pentosan Polysulfate Sodium (Elmiron) 100 mg PO AC COUNTS INCLUDE 234 BEDS AT THE [facility] Stop: 02/25/19 22:14 Last Admin: 01/27/19 11:37 Dose: 100 mg Documented by: Pregabalin (Lyrica) 150 mg PO BID COUNTS INCLUDE 234 BEDS AT THE [facility] Stop: 02/25/19 20:59 Last Admin: 01/27/19 08:15 Dose: 150 mg Documented by: Ticagrelor (Brilinta) 90 mg PO BID COUNTS INCLUDE 234 BEDS AT THE [facility] Stop: 02/26/19 08:59 Last Admin: 01/27/19 08:16 Dose: 90 mg Documented by: Trazodone HCl (Desyrel) 150 mg PO HS COUNTS INCLUDE 234 BEDS AT THE [facility] Stop: 02/25/19 20:59 Last Admin: 01/26/19 21:44 Dose: 150 mg Documented by: PG Care Time/CCT Total # of Minutes Spent Total Time Spent with Patient: Total time spent is greater than 50% in coordination of care (as documented) at patient's floor/unit and/or counseling patient: Resident Activity Tracking Resident Involvement: Resident Care Provided Care Provided: Adult Hospital Medicine
--- NOTE | 2019-01-27 10:36 | Consultation Report ---
DATE OF CONSULTATION: 01/27/2019 REQUESTING: Dr. Chidi Tello. INSTRUMENT LENS GRINDER: Madhu Nova DO, [facility]. REASON FOR CONSULTATION: ST elevation [place]. Dear Dr. Tello: Thank you for requesting cardiology consultation on Selina with regards to her non-ST elevation myocardial infarction. She noted about a [facility], [facility] she had a tightness and pressure-like sensation in the center of her chest that radiated up into her throat while she was walking, it then radiated down her arms. It lasted about an hour and was relatively severe. She thought it might be her fibromyalgia. Over the last week, she did not notice anything until yesterday when she was climbing stairs, carrying some empty boxes and she again had chest tightness with throat discomfort. It was not as severe as it was a week ago. She came to the Emergency Room where she was found to have ST elevation with biphasic T waves in the precordial leads. She continued to have ongoing chest discomfort and was recommended that she go to the cardiac catheterization laboratory urgently. This morning, she has minimal chest discomfort. She denies any lightheadedness, dizziness, presyncope or syncope. She denies any lower extremity edema. She denies any palpitations or fluttering. She denies any bleeding or bruising as an outpatient, dark stools or black stools. She does have chronic musculoskeletal discomfort. The rest of complete review of systems is negative. SOCIAL HISTORY: She denies any current tobacco use. 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 She denies any alcohol. She is retired. FAMILY HISTORY: Very positive for premature coronary artery disease including her sibling and her parents and aunts and uncles. ALLERGIES: No known drug allergies. MEDICATIONS: Reviewed in electronic medical record. PAST MEDICAL HISTORY: 1. Hypertension. 2. Depression. 3. Fibromyalgia. 4. Depression. PHYSICAL EXAMINATION: GENERAL: She is awake, alert, oriented x3. She is in no acute distress. She is a well-appearing female who looks her stated age. VITAL SIGNS: Her heart rate is 57, respirations 11, blood pressure 95/58, temperature 37, sat is 90% on room air. HEENT: 2+ carotid upstrokes, no evidence of carotid bruits. Jugular venous pressure appeared normal. Sclerae is anicteric. Hearing is normal. LUNGS: Globally decreased breath sounds especially in the bases. No rales, rhonchi or wheezing. HEART: Regular rate and rhythm. No appreciable murmurs, rubs or gallops. ABDOMEN: Soft, nontender, nondistended. Positive bowel sounds. EXTREMITIES: No clubbing, cyanosis or edema. PSYCHIATRIC: Affect appeared appropriate. NEUROLOGIC: She is awake, alert and oriented x3. DIAGNOSTIC STUDIES: Chest x-ray, no active disease. Echocardiogram is pending. LABORATORY STUDIES: Hemoglobin of 14.4, platelet count of 131. LDL was 74, HDL 42. TSH 2.1. Sodium 143, potassium 3.9 with a BUN of 18, creatinine 0.76. IMPRESSION: 1. ST elevation myocardial infarction, status post angioplasty and stenting of the mid to distal LAD with 4 overlapping drug-eluting stents. 2. Hypertension. 3. Hyperlipidemia. 4. History of renal disease, although her creatinine is normal. I made the following recommendations: 1. She will have an echocardiogram today. 2. We will reduce her carvedilol from 25 mg twice a day to 12.5 mg twice a day as her blood pressure is on the lower side. 3. She will continue on lisinopril. 4. Continue on dual-antiplatelet therapy with aspirin for life and ticagrelor for a year. 5. She can go upstairs to PCU. 6. Cardiac rehabilitation should be consulted. She is doing quite well. I would check a BMP and a CBC in the morning. If she is doing well with no arrhythmias and she has had no arrhythmias overnight, she potentially can be discharged tomorrow as her troponins are negative. Thank you for allowing us to participate in her care.
[2019-01-27] MEDS: CARVEDILOL 12.5 MG TAB PO SCH (21:50)
[2019-01-27] MEDS: TRAZODONE HCL 50 MG TAB PO SCH (21:50)
[2019-01-28 06:16] LABS: Hematocrit (blood only) 37.5 % (37-47); Hemoglobin 12.8 g/dL (12.0-16.0); Mean Corpuscular Hgb Conc 34.1 g/dL (32-36); Mean Corpuscular Volume 86.6 fL (80-100); Mean Platelet Volume 9.9 fL (7.4-10.4); Platelet Count 115 K/uL (130-400); RDW Coefficient of Variation 12.4 % (11.5-14.5); Red Blood Count 4.33 M/uL (4.2-5.4); White Blood Count 4.92 K/uL (4.8-10.8)
[2019-01-28 06:22] LABS: Estimated Average Glucose 114 mg/dl; Hemoglobin A1C 5.6 % (4.5-5.6)
[2019-01-28 06:50] LABS: BUN Creatinine Ratio 21.3 (10-20); Calcium 8.9 mg/dl (8.5-10.1); Creatinine Clr Calc Pharmacy 72.7 ml/min; Est GFR (African American) 90.9; Est GFR (Non-African American) 78.5; Potassium 3.3 mmol/L (3.5-5.1)
[2019-01-28] MEDS ORDERED: POTASSIUM CHLORIDE 20 MEQ TABCR PO SCH (07:30)
[2019-01-28] MEDS: FUROSEMIDE 40 MG TAB PO SCH (08:11)
[2019-01-28] MEDS: PENTOSAN POLYSULFATE SODIUM 100 MG CAP PO SCH (08:11)
[2019-01-28] MEDS: TICAGRELOR 90 MG TAB PO SCH (08:11)
[2019-01-28] MEDS: CARVEDILOL 12.5 MG TAB PO SCH (08:12)
[2019-01-28] MEDS: LISINOPRIL 10 MG TAB PO SCH (08:12)
[2019-01-28] MEDS: ASPIRIN 81 MG ECTAB PO SCH (08:12)
[2019-01-28] MEDS: DULOXETINE HCL 60 MG CAP PO SCH (08:12)
[2019-01-28] MEDS: DORZOLAMIDE/TIMOLOL 22.3/6.8MG/ML 10 ML BTL OPB SCH (08:12)
[2019-01-28] MEDS: PREGABALIN 75 MG CAP PO SCH (08:14)
[2019-01-28] MEDS ORDERED: CLOPIDOGREL BISULFATE 300 MG TAB PO STA (08:27)
[2019-01-28] MEDS ORDERED: POTASSIUM CHLORIDE 10 MEQ TABCR PO STA (08:28)
--- NOTE | 2019-01-28 08:30 | Cardiology Progress Note ---
Date of Service January 28, 2019 Subjective She feels better today. She is been ambulating in the hallway without any issues. She had some very subtle epigastric to lower chest discomfort. It was not made worse with activity. She denies any shortness of breath or palpitations or lightheadedness or dizziness. Results & Data Vital Signs (Past 12 Hours) Vital Signs Temp Pulse Resp BP Pulse Ox 01/28/19 06:30 36.7 C 59 L 18 152/77 H 97 01/28/19 03:35 36.6 C 53 L 18 117/73 96 01/27/19 23:28 36.7 C 65 18 130/71 95 LMT: normal LAD: prox normal, Mid long eccentric calcified 40-50%,early distal focal, hazy 95% with ROMÁN I flow. D1-ok, D2-ostial 90%, D3-ok LCx: non dominant mild non-occlusive disease. OM1 small, OM2 lg, branching, OM3 small, L-PLB small RCA: large, Dom. Branches to PDA and R PLB. No significant disease. GENERAL: She is awake, alert, oriented x3. She is in no acute distress. She is a well-appearing female who looks her stated age. HEENT: 2+ carotid upstrokes, no evidence of carotid bruits. Jugular venous pressure appeared normal. Sclerae is anicteric. Hearing is normal. LUNGS: Globally decreased breath sounds especially in the bases. No rales, rhonchi or wheezing. HEART: Regular rate and rhythm. No appreciable murmurs, rubs or gallops. ABDOMEN: Soft, nontender, nondistended. Positive bowel sounds. EXTREMITIES: No clubbing, cyanosis or edema. 2+ right radial. Her hand is warm to touch. PSYCHIATRIC: Affect appeared appropriate. IMPRESSION: 1. ST elevation myocardial infarction, status post angioplasty and stenting of the mid to distal LAD with 4 overlapping drug-eluting stents. 1B. Residual 90% ostial D2 lesion 2. Hypertension. 3. Hyperlipidemia. 4. History of renal disease, although her creatinine is normal. 5. Preserved left ventricular systolic function with an apical regional wall motion abnormality She is concerned about the c cost of Brilinta. We will therefore switch her to Plavix. I loaded her with 600 mg of Plavix today and that she should start 75 mg daily thereafter. I did discuss with her she will be on aspirin for life and Plavix for a year. She is to stop her Plavix for any reason in the next year she needs to contact us first. Otherwise she can be discharged home on her regular medical regimen. It is unclear why she is on Lasix. It sounds like her outside provider put her on Lasix for blood pressure control. This may have been the result of significant salt loading at home. Depending on her blood pressures as an outpatient and her volume status I would consider stopping her Lasix and switching her over to hydrochlorothiazide if she needs something for blood pressure. Of note her home Coreg dose was 25 mg twice a day but we will discharge her on 12-1/2 mg twice daily given her relatively low heart rate. I would add coenzyme Q 10 to her medical regimen 200 mg daily given the fact she already has myalgias. If they worsen with Lipitor then I would try pravastatin. Pravastatin's probably the best tolerated and given the fact that her LDL was not that high should give her adequate suppression of her lipids. I did discuss with her cardiac rehab she would like to completed in [place] as it is closer to her home. We will arrange to see her in the office in the 10 to 14 days. I did review with her the need for a low-salt diet. We discussed foods that she should avoid that are high in salt. In addition we discussed eliminating saltshaker. She will need post cath instructions. I did replace her potassium today as it was 3.3.
[2019-01-28] MEDS ORDERED: ATORVASTATIN 20 MG TAB PO SCH (09:00)
--- NOTE | 2019-01-28 12:04 | Discharge Summary ---
Date of Service January 28, 2019 Admission HPI Per Admitting Provider 63-year-old female with a past medical history of resistant hypertension, hypertriglyceridemia, depression, alopecia universalis - presents with chest pain that started today at 2:30 PM while carrying boxes upstairs. She states that the chest pain lasted approximately 1 hour and would come back when she was doing activity. She denies any shortness of breath, but she says that she became dizzy. She denies any lower extremity edema. The patient endorses having an episode of chest pain about a week ago while walking through [place]. She denies a history of previous heart caths or diagnosis of CAD. She denies a history of smoking, but she does report a family history significant for coronary artery disease and arrhythmias. In the ED, the patient was found to have concerning signs in the anterior leads, borderline ST elevation. Patient was subsequently brought to the [facility] and received stents to her LAD. Admission Exam Per Admitting Provider Constitutional: WD/WN, vitals as above Eyes: PERRL, conjunctivae normal, anicteric sclerae ENMT: external ear and nose normal, oropharynx normal Neck: trachea midline, no thyromegaly Respiratory: normal respiratory effort, lungs clear to auscultation Cardiovascular: RRR, no murmur, no edema Gastrointestinal (Abdomen): normal bowel sounds, soft, nontender, no hepato splenomegaly Musculoskeletal: no cyanosis or clubbing, extremities motor strength 5/5 Skin: no rashes, warm and dry Neurologic: PERRL, EOMI, accommodation nl, no face palsy, no dysarthria Psychiatric: A+Ox3, euthymic affect Principal Diagnosis STEMI Discharge Exam Constitutional WD/WN, vitals as above well developed, cooperative and comfortable Eyes PERRL, conjunctivae normal, anicteric sclerae + anicteric sclerae and EOM intact bilaterally ENMT Ears: no external ear abnormality Nose: no external nose abnormality Neck trachea midline, no thyromegaly normal visual inspection and trachea midline Respiratory normal respiratory effort, lungs clear to auscultation Cardiovascular RRR, no murmur, no edema Rate/Rhythm: regular rate and regular rhythm Heart Sounds: no gallop, no murmur and no cardiac rub Extremities: no pedal edema Gastrointestinal (Abdomen) normal bowel sounds, soft, nontender, no hepatosplenomegaly Percussion/Palpation: abdomen soft; abdomen nontender and no guarding Musculoskeletal Head/Neck/Chest: normocephalic and head atraumatic Skin no rashes, warm and dry Neurologic CN's II-XI intact bilaterally, moves all extremities and awake; not confused and not obtunded Psychiatric A+Ox3, euthymic affect Discharge Data Allergies Allergy/AdvReac Type Severity Reaction Status Date / Time No Known Allergies Allergy NONE Verified 01/29/19 09:20 Consultations 01/26/19 18:16 ED Decision to Admit Stat 01/26/19 20:10 Consult Case Management - Discharge Planning Routine Consult Industrial Diamond Polisher Routine 01/27/19 07:40 Consult Cardiology Routine 01/27/19 15:51 Consult Cardiac Rehabilitation Routine Procedures Performed Operation Date: 01/26/19 18:25 Actual Procedures s Cineradiography w/Routine Exam(Not Applicable) - Parminder Maravilla MD s Cath, Left with Cors and Vent(Not Applicable) - Parminder Maravilla MD p Aspiration/PCI w/ROLAN for Stemi(Not Applicable) - Parminder Maravilla MD Ordered Studies 01/26/19 18:34 CL Cath Imgs for PACS use only Stat Hospital Course (1) ACS (acute coronary syndrome): 63-year-old female with a past medical history of resistant hypertension, hypertriglyceridemia, depression, alopecia universalis, and fibromyalgia presented with chest pain that started while carrying boxes upstairs. In the ED, the patient was found to have concerning signs in the anterior leads, borderline ST elevation. Patient was subsequently brought to the [facility] and received stents to her LAD. STEMI, status post stents to LAD -Patient had 4 ROLAN placed in the distal LAD. -Patient transferred to ICU after procedure, critical care consult placed, followed by cardiology. -Initial Dual Antiplatelet therapy with Brilinta x1 year and ASA for life. -Converted to Plavix x1 year and ASA for life due to cost of Brilinta. -Blood Pressure medications for home adjusted and new medications added -Carvedilol adjusted to 12.5mg BID -Home Furosemide unchanged. -Lisinopril 10mg PO QAM added -Home Amlodipine DC'd. Initiated high intensity statin - Lipitor 40mg PO QAM. -Echocardiogram post stent - EF 55-60% -Morphine 2mg IV Q4H PRN and Oxycodone 10mg PO Q6H PRN were given for pain. Hypertension Continued home meds Carvedilol and Furosemide. -Added Lisinopril 10mg. -DC'd home Amlodipine. -Consider Sleep study in outpatient if not done in past. Depression Continued home duloxetine, trazodone Fibromyalgia Continued home Lyrica Glaucoma -Continued home Cosept eye drops Interstitial Cystitis -Continued home Elmiron Alopecia Universalis -No treatment currently. -Pt see's a Grinding Room Inspector in [facility] and [facility]. (2) Chest pain, precordial: (3) Abnormal EKG: (4) Hypertension: (5) Fibromyalgia: (6) Depression: (7) Glaucoma: (8) Alopecia universalis: (9) Interstitial cystitis: Total Time Total Time Spent Total Time Spent (In Minutes): <60 Discharge Plan Discharge Items Patient Disposition: Home - Self-Care Reason For Visit: UNSTABLE ANGINA,CORONART ARTERY INTERVENTION Discharge Diagnosis: STEMI Condition: Good Discharge Goals: Decrease discomfort, Improve disease control and Improve function Activity: Per 'Additional Instructions' section Non-emergency contact: Primary Care Provider and Light Truck Driver Call non-emergency contact if: you have any medication questions and your symptoms worsen Follow-up/Referrals: Natasha Saldaña MD [Primary Care Provider] - Diet: Low Sodium (2gm) Addtl Provider Instructions: Ms. Hopkins, you were seen in the ED on 01/26/19 after having symptoms of chest pain that radiated to your throat/jaw and shortness of breath after moving boxes. At your arrival, an EKG was completed which showed signs concerning for a possible heart attack. You underwent heart catheterization where they found one of your major blood vessels of your heart to be roughly 95% occluded. Stents were placed in your heart, allowing blood flow to return properly, and relieved your symptoms. You were then transferred to ICU for monitoring where you bjorn milligany showed improvement until transfer to a medical floor with telemetry. You are being discharged after having resolution of your symptoms and improvement of your health. Please follow the instructions listed below for medication changes and for post-catheter care. Please steel pickler the following medications at [facility] in [place]: -Plavix 75mg once a day in the morning by mouth for 1 year -Aspirin 81mg once a day in the morning by mouth for life -Lipitor 20mg once a day in the morning by mouth -Lisinopril 10mg once a day in the morning by mouth. -Coreg 12.5mg twice a day by mouth -Coenzyme Q10 200mg once a day in the morning by mouth --Please follow up with your PCP in the next 2-3 days. --Please follow up with your Light Truck Driver Dr. Nova in 10-14 days in the office. Please follow a low salt diet, including not using the salt shaker, as discussed. Please attend Cardiac rehab in [place] as dicussed. If your symptoms return or if you have questions about your medications, please call your PCP or Light Truck Driver. Below are instructions for care after cardiac cath. Cardiac Catheter Instructions: ACTIVITY RECOMMENDATIONS: Excess manipulation of the wrist should be avoided for the next 24-48 hours. * No lifting over 2 pounds (approximately a 1/2 gallon of milk) with the utilized arm for 24 hours. * No strenuous activity such as bowling or tennis for 3 days. * Keep the site of the procedure covered with a bandage for 24 hours. *You may shower the day after the procedure. Do not take a tub bath or submerge the puncture site in water for the next 3 days. *Do not operate any motorized equipment for 3 days. SPECIAL CARE INSTRUCTIONS: The site may be slightly bruised and sore following your procedure. Should any of the following occur, contact the Dr. who performed your procedure. 1. Redness/inflammation, swelling, chills, or fever, or colored drainage at procedure site within 3-7 days after your procedure. 2. Coldness, discoloration, ongoing numbness, severe pain, or swelling. Expect mild tingling of hand and tenderness at the puncture site for up to three days. If this persists beyond three days, or other symptoms develop, notify the Dr. who performed your procedure. BLEEDING: If the procedure site on your wrist begins to bleed, do not panic 1. Place 1 or 2 fingers firmly just slightly above the insertion site to stop the bleeding. You may be able to feel your pulse as you hold pressure. 2. Lift your finger after 5 minutes to see if the bleeding has stopped. 3. Once the bleeding has stopped, gently wipe the wrist area clean with a bandage. * If the bleeding from your wrist does not stop after 10 minutes, or if there is a large amount of bleeding or spurting, call 911 (do not drive yourself to the hospital). SKIN IRRITATION: * You may experience some redness and/or swelling in the area where radiation was administered. If any skin irritation occurs, please contact your family physician. FOLLOW UP VISIT: Keep any scheduled doctor appointments. Prescriptions: New carvedilol 12.5 mg Tablet 12.5 mg PO BID 30 Days Qty: 60 RF: 2 clopidogrel 75 mg Tablet 75 mg PO QAM Qty: 30 RF: 2 aspirin [Ecotrin Low Strength] 81 mg Tablet,Delayed Release (Dr/Ec) 81 mg PO QAM Qty: 30 RF: 2 atorvastatin 20 mg Tablet 20 mg PO QAM 30 Days Qty: 30 RF: 2 lisinopril 10 mg Tablet 10 mg PO QAM 30 Days Qty: 30 RF: 2 coenzyme Q10 200 mg capsule 200 mg PO DAILY 30 Days Qty: 30 RF: 2 Continued furosemide 40 mg tablet 20 mg PO DAILY RF: 0 oxycodone-acetaminophen 5-325 mg tablet 1 tab PO BID PRN (Reason: Pain) RF: 0 trazodone 150 mg tablet 150 mg PO HS RF: 0 dorzolamide-timolol 22.3-6.8 mg/mL drops 1 drp OPB BID RF: 0 duloxetine 60 mg capsule,delayed release(DR/EC) 60 mg PO BID RF: 0 pregabalin [Lyrica] 75 mg capsule 150 mg PO BID RF: 0 fexofenadine [Kelly Allergy] 60 mg Tablet PO DAILY PRN (Reason: Allergy Symptoms) RF: 0 Elmiron 100 mg capsule 100 mg PO AC RF: 0 Discontinued carvedilol 25 mg tablet 25 mg PO BID RF: 0 amlodipine 10 mg Tablet PO DAILY RF: 0 No Action bupropion HCl [Wellbutrin SR] 100 mg tablet sustained-release 12 hr 100 mg PO DAILY Qty: 30 RF: 5 Stand-Alone Forms: [facility] Discharge Orders: Discharge Order (Routine); Ordered 01/28/19 Ordered By: Nirmal Rivera Admission Data Admit Date/Time: 01/26/19 20:02 Attending Provider: Debbie Alvarez Admit Provider: Nirmal Rothman Primary Care Provider: Natasha Saldaña Other Providers: Nirmal Rothman ; Rivera Chahal,Madhu D Service: Telemetry Other Interventions: Discharge Summary Assessment (RN) Last Done: 01/28/19 12:09 DC Date/Time DO NOT enter until pt leaves facility: 01/28/19 12:37 Supervising Physician Co-Signing Physician Notes Resident Physician Supervision Note: I independently interviewed and examined the patient and verified the [place] history and physical, reviewed labs and image studies, discussed the case with the resident Dr. Rivera and agree with the findings and care plan. Time spent in discharge 35 min
[2019-01-29] MEDS ORDERED: CLOPIDOGREL BISULFATE 75 MG TAB PO SCH (09:00)
== END 2019-01-28 12:37 | disposition home or self-care (01) | DRG 246 ==
LOC: ED 17:03 → 1E 18:37 → SUATTDRO 20:02 → 2S 01-27 12:33
DX: L63.1 Alopecia universalis; E78.1 Pure hyperglyceridemia; M79.7 Fibromyalgia; N30.10 Interstitial cystitis (chronic) without hematuria; I25.10 Atherosclerotic heart disease of native coronary artery without angina pectoris; I10 Essential (primary) hypertension; I21.02 ST elevation (STEMI) myocardial infarction involving left anterior descending coronary artery; Z98.1 Arthrodesis status; H40.9 Unspecified glaucoma; Z82.49 Family history of ischemic heart disease and other diseases of the circulatory system; F41.8 Other specified anxiety disorders; E78.5 Hyperlipidemia, unspecified

== ENCOUNTER 2019-12-02 15:22 | Inpatient (IN) ==
--- NOTE | 2019-12-02 16:13 | Emergency Department Note ---
History of Present Illness General Chief complaint: Chest Pain Stated complaint: chest pain started 11/29 Time Seen by Provider: 12/02/19 15:51 Source: patient Mode of arrival: ambulatory Limitations: no limitations History of Present Illness Provider complaint: Chest heaviness, shortness of breath, lightheadedness Onset (ago): day(s) 2 Location: chest Radiation: non-radiation Severity: moderate Pain Consistency: + intermittent Maximum Pain Intensity: 3 Current Pain Intensity: 3 Quality: + dull Exacerbated By: + movement Associated symptoms: + shortness of breath Treatments prior to arrival: none Is a 64-year-old female with a past history of coronary artery disease status post stent placement who presents complaining of increased chest heaviness, shortness of breath, and lightheadedness with exertion. Patient states she first noticed it Monday evening when going up a set of steps. Patient states she had to sit down and rest for approximately 15 minutes before the symptoms subsided. Patient states she was only mildly winded yesterday but did not go up any steps. Then states today at her dermatology appointment she had to walk up a flight of steps again and had the same recurrent symptoms and needed to sit on. Due to the severity of her symptoms and concern given her prior heart history, she came to the emergency room. Patient states she does follow with Dr. Zapata, and last saw him earlier this year prior to the outbreak of c oronavirus. Patient states she does use aspirin and Plavix daily, and there have been no other recent changes to her medications. No other recent change in her health, she denies any recent illness. No treatment prior to arrival. Pt seen during a time of high acuity and national emergency pandemic while wearing PPE. Home Medications Home Medications Medication Instructions Recorded Confirmed Type dorzolamide-timolol 1 drp OPB BID 01/26/19 12/02/19 History duloxetine 60 mg PO BID 01/26/19 12/02/19 History pregabalin [Lyrica] 150 mg PO BID 01/26/19 12/02/19 History aspirin [Ecotrin Low Strength] 81 mg PO QAM #30 tab 01/28/19 12/02/19 Rx clopidogrel 75 mg PO QAM #30 tab 01/28/19 12/02/19 Rx cholecalciferol (vitamin D3) 50 2,000 units PO DAILY 04/11/19 12/02/19 History mcg (2,000 unit) capsule pentosan polysulfate sodium 100 mg 100 mg PO TID #90 cap 05/01/19 12/02/19 Rx capsule amlodipine 5 mg tablet 5 mg PO DAILY 06/24/19 12/02/19 History lisinopril 40 mg tablet 40 mg PO DAILY 06/24/19 12/02/19 History furosemide 40 mg tablet 20 mg PO DAILY #45 tab 07/16/19 12/02/19 Rx alpha lipoic acid 600 mg capsule 600 mg PO DAILY #60 cap 07/29/19 12/02/19 Rx oxycodone-acetaminophen 5 mg-325 1 tab PO BID PRN #60 tab 10/08/19 12/02/19 Rx mg tablet pantoprazole 40 mg tablet,delayed 40 mg PO BID tab 10/14/19 12/02/19 History release carvedilol 12.5 mg tablet 12.5 mg PO BID #180 tab 10/18/19 12/02/19 Rx trazodone 150 mg tablet 150 mg PO HS #90 tab 10/21/19 12/02/19 Rx famotidine 40 mg tablet 40 mg PO QPM #30 tab 10/28/19 12/02/19 Rx cinnamon bark 500 mg capsule 1,500 mg PO DAILY cap 11/01/19 12/02/19 History hydrochlorothiazide 12.5 mg capsule 12.5 mg PO DAILY 11/01/19 12/02/19 History coenzyme Q10 [CoQ-10] 200 mg PO DAILY 12/02/19 12/02/19 History vitamin B [id number] cit 1 tab PO DAILY 12/02/19 12/02/19 History ezetimibe 10 mg PO DAILY #30 tab 12/04/19 Rx isosorbide mononitrate 30 mg PO QAM 30 Days #30 tab 12/04/19 Rx nitroglycerin [Nitrostat] 0.4 mg SUBLINGUAL UD PRN 30 Days 12/04/19 Rx #60 tab Allergies Allergy/AdvReac Type Severity Reaction Status Date / Time No Known Allergies Allergy NONE Verified 12/02/19 19:06 Past Med/Surg History Medical History Anxiety (Chronic) CAD (coronary artery disease) (Chronic) Depression (Chronic) Fibromyalgia (Chronic) GERD (gastroesophageal reflux disease) Hypertension (Chronic) Lumbar degenerative disc disease (Chronic) Snoring (Chronic) STEMI (ST elevation myocardial infarction) (Resolved) Surgical History H/O dilation and curettage (Chronic) H/O: hysterectomy (Chronic) History of lumbar spinal fusion (Chronic) Family History Mother Myocardial infarction Hypertension Brother Myocardial infarction Grandmother Ovarian cancer Father Diabetes Hypertension Grandmother (Maternal) Stroke Grandfather (Maternal) Stroke Grandmother (Paternal) Cancer Grandfather (Paternal) Cirrhosis of liver Denies family history of Prostate cancer Breast cancer Colorectal cancer Social History Preferred Language: Yi Communication Ability: Effective Substance Addiction Coordinator Required: No Beliefs That Will Affect Care: None Current Living Situation: Spouse current occupational status: retired Feels Safe at Home: Yes Smoking Status: Never smoker Hx Alcohol Use: No Hx Substance Use: No Dental Care, Regularly: Yes Physical Activity Frequency: Does not Exercise Seatbelt Use: always Do you think of yourself as: straight/heterosexual Review of Systems See HPI for pertinent positives & negatives. and A total of 10 systems reviewed and were otherwise negative Physical Exam Vital Signs Vital Signs - 24 hr 12/02/19 15:38 12/02/19 16:02 12/02/19 16:30 Temperature 36.8 C Temperature Source Oral Pulse Rate 67 67 66 Pulse Rate from SpO2 Sensor Respiratory Rate 20 19 15 Respiratory Effort / Characteristics Non-Labored Spontaneous Respiratory Depth Normal Respiratory Pattern Regular Blood Pressure 130/78 Blood Pressure Mean 95 Blood Pressure Position Sitting Pulse Oximetry 96 Oxygen Delivery Method Room Air Sepsis Recent Fever Within 48 Hours No Sepsis New/Unexplained Change in Mental Status No Sepsis Action Taken by Nursing No Action Required 12/02/19 16:38 12/02/19 17:00 12/02/19 17:30 Temperature Temperature Source Pulse Rate 67 68 63 Pulse Rate from SpO2 Sensor 65 Respiratory Rate 18 11 L 11 L Respiratory Effort / Characteristics Respiratory Depth Respiratory Pattern Blood Pressure 134/74 147/87 H 131/74 Blood Pressure Mean 93 110 92 Blood Pressure Position Pulse Oximetry 89 L Oxygen Delivery Method Sepsis Recent Fever Within 48 Hours Sepsis New/Unexplained Change in Mental Status Sepsis Action Taken by Nursing 12/02/19 18:00 Temperature Temperature Source Pulse Rate 67 Pulse Rate from SpO2 Sensor 68 Respiratory Rate 16 Respiratory Effort / Characteristics Respiratory Depth Respiratory Pattern Blood Pressure 128/74 Blood Pressure Mean 101 Blood Pressure Position Pulse Oximetry 94 Oxygen Delivery Method Sepsis Recent Fever Within 48 Hours Sepsis New/Unexplained Change in Mental Status Sepsis Action Taken by Nursing GENERAL: alert, well appearing, well nourished, no distress, non-toxic EYE EXAM: normal conjunctiva, PERRL and EOM's grossly intact OROPHARYNX: no exudate, no erythema, lips, buccal mucosa, and tongue normal and mucous membranes are moist NECK: supple, no nuchal rigidity, no adenopathy, non-tender LUNGS: Clear to auscultation. Normal chest wall mechanics, no w/r/r HEART: no murmurs, S1 normal and S2 normal, no reproducible chest wall tenderness ABDOMEN: abdomen soft, non-tender, normo-active bowel sounds, no masses, no rebound or guarding. BACK: Back is symmetrical on inspection and there is no deformity, no midline tenderness, no CVA tenderness. SKIN: no rashes and no bruising UPPER EXTREMITIES: upper extremities are grossly normal. FROM, nml pulses b/l. LOWER EXTREMITIES: No pitting edema. FROM, nml pulses b/l. NEURO EXAM: Normal sensorium, cranial nerves II-XII grossly intact, normal speech, no gross weakness of arms, no gross weakness of legs. Gross sensation intact. Course Course 1634: Pt updated on results. 171: Case discussed with Dr. Dennis. Pt still report discomfort. Will try additional meds and if no improvement, will start heparin drip. 1820: Pt seen by Dr. Dennis and was still having discomfort, so heparin drip ordered. Administered Medications Discontinued Medications Amlodipine Besylate (Norvasc) 5 mg PO DAILY [facility] Stop: 01/02/20 08:59 Last Admin: 12/04/19 08:06 Dose: 5 mg Documented by: [id number] Admin: 12/03/19 07:58 Dose: 5 mg Documented by: [id number] Aspirin (Ecotrin Ectab) 81 mg PO QAM [facility] Stop: 01/02/20 08:59 Last Admin: 12/04/19 08:07 Dose: 81 mg Documented by: [id number] Admin: 12/03/19 08:01 Dose: 81 mg Documented by: [id number] Carvedilol (Coreg) 12.5 mg PO BID RINA Stop: 01/01/20 20:59 Last Admin: 12/04/19 08:06 Dose: 12.5 mg Documented by: [id number] Admin: 12/03/19 20:57 Dose: 12.5 mg Documented by: [id number] Admin: 12/03/19 07:59 Dose: 12.5 mg Documented by: [id number] Admin: 12/02/19 21:37 Dose: 12.5 mg Documented by: [id number] Clopidogrel Bisulfate (Plavix) 75 mg PO QAM RINA Stop: 01/02/20 08:59 Last Admin: 12/04/19 08:07 Dose: 75 mg Documented by: [id number] Admin: 12/03/19 08:01 Dose: 75 mg Documented by: [id number] Dorzolamide/Timolol (Cosopt) 1 drops OPB BID RINA Stop: 01/01/20 20:59 Last Admin: 12/04/19 08:07 Dose: 1 drops Documented by: [id number] Admin: 12/03/19 20:54 Dose: 1 drops Documented by: [id number] Admin: 12/03/19 07:57 Dose: 1 drops Documented by: [id number] Admin: 12/02/19 21:34 Dose: 1 drops Documented by: [id number] Duloxetine HCl (Cymbalta) 60 mg PO BID RINA Stop: 01/01/20 20:59 Last Admin: 12/04/19 08:06 Dose: 60 mg Documented by: [id number] Admin: 12/03/19 20:55 Dose: 60 mg Documented by: [id number] Admin: 12/03/19 08:01 Dose: 60 mg Documented by: [id number] Admin: 12/02/19 21:36 Dose: 60 mg Documented by: [id number] Famotidine (Pepcid 20mg Iv Push) 20 mg IV ONE STA Stop: 12/02/19 16:28 Last Admin: 12/02/19 16:37 Dose: 20 mg Documented by: [id number] Famotidine (Pepcid) 40 mg PO QPM RINA Stop: 01/02/20 20:59 Last Admin: 12/03/19 20:56 Dose: 40 mg Documented by: [id number] Fentanyl Citrate (Fentanyl Citrate) 50 mcg IV Q15M PRN PRN Reason: Pain Stop: 12/16/19 17:00 Last Admin: 12/02/19 17:29 Dose: 50 mcg Documented by: [id number] Fentanyl Citrate (Fentanyl Citrate) Confirm Administered Dose 100 mcg .ROUTE .STTunePatrol-MED ONE Stop: 12/03/19 13:31 Last Increment: 12/03/19 14:01 Dose: 25 mcg Documented by: [id number] Furosemide (Lasix) 20 mg PO DAILY [facility] Stop: 01/02/20 08:59 Last Admin: 12/04/19 08:06 Dose: 20 mg Documented by: [id number] Admin: 12/03/19 07:59 Dose: 20 mg Documented by: [id number] Heparin Sodium (Porcine) (Heparin Iv Bolus (Collar Baster Jumpbasting Use Only)) Confirm Administered Dose 10,000 units .ROUTE .Audioms-MED ONE Stop: 12/03/19 13:31 Last Admin: 12/03/19 14:02 Dose: Not Given Documented by: [id number] Heparin Sodium/Dextrose () 1 ea IV ONE ONE; Protocol Stop: 12/02/19 17:54 Last Admin: 12/02/19 20:18 Dose: Not Given Documented by: [id number] Heparin Sodium/Sodium Chloride (Heparin/Nss 1000 Unit/500ml Flush Bag) Confirm Administered Dose 3,000 units IV .[employer] ONE Stop: 12/03/19 13:31 Last Admin: 12/03/19 13:45 Dose: 3,000 units Documented by: [id number] Hydrochlorothiazide (Hctz) 12.5 mg PO DAILY RINA Stop: 01/02/20 08:59 Last Admin: 12/04/19 08:06 Dose: 12.5 mg Documented by: [id number] Admin: 12/03/19 07:59 Dose: 12.5 mg Documented by: [id number] Heparin Sodium/Dextrose (Heparin Sodium/Dextrose) 25,000 units in 500 mls @ 18 mls/hr IV .Q24H RINA; Protocol Stop: 01/01/20 17:59 Last Titration: 12/03/19 14:33 Dose: 0 units/hr, 0 mls/hr Documented by: [id number] Cosigned by: [id number] Titration: 12/03/19 01:16 Dose: 900 units/hr, 18 mls/hr Documented by: [id number] Cosigned by: [id number] Titration: 12/02/19 18:50 Dose: 750 units/hr, 15 mls/hr Documented by: [id number] Cosigned by: [id number] Admin: 12/02/19 18:29 Dose: 750 units/hr, 15 mls/hr Documented by: [id number] Cosigned by: [id number] Potassium Chloride/Sodium Chloride (Normal Saline W/20 Meq Kcl) 20 meq in 1,000 mls @ 100 mls/hr IV .Q10H RINA Stop: 12/03/19 19:59 Last Infusion: 12/03/19 22:38 Dose: 0 mls/hr Documented by: [id number] Admin: 12/03/19 09:59 Dose: 100 mls/hr Documented by: [id number] Infusion: 12/03/19 09:59 Dose: 100 mls/hr Documented by: [id number] Admin: 12/03/19 00:12 Dose: 100 mls/hr Documented by: [id number] Heparin Sodium (Porcine) 4,000 (units/ Syringe) 4 mls @ 10 mls/min IV ONE ONE Stop: 12/03/19 01:15 Last Admin: 12/03/19 01:50 Dose: 10 mls/min Documented by: [id number] Cosigned by: [id number] Sodium Chloride (Nss 1000ml) 1,000 mls @ 100 mls/hr IV .Q10H RINA Stop: 12/03/19 21:59 Last Infusion: 12/03/19 22:38 Dose: 0 mls/hr Documented by: [id number] Admin: 12/03/19 14:52 Dose: 100 mls/hr Documented by: [id number] Isosorbide Mononitrate (Imdur Extended Rel) 30 mg PO QAM [facility] Stop: 01/03/20 08:59 Last Admin: 12/04/19 09:15 Dose: 30 mg Documented by: [id number] Lisinopril (Zestril) 40 mg PO DAILY [facility] Stop: 01/02/20 08:59 Last Admin: 12/03/19 08:00 Dose: 40 mg Documented by: [id number] Lisinopril (Zestril) 20 mg PO DAILY RINA Stop: 01/03/20 08:59 Last Admin: 12/04/19 08:10 Dose: 20 mg Documented by: [id number] Midazolam HCl (Versed) Confirm Administered Dose 2 mg .ROUTE .STK-MED ONE Stop: 12/03/19 13:31 Last Increment: 12/03/19 14:01 Dose: 1 mg Documented by: [id number] Nicardipine HCl (Cardene) Confirm Administered Dose 25 mg .ROUTE .STK-MED ONE Stop: 12/03/19 13:31 Last Admin: 12/03/19 13:44 Dose: 25 mg Documented by: [id number] Nitroglycerin (Nitro-Bid 2%) 1 inch EXT NOW ONE Stop: 12/02/19 16:28 Last Admin: 12/02/19 16:37 Dose: 1 inch Documented by: [id number] Nitroglycerin (Nitro-Bid 2%) 1 inch EXT Q6H [facility] Stop: 01/01/20 19:59 Last Admin: 12/04/19 09:14 Dose: Not Given Documented by: [id number] Admin: 12/04/19 03:00 Dose: 1 inch Documented by: [id number] Admin: 12/03/19 20:53 Dose: 1 inch Documented by: [id number] Admin: 12/03/19 14:52 Dose: 1 inch Documented by: [id number] Admin: 12/03/19 08:01 Dose: 1 inch Documented by: [id number] Admin: 12/03/19 03:00 Dose: 1 inch Documented by: [id number] Admin: 12/02/19 21:35 Dose: 1 inch Documented by: [id number] Pantoprazole Sodium (Protonix) 40 mg PO BID [facility] Stop: 01/01/20 20:59 Last Admin: 12/04/19 08:04 Dose: 40 mg Documented by: [id number] Admin: 12/03/19 20:58 Dose: 40 mg Documented by: [id number] Admin: 12/03/19 08:00 Dose: 40 mg Documented by: [id number] Admin: 12/02/19 21:50 Dose: 40 mg Documented by: [id number] Pentosan Polysulfate Sodium (Elmiron) 100 mg PO TID [facility] Stop: 01/01/20 20:59 Last Admin: 12/04/19 08:04 Dose: 100 mg Documented by: [id number] Admin: 12/03/19 20:57 Dose: 100 mg Documented by: [id number] Admin: 12/03/19 14:52 Dose: 100 mg Documented by: [id number] Admin: 12/03/19 08:01 Dose: 100 mg Documented by: [id number] Admin: 12/02/19 21:50 Dose: 100 mg Documented by: [id number] Potassium Chloride (Klor-Con M20) 40 meq PO NOW ONE Stop: 12/02/19 20:16 Last Admin: 12/02/19 21:50 Dose: 40 meq Documented by: [id number] Pregabalin (Lyrica) 150 mg PO BID RINA Stop: 01/01/20 20:59 Last Admin: 12/04/19 08:12 Dose: 150 mg Documented by: [id number] Admin: 12/03/19 20:53 Dose: 150 mg Documented by: [id number] Admin: 12/03/19 07:58 Dose: 150 mg Documented by: [id number] Admin: 12/02/19 21:50 Dose: 150 mg Documented by: [id number] Sodium Chloride ([place]ona Nasal) Confirm Administered Dose 225 sprays .ROUTE .STK- MED ONE Stop: 12/03/19 20:51 Last Admin: 12/03/19 22:37 Dose: 225 sprays Documented by: [id number] Trazodone HCl (Desyrel) 150 mg PO HS RINA Stop: 01/01/20 20:59 Last Admin: 12/03/19 20:56 Dose: 150 mg Documented by: [id number] Admin: 12/02/19 21:51 Dose: 150 mg Documented by: [id number] Vitamin B Complex (Vitamin B Complex) 1 tab PO DAILY RINA Stop: 01/02/20 08:59 Last Admin: 12/04/19 08:04 Dose: 1 tab Documented by: [id number] Admin: 12/03/19 08:01 Dose: 1 tab Documented by: [id number] Vitamin D (Vitamin D3) 2,000 units PO DAILY RINA Stop: 01/02/20 08:59 Last Admin: 12/04/19 08:07 Dose: 2,000 units Documented by: [id number] Admin: 12/03/19 07:59 Dose: 2,000 units Documented by: [id number] Medical Decision Making Differential Diagnosis Differential diagnoses includes but is not limited to acute coronary syndrome, m yocardial infarction, pericarditis, pulmonary embolus, aortic dissection, pneumonia, pneumothorax, musculoskeletal, shingles, esophageal. Medical Records Attestation: I reviewed the patient's medical records. Home Medications Current Medication List: was personally reviewed by me Laboratory Data Attestation: I reviewed the patient's lab results. Result diagrams: 12/04/19 07:15 12/04/19 07:15 Lab Results 12/02/19 12/02/19 12/02/19 Range/Units 15:59 15:59 15:59 WBC 4.97 (4.8-10.8) K/uL RBC 5.05 (4.2-5.4) M/uL Hgb 14.8 (12.0-16.0) g/dL Hct 43.0 (37-47) % MCV 85.1 (80-100) fL MCH 29.3 (25-34) pg MCHC 34.4 (32-36) g/dL RDW Std Deviation 39.5 (36.4-46.3) fL RDW Coeff of [place] 12.8 (11.5-14.5) % Plt Count 187 (130-400) K/uL MPV 9.9 (7.4-10.4) fL Immature Gran % (Auto) 0.0 % Neut % (Auto) 73.9 % Lymph % (Auto) 16.5 % [place] % (Auto) 5.6 % Eos % (Auto) 3.2 % Baso % (Auto) 0.8 % Immature Gran # (Auto) 0.00 (0.00-0.02) K/uL Neut # (Auto) 3.67 (1.4-6.5) K/uL Lymph # (Auto) 0.82 L (1.2-3.4) K/uL [place] # (Auto) 0.28 (0.11-0.59) K/uL Eos # (Auto) 0.16 (0-0.5) K/uL Baso # (Auto) 0.04 (0-0.2) K/uL PT 10.8 (9.0-12.0) Seconds INR 1.0 (0.9-1.1) APTT (21.0-31.0) Seconds PTT Ratio Sodium 136 (136-145) mmol/L Potassium 3.1 L (3.5-5.1) mmol/L Chloride 100 (98-107) mmol/L Carbon Dioxide 31 (21-32) mmol/L Anion Gap 5.0 (3-11) BUN 10 (7-18) mg/dl Creatinine 0.91 (0.6-1.2) mg/dl Est Cr Clr Drug Dosing 62.7 ml/min Est GFR ( Amer) 77.3 Est GFR (Non-Af Amer) 66.7 BUN/Creatinine Ratio 11.0 (10-20) Glucose 137 H (70-99) mg/dl Calcium 9.0 (8.5-10.1) mg/dl Magnesium 2.1 (1.8-2.4) mg/dl Total Bilirubin 1.2 H (0.2-1) mg/dl AST 21 (15-37) U/L ALT 48 (12-78) U/L Alkaline Phosphatase 122 H (45-117) U/L Troponin I < 0.015 (0-0.045) ng/ml NT-Pro-B Natriuret Pep 68 (0-900) pg/ml Total Protein 7.9 (6.4-8.2) gm/dl Albumin 4.2 (3.4-5.0) gm/dl Globulin 3.7 (2.5-4.0) gm/dl Albumin/Globulin Ratio 1.1 (0.9-2) Lipase 165 (73-393) U/L 12/02/19 12/03/19 12/03/19 Range/Units 21:43 00:21 07:11 WBC (4.8-10.8) K/uL RBC (4.2-5.4) M/uL Hgb (12.0-16.0) g/dL Hct (37-47) % MCV (80-100) fL MCH (25-34) pg MCHC (32-36) g/dL RDW Std Deviation (36.4-46.3) fL RDW Coeff of [place] (11.5-14.5) % Plt Count (130-400) K/uL MPV (7.4-10.4) fL Immature Gran % (Auto) % Neut % (Auto) % Lymph % (Auto) % [place] % (Auto) % Eos % (Auto) % Baso % (Auto) % Immature Gran # (Auto) (0.00-0.02) K/uL Neut # (Auto) (1.4-6.5) K/uL Lymph # (Auto) (1.2-3.4) K/uL [place] # (Auto) (0.11-0.59) K/uL Eos # (Auto) (0-0.5) K/uL Baso # (Auto) (0-0.2) K/uL PT (9.0-12.0) Seconds INR (0.9-1.1) APTT 35.5 H (21.0-31.0) Seconds PTT Ratio 1.3 Sodium 138 (136-145) mmol/L Potassium 4.0 D (3.5-5.1) mmol/L Chloride 105 (98-107) mmol/L Carbon Dioxide 28 (21-32) mmol/L Anion Gap 5.0 (3-11) BUN 14 (7-18) mg/dl Creatinine 0.77 (0.6-1.2) mg/dl Est Cr Clr Drug Dosing 74.2 ml/min Est GFR ( Amer) 94.6 Est GFR (Non-Af Amer) 81.6 BUN/Creatinine Ratio 17.6 (10-20) Glucose 110 H (70-99) mg/dl Calcium 8.6 (8.5-10.1) mg/dl Magnesium (1.8-2.4) mg/dl Total Bilirubin 0.9 (0.2-1) mg/dl AST 15 (15-37) U/L ALT 36 (12-78) U/L Alkaline Phosphatase 98 (45-117) U/L Troponin I < 0.015 < 0.015 (0-0.045) ng/ml NT-Pro-B Natriuret Pep (0-900) pg/ml Total Protein 6.4 (6.4-8.2) gm/dl Albumin 3.4 (3.4-5.0) gm/dl Globulin 3.0 (2.5-4.0) gm/dl Albumin/Globulin Ratio 1.1 (0.9-2) Lipase (73-393) U/L 12/03/19 Range/Units 07:11 WBC (4.8-10.8) K/uL RBC (4.2-5.4) M/uL Hgb (12.0-16.0) g/dL Hct (37-47) % MCV (80-100) fL MCH (25-34) pg MCHC (32-36) g/dL RDW Std Deviation (36.4-46.3) fL RDW Coeff of [place] (11.5-14.5) % Plt Count (130-400) K/uL MPV (7.4-10.4) fL Immature Gran % (Auto) % Neut % (Auto) % Lymph % (Auto) % [place] % (Auto) % Eos % (Auto) % Baso % (Auto) % Immature Gran # (Auto) (0.00-0.02) K/uL Neut # (Auto) (1.4-6.5) K/uL Lymph # (Auto) (1.2-3.4) K/uL [place] # (Auto) (0.11-0.59) K/uL Eos # (Auto) (0-0.5) K/uL Baso # (Auto) (0-0.2) K/uL PT (9.0-12.0) Seconds INR (0.9-1.1) APTT 62.8 H* (21.0-31.0) Seconds PTT Ratio 2.3 Sodium (136-145) mmol/L Potassium (3.5-5.1) mmol/L Chloride (98-107) mmol/L Carbon Dioxide (21-32) mmol/L Anion Gap (3-11) BUN (7-18) mg/dl Creatinine (0.6-1.2) mg/dl Est Cr Clr Drug Dosing ml/min Est GFR ( Amer) Est GFR (Non-Af Amer) BUN/Creatinine Ratio (10-20) Glucose (70-99) mg/dl Calcium (8.5-10.1) mg/dl Magnesium (1.8-2.4) mg/dl Total Bilirubin (0.2-1) mg/dl AST (15-37) U/L ALT (12-78) U/L Alkaline Phosphatase (45-117) U/L Troponin I (0-0.045) ng/ml NT-Pro-B Natriuret Pep (0-900) pg/ml Total Protein (6.4-8.2) gm/dl Albumin (3.4-5.0) gm/dl Globulin (2.5-4.0) gm/dl Albumin/Globulin Ratio (0.9-2) Lipase (73-393) U/L ECG Data Attestation: I personally reviewed and interpreted this ECG as follows: Indication: + chest pain Rate (beats per minute): 74 Rhythm: + normal sinus ECG Intervals/blocks: + Normal QRS and + Normal QT ECG [place]: + Normal ECG ST segments: + T-wave inversions (V3-5) Comparison ECG Date: from (02/08/2019) Change: the following changes noted Additional Comments: improved T wave inversions Blood Pressure Blood Pressure Findings: Elevated blood pressure Blood Pressure Disposition: further management by hospitalist MDM Narrative Pt here with exertional chest discomfort and symptoms for the last 48 hours. Pt with prior hx of CAD s/p stenting and does follow with cardiology. VS stable. 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 Hospitalist contacted for additional mgmt. Pt rechecked and was still having discomfort so fentanyl added. When hospitalist evaluated her she was still having pain so heparin was ordered. No ekg changes and first troponin negative. cxr negative. Pt made aware of all results and was in agreement with the plan. An order was placed for continuous cardiac monitoring. The monitor shows a rate of 70 with normal sinus rhythm. Impression & Plan Stable angina, Chest pain, Hypertension Discharge Plan Visit Data *Final* Discharge Date/Time: 12/02/19 18:44 Chief Complaint: Chest Pain Stated Complaint: chest pain started 11/29 ED Provider: Estela Newman Discharge Problem: Stable angina, Chest pain, Hypertension Patient Disposition: Admitted As Inpatient Discharge Instructions Interventions: ED Discharge Assessment Last Done: 12/02/19 18:44 Discharge Problem: Chest pain Qualifiers: Chest pain type: chest pain due to myocardial ischemia Ischemic chest pain type: stable angina pectoris Qualified Code(s): I20.8 - Other forms of angina pectoris Hypertension Qualifiers: Hypertension type: essential hypertension Qualified Code(s): I10 - Essential (primary) hypertension
[2019-12-02] MEDS ORDERED: FAMOTIDINE 20MG/5ML IV PUSH IV STA (16:27)
[2019-12-02] MEDS ORDERED: NITROGLYCERIN 2% OINTMENT 30GM TUBE EXT ONE (16:27)
[2019-12-02 16:35] LABS: Basophils # (auto) 0.04 K/uL (0-0.2); Basophils % (auto) 0.8 %; Eosinophils # (auto) 0.16 K/uL (0-0.5); Eosinophils % (auto) 3.2 %; Hemoglobin 14.8 g/dL (12.0-16.0); Lymphocytes # (auto) 0.82 K/uL (1.2-3.4); Lymphocytes % (auto) 16.5 %; Mean Corpuscular Hemoglobin 29.3 pg (25-34); Mean Corpuscular Hgb Conc 34.4 g/dL (32-36); Mean Corpuscular Volume 85.1 fL (80-100); Mean Platelet Volume 9.9 fL (7.4-10.4); Monocytes # (auto) 0.28 K/uL (0.11-0.59); Monocytes % (auto) 5.6 %; Neutrophils # (auto) 3.67 K/uL (1.4-6.5); Neutrophils % (auto) 73.9 %; Platelet Count 187 K/uL (130-400); RDW Coefficient of Variation 12.8 % (11.5-14.5); RDW Standard Deviation 39.5 fL (36.4-46.3); Red Blood Count 5.05 M/uL (4.2-5.4); White Blood Count 4.97 K/uL (4.8-10.8)
[2019-12-02 16:43] LABS: Alanine Aminotransferase 48 U/L (12-78); Albumin Level 4.2 gm/dl (3.4-5.0); Aspartate Aminotransferase 21 U/L (15-37); Blood Urea Nitrogen 10 mg/dl (7-18); Carbon Dioxide 31 mmol/L (21-32); Chloride 100 mmol/L (98-107); Creatinine Clr Calc Pharmacy 62.7 ml/min; Est GFR (African American) 77.3; Est GFR (Non-African American) 66.7; Glucose 137 mg/dl (70-99); Lipase 165 U/L (73-393); Magnesium 2.1 mg/dl (1.8-2.4); Potassium 3.1 mmol/L (3.5-5.1); Prothrombin Time 10.8 Seconds (9.0-12.0); Sodium 136 mmol/L (136-145)
[2019-12-02 16:48] LABS: Albumin Globulin Ratio 1.1 (0.9-2); Alkaline Phosphatase 122 U/L (45-117); Bilirubin,Total 1.2 mg/dl (0.2-1); Globulin 3.7 gm/dl (2.5-4.0); NT Pro B Type Natriuretic Pept 68 pg/ml (0-900); Total Protein 7.9 gm/dl (6.4-8.2); Troponin I < 0.015 ng/ml (0-0.045)
[2019-12-02] MEDS ORDERED: fentaNYL citrate 100 MCG/2 ML VIAL IV PRN (17:01)
--- NOTE | 2019-12-02 17:19 | XRay Report ---
XR chest 1V portable HISTORY: 64 years-old Female chest pain acute atypical chest pain COMPARISON: Chest radiograph 02/04/2018 TECHNIQUE: Portable AP view of the chest FINDINGS: Cardiomediastinal and hilar silhouettes are within normal limits. Mild chronic interstitial coarsenin g of the lung bases. No pneumothorax, pleural effusion, overt pulmonary edema or airspace consolidati on typical for pneumonia. Bones of the chest appear grossly intact. IMPRESSION: No acute process. ACT 112: Negative or not required by law. The above report was generated using voice recognition software. It may contain grammatical, syntax o r spelling errors. Electronically signed by: Hebert Wilkins M.D. 12/02/2019 5:17 PM
[2019-12-02] MEDS ORDERED: Heparin IV Low Dose *NO* Bolus IV ONE (17:53)
[2019-12-02] MEDS ORDERED: HEPARIN SODIUM/DEXTROSE 25,000 UNITS/500 ML BAG IV SCH (18:00)
--- NOTE | 2019-12-02 18:02 | History & Physical Report ---
Date of Service December 02, 2019 Assessment & Plan (1) Chest pain, rule out acute myocardial infarction: Stable/Unstable angina (mainly shortness of breath anginal equivalent but also some chest heaviness). No troponin elevation currently, with normal EKG and with most severe episode on Monday therefore low likelihood of NE. Given ongoing chest heaviness at rest however despite Fentanyl, nitro paste; therefore will start on heparin IV low dose drip. Admit to PCU under observation status. Trend troponins EKG in AM NPO after midnight in case she needs cardiac cath Consult her [employer] fscm developer Dr Nova (2) CAD (coronary artery disease): Continue ASA, Plavix, carvedilol, lisinopril. Not on stating as per hyperlipidemia below. (3) Hypertension: Continue lisinopril, HCTZ, lasix, carvedilol and amlodipine at usual home dosing (4) Hyperlipidemia: Not on statin due to muscle aches although she is unclear whether this was just her firbomyalgia and whether the statin made it worse. Will defer restarting to her usual cardiology who has been managing this. (5) GERD (gastroesophageal reflux disease): Current chest heaviness unlike prior episode of this and shortness of breath would be unusual therefore would favor cardiac cause of her current symptoms. IV famotidine given in ER, can restart her usual dose tomorrow. Continue pantoprazole 40mg BID (6) Anxiety: with depression. Continue duloxetine. (7) Fibromyalgia: Continue Lyrica and Cymbalta (8) Interstitial cystitis: Continue Pentosan polysulfate sodium 100mg TID (9) Glaucoma: Continue dorzolamide-timolol eye drops (10) DVT prophylaxis: Heparin IV drip Admission and Anticipated Discharge Date Admission Date: 12/02/2019 History of Present Illness Chief Complaint: Shortness of breath, chest heaviness Primary Care Provider: Natasha Saldaña MD Selina Hopkins is a 64 year old female who presents to the ER with episodes of shortness of breath. Since then she has not had any episodes of shortness of breath until now. First episode occurred while walking up stairs on Monday evening at her son's home after a cookout. She became acutely short of breath with associated chest heaviness (denies pain) and burning sensation in her throat. She had to sit down for around 10-15 minutes to catch her breath. Next episode occurred on Monday while going for a walk, similar but less severe but had to stop again. She went shopping again today without an issue but when she went to go up stairs to her dermatology appointment she felt acutely short of breath again. This occurred around 1pm. It was less severe than the episode on Monday but since it continued to happen she decided to come to the ER as she was concerned that she was feeling similar episodes ot this prior to her STEMI in January last year. Chest heaviness no worse on palpation of inspiration. Feels different to her suaul GERD which is more epigastric pain, bloating and belching. She does note having spicy hot chips on Monday but no other exacerbating GERD foods and these did not seem to make a difference to her chest heaviness which is very exertional and occurs only with her main symptom of shortness of breath. She reports taking her medications regularly and not missing doses. She denies any orthopnea, PND, claudication, dizziness, presyncope or syncope. Significant recent history of x4 overlapping drug-eluting cardiac stents in mid- distal LAD in January 2019 with residual 90% ostial D2 lesion after STEMI. Under Dr Nova as outpatient. Not currently on statin due to myalgias. In the ER she denies any shortness of breath but does note ongoing chest heaviness despite Fentanyl and nitro paste use. Allergies Allergy/AdvReac Type Severity Reaction Status Date / Time No Known Allergies Allergy NONE Verified 12/02/19 19:06 Home Medications Home Medications Medication Instructions Recorded Confirmed Type dorzolamide-timolol 1 drp OPB BID 01/26/19 12/02/19 History duloxetine 60 mg PO BID 01/26/19 12/02/19 History pregabalin [Lyrica] 150 mg PO BID 01/26/19 12/02/19 History aspirin [Ecotrin Low Strength] 81 mg PO QAM #30 tab 01/28/19 12/02/19 Rx clopidogrel 75 mg PO QAM #30 tab 01/28/19 12/02/19 Rx cholecalciferol (vitamin D3) 50 2,000 units PO DAILY 04/11/19 12/02/19 History mcg (2,000 unit) capsule pentosan polysulfate sodium 100 mg 100 mg PO TID #90 cap 05/01/19 12/02/19 Rx capsule amlodipine 5 mg tablet 5 mg PO DAILY 06/24/19 12/02/19 History lisinopril 40 mg tablet 40 mg PO DAILY 06/24/19 12/02/19 History furosemide 40 mg tablet 20 mg PO DAILY #45 tab 07/16/19 12/02/19 Rx alpha lipoic acid 600 mg capsule 600 mg PO DAILY #60 cap 07/29/19 12/02/19 Rx oxycodone-acetaminophen 5 mg-325 1 tab PO BID PRN #60 tab 10/08/19 12/02/19 Rx mg tablet pantoprazole 40 mg tablet,delayed 40 mg PO BID tab 10/14/19 12/02/19 History release carvedilol 12.5 mg tablet 12.5 mg PO BID #180 tab 10/18/19 12/02/19 Rx trazodone 150 mg tablet 150 mg PO HS #90 tab 10/21/19 12/02/19 Rx famotidine 40 mg tablet 40 mg PO QPM #30 tab 10/28/19 12/02/19 Rx cinnamon bark 500 mg capsule 1,500 mg PO DAILY cap 11/01/19 12/02/19 History hydrochlorothiazide 12.5 mg capsule 12.5 mg PO DAILY 11/01/19 12/02/19 History coenzyme Q10 [CoQ-10] 200 mg PO DAILY 12/02/19 12/02/19 History vitamin B [id number] cit 1 tab PO DAILY 12/02/19 12/02/19 History Past Med/Surg History Medical History (Updated 12/03/19 @ 07:48 by Shalom Dennis MD) Anxiety (Chronic) CAD (coronary artery disease) (Chronic) Depression (Chronic) Fibromyalgia (Chronic) GERD (gastroesophageal reflux disease) Hypertension (Chronic) Lumbar degenerative disc disease (Chronic) Snoring (Chronic) STEMI (ST elevation myocardial infarction) (Resolved) Surgical History H/O dilation and curettage (Chronic) H/O: hysterectomy (Chronic) History of lumbar spinal fusion (Chronic) Social History Preferred Language: Tajik Communication Ability: Effective Labor Gang Supervisor Required: No Beliefs That Will Affect Care: None Current Living Situation: Spouse current occupational status: retired Feels Safe at Home: Yes Safety Concerns: Feels Safe At This Time Smoking Status: Never smoker Hx Alcohol Use: No Hx Substance Use: No Dental Care, Regularly: Yes Physical Activity Frequency: Does not Exercise Seatbelt Use: always Do you think of yourself as: straight/heterosexual Review of Systems Review of Systems: All systems reviewed & are unremarkable except as noted in HPI & below Physical Exam Constitutional: WD/WN, vitals as above Eyes: PERRL, conjunctivae normal, anicteric sclerae ENMT: external ear and nose normal, oropharynx normal Neck: trachea midline, no thyromegaly Respiratory: normal respiratory effort, lungs clear to auscultation Cardiovascular: RRR, no murmur, no edema Gastrointestinal (Abdomen): normal bowel sounds, soft, nontender, no hepatosplenomegaly Musculoskeletal: no cyanosis or clubbing, extremities motor strength 5/5 Skin: no rashes, warm and dry Neurologic: moves all extremities and awake; no focal motor deficits and not confused Speech / Cognition: normal speech Psychiatric: A+Ox3, euthymic affect Lymphatic: no cervical or axillary lymphadenopathy Results & Data Results & Data ([facility]) Vital Signs (Past 12 Hours) Vital Signs Temp Pulse Resp BP Pulse Ox 12/02/19 15:38 36.8 C 67 20 130/78 96 Diagnostic Findings XR chest 1V portable IMPRESSION: No acute process. ECG Indication: chest pain Rate (beats per minute): 74 Rhythm: normal sinus Findings: no T-wave inversion (Anterior) and no acute ischemic change Comparison ECG Date: from (02/04/2019) Change: the following changes noted (TWI resolved in anterior leads) Code Status & VTE Plan Code Status Full VTE Prophylaxis Plan VTE Prophylaxis will be ordered: Yes PG Care Time/CCT Total # of Minutes Spent Total Time Spent with Patient: Total time spent is greater than 50% in coordination of care (as documented) at patient's floor/unit and/or counseling patient: Coding Level of Care Code 94628 OBS Care - Level 3 Diagnoses Chest pain, rule out acute myocardial infarction R07.9 CAD (coronary artery disease) I25.10 Hypertension I10 Hyperlipidemia E78.5 GERD (gastroesophageal reflux disease) K21.9 Anxiety F41.9 Fibromyalgia M79.7 Interstitial cystitis N30.10 Glaucoma H40.9 DVT prophylaxis Z29.9
[2019-12-02] MEDS ORDERED: ONDANSETRON INJ 2 MG/ML 2 ML VIAL IV PRN (19:04)
[2019-12-02] MEDS ORDERED: POLYETHYLENE (MIRALAX) 17 GM PACK PO PRN (19:04)
[2019-12-02] MEDS ORDERED: ACETAMINOPHEN 325 MG TAB PO PRN (19:04)
[2019-12-02] MEDS ORDERED: NITROGLYCERIN SL 0.4 MG/TAB TAB SL PRN (19:04)
[2019-12-02] MEDS ORDERED: MoRPHine SULFATE 2 MG/ML CARP IV PRN (19:04)
[2019-12-02] MEDS ORDERED: ALUMINUM/MAGNESIUM SUSP 30 ML UDC PO PRN (19:04)
[2019-12-02] MEDS ORDERED: MAGNESIUM HYDROXIDE SUSP 30 ML UDC PO PRN (19:04)
[2019-12-02] MEDS ORDERED: OXYCODONE/ACETAMINOPHEN 5mg/325mg TAB PO PRN (19:50)
[2019-12-02] MEDS ORDERED: POTASSIUM CHLORIDE 20 MEQ TABCR PO ONE (20:15)
[2019-12-02] MEDS: DORZOLAMIDE/TIMOLOL 22.3/6.8MG/ML 10 ML BTL OPB SCH (21:34)
[2019-12-02] MEDS: NITROGLYCERIN 2% OINTMENT 30GM TUBE EXT SCH (21:35)
[2019-12-02] MEDS: DULOXETINE HCL 60 MG CAP PO SCH (21:36)
[2019-12-02] MEDS: carvediloL 12.5 MG TAB PO SCH (21:37)
[2019-12-02] MEDS: PENTOSAN POLYSULFATE SODIUM 100 MG CAP PO SCH (21:50)
[2019-12-02] MEDS: PANTOprazole 40 MG TAB PO SCH (21:50)
[2019-12-02] MEDS: PREGABALIN 150 MG CAP PO SCH (21:50)
[2019-12-02] MEDS: TRAZODONE HCL 50 MG TAB PO SCH (21:51)
[2019-12-03] MEDS: NSS + 20MEQ KCL 20 MEQ/1,000 ML BAG IV SCH ×2 (00:12→09:59)
[2019-12-03 00:57] LABS: Partial Thromboplastin Ratio 1.3; Partial Thromboplastin Time 35.5 Seconds (21.0-31.0)
[2019-12-03] MEDS ORDERED: HEPARIN IV BOLUS 4,000 UNITS in SYRINGE 0 ML IV ONE (01:14)
[2019-12-03] MEDS: NITROGLYCERIN 2% OINTMENT 30GM TUBE EXT SCH ×4 (03:00→20:53)
--- NOTE | 2019-12-03 06:14 | Electrocardiogram Report ---
Test Reason : Blood Pressure : / mmHG Vent. Rate : 074 BPM Atrial Rate : 074 BPM P-R Int : 142 ms QRS Dur : 092 ms QT Int : 400 ms P-R-T Axes : 048 032 070 degrees QTc Int : 444 ms Normal sinus rhythm Nonspecific T wave abnormality Abnormal ECG When compared with ECG of 04-FEB-2019 19:45, T wave inversion less evident in Anterior leads Confirmed by Manohar Whitehead ([id number]) on 12/03/2019 6:14:22 AM Referred By: REFERRED SELF Confirmed By:Manohar Whitehead
[2019-12-03 07:50] LABS: Partial Thromboplastin Ratio 2.3
[2019-12-03 07:57] LABS: Alanine Aminotransferase 36 U/L (12-78); Albumin Level 3.4 gm/dl (3.4-5.0); Aspartate Aminotransferase 15 U/L (15-37); BUN Creatinine Ratio 17.6 (10-20); Blood Urea Nitrogen 14 mg/dl (7-18); Calcium 8.6 mg/dl (8.5-10.1); Carbon Dioxide 28 mmol/L (21-32); Chloride 105 mmol/L (98-107); Creatinine Clr Calc Pharmacy 74.2 ml/min; Est GFR (African American) 94.6; Est GFR (Non-African American) 81.6; Glucose 110 mg/dl (70-99); Sodium 138 mmol/L (136-145)
[2019-12-03] MEDS: DORZOLAMIDE/TIMOLOL 22.3/6.8MG/ML 10 ML BTL OPB SCH ×2 (07:57→20:54)
[2019-12-03] MEDS: AMLODIPINE BESYLATE 5 MG TAB PO SCH (07:58)
[2019-12-03] MEDS: PREGABALIN 150 MG CAP PO SCH ×2 (07:58→20:53)
[2019-12-03] MEDS: FUROSEMIDE 20 MG TAB PO SCH (07:59)
[2019-12-03] MEDS: carvediloL 12.5 MG TAB PO SCH ×2 (07:59→20:57)
[2019-12-03] MEDS: hydroCHLOROthiazide 25 MG TAB PO SCH (07:59)
[2019-12-03] MEDS: CHOLECALCIFEROL 1,000 UNITS 25 MCG TAB PO SCH (07:59)
[2019-12-03] MEDS: PANTOprazole 40 MG TAB PO SCH ×2 (08:00→20:58)
[2019-12-03] MEDS: CLOPIDOGREL BISULFATE 75 MG TAB PO SCH (08:01)
[2019-12-03] MEDS: ASPIRIN 81 MG ECTAB PO SCH (08:01)
[2019-12-03] MEDS: PENTOSAN POLYSULFATE SODIUM 100 MG CAP PO SCH ×3 (08:01→20:57)
[2019-12-03] MEDS: VITAMIN B COMPLEX TAB PO SCH (08:01)
[2019-12-03] MEDS: DULOXETINE HCL 60 MG CAP PO SCH ×2 (08:01→20:55)
[2019-12-03 08:05] LABS: Albumin Globulin Ratio 1.1 (0.9-2); Alkaline Phosphatase 98 U/L (45-117); Bilirubin,Total 0.9 mg/dl (0.2-1); Total Protein 6.4 gm/dl (6.4-8.2); Troponin I < 0.015 ng/ml (0-0.045)
[2019-12-03 08:06] LABS: Partial Thromboplastin Time 62.8 Seconds (21.0-31.0)
[2019-12-03] MEDS ORDERED: CINNAMON BARK PO SCH (09:00)
[2019-12-03] MEDS ORDERED: ALPHA LIPOIC ACID 600 MG PO SCH (09:00)
[2019-12-03] MEDS ORDERED: lisinopriL 40 MG TAB PO SCH (09:00)
[2019-12-03] MEDS ORDERED: NON-FORMULARY MEDICATION (Coenzyme Q10 [Coq-10] 200 MG) PO SCH (09:00)
--- NOTE | 2019-12-03 09:28 | Cardiology Consultation ---
Date of Consultation HPI:Selina has noted chest tightness and chest pressure that occurred on Monday night when walking up an incline at her son's. She noted again on Monday she went for a walk with her daughter and had the same central pressure like sensation along with shortness of breath. This happened again yesterday and given her concern for progression of her cardiac disease she came to the emergency room. She continued to have some mild discomfort yesterday and was placed on a heparin drip. Currently she is pain-free. She denies any scapular discomfort jaw or neck discomfort she denies any nausea or diaphoresis with her symptoms.She notes compared to 2 weeks ago her symptoms are completely new. When I last saw her in the office she was able to do all of her activity without any limitations. The rest of complete review systems otherwise negative LM: normal LAD: prox normal, Mid long eccentric calcified 40-50%,early distal focal, hazy 95% with ROMÁN I flow. D1-ok, D2-ostial 90%, D3-ok LCx: non dominant mild non-occlusive disease. OM1 small, OM2 lg, branching, OM3 small, L-PLB small RCA: large, Dom. Branches to PDA and R PLB. No significant disease. GENERAL: She is awake, alert, oriented x3. She is in no acute distress. She is a well-appearing female who looks her stated age. HEENT: 2+ carotid upstrokes, no evidence of carotid bruits. Jugular venous pressure appeared normal. Sclerae is anicteric. Hearing is normal. LUNGS: Clear to auscultation bilaterally no rales rhonchi or wheezing HEART: Regular rate and rhythm. No appreciable murmurs, rubs or gallops. ABDOMEN: Soft, nontender, nondistended. Positive bowel sounds. EXTREMITIES: No clubbing, cyanosis or edema. PSYCHIATRIC: Affect appeared appropriate. Neurologic she is awake alert and oriented x3 IMPRESSION: 1. Unstable angina 1A. History of angioplasty and stenting of the mid to distal LAD with 4 overlapping drug-eluting stents 01/2019 1B. Residual 90% ostial D2 lesion 2. Hypertension. 3. Hyperlipidemia. 4. History of renal disease, although her creatinine is normal. 5. Preserved left ventricular systolic function She gives a very good story for unstable angina. It is become progressive over the last week or so. If you look at her initial EKG in the emergency room she did have T wave inversions across the precordial leads. Once she was stabilized her T wave inversions resolved and her EKG is back to normal her troponins remain negative. Her story is most consistent with in-stent restenosis or the possibility of progression of the large second diagonal branch.Given her story I recommend a cardiac catheterization. I discussed the risks and benefits of cardiac catheterization risks including but not limited to bleeding or infection at the puncture site damage to her radial or femoral artery. Risk of contrast-induced nephropathy. Allergic reaction to contrast. And a 1 in the thousand risk of heart attack stroke or dying with the procedure. She understands the risks and wishes to proceed. For now she should remain on her heparin drip. She should remain n.p.o. in anticipation of the procedure. This was all discussed with Dr. Maravilla of interventional cardiology who will do the procedure today. She should remain on the rest of her cardiac medications for now.We did discuss the idea of in-stent restenosis and the pathophysiology of this. I will review my outpatient note to determine why she is not on statin therapy as an outpatient. December 03, 2019 History of Present Illness Attending Physician: Eyad Kinney DO Allergies Allergy/AdvReac Type Severity Reaction Status Date / Time No Known Allergies Allergy NONE Verified 12/02/19 19:06 Home Medications Home Medications Medication Instructions Recorded Confirmed Type dorzolamide-timolol 1 drp OPB BID 01/26/19 12/02/19 History duloxetine 60 mg PO BID 01/26/19 12/02/19 History pregabalin [Lyrica] 150 mg PO BID 01/26/19 12/02/19 History aspirin [Ecotrin Low Strength] 81 mg PO QAM #30 tab 01/28/19 12/02/19 Rx clopidogrel 75 mg PO QAM #30 tab 01/28/19 12/02/19 Rx cholecalciferol (vitamin D3) 50 2,000 units PO DAILY 04/11/19 12/02/19 History mcg (2,000 unit) capsule pentosan polysulfate sodium 100 mg 100 mg PO TID #90 cap 05/01/19 12/02/19 Rx capsule amlodipine 5 mg tablet 5 mg PO DAILY 06/24/19 12/02/19 History lisinopril 40 mg tablet 40 mg PO DAILY 06/24/19 12/02/19 History furosemide 40 mg tablet 20 mg PO DAILY #45 tab 07/16/19 12/02/19 Rx alpha lipoic acid 600 mg capsule 600 mg PO DAILY #60 cap 07/29/19 12/02/19 Rx oxycodone-acetaminophen 5 mg-325 1 tab PO BID PRN #60 tab 10/08/19 12/02/19 Rx mg tablet pantoprazole 40 mg tablet,delayed 40 mg PO BID tab 10/14/19 12/02/19 History release carvedilol 12.5 mg tablet 12.5 mg PO BID #180 tab 10/18/19 12/02/19 Rx trazodone 150 mg tablet 150 mg PO HS #90 tab 10/21/19 12/02/19 Rx famotidine 40 mg tablet 40 mg PO QPM #30 tab 10/28/19 12/02/19 Rx cinnamon bark 500 mg capsule 1,500 mg PO DAILY cap 11/01/19 12/02/19 History hydrochlorothiazide 12.5 mg capsule 12.5 mg PO DAILY 11/01/19 12/02/19 History coenzyme Q10 [CoQ-10] 200 mg PO DAILY 12/02/19 12/02/19 History vitamin B [id number]-[id number] cit 1 tab PO DAILY 12/02/19 12/02/19 History Patient History Medical History Anxiety (Chronic) CAD (coronary artery disease) (Chronic) Depression (Chronic) Fibromyalgia (Chronic) GERD (gastroesophageal reflux disease) Hypertension (Chronic) Lumbar degenerative disc disease (Chronic) Snoring (Chronic) STEMI (ST elevation myocardial infarction) (Resolved) Surgical History H/O dilation and curettage (Chronic) H/O: hysterectomy (Chronic) History of lumbar spinal fusion (Chronic) Family History Mother Myocardial infarction Hypertension Brother Myocardial infarction Grandmother Ovarian cancer Father Diabetes Hypertension Grandmother (Maternal) Stroke Grandfather (Maternal) Stroke Grandmother (Paternal) Cancer Grandfather (Paternal) Cirrhosis of liver Denies family history of Prostate cancer Breast cancer Colorectal cancer Social History (Reviewed 12/03/19 @ 09:22 by GORDO Michaels Preferred Language: Greenlandic Communication Ability: Effective Federal Law Clerk Required: No Beliefs That Will Affect Care: None Current Living Situation: Spouse current occupational status: retired Feels Safe at Home: Yes Safety Concerns: Feels Safe At This Time Smoking Status: Never smoker Hx Alcohol Use: No Hx Substance Use: No Dental Care, Regularly: Yes Physical Activity Frequency: Does not Exercise Seatbelt Use: always Do you think of yourself as: straight/heterosexual Results & Data ([facility]) Vital Signs (Past 12 Hours) Vital Signs Temp Pulse Pulse Resp BP BP Pulse Ox 12/03/19 07:12 37.0 C 62 20 128/72 94 12/03/19 04:00 36.4 C L 57 L 17 121/74 95 12/02/19 23:49 36.7 C 61 17 114/69 91
[2019-12-03] MEDS ORDERED: MIDAZOLAM HCL 1 MG/ML 2ML VIAL ONE (13:30)
[2019-12-03] MEDS ORDERED: fentaNYL citrate 100 MCG/2 ML VIAL ONE (13:30)
[2019-12-03] MEDS ORDERED: HEPARIN (PORCINE) 1000 UNIT/ML 10 ML (CATH LAB USE ONLY) ONE (13:30)
[2019-12-03] MEDS ORDERED: NiCARDipine HCL INJ 2.5 MG/ML 10 ML AMP ONE (13:30)
--- NOTE | 2019-12-03 13:44 | Pre Anesthesia Assessment ---
Date of Service December 03, 2019 Pre Sedation Assessment Vital Signs Temp Pulse Pulse Pulse Resp BP BP 12/03/19 11:19 98.4 F 61 18 124/74 12/03/19 08:00 53 L 12/03/19 07:12 98.6 F 62 20 12/03/19 04:00 97.5 F L 57 L 17 121/74 12/02/19 23:49 98.1 F 61 17 114/69 12/02/19 19:33 98.1 F 64 18 129/68 12/02/19 18:44 97.7 F 66 16 162/81 H 12/02/19 18:00 67 16 128/74 12/02/19 17:30 63 11 L 131/74 12/02/19 17:00 68 11 L 147/87 H 12/02/19 16:38 67 18 134/74 12/02/19 16:30 66 15 12/02/19 16:02 67 19 12/02/19 15:38 98.2 F 67 20 130/78 BP Pulse Ox 12/03/19 11:19 94 12/03/19 08:00 12/03/19 07:12 128/72 94 12/03/19 04:00 95 12/02/19 23:49 91 12/02/19 19:33 93 12/02/19 18:44 93 12/02/19 18:00 94 12/02/19 17:30 89 L 12/02/19 17:00 12/02/19 16:38 12/02/19 16:30 12/02/19 16:02 12/02/19 15:38 96 Cardiovascular RRR, no murmur, no edema Respiratory normal respiratory effort, lungs clear to auscultation Pre-Sedation Airway Assessment Smoking Status: Never smoker Hx Sleep Apnea: No Hx Difficult Intubation: No Short, Thick Neck: No Thyromental Distance: > or= 3.5 Finger Breadths Oral Cavity: + WNL Mallampati Class: III ASA: ASA3 Procedure Planning Contraindications for Sedation: none Current Medications Reviewed: Yes Notes The planned sedation has been discussed with the patient. Informed Consent was obtained. I have identified the patient, determined the appropriateness of sedation and have assessed the patient immediately prior to the procedure. All medicine(s) and interventions are by my order.
--- NOTE | 2019-12-03 14:04 | Post Anesthesia Assessment ---
Date of Service December 03, 2019 Post Sedation Assessment Vital Signs Temp Pulse Pulse Pulse Resp BP BP 12/03/19 11:19 98.4 F 61 18 124/74 12/03/19 08:00 53 L 12/03/19 07:12 98.6 F 62 20 12/03/19 04:00 97.5 F L 57 L 17 121/74 12/02/19 23:49 98.1 F 61 17 114/69 12/02/19 19:33 98.1 F 64 18 129/68 12/02/19 18:44 97.7 F 66 16 162/81 H 12/02/19 18:00 67 16 128/74 12/02/19 17:30 63 11 L 131/74 12/02/19 17:00 68 11 L 147/87 H 12/02/19 16:38 67 18 134/74 12/02/19 16:30 66 15 12/02/19 16:02 67 19 12/02/19 15:38 98.2 F 67 20 130/78 BP Pulse Ox 12/03/19 11:19 94 12/03/19 08:00 12/03/19 07:12 128/72 94 12/03/19 04:00 95 12/02/19 23:49 91 12/02/19 19:33 93 12/02/19 18:44 93 12/02/19 18:00 94 12/02/19 17:30 89 L 12/02/19 17:00 12/02/19 16:38 12/02/19 16:30 12/02/19 16:02 12/02/19 15:38 96 Recovery Score Activity: Moves 4 extremities Respiration: Deep Breath/Cough Circulation: +/-20% PreAnes Value Consciousness: Fully Awake Oxygen Saturation: O2 needed for >90% Discharge Sedation Level of Care: Fast Track Phase II Post Sedation Plan On clinical assessment, the patient appears to have tolerated the sedation without complications. Patient is recovering as anticipated. Patient will continue to be monitored by nursing and may be discharged when sedation discharge criteria are met per below protocol. Upon Completions of procedure up to 15 minutes continue every 5 minute vital signs and the P.A.R. score; then discharge to a Phase I or Fast Track to Phase II per the following guidelines: * Discharge Patient to appropriate Phase II area if PAR is 8 or greater or return to pre- procedure baseline. The post - procedure orders will be as directed. * If PAR score is less than 8 or not return to pre-procedure baseline then patient will follow Phase I monitoring till PAR is reached for Phase II. The Phase I may be done in procedure room or may call to secure a Phase I area. * If naloxone or flumazenil are used for reversal, hold in Phase I for continued monitoring from when last reversal dose was given for a minimum of 60 minutes or longer pending the nurse and/or physician discretion of patient condition before discharge to Phase II. Please call the Sedation Physician to re-evaluate and complete post-note for discharge to Phase II area. Do NOT discharge from procedure sedation or Phase 1 until post- sedation evaluation note is complete by procedure /sedation MD Sedation Discharge Instructions to be given to the patient at discharge to home.
--- NOTE | 2019-12-03 14:06 | Cardiac Catheterization ---
[facility] Data: Web Content Developer Cardiac Status Clinical evaluation leading to the procedure CAD Presenation: Unstable angina Anginal Classification: CCS IV Heart Failure: No Cardiogenic Shock within 24 Hours: No Cardiac Arrest within 24 Hours: No Imaging Studies Past 6 Months: Yes Stress Studies Past 6 Months: No Diagnostic Physicians Name: Uri Maravilla MD Status: Elective Closure Device Percutaneous Entry Location: Radial Closure Device: Radial Band Recommendations: Medical Therapy and/or Counseling Intraprocedure Events Significant Disection: No Perforation: No Cardiac Cath Procedure Full Procedure Date December 03, 2019 Pre-Procedure Diagnosis Pre-Procedure Diagnosis: Acute Coronary Syndrome AUC Score AUC Score: 7 Post-Procedure Diagnosis Post-Procedure Diagnosis: Moderate CAD Procedure(s) Performed Procedure(s) Performed: Coronary Angiography and Left Heart Cath Sql Server Developer Uri Maravilla MD Chief Gauger(s) [place] Estimated Blood Loss Estimated Blood Loss: 10 Medication(s) Medication(s): Fentanyl, Heparin, Lidocaine 1%, Nicardipine, Nitroglycerin and Versed Summary of Findings Indication: Unstable angina Access: 6 Fr slender right radial artery Catheters: [place] Findings: LM -medium caliber, angiographically normal LAD -medium caliber, widely patent proximal to mid segment stent without restenosis, small distal vessel without significant disease. Medium caliber first diagonal without disease. Very small second diagonal (<1.5 mm) with 95% acute appearing stenosis. Small third diagonal with 60% ostial stenosis unchanged from prior. Circumflex - Small, nondominant, 40% ostial stenosis with proximal luminal regularities RCA -large caliber, dominant gives off PDA, right PLB. No significant disease LVEDP -14 Arterial Closure: TR band Summary: 1. Mild to moderate stable major epicardial vessel coronary artery disease - Widely patent proximal to mid LAD stents -40% ostial circumflex 2. Severe small branch vessel disease. - 95% ostial very small second diagonal (likely acute culprit). - 60% ostial small third diagonal 3. Normal intracardiac filling pressure Recommendations: Very small second diagonal too small for intervention. Recommend medical management. Further titration of antianginal therapy per Dr. Nova Hemodynamics Rest Ao:: 148/69/106 Final Ao: 162/70/106 LV: 13 Recommendations Recommendations: Medical Therapy and/or Counseling Specimens Specimens: None Radiation Exposure (mGy) 399 Contrast (mls) 50 Fluids (cc crystalloids) Fluids (cc crystalloids): 35 Drains Drains: none Anesthesia moderate Procedural Complication(s) None Disposition PCU I attest to the content of the Intraoperative Record and any orders documented therein. Any exceptions are noted below. [facility] Card Cath Procedure Codes Cardiac Catheterization Procedure 1: Cardiovascular Cath Procedures: 49706 Coronaries and LHC (+/-LV) Moderate Sedation Procedure 1: Sedation/Anesthesia: 86269 Mod Sedation by the same physician;Init15 Min Child Age 5 & Up PG Care Time/CCT Total # of Minutes Spent Total Time Spent with Patient: Total time spent is greater than 50% in coordination of care (as documented) at patient's floor/unit and/or counseling patient:
[2019-12-03] MEDS ORDERED: SODIUM CHLORIDE 0.9% 1000ML 1,000 ML IV SCH (14:30)
--- NOTE | 2019-12-03 16:06 | Hospitalist Progress Note ---
Date of Service December 03, 2019 Assessment & Plan (1) Chest pain, rule out acute myocardial infarction: Stable/Unstable angina (mainly shortness of breath anginal equivalent but also some chest heaviness). No troponin elevation currently, with normal EKG and with most severe episode on Monday therefore low likelihood of [place]. [facility] on 12/02 with patent stents, did have 95% stenosis in obtuse marginal branch, too small for stent will manage medically convert heparin drip to Plavix BP is stable, would increase Norvasc if needed currently on nitro past (2) CAD (coronary artery disease): Continue ASA, Plavix, carvedilol, lisinopril Dr. Nova will look into why she is not on statin therapy (3) Hypertension: Continue lisinopril, HCTZ, lasix, carvedilol and amlodipine at usual home dosing currently pressures are normal with the addition of Nitro paste (4) Hyperlipidemia: Not on statin due to muscle aches although she is unclear whether this was just her firbomyalgia and whether the statin made it worse. Will defer restarting to her usual cardiology who has been managing this. (5) GERD (gastroesophageal reflux disease): Current chest heaviness unlike prior episode of this and shortness of breath would be unusual therefore would favor cardiac cause of her current symptoms. IV famotidine given in ER, can restart her usual dose tomorrow. Continue pantoprazole 40mg BID (6) Anxiety: with depression. Continue duloxetine. (7) Fibromyalgia: Continue Lyrica and Cymbalta (8) Interstitial cystitis: Continue Pentosan polysulfate sodium 100mg TID (9) Glaucoma: Continue dorzolamide-timolol eye drops (10) DVT prophylaxis: Heparin IV drip Admission and Anticipated Discharge Date Admission Date: December 02, 2019 Subjective patient evaluated by Dr. oNva, recommend heart cath underwent left heart cath with Dr. Maravilla, showed 95% stenosis in diagonal branch, likely the culprit lesion vessel too small for stent, Dr. Maravilla recommends medical management discussed with Dr. Nova, will transition to Plavix patient feeling well, no further chest pain/pressure, eating well no dyspnea, no cough, no fever Review of Systems Review of Systems: All systems reviewed & are unremarkable except as noted in HPI & below Physical Exam Constitutional: WD/WN, vitals as above + overweight; no acute distress Eyes: PERRL, conjunctivae normal, anicteric sclerae ENMT: external ear and nose normal, oropharynx normal Neck: trachea midline, no thyromegaly Respiratory: normal respiratory effort, lungs clear to auscultation Cardiovascular: RRR, no murmur, no edema Gastrointestinal (Abdomen): normal bowel sounds, soft, nontender, no hepatosplenomegaly Musculoskeletal: no cyanosis or clubbing, extremities motor strength 5/5 Skin: no rashes, warm and dry Neurologic: patellar DTR's 2+ bilat, sensation intact and PERRL, EOMI, accommodation nl, no face palsy, no dysarthria Psychiatric: A+Ox3, euthymic affect Lymphatic: no cervical or axillary lymphadenopathy Results & Data Results & Data ([facility]) Vital Signs (Past 12 Hours) Vital Signs Temp Pulse Pulse Resp BP BP Pulse Ox 12/03/19 15:34 36.5 C 69 23 139/90 94 12/03/19 15:04 62 20 132/69 96 12/03/19 14:49 36.7 C 66 19 120/77 98 12/03/19 14:19 36.7 C 50 L 20 171/79 H 94 12/03/19 11:19 36.9 C 61 18 124/74 94 12/03/19 08:00 53 L 12/03/19 07:12 37.0 C 62 20 128/72 94 Laboratory Results Laboratory Results - last 24 hr 12/02/19 12/02/19 12/02/19 15:59 15:59 15:59 WBC 4.97 RBC 5.05 Hgb 14.8 Hct 43.0 MCV 85.1 MCH 29.3 MCHC 34.4 RDW Std Deviation 39.5 RDW Coeff of [place] 12.8 Plt Count 187 MPV 9.9 Immature Gran % (Auto) 0.0 Neut % (Auto) 73.9 Lymph % (Auto) 16.5 [place] % (Auto) 5.6 Eos % (Auto) 3.2 Baso % (Auto) 0.8 Immature Gran # (Auto) 0.00 Neut # (Auto) 3.67 Lymph # (Auto) 0.82 L [place] # (Auto) 0.28 Eos # (Auto) 0.16 Baso # (Auto) 0.04 PT 10.8 INR 1.0 APTT PTT Ratio Sodium 136 Potassium 3.1 L Chloride 100 Carbon Dioxide 31 Anion Gap 5.0 BUN 10 Creatinine 0.91 Est Cr Clr Drug Dosing 62.7 Est GFR ( Amer) 77.3 Est GFR (Non-Af Amer) 66.7 BUN/Creatinine Ratio 11.0 Glucose 137 H Calcium 9.0 Magnesium 2.1 Total Bilirubin 1.2 H AST 21 ALT 48 Alkaline Phosphatase 122 H Troponin I < 0.015 NT-Pro-B Natriuret Pep 68 Total Protein 7.9 Albumin 4.2 Globulin 3.7 Albumin/Globulin Ratio 1.1 Lipase 165 12/02/19 12/03/19 12/03/19 21:43 00:21 07:11 WBC RBC Hgb Hct MCV MCH MCHC RDW Std Deviation RDW Coeff of [place] Plt Count MPV Immature Gran % (Auto) Neut % (Auto) Lymph % (Auto) [place] % (Auto) Eos % (Auto) Baso % (Auto) Immature Gran # (Auto) Neut # (Auto) Lymph # (Auto) [place] # (Auto) Eos # (Auto) Baso # (Auto) PT INR APTT 35.5 H PTT Ratio 1.3 Sodium 138 Potassium 4.0 D Chloride 105 Carbon Dioxide 28 Anion Gap 5.0 BUN 14 Creatinine 0.77 Est Cr Clr Drug Dosing 74.2 Est GFR ( Amer) 94.6 Est GFR (Non-Af Amer) 81.6 BUN/Creatinine Ratio 17.6 Glucose 110 H Calcium 8.6 Magnesium Total Bilirubin 0.9 AST 15 ALT 36 Alkaline Phosphatase 98 Troponin I < 0.015 < 0.015 NT-Pro-B Natriuret Pep Total Protein 6.4 Albumin 3.4 Globulin 3.0 Albumin/Globulin Ratio 1.1 Lipase 12/03/19 07:11 WBC RBC Hgb Hct MCV MCH MCHC RDW Std Deviation RDW Coeff of [place] Plt Count MPV Immature Gran % (Auto) Neut % (Auto) Lymph % (Auto) [place] % (Auto) Eos % (Auto) Baso % (Auto) Immature Gran # (Auto) Neut # (Auto) Lymph # (Auto) [place] # (Auto) Eos # (Auto) Baso # (Auto) PT INR APTT 62.8 H* PTT Ratio 2.3 Sodium Potassium Chloride Carbon Dioxide Anion Gap BUN Creatinine Est Cr Clr Drug Dosing Est GFR ( Amer) Est GFR (Non-Af Amer) BUN/Creatinine Ratio Glucose Calcium Magnesium Total Bilirubin AST ALT Alkaline Phosphatase Troponin I NT-Pro-B Natriuret Pep Total Protein Albumin Globulin Albumin/Globulin Ratio Lipase Medications Administered Current Inpatient Medications Acetaminophen (Tylenol) 650 mg PO Q4H PRN PRN Reason: Pain or Fever Stop: 01/01/20 19:03 Al Hydrox/Mg Hydrox/Simethicone (Maalox) 15 ml PO Q4H PRN PRN Reason: Dyspepsia Stop: 01/01/20 19:03 Amlodipine Besylate (Norvasc) 5 mg PO DAILY [facility] Stop: 01/02/20 08:59 Last Admin: 12/03/19 07:58 Dose: 5 mg Documented by: Aspirin (Ecotrin Ectab) 81 mg PO QAM [facility] Stop: 01/02/20 08:59 Last Admin: 12/03/19 08:01 Dose: 81 mg Documented by: Carvedilol (Coreg) 12.5 mg PO BID [facility] Stop: 01/01/20 20:59 Last Admin: 12/03/19 07:59 Dose: 12.5 mg Documented by: Clopidogrel Bisulfate (Plavix) 75 mg PO QAM [facility] Stop: 01/02/20 08:59 Last Admin: 12/03/19 08:01 Dose: 75 mg Documented by: Dorzolamide/Timolol (Cosopt) 1 drops OPB BID [facility] Stop: 01/01/20 20:59 Last Admin: 12/03/19 07:57 Dose: 1 drops Documented by: Duloxetine HCl (Cymbalta) 60 mg PO BID [facility] Stop: 01/01/20 20:59 Last Admin: 12/03/19 08:01 Dose: 60 mg Documented by: Famotidine (Pepcid) 40 mg PO QPM [facility] Stop: 01/02/20 20:59 Furosemide (Lasix) 20 mg PO DAILY [facility] Stop: 01/02/20 08:59 Last Admin: 12/03/19 07:59 Dose: 20 mg Documented by: Hydrochlorothiazide (Hctz) 12.5 mg PO DAILY [facility] Stop: 01/02/20 08:59 Last Admin: 12/03/19 07:59 Dose: 12.5 mg Documented by: Potassium Chloride/Sodium Chloride (Normal Saline W/20 Meq Kcl) 20 meq in 1,000 mls @ 100 mls/hr IV .Q10H [facility] Stop: 12/03/19 19:59 Last Admin: 12/03/19 09:59 Dose: 100 mls/hr Documented by: Sodium Chloride (Nss 1000ml) 1,000 mls @ 100 mls/hr IV .Q10H [facility] Stop: 12/03/19 21:59 Last Admin: 12/03/19 14:52 Dose: 100 mls/hr Documented by: Lisinopril (Zestril) 40 mg PO DAILY [facility] Stop: 01/02/20 08:59 Last Admin: 12/03/19 08:00 Dose: 40 mg Documented by: Magnesium Hydroxide (Milk Of Magnesia) 30 ml PO Q12H PRN PRN Reason: Constipation Stop: 01/01/20 19:03 Morphine Sulfate (Morphine Sulfate) 2 mg IV Q30M PRN PRN Reason: Chest Pain Stop: 12/16/19 19:03 Nitroglycerin (Nitrostat) 0.4 mg SL UD PRN PRN Reason: Chest Pain Stop: 01/01/20 19:03 Nitroglycerin (Nitro-Bid 2%) 1 inch EXT Q6H [facility] Stop: 01/01/20 19:59 Last Admin: 12/03/19 14:52 Dose: 1 inch Documented by: Ondansetron HCl (Zofran) 4 mg IV Q6H PRN PRN Reason: Nausea Stop: 01/01/20 19:03 Oxycodone/Acetaminophen (Percocet 5mg/325mg) 1 tab PO BID PRN PRN Reason: Pain Stop: 12/16/19 19:49 Pantoprazole Sodium (Protonix) 40 mg PO BID [facility] Stop: 01/01/20 20:59 Last Admin: 12/03/19 08:00 Dose: 40 mg Documented by: Pentosan Polysulfate Sodium (Elmiron) 100 mg PO TID [facility] Stop: 01/01/20 20:59 Last Admin: 12/03/19 14:52 Dose: 100 mg Documented by: Polyethylene Glycol (Miralax Powder Packet) 17 gm PO DAILY PRN PRN Reason: Constipation Stop: 01/01/20 19:03 Pregabalin (Lyrica) 150 mg PO BID [facility] Stop: 01/01/20 20:59 Last Admin: 12/03/19 07:58 Dose: 150 mg Documented by: Trazodone HCl (Desyrel) 150 mg PO HS [facility] Stop: 01/01/20 20:59 Last Admin: 12/02/19 21:51 Dose: 150 mg Documented by: Vitamin B Complex (Vitamin B Complex) 1 tab PO DAILY [facility] Stop: 01/02/20 08:59 Last Admin: 12/03/19 08:01 Dose: 1 tab Documented by: Vitamin D (Vitamin D3) 2,000 units PO DAILY [facility] Stop: 01/02/20 08:59 Last Admin: 12/03/19 07:59 Dose: 2,000 units Documented by: PG Care Time/CCT Total # of Minutes Spent Total Time Spent with Patient: Total time spent is greater than 50% in coordination of care (as documented) at patient's floor/unit and/or counseling patient: Coding Level of Care Code 14459 Subseq Hosp Care Lvl 2 Diagnoses Chest pain, rule out acute myocardial infarction R07.9 CAD (coronary artery disease) I25.10 Hypertension I10 Hyperlipidemia E78.5 GERD (gastroesophageal reflux disease) K21.9 Anxiety F41.9 Fibromyalgia M79.7 Interstitial cystitis N30.10 Glaucoma H40.9 DVT prophylaxis Z29.9
--- NOTE | 2019-12-03 16:53 | Electrocardiogram Report ---
Test Reason : Blood Pressure : / mmHG Vent. Rate : 058 BPM Atrial Rate : 058 BPM P-R Int : 158 ms QRS Dur : 086 ms QT Int : 458 ms P-R-T Axes : 047 022 030 degrees QTc Int : 449 ms Sinus bradycardia Nonspecific T wave abnormality When compared with ECG of 02-DEC-2019 15:49, Nonspecific T wave abnormality has replaced inverted T waves in Anterior leads Confirmed by Manohar Whitehead ([id number]) on 12/03/2019 4:53:00 PM Referred By: REFERRED SELF Confirmed By:Manohar Whitehead
[2019-12-03] MEDS ORDERED: SODIUM CHLORIDE 0.65% NA SOLN 45 ML (OCEAN) ONE (20:50)
[2019-12-03] MEDS: TRAZODONE HCL 50 MG TAB PO SCH (20:56)
[2019-12-03] MEDS ORDERED: FAMOTIDINE 40 MG TABLET PO SCH (21:00)
[2019-12-04] MEDS: NITROGLYCERIN 2% OINTMENT 30GM TUBE EXT SCH ×2 (03:00→09:14)
[2019-12-04 07:41] LABS: Hematocrit (blood only) 38.8 % (37-47); Hemoglobin 12.9 g/dL (12.0-16.0); Mean Corpuscular Hemoglobin 28.9 pg (25-34); Mean Corpuscular Hgb Conc 33.2 g/dL (32-36); Mean Corpuscular Volume 86.8 fL (80-100); Mean Platelet Volume 9.8 fL (7.4-10.4); Platelet Count 161 K/uL (130-400); RDW Coefficient of Variation 12.6 % (11.5-14.5); RDW Standard Deviation 40.4 fL (36.4-46.3); Red Blood Count 4.47 M/uL (4.2-5.4); White Blood Count 4.67 K/uL (4.8-10.8)
[2019-12-04] MEDS: PANTOprazole 40 MG TAB PO SCH (08:04)
[2019-12-04] MEDS: VITAMIN B COMPLEX TAB PO SCH (08:04)
[2019-12-04] MEDS: PENTOSAN POLYSULFATE SODIUM 100 MG CAP PO SCH (08:04)
[2019-12-04] MEDS: carvediloL 12.5 MG TAB PO SCH (08:06)
[2019-12-04] MEDS: AMLODIPINE BESYLATE 5 MG TAB PO SCH (08:06)
[2019-12-04] MEDS: FUROSEMIDE 20 MG TAB PO SCH (08:06)
[2019-12-04] MEDS: hydroCHLOROthiazide 25 MG TAB PO SCH (08:06)
[2019-12-04] MEDS: DULOXETINE HCL 60 MG CAP PO SCH (08:06)
[2019-12-04 08:07] LABS: BUN Creatinine Ratio 19.1 (10-20); Calcium 9.3 mg/dl (8.5-10.1); Creatinine Clr Calc Pharmacy 66.9 ml/min; Est GFR (African American) 82.7; Est GFR (Non-African American) 71.4; Potassium 3.9 mmol/L (3.5-5.1)
[2019-12-04] MEDS: DORZOLAMIDE/TIMOLOL 22.3/6.8MG/ML 10 ML BTL OPB SCH (08:07)
[2019-12-04] MEDS: CHOLECALCIFEROL 1,000 UNITS 25 MCG TAB PO SCH (08:07)
[2019-12-04] MEDS: ASPIRIN 81 MG ECTAB PO SCH (08:07)
[2019-12-04] MEDS: CLOPIDOGREL BISULFATE 75 MG TAB PO SCH (08:07)
[2019-12-04] MEDS: PREGABALIN 150 MG CAP PO SCH (08:12)
[2019-12-04] MEDS ORDERED: lisinopriL 20 MG TAB PO SCH (09:00)
[2019-12-04] MEDS ORDERED: ISOSORBIDE MONO EXTENDED REL 30 MG TABCR PO SCH (09:00)
--- NOTE | 2019-12-04 09:26 | Cardiology Progress Note ---
Date of Service December 04, 2019 Subjective No CP or SOB this am. No dizziness. Feels well. mild wrist discomfort. No palps. Back to baseline. Results & Data Vital Signs (Past 12 Hours) Vital Signs Temp Pulse Resp BP BP Pulse Ox 12/04/19 08:00 36.7 C 62 18 152/91 H 95 12/04/19 07:59 36.7 C 62 18 152/91 H 95 12/04/19 03:29 36.3 C L 57 L 16 128/76 95 12/03/19 23:36 36.7 C 62 16 121/71 94 GENERAL: She is awake, alert, oriented x3. She is in no acute distress. She is a well-appearing female who looks her stated age. HEENT: 2+ carotid upstrokes, no evidence of carotid bruits. Jugular venous pressure appeared normal. Sclerae is anicteric. Hearing is normal. LUNGS: Clear to auscultation bilaterally no rales rhonchi or wheezing HEART: Regular rate and rhythm. No appreciable murmurs, rubs or gallops. ABDOMEN: Soft, nontender, nondistended. Positive bowel sounds. EXTREMITIES: No clubbing, cyanosis or edema. brisk right radial pulse PSYCHIATRIC: Affect appeared appropriate. IMPRESSION: 1. Unstable angina 1A. History of angioplasty and stenting of the proximal to mid LAD with 4 overlapping drug-eluting stents 01/2019 1B. Culprit 95% ostial D2 lesion in a vessel <1.5 mm 2. Hypertension. 3. Hyperlipidemia -- intolerant of statins secondary to fibromyalgia 4. Preserved left ventricular systolic function 5. Increased BS Decreased lisinopril to 20mgdaily imdur 30mg daily added no room to increase BB ASA/Plavix She will try Zetia again with CoQ10 she will research cost PCSK9 inhibitors Ambulate will arrange follow up in 10 days in office may need to consider metformin at outpt d/w Hospitalist service
--- NOTE | 2019-12-04 11:04 | Discharge Summary ---
Date of Service December 04, 2019 Admission HPI Per Admitting Provider Selina Hopkins is a 64 year old female who presents to the ER with episodes of shortness of breath. Since then she has not had any episodes of shortness of breath until now. First episode occurred while walking up stairs on Monday evening at her son's home after a cookout. She became acutely short of breath with associated chest heaviness (denies pain) and burning sensation in her throat. She had to sit down for around 10-15 minutes to catch her breath. Next episode occurred on Monday while going for a walk, similar but less severe but had to stop again. She went shopping again today without an issue but when she went to go up stairs to her dermatology appointment she felt acutely short of breath again. This occurred around 1pm. It was less severe than the episode on Monday but since it continued to happen she decided to come to the ER as she was concerned that she was feeling similar episodes ot this prior to her STEMI in January last year. Chest heaviness no worse on palpation of inspiration. Feels different to her suaul GERD which is more epigastric pain, bloating and belching. She does note having spicy hot chips on Monday but no other exacerbating GERD foods and these did not seem to make a difference to her chest heaviness which is very exertional and occurs only with her main symptom of shortness of breath. She reports taking her medications regularly and not missing doses. She denies any orthopnea, PND, claudication, dizziness, presyncope or syncope. Significant recent history of x4 overlapping drug-eluting cardiac stents in mid- distal LAD in January 2019 with residual 90% ostial D2 lesion after STEMI. Under Dr Nova as outpatient. Not currently on statin due to myalgias. In the ER she denies any shortness of breath but does note ongoing chest heaviness despite Fentanyl and nitro paste use. Principal Diagnosis Unstable angina Discharge Exam Constitutional WD/WN, vitals as above + overweight; no acute distress Eyes PERRL, conjunctivae normal, anicteric sclerae ENMT external ear and nose normal, oropharynx normal Neck trachea midline, no thyromegaly Respiratory normal respiratory effort, lungs clear to auscultation Cardiovascular RRR, no murmur, no edema Gastrointestinal (Abdomen) normal bowel sounds, soft, nontender, no hepatosplenomegaly Musculoskeletal no cyanosis or clubbing, extremities motor strength 5/5 Skin no rashes, warm and dry Neurologic patellar DTR's 2+ bilat, sensation intact and PERRL, EOMI, accommodation nl, no face palsy, no dysarthria Psychiatric A+Ox3, euthymic affect Lymphatic no cervical or axillary lymphadenopathy Discharge Data Allergies Allergy/AdvReac Type Severity Reaction Status Date / Time No Known Allergies Allergy NONE Verified 12/02/19 19:06 Consultations 12/02/19 17:29 ED Decision to Admit Stat 12/02/19 19:04 Consult Cardiology Routine 12/03/19 09:33 Consult Cardiac Catheterization Routine Procedures Performed Operation Date: 12/03/19 14:00 Actual Procedures p Cath, Left with Cors and Vent - Parminder Maravilla MD s Cineradiography w/Routine Exam - Parminder Maravilla MD Ordered Studies 12/03/19 11:48 CL Cath Imgs for PACS use only Routine Hospital Course (1) Chest pain, rule out acute myocardial infarction: Stable/Unstable angina (mainly shortness of breath anginal equivalent but also some chest heaviness). No troponin elevation currently, with normal EKG and with most severe episode on Monday therefore low likelihood of [place]. C on 12/02 with patent stents, did have 95% stenosis in obtuse marginal branch, too small for stent will manage medically convert heparin drip to Plavix BP is stable Dr. Nova added Imdur 30mg daily, provided with Nitro SL PRN patient feeling well on day of discharge, ambulated in the hallway, no chest pain or pressure d/c home on aspirin, Plavix, Coreg, Lisinopril and new medication Imdur resume Ezetimibe and CoQ-10 Dr. Nova will look into the cost of PSCK9 inhibitors (2) CAD (coronary artery disease): see above Continue ASA, Plavix, carvedilol, lisinopril, Imdur, Ezetimibe (3) Hypertension: Continue lisinopril, HCTZ, lasix, carvedilol and amlodipine at usual home dosing started on Imdur 30mg daily (4) Hyperlipidemia: Not on statin due to muscle aches although she is unclear whether this was just her firbomyalgia and whether the statin made it worse resume Ezetimibe and CoQ10, consider PSCK9 inhibitors but may be costly (5) GERD (gastroesophageal reflux disease): Continue pantoprazole 40mg BID (6) Anxiety: with depression. Continue duloxetine. (7) Fibromyalgia: Continue Lyrica and Cymbalta (8) Interstitial cystitis: Continue Pentosan polysulfate sodium 100mg TID (9) Glaucoma: Continue dorzolamide-timolol eye drops (10) DVT prophylaxis: Heparin IV drip Total Time Total Time Spent Total Time Spent (In Minutes): 33 minutes Total Time Includes: Examination of the Patient, Discharge Planning, Medication Reconciliation and Communication With Other Providers (Dr. Nova) Discharge Plan Discharge Items Patient Disposition: Home - Self-Care Reason For Visit: CHEST PAIN RULE OUT MYOCARDIAL INFARCTION Discharge Diagnosis: Unstable angina Coronary artery disease Goals: medical management of angina with Imdur and Nitro tablets follow up with Dr. Nova to determine statin therapy Activity: Per Instructions section Lifting: None Bathing: No limitations Sexual Activity: After two weeks Exercise/Sports: Gradually increase as tolerated Driving/Machine Use: Resume 1 day after discharge Weightbearing: Full weightbearing Non-emergency contact: Primary Care Provider and [employer] Technician Call non-emergency contact if: you have any medication questions and your symptoms worsen Follow-up/Referrals: Natasha Saldaña MD [Primary Care Provider] - 12/09/19 10:15 am (Please, follow up with Dr. Saldaña on MondayDecember 08 at 10:15 am. *If you need to change this appointment, call the office at [phone].) Madhu Nova DO [Physician] - 12/13/19 2:50 pm (2-3 weeks) Diet: Heart Healthy Addtl Attending Provider Instructions: Medications - IMDUR: 30mg daily in the morning, this is for blood pressure and also relaxes coronary arteries - NITRO: take sublingual as needed for chest pain - EZETIMIBE: 10mg daily for cholesterol Unstable angina, coronary arteries left heart cath on 12/02 found stents open, very severe small vessel disease, 95% in 2nd diagonal branch Dr. Maravilla recommends medical management, vessel too small for stenting started on Imdur 30mg daily, can take Nitro SL as needed resume Ezetimibe for cholesterol follow up with Dr. Nova to discuss starting PSCK9 inhibitors, will need to look into costs Pending Studies at Discharge: No Stand-Alone Forms: My [facility] [place], Smoking Cessation Medications and DC Order Prescriptions: New isosorbide mononitrate 30 mg Tablet Extended Release 24 Hr 30 mg PO QAM 30 Days Qty: 30 RF: 3 nitroglycerin [Nitrostat] 0.4 mg Tablet, Sublingual 0.4 mg sublingual UD PRN (Reason: chest pain) 30 Days Qty: 60 RF: 1 ezetimibe 10 mg tablet 10 mg PO DAILY Qty: 30 RF: 0 Continued cinnamon bark 500 mg capsule 1,500 mg PO DAILY RF: 0 hydrochlorothiazide 12.5 mg capsule 12.5 mg PO DAILY RF: 0 furosemide 40 mg tablet 20 mg PO DAILY Qty: 45 RF: 2 alpha lipoic acid 600 mg capsule 600 mg PO DAILY Qty: 60 RF: 0 oxycodone-acetaminophen 5-325 mg tablet 1 tab PO BID PRN (Reason: Pain) Qty: 60 RF: 0 pantoprazole 40 mg tablet,delayed release (DR/EC) 40 mg PO BID RF: 0 carvedilol 12.5 mg tablet 12.5 mg PO BID Qty: 180 RF: 1 trazodone 150 mg tablet 150 mg PO HS Qty: 90 RF: 1 famotidine 40 mg tablet 40 mg PO QPM Qty: 30 RF: 2 cholecalciferol (vitamin D3) 2,000 unit capsule 2,000 units PO DAILY RF: 0 Elmiron 100 mg capsule 100 mg PO TID Qty: 90 RF: 11 lisinopril 40 mg tablet 40 mg PO DAILY RF: 0 amlodipine 5 mg tablet 5 mg PO DAILY RF: 0 dorzolamide-timolol 22.3-6.8 mg/mL drops 1 drp OPB BID RF: 0 duloxetine 60 mg capsule,delayed release(DR/EC) 60 mg PO BID RF: 0 pregabalin [Lyrica] 75 mg capsule 150 mg PO BID RF: 0 clopidogrel 75 mg Tablet 75 mg PO QAM Qty: 30 RF: 2 aspirin [Ecotrin Low Strength] 81 mg Tablet,Delayed Release (Dr/Ec) 81 mg PO QAM Qty: 30 RF: 2 vitamin B [id number]-[id number] cit 0.8-50 mg Tablet 1 tab PO DAILY RF: 0 coenzyme Q10 [CoQ-10] 100 mg Capsule 200 mg PO DAILY RF: 0 Discharge Orders: Discharge Order (Routine); Ordered 12/04/19 Ordered By: Eyad Kinney Admission Data Admit Date/Time: 12/03/19 22:45 Attending Provider: Eyad Kinney Admit Provider: Shalom Dennis Primary Care Provider: Natasha Saldaña Other Providers: Shalom Dennis ; Madhu Nova ; Parminder Maravilla Other Interventions: Discharge Summary Assessment (RN) Last Done: 12/04/19 11:07 DC Date/Time DO NOT enter until pt leaves facility: 12/04/19 11:31 Coding Level of Care Code D/C Day Management >30 mins Diagnoses Chest pain, rule out acute myocardial infarction R07.9 CAD (coronary artery disease) I25.10 Hypertension I10 Hyperlipidemia E78.5 GERD (gastroesophageal reflux disease) K21.9 Anxiety F41.9 Fibromyalgia M79.7 Interstitial cystitis N30.10 Glaucoma H40.9 DVT prophylaxis Z29.9
--- NOTE | 2019-12-05 05:47 | Electrocardiogram Report ---
Test Reason : Blood Pressure : / mmHG Vent. Rate : 058 BPM Atrial Rate : 058 BPM P-R Int : 162 ms QRS Dur : 092 ms QT Int : 438 ms P-R-T Axes : 039 014 027 degrees QTc Int : 429 ms Sinus bradycardia Nonspecific T wave abnormality Abnormal ECG When compared with ECG of 03-DEC-2019 06:30, No significant change was found Confirmed by Manohar Whitehead ([id number]) on 12/05/2019 5:46:44 AM Referred By: REFERRED SELF Confirmed By:Manohar Whitehead
== END 2019-12-04 11:31 | disposition home or self-care (01) | DRG 287 ==
LOC: ED 15:22 → 2S 15:22 → SUATTDRO 17:31 → 2S 18:44

== ENCOUNTER 2021-04-15 22:42 | Inpatient (IN) ==
[2021-04-15 23:25] LABS: Basophils # (auto) 0.03 K/uL (0-0.2); Basophils % (auto) 0.5 %; Eosinophils # (auto) 0.13 K/uL (0-0.5); Eosinophils % (auto) 2.2 %; Hematocrit (blood only) 39.5 % (37-47); Hemoglobin 13.8 g/dL (12.0-16.0); Immature Granulocytes # (auto) 0.01 K/uL (0.00-0.02); Immature Granulocytes % (auto) 0.2 %; Lymphocytes # (auto) 1.27 K/uL (1.2-3.4); Lymphocytes % (auto) 21.6 %; Mean Corpuscular Hemoglobin 29.9 pg (25-34); Mean Corpuscular Hgb Conc 34.9 g/dL (32-36); Mean Corpuscular Volume 85.5 fL (80-100); Monocytes # (auto) 0.64 K/uL (0.11-0.59); Monocytes % (auto) 10.9 %; Neutrophils # (auto) 3.79 K/uL (1.4-6.5); Neutrophils % (auto) 64.6 %; Platelet Count 170 K/uL (130-400); RDW Coefficient of Variation 13.3 % (11.5-14.5); RDW Standard Deviation 41.8 fL (36.4-46.3); Red Blood Count 4.62 M/uL (4.2-5.4); White Blood Count 5.87 K/uL (4.8-10.8)
[2021-04-15 23:35] LABS: Partial Thromboplastin Ratio 0.9; Partial Thromboplastin Time 24.5 Seconds (21.0-31.0); Prothrombin Time 9.9 Seconds (9.0-12.0)
[2021-04-15 23:45] LABS: Alanine Aminotransferase 27 U/L (12-78); Albumin Level 3.6 gm/dl (3.4-5.0); Aspartate Aminotransferase 15 U/L (15-37); Blood Urea Nitrogen 22 mg/dl (7-18); Calcium 8.6 mg/dl (8.5-10.1); Carbon Dioxide 26 mmol/L (21-32); Chloride 106 mmol/L (98-107); Creatinine Clr Calc Pharmacy 65.8 ml/min; Est GFR (Non-African American) 69.9 ml/min; Glucose 103 mg/dl (70-99); Potassium 3.8 mmol/L (3.5-5.1); Sodium 138 mmol/L (136-145)
[2021-04-15 23:49] LABS: Albumin Globulin Ratio 1.1 (0.9-2); Alkaline Phosphatase 82 U/L (45-117); Bilirubin,Total 0.7 mg/dl (0.2-1); Globulin 3.2 gm/dl (2.5-4.0); Total Protein 6.8 gm/dl (6.4-8.2); Troponin I < 0.015 ng/ml (0-0.045)
--- NOTE | 2021-04-16 01:21 | Emergency Department Note ---
History of Present Illness General Chief complaint: Cardiac Assessment Stated complaint: CHEST PAIN, PAIN IN NECK & BACK Time Seen by Provider: 04/16/21 00:50 Source: patient Mode of arrival: ambulatory Limitations: no limitations History of Present Illness Provider complaint: chest pain Onset (ago): hour(s) Location: chest Radiation: back and neck Severity: moderate Pain Consistency: + intermittent Maximum Pain Intensity: 2 Associated symptoms: + chest pain Treatments prior to arrival: none This is a 65-year-old female presents emergency department with complaints of chest pain. Patient states chest pain started this evening, radiating into her back, bilateral shoulders, and neck. Patient states symptoms were similar to her prior DE. Patient states she had 2 other brief similar episodes during the week, that resolved spontaneously. She states the episode tonight only lasted several minutes. Patient states with her prior DE she ended up receiving a total of 4 stents, and was told there were other small blockages. She states she does routinely follow with Dr. Nova, cardiology. She states her last gladys ointment was over the summer with him, at that time she did not undergo any additional cardiac testing. Patient denies any change in medication, change in diet, or recent illness. She denies any accompanying dizziness, nausea, shortness of breath, or leg swelling. No other recent change in bowel or bladder function. Pt seen during a time of high acuity and national emergency pandemic while wea ring PPE. Home Medications Medication Instructions Recorded Confirmed Type clopidogrel 75 mg tablet 75 mg PO QAM #30 tab 01/28/19 04/16/21 Rx amlodipine 5 mg tablet 2.5 mg PO QAM 06/24/19 04/16/21 History lisinopril 40 mg tablet 40 mg PO QAM 06/24/19 04/16/21 History coenzyme Q10 100 mg capsule 200 mg PO HS 12/02/19 04/16/21 History (CoQ-10) vitamin B complex with C-folic 1 tab PO DAILY 12/02/19 04/16/21 History acid 0.8 mg-zinc citrate 50 mg tablet nitroglycerin 0.4 mg sublingual 0.4 mg SUBLINGUAL UD PRN 30 Days 12/04/19 04/16/21 Rx tablet (Nitrostat) #60 tab alpha lipoic acid 600 mg capsule 600 mg PO HS 02/18/20 04/16/21 History aspirin 81 mg tablet,delayed 81 mg PO HS 02/18/20 04/16/21 History release (Ecotrin Low Strength) ezetimibe 10 mg tablet 10 mg PO BID 02/18/20 04/16/21 History azelastine 205.5 mcg (0.15 %) 2 spray INTNAS DAILY PRN #90 ml 06/16/20 04/16/21 Rx nasal spray isosorbide mononitrate 30 mg 30 mg PO BID 30 Days #60 tab 08/26/20 04/16/21 Rx tablet,extended release 24 hr cholecalciferol (vitamin D3) 50 50 mcg PO DAILY 08/28/20 04/16/21 History mcg (2,000 unit) capsule mecobalamin (vitamin B12) 1,000 1,000 mcg PO DAILY 08/28/20 04/16/21 History mcg chewable tablet cinnamon bark 500 mg capsule 500 mg PO DAILY 09/08/20 04/16/21 History (Cinnamon) duloxetine 60 mg capsule,delayed 60 mg PO BID #180 cap 10/21/20 04/16/21 Rx release famotidine 40 mg tablet 40 mg PO BID #180 tab 10/21/20 04/16/21 Rx trazodone 150 mg tablet 150 mg PO HS #90 tab 01/15/21 04/16/21 Rx pregabalin 75 mg capsule (Lyrica) 150 mg PO TID 30 Days #180 cap 02/07/21 04/16/21 Rx carvedilol 12.5 mg tablet 12.5 mg PO BID #180 tab 03/10/21 04/16/21 Rx oxycodone-acetaminophen 5 mg-325 1 tab PO TID PRN #90 tab 04/12/21 04/16/21 Rx mg tablet ergocalciferol (vitamin D2) 1,250 1,250 mcg PO WK 04/16/21 04/16/21 History mcg (50,000 unit) capsule (Vitamin D2) hydralazine 10 mg tablet 10 mg PO TID 04/16/21 04/16/21 History Allergies Allergy/AdvReac Type Severity Reaction Status Date / Time No Known Allergies Allergy NONE Verified 04/16/21 01:10 Past Med/Surg History Medical History Acute pain of left hip Alopecia Anxiety Arthritis Bilateral leg pain Blepharochalasis CAD (coronary artery disease) Cervicalgia Chronic back pain Chronic blood loss anemia Chronic pain syndrome Constipation COVID-19 hx of, diagnosed 05/29/2020 @ [facility]--sinus pressure, stuffy nose, loss of taste/smell (still does not have back) Cystitis reason for [place] Depression Dermatochalasis Dyslipidemia Dyspareunia Dysuria Eczema Excessive menstruation with irregular cycle Fall Fatigue Fibromyalgia IMAN (generalized anxiety disorder) GERD (gastroesophageal reflux disease) Glaucoma Gross hematuria Heartburn Hip pain, bilateral History of urinary frequency History of urinary hesitancy History of urinary urgency Hypertension Hypokalemia Hyponatremia Interstitial cystitis Left knee pain Lipoma Lumbar degenerative disc disease Malaise and fatigue Muscle spasm Numbness and tingling of left side of face On anticoagulant therapy plavix daily Osteoarthritis Osteopenia Otitis externa, acute Pain, pelvic, female Postmenopausal status Psychological disorder Resistant hypertension Rhinitis Shortness of breath Sinus headache STEMI (ST elevation myocardial infarction) 01/26/2019 Dr Nova Steroid-induced hyperglycemia Subacute vulvitis Trigger finger Trochanteric bursitis Urinary tract infection symptoms Uterine leiomyoma Surgical History H/O dilation and curettage H/O: hysterectomy History of blepharoplasty History of cardiac cath x2--DE -> 01/26/19--had 4 stents placed @ [facility] 11/2019 @ [facility], no stents placed History of cataract surgery bilateral History of colonoscopy with polypectomy History of heart artery stent x4 01/2019 @ [facility] History of lumbar spinal fusion S/P cardiac catheterization 12/03/19 Dr. Uri Maravilla- No intervention Status post trigger finger release Family History Mother Myocardial infarction Hypertension Heart disease Brother Myocardial infarction Heart disease Grandmother Ovarian cancer Diabetes Father Diabetes Hypertension Family hx colonic polyps Grandmother (Maternal) Stroke Grandfather (Maternal) Stroke Grandmother (Paternal) Cancer Grandfather (Paternal) Cirrhosis of liver Uncle Heart disease Aunt Heart disease Other No family history of adverse response to anesthesia Denies family history of Prostate cancer Breast cancer Colorectal cancer Social History Smoking Status: Never smoker Second Hand Exposure: No; Do You Dip or Chew Tobacco: No; Tobacco Cessation Education Requested by Patient: No Hx Alcohol Use: No Hx Substance Use: No Preferred Language: Colombian Communication Ability: Effective Packer Required: No Beliefs That Will Affect Care: Spiritual Spiritual Healthcare Practices: Mormonism marital status: Current Living Situation: Spouse current occupational status: retired How many Children do You have: 2 Other Information That Helps Us Care for You: No Feels Safe at Home: Yes Safety Concerns: Feels Safe At This Time during the past year weight has: remained stable Dental Care, Regularly: Yes Physical Activity Frequency: Does not Exercise Seatbelt Use: always Do you think of yourself as: straight/heterosexual Assistive Devices: Glasses Assistive Devices Comment: knee brace LLE Review of Systems A total of 10 systems reviewed and were otherwise negative All systems reviewed & are unremarkable except as noted in HPI & below Physical Exam Vital Signs Vital Signs - 24 hr 04/15/21 22:46 04/16/21 00:42 04/16/21 01:30 Temperature 36.4 C L Temperature Source Temporal Artery Scan Pulse Rate 71 64 77 Pulse Rate from SpO2 Sensor 60 Pulse Rhythm Regular Pulse Strength Normal Respiratory Rate 18 15 17 Respiratory Effort / Characteristics Non-Labored Spontaneous Respiratory Depth Normal Respiratory Pattern Regular Blood Pressure 193/95 H 178/112 H 169/65 H Blood Pressure Mean 127 134 99 Blood Pressure Position Sitting Pulse Oximetry 94 95 97 Oxygen Delivery Method Room Air Room Air Room Air Sepsis Recent Fever Within 48 Hours No Sepsis New/Unexplained Change in Mental Status N/A Sepsis Action Taken by Nursing No Action Required 04/16/21 02:30 Temperature Temperature Source Pulse Rate 62 Pulse Rate from SpO2 Sensor 60 Pulse Rhythm Pulse Strength Respiratory Rate 17 Respiratory Effort / Characteristics Respiratory Depth Respiratory Pattern Blood Pressure 195/99 H Blood Pressure Mean 131 Blood Pressure Position Pulse Oximetry 96 Oxygen Delivery Method Room Air Sepsis Recent Fever Within 48 Hours Sepsis New/Unexplained Change in Mental Status Sepsis Action Taken by Nursing GENERAL: alert, well appearing, well nourished, no distress, non-toxic EYE EXAM: normal conjunctiva, PERRL and EOM's grossly intact OROPHARYNX: no exudate, no erythema, lips, buccal mucosa, and tongue normal and mucous membranes are moist NECK: supple, no nuchal rigidity, no adenopathy, non-tender LUNGS: Clear to auscultation. Normal chest wall mechanics, no w/r/r HEART: no murmurs, S1 normal and S2 normal ABDOMEN: abdomen soft, non-tender, normo-active bowel sounds, no masses, no rebound or guarding. BACK: Back is symmetrical on inspection and there is no deformity, no midline tenderness, no CVA tenderness. SKIN: no rashes and no bruising UPPER EXTREMITIES: upper extremities are grossly normal. FROM, nml pulses b/l. LOWER EXTREMITIES: No pitting edema. FROM, nml pulses b/l. NEURO EXAM: Normal sensorium, cranial nerves II-XII grossly intact, normal speech, no gross weakness of arms, no gross weakness of legs. Gross sensation intact. Course Administered Medications Discontinued Medications Carvedilol (Carvedilol 12.5 Mg Tab) 12.5 mg PO NOW STA Stop: 04/16/21 02:28 Last Admin: 04/16/21 02:41 Dose: 12.5 mg Documented by: [id number] Duloxetine HCl (Duloxetine Hcl 60 Mg Cap) 60 mg PO NOW STA Stop: 04/16/21 02:29 Last Admin: 04/16/21 02:42 Dose: 60 mg Documented by: [id number] Ezetimibe (Ezetimibe 10 Mg Tablet) 10 mg PO NOW STA Stop: 04/16/21 02:24 Last Admin: 04/16/21 02:42 Dose: 10 mg Documented by: [id number] Famotidine (Famotidine 40 Mg Tablet) 40 mg PO NOW STA Stop: 04/16/21 02:29 Last Admin: 04/16/21 02:42 Dose: 40 mg Documented by: [id number] Hydralazine HCl (Hydralazine 10 Mg Tab) 10 mg PO NOW STA Stop: 04/16/21 02:24 Last Admin: 04/16/21 02:42 Dose: 10 mg Documented by: [id number] Isosorbide Mononitrate (Isosorbide Mononitrate 20 Mg Tab) 30 mg PO NOW STA Stop: 04/16/21 02:24 Last Admin: 04/16/21 02:42 Dose: 30 mg Documented by: [id number] Pregabalin (Pregabalin 75 Mg Cap) 75 mg PO NOW STA Stop: 04/16/21 02:24 Last Admin: 04/16/21 02:42 Dose: 75 mg Documented by: [id number] Trazodone HCl (Trazodone Hcl 50 Mg Tab) 150 mg PO NOW STA Stop: 04/16/21 02:29 Last Admin: 04/16/21 02:42 Dose: 150 mg Documented by: [id number] Medical Decision Making Differential Diagnosis Differential diagnoses includes but is not limited to acute coronary syndrome, myocardial infarction, pericarditis, pulmonary embolus, aortic dissection, pneumonia, pneumothorax, musculoskeletal, shingles, esophageal. Medical Records Attestation: I reviewed the patient's medical records. Home Medications Current Medication List: was personally reviewed by me Laboratory Data Attestation: I reviewed the patient's lab results. Result diagrams: 04/15/21 23:14 04/15/21 23:14 Lab Results 04/15/21 04/15/21 04/15/21 Range/Units 23:06 23:14 23:14 WBC 5.87 (4.8-10.8) K/uL RBC 4.62 (4.2-5.4) M/uL Hgb 13.8 (12.0-16.0) g/dL Hct 39.5 (37-47) % MCV 85.5 (80-100) fL MCH 29.9 (25-34) pg MCHC 34.9 (32-36) g/dL RDW Std Deviation 41.8 (36.4-46.3) fL RDW Coeff of [place]ek[place] 13.3 (11.5-14.5) % Plt Count 170 (130-400) K/uL MPV 10.0 (7.4-10.4) fL Immature Gran % (Auto) 0.2 % Neut % (Auto) 64.6 % Lymph % (Auto) 21.6 % [place] % (Auto) 10.9 % Eos % (Auto) 2.2 % Baso % (Auto) 0.5 % Neut # (Auto) 3.79 (1.4-6.5) K/uL Lymph # (Auto) 1.27 (1.2-3.4) K/uL [place] # (Auto) 0.64 H (0.11-0.59) K/uL Eos # (Auto) 0.13 (0-0.5) K/uL Baso # (Auto) 0.03 (0-0.2) K/uL Immature Gran # (Auto) 0.01 (0.00-0.02) K/uL PT 9.9 (9.0-12.0) Seconds INR 1.0 (0.9-1.1) APTT 24.5 (21.0-31.0) Seconds PTT Ratio 0.9 Sodium 138 (136-145) mmol/L Potassium 3.8 (3.5-5.1) mmol/L Chloride 106 (98-107) mmol/L Carbon Dioxide 26 (21-32) mmol/L Anion Gap 6.0 (3-11) BUN 22 H (7-18) mg/dl Creatinine 0.87 (0.6-1.2) mg/dl Est Cr Clr Drug Dosing 65.8 ml/min Est GFR ( Amer) 81.0 ml/min Est GFR (Non-Af Amer) 69.9 ml/min BUN/Creatinine Ratio 25.0 H (10-20) Glucose 103 H (70-99) mg/dl Calcium 8.6 (8.5-10.1) mg/dl Total Bilirubin 0.7 (0.2-1) mg/dl AST 15 (15-37) U/L ALT 27 (12-78) U/L Alkaline Phosphatase 82 (45-117) U/L Troponin I < 0.015 (0-0.045) ng/ml Total Protein 6.8 (6.4-8.2) gm/dl Albumin 3.6 (3.4-5.0) gm/dl Globulin 3.2 (2.5-4.0) gm/dl Albumin/Globulin Ratio 1.1 (0.9-2) COVID-19 Eval Order SARS-CoV-2 (PCR) (Negative) 04/16/21 04/16/21 Range/Units 01:32 01:32 WBC (4.8-10.8) K/uL RBC (4.2-5.4) M/uL Hgb (12.0-16.0) g/dL Hct (37-47) % MCV (80-100) fL MCH (25-34) pg MCHC (32-36) g/dL RDW Std Deviation (36.4-46.3) fL RDW Coeff of [place] (11.5-14.5) % Plt Count (130-400) K/uL MPV (7.4-10.4) fL Immature Gran % (Auto) % Neut % (Auto) % Lymph % (Auto) % [place] % (Auto) % Eos % (Auto) % Baso % (Auto) % Neut # (Auto) (1.4-6.5) K/uL Lymph # (Auto) (1.2-3.4) K/uL [place] # (Auto) (0.11-0.59) K/uL Eos # (Auto) (0-0.5) K/uL Baso # (Auto) (0-0.2) K/uL Immature Gran # (Auto) (0.00-0.02) K/uL PT (9.0-12.0) Seconds INR (0.9-1.1) APTT (21.0-31.0) Seconds PTT Ratio Sodium (136-145) mmol/L Potassium (3.5-5.1) mmol/L Chloride (98-107) mmol/L Carbon Dioxide (21-32) mmol/L Anion Gap (3-11) BUN (7-18) mg/dl Creatinine (0.6-1.2) mg/dl Est Cr Clr Drug Dosing ml/min Est GFR ( Amer) ml/min Est GFR (Non-Af Amer) ml/min BUN/Creatinine Ratio (10-20) Glucose (70-99) mg/dl Calcium (8.5-10.1) mg/dl Total Bilirubin (0.2-1) mg/dl AST (15-37) U/L ALT (12-78) U/L Alkaline Phosphatase (45-117) U/L Troponin I (0-0.045) ng/ml Total Protein (6.4-8.2) gm/dl Albumin (3.4-5.0) gm/dl Globulin (2.5-4.0) gm/dl Albumin/Globulin Ratio (0.9-2) COVID-19 Eval Order Covid19 at [facility] SARS-CoV-2 (PCR) NEGATIVE (Negative) Imaging Data My Impression: X-ray: I interpreted the following studies. Chest: A single view study of the chest was reviewed and was negative for cardiomegaly, focal infiltrate, effusion, pulmonary edema, or wide mediastinum. Radiologist's Impression: Chest X-Ray 04/15/21 22:48 XR chest 1V portable HISTORY: Atypical Chest Pain COMPARISON: Chest 08/25/2020. FINDINGS: The lungs are clear. Cardiac silhouette is normal in size. No pleural effusions. No pneumothorax. IMPRESSION: No acute process. ACT 112: Negative or not required by law. Electronically signed by: Andrez Santana M.D. 04/16/2021 8:29 AM ECG Data Attestation: I personally reviewed and interpreted this ECG as follows: Indication: + chest pain Rate (beats per minute): 70 Rhythm: + normal sinus ECG Intervals/blocks: + Normal QRS and + Normal QT ECG [place]: + Normal ECG ST segments: + Normal ST segments MDM Narrative This is a 65-year-old female who presents due to concern for chest pain with radiation into back and shoulder similar to her prior DE which required PCI intervention. Patient symptoms resolved by the time of arrival here, she was afebrile and hemodynamically stable. Initial labs reassuring including negative troponin. No acute EKG changes noted, chest x-ray unremarkable. Due to patient's elevated heart score and prior history as well as description of similar symptoms tonight compared to prior, case discussed with hospitalist for additional evaluation and management. An order was placed for continuous cardiac monitoring. The monitor shows a rate of _70_ with _normal sinus_ rhythm. Impression & Plan Chest pain Discharge Plan Visit Data Chief Complaint: Cardiac Assessment Stated Complaint: CHEST PAIN, PAIN IN NECK & BACK ED Provider: Estela Newman Discharge Problem: Chest pain Patient Disposition: Being Evaluated by Hospitalist Condition: Good Discharge Instructions Interventions: ED Discharge Assessment Last Done: 04/16/21 03:17
[2021-04-16] MEDS ORDERED: ISOSORBIDE MONONITRATE 20 MG TAB PO STA (02:23)
[2021-04-16] MEDS ORDERED: hydrALAZINE 10 MG TAB PO STA (02:23)
[2021-04-16] MEDS ORDERED: EZETIMIBE 10 MG TABLET PO STA (02:23)
[2021-04-16] MEDS ORDERED: PREGABALIN 75 MG CAP PO STA (02:23)
[2021-04-16] MEDS ORDERED: carvediloL 12.5 MG TAB PO STA (02:27)
[2021-04-16] MEDS ORDERED: FAMOTIDINE 40 MG TABLET PO STA (02:28)
[2021-04-16] MEDS ORDERED: traZODone HCL 50 MG TAB PO STA (02:28)
[2021-04-16] MEDS ORDERED: DULoxetine HCL 60 MG CAP PO STA (02:28)
--- NOTE | 2021-04-16 02:37 | History & Physical Report ---
Date of Service April 16, 2021 Assessment & Plan (1) Unstable angina: Plan: Unstable angina/CAD/hypertension/coronary stents x4- The patient will be admitted to telemetry for serial cardiac enzymes, serial EKG's, cardiac rhythm monitoring and a 2-D echocardiogram with Dopplers. Give patient all her usual evening medications at this time, and if no significant blood pressure improvement, will place on as needed IV Lopressor Continue aspirin 81 mg daily, carvedilol 12.5 mg p.o. twice daily, clopidogrel 75 mg daily, hydralazine 10 mg p.o. 3 times daily, isosorbide mononitrate 30 mg p.o. twice daily and lisinopril 40 mg p.o. 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 Nova (2) CAD (coronary artery disease): Plan: See above (3) Hypertension: Plan: See above (4) Hyperlipidemia: Plan: Continue Zetia 10 mg p.o. twice daily Check a fasting lipid panel Unclear why patient is not on a statin at this time (5) Esophageal ulcer: Plan: Esophageal ulcer/GERD- Continue famotidine 40 mg p.o. twice daily (6) GERD (gastroesophageal reflux disease): Plan: See above (7) Fibromyalgia: Plan: Fibromyalgia/anxiety/depression- Continue duloxetine 60 mg p.o. twice daily, oxycodone/acetaminophen 5/325 1 p.o. 3 times daily as needed moderate pain, pregabalin 150 mg p.o. 3 times daily and trazodone 50 mg p.o. at bedtime (8) Anxiety: Plan: See above (9) Depression: Plan: See above History of Present Illness Chief Complaint: The patient presents to the emergency department with complaint of pain from the back of her neck around both shoulders and down toward her substernal chest area, similar to her previous WA, with 3 similar episodes that occurred earlier in the week. Primary Care Provider: Natasha Saldaña MD The patient is a 65-year-old female with a past medical history including CAD,hypertension,history of WA,coronary artery stents x4, esophageal ulcer, hyperlipidemia, alopecia universe Krista, severe fibromyalgia, interstitial cystitis, left lateral femoral cutaneous neuropathy, GERD, anxiety, depression and lumbar degenerative disc disease. She presents with symptoms as noted above, and due to concerns regarding similarity of the symptoms to previous WA she p resented to the ED for assessment. Patient reports no significant change in physical activity over the past few days, and reports taking all her medications as directed. Allergies Allergy/AdvReac Type Severity Reaction Status Date / Time No Known Allergies Allergy NONE Verified 04/16/21 01:10 Home Medications Medication Instructions Recorded Confirmed Type clopidogrel 75 mg tablet 75 mg PO QAM #30 tab 01/28/19 04/16/21 Rx amlodipine 5 mg tablet 2.5 mg PO QAM 06/24/19 04/16/21 History lisinopril 40 mg tablet 40 mg PO QAM 06/24/19 04/16/21 History coenzyme Q10 100 mg capsule 200 mg PO HS 12/02/19 04/16/21 History (CoQ-10) vitamin B complex with C-folic 1 tab PO DAILY 12/02/19 04/16/21 History acid 0.8 mg-zinc citrate 50 mg tablet nitroglycerin 0.4 mg sublingual 0.4 mg SUBLINGUAL UD PRN 30 Days 12/04/19 04/16/21 Rx tablet (Nitrostat) #60 tab alpha lipoic acid 600 mg capsule 600 mg PO HS 02/18/20 04/16/21 History aspirin 81 mg tablet,delayed 81 mg PO HS 02/18/20 04/16/21 History release (Ecotrin Low Strength) ezetimibe 10 mg tablet 10 mg PO BID 02/18/20 04/16/21 History azelastine 205.5 mcg (0.15 %) 2 spray INTNAS DAILY PRN #90 ml 06/16/20 04/16/21 Rx nasal spray isosorbide mononitrate 30 mg 30 mg PO BID 30 Days #60 tab 08/26/20 04/16/21 Rx tablet,extended release 24 hr cholecalciferol (vitamin D3) 50 50 mcg PO DAILY 08/28/20 04/16/21 History mcg (2,000 unit) capsule mecobalamin (vitamin B12) 1,000 1,000 mcg PO DAILY 08/28/20 04/16/21 History mcg chewable tablet cinnamon bark 500 mg capsule 500 mg PO DAILY 09/08/20 04/16/21 History (Cinnamon) duloxetine 60 mg capsule,delayed 60 mg PO BID #180 cap 10/21/20 04/16/21 Rx release famotidine 40 mg tablet 40 mg PO BID #180 tab 10/21/20 04/16/21 Rx trazodone 150 mg tablet 150 mg PO HS #90 tab 01/15/21 04/16/21 Rx pregabalin 75 mg capsule (Lyrica) 150 mg PO TID 30 Days #180 cap 02/07/21 04/16/21 Rx carvedilol 12.5 mg tablet 12.5 mg PO BID #180 tab 03/10/21 04/16/21 Rx oxycodone-acetaminophen 5 mg-325 1 tab PO TID PRN #90 tab 04/12/21 04/16/21 Rx mg tablet ergocalciferol (vitamin D2) 1,250 1,250 mcg PO WK 04/16/21 04/16/21 History mcg (50,000 unit) capsule (Vitamin D2) hydralazine 10 mg tablet 10 mg PO TID 04/16/21 04/16/21 History Past Med/Surg History Medical History Acute pain of left hip Alopecia Anxiety Arthritis Bilateral leg pain Blepharochalasis CAD (coronary artery disease) Cervicalgia Chronic back pain Chronic blood loss anemia Chronic pain syndrome Constipation COVID-19 hx of, diagnosed 05/29/2020 @ [facility]--sinus pressure, stuffy nose, loss of taste/smell (still does not have back) Cystitis reason for Elmiron Depression Dermatochalasis Dyslipidemia Dyspareunia Dysuria Eczema Excessive menstruation with irregular cycle Fall Fatigue Fibromyalgia IMAN (generalized anxiety disorder) GERD (gastroesophageal reflux disease) Glaucoma Gross hematuria Heartburn Hip pain, bilateral History of urinary frequency History of urinary hesitancy History of urinary urgency Hypertension Hypokalemia Hyponatremia Interstitial cystitis Left knee pain Lipoma Lumbar degenerative disc disease Malaise and fatigue Muscle spasm Numbness and tingling of left side of face On anticoagulant therapy plavix daily Osteoarthritis Osteopenia Otitis externa, acute Pain, pelvic, female Postmenopausal status Psychological disorder Resistant hypertension Rhinitis Shortness of breath Sinus headache STEMI (ST elevation myocardial infarction) 01/26/2019 Dr Nova Steroid-induced hyperglycemia Subacute vulvitis Trigger finger Trochanteric bursitis Urinary tract infection symptoms Uterine leiomyoma Surgical History H/O dilation and curettage H/O: hysterectomy History of blepharoplasty History of cardiac cath x2--[place] -> 01/26/19--had 4 stents placed @ [facility] 11/2019 @ [facility], no stents placed History of cataract surgery bilateral History of colonoscopy with polypectomy History of heart artery stent x4 01/2019 @ [facility] History of lumbar spinal fusion S/P cardiac catheterization 12/03/19 Dr. Uri Maravilla- No intervention Status post trigger finger release Family History Mother Myocardial infarction Hypertension Heart disease Brother Myocardial infarction Heart disease Grandmother Ovarian cancer Diabetes Father Diabetes Hypertension Family hx colonic polyps Grandmother (Maternal) Stroke Grandfather (Maternal) Stroke Grandmother (Paternal) Cancer Grandfather (Paternal) Cirrhosis of liver Uncle Heart disease Aunt Heart disease Other No family history of adverse response to anesthesia Denies family history of Prostate cancer Breast cancer Colorectal cancer Social History Smoking Status: Never smoker Second Hand Exposure: No; Do You Dip or Chew Tobacco: No; Tobacco Cessation Education Requested by Patient: No Hx Alcohol Use: No Hx Substance Use: No Preferred Language: Estonian Communication Ability: Effective Counselling Psychologist Required: No Beliefs That Will Affect Care: Spiritual Spiritual Healthcare Practices: Uatsdin marital status: Current Living Situation: Spouse current occupational status: retired How many Children do You have: 2 Other Information That Helps Us Care for You: No Feels Safe at Home: Yes Safety Concerns: Feels Safe At This Time during the past year weight has: remained stable Dental Care, Regularly: Yes Physical Activity Frequency: Does not Exercise Seatbelt Use: always Do you think of yourself as: straight/heterosexual Assistive Devices: Glasses Assistive Devices Comment: knee brace LLE Review of Systems Review of Systems: The patient denies palpitations, shortness of breath, dyspnea on exertion, cough, lower extremity swelling, sore throat, fevers, chills, sweats, weight change, fatigue, nausea, vomiting, diarrhea , constipation, abdominal pain, pelvic pain, blood in urine or stool, dysuria, urinary frequency or urgency, lightheadedness, dizziness, headache, memory loss, loss of consciousness, rash, abnormal bruising or bleeding, imbalance, focal or generalized weakness, numbness or tingling in arms or legs, change in generalized arthralgias or myalgias, back or neck pain, or night sweats. The review of systems is otherwise negative other than for that already noted above, and at least 10 systems have been reviewed. Physical Exam Physical Exam: The patient is awake, alert and oriented 3, well developed and well nourished, normocephalic and atraumatic, lying in bed and in no acute distress. HEENT--PERRL, EOMI, mucous membranes and oropharynx normal. Neck--supple. No JVD. No bruits. Thyroid normal, trachea midline, no adenopathy. Heart--normal S1 and S2. No murmurs, rubs or gallops. Lungs--clear bilaterally, no respiratory distress, no accessory muscle use. Abdomen--normal bowel sounds and soft. Nontender. Nondistended, no hernias or masses, no organomegaly. Extremities--no cyanosis or clubbing. No edema. Dermatologic--normal skin turgor, normal color, no abnormal lymph nodes, no rash. Neurologic--cranial nerves II through XII grossly intact. Rheumatologic--normal range of motion. Psychiatric--normal affect. Results & Data Results & Data ([facility]) Vital Signs (Past 12 Hours) Vital Signs Temp Pulse Resp BP Pulse Ox 04/16/21 01:30 77 17 169/65 H 97 04/16/21 00:42 64 15 178/112 H 95 04/15/21 22:46 97.5 F L 71 18 193/95 H 94 Laboratory Results Laboratory Results WBC 5.87 K/uL (4.8-10.8) 04/15/21 23:14 RBC 4.62 M/uL (4.2-5.4) 04/15/21 23:14 Hgb 13.8 g/dL (12.0-16.0) 04/15/21 23:14 Hct 39.5 % (37-47) 04/15/21 23:14 MCV 85.5 fL (80-100) 04/15/21 23:14 MCH 29.9 pg (25-34) 04/15/21 23:14 MCHC 34.9 g/dL (32-36) 04/15/21 23:14 RDW Std Deviation 41.8 fL (36.4-46.3) 04/15/21 23:14 RDW Coeff of Beka 13.3 % (11.5-14.5) 04/15/21 23:14 Plt Count 170 K/uL (130-400) 04/15/21 23:14 MPV 10.0 fL (7.4-10.4) 04/15/21 23:14 Immature Gran % (Auto) 0.2 % 04/15/21 23:14 Neut % (Auto) 64.6 % 04/15/21 23:14 Lymph % (Auto) 21.6 % 04/15/21 23:14 Corson % (Auto) 10.9 % 04/15/21 23:14 Eos % (Auto) 2.2 % 04/15/21 23:14 Baso % (Auto) 0.5 % 04/15/21 23:14 Neut # (Auto) 3.79 K/uL (1.4-6.5) 04/15/21 23:14 Lymph # (Auto) 1.27 K/uL (1.2-3.4) 04/15/21 23:14 Corson # (Auto) 0.64 K/uL (0.11-0.59) H 04/15/21 23:14 Eos # (Auto) 0.13 K/uL (0-0.5) 04/15/21 23:14 Baso # (Auto) 0.03 K/uL (0-0.2) 04/15/21 23:14 Immature Gran # (Auto) 0.01 K/uL (0.00-0.02) 04/15/21 23:14 PT 9.9 Seconds (9.0-12.0) 04/15/21 23:06 INR 1.0 (0.9-1.1) 04/15/21 23:06 APTT 24.5 Seconds (21.0-31.0) 04/15/21 23:06 PTT Ratio 0.9 04/15/21 23:06 Sodium 138 mmol/L (136-145) 04/15/21 23:14 Potassium 3.8 mmol/L (3.5-5.1) 04/15/21 23:14 Chloride 106 mmol/L (98-107) 04/15/21 23:14 Carbon Dioxide 26 mmol/L (21-32) 04/15/21 23:14 Anion Gap 6.0 (3-11) 04/15/21 23:14 BUN 22 mg/dl (7-18) H 04/15/21 23:14 Creatinine 0.87 mg/dl (0.6-1.2) 04/15/21 23:14 Est Cr Clr Drug Dosing 65.8 ml/min 04/15/21 23:14 Est GFR ( Amer) 81.0 ml/min 04/15/21 23:14 Est GFR (Non-Af Amer) 69.9 ml/min 04/15/21 23:14 BUN/Creatinine Ratio 25.0 (10-20) H 04/15/21 23:14 Glucose 103 mg/dl (70-99) H 04/15/21 23:14 Calcium 8.6 mg/dl (8.5-10.1) 04/15/21 23:14 Total Bilirubin 0.7 mg/dl (0.2-1) 04/15/21 23:14 AST 15 U/L (15-37) 04/15/21 23:14 ALT 27 U/L (12-78) 04/15/21 23:14 Alkaline Phosphatase 82 U/L (45-117) 04/15/21 23:14 Troponin I < 0.015 ng/ml (0-0.045) 04/15/21 23:14 Total Protein 6.8 gm/dl (6.4-8.2) 04/15/21 23:14 Albumin 3.6 gm/dl (3.4-5.0) 04/15/21 23:14 Globulin 3.2 gm/dl (2.5-4.0) 04/15/21 23:14 Albumin/Globulin Ratio 1.1 (0.9-2) 04/15/21 23:14 COVID-19 Eval Order Covid19 at [facility] 04/16/21 01:32 SARS-CoV-2 (PCR) NEGATIVE (Negative) 04/16/21 01:32 Code Status & VTE Plan Code Status Full code VTE Prophylaxis Plan VTE Prophylaxis will be ordered: Yes PG Care Time/CCT Total # of Minutes Spent Total Time Spent with Patient: Total time spent is greater than 50% in coordination of care (as documented) at patient's floor/unit and/or counseling patient: Coding Level of Care Code 31787 Initial In Care Lvl 3 Diagnoses Unstable angina I20.0 Esophageal ulcer K22.10 Esophageal ulcer bleeding: without bleeding Hyperlipidemia E78.5 GERD (gastroesophageal reflux disease) K21.9 Esophagitis presence: without esophagitis CAD (coronary artery disease) I25.10 Fibromyalgia M79.7 Hypertension I10 Hypertension type: essential hypertension Anxiety F41.9 Depression F32.9 Depression Type: reactive depression (1) Esophageal ulcer Esophageal ulcer bleeding: without bleeding Qualified Code(s): K22.10 - Ulcer of esophagus without bleeding (2) GERD (gastroesophageal reflux disease) Esophagitis presence: without esophagitis Qualified Code(s): K21.9 - Gastro- esophageal reflux disease without esophagitis (3) Hypertension Hypertension type: essential hypertension Qualified Code(s): I10 - Essential (primary) hypertension (4) Depression Depression Type: reactive depression Qualified Code(s): F32.9 - Major depressive disorder, single episode, unspecified
[2021-04-16] MEDS ORDERED: NITROGLYCERIN SL 0.4 MG/TAB TAB SL PRN (04:18)
[2021-04-16] MEDS ORDERED: MoRPHine SULFATE 2 MG/ML CARP IV PRN (04:18)
[2021-04-16] MEDS ORDERED: ACETAMINOPHEN 325 MG TAB PO PRN (04:18)
[2021-04-16] MEDS ORDERED: METOPROLOL TARTRATE 1 MG/ML VIAL IV PRN (04:18)
[2021-04-16] MEDS ORDERED: oxyCODONE/ACETAMINOPHEN 5mg/325mg TAB PO PRN (04:18)
[2021-04-16] MEDS ORDERED: ONDANSETRON INJ 2 MG/ML 2 ML VIAL IV PRN (04:18)
[2021-04-16] MEDS ORDERED: AZELASTINE HCL 0.1% NASAL 200 SPRAYS/27,400 MCG BTL PRN (04:26)
--- NOTE | 2021-04-16 08:28 | Cardiology Consultation ---
Date of Consultation April 16, 2021 Assessment & Plan (1) Chest pain: IMPRESSIONS: 1. Unstable angina with ST elevation on her EKG without evidence of troponin elevation 01/2019. 1b. Unstable angina 11/2019 with small vessel disease with a 95% ostial very small second diagonal branch which was likely the culprit and a 60% ostial small third diagonal branch; 40% ostial circumflex; widely patent proximal to mid LAD stents 2. Status post angioplasty and stenting with 4 drug-eluting stents to the mid to distal LAD for high-grade stenosis; residual 90% ostial D2 lesion (01/2019). 3. Normal biventricular size and function by echo 04/2019 with an EF in the range of 65% and no regional wall motion abnormalities. 4. Hypertension. 5. Hypertension with a negative renal artery duplex, 04/2019. 6. Worsening myalgias on statin therapy with her fibromyalgia, tolerating Zetia. 7. Hyponatremia secondary to hydrochlorothiazide. Ms. Hopkins is pain free and has been since she arrived in the ED. Her pain was fleeting. She has a normal troponin x2 and no ischemic changes on her EKG. If she did have in stent restenosis, one would expect she would have exertional symptoms. She has an extensive GI history with gallbladder disease and esophageal ulcers. She is no longer on a PPI. She should probably be directed to GI after discharge for further workup. Her blood pressure is under better control. She should continue with her home antihypertensive regimen. She should continue her Zetia, DAPT, CARON, isosorbide, and amlodipine for her CAD, hld and angina. If she has no further symptoms after ambulating the halls, she can be discharged home from a cardiology standpoint. History of Present Illness Reason for Consultation: Chest pain Attending Physician: Jaleesa Rodriguez MD History of Present Illness Ms. Hopkins presented to the ED last evening after having substernal/left breast sharp pain radiating between shoulder blades and left shoulder lasting one minute. She had two other episodes this week though less troubling. She took a nitro and had no further symptoms. She had no associated sob, d iaphoresis, or nausea. No palpitations or lightheadedness. She is currently pain free. She was hypotensive as high as 193/95. She was given her evening meds at 0300 and her bp is under better control now. Allergies Allergy/AdvReac Type Severity Reaction Status Date / Time No Known Allergies Allergy NONE Verified 04/16/21 01:10 Home Medications Medication Instructions Recorded Confirmed Type clopidogrel 75 mg tablet 75 mg PO QAM #30 tab 01/28/19 04/16/21 Rx amlodipine 5 mg tablet 2.5 mg PO QAM 06/24/19 04/16/21 History lisinopril 40 mg tablet 40 mg PO QAM 06/24/19 04/16/21 History coenzyme Q10 100 mg capsule 200 mg PO HS 12/02/19 04/16/21 History (CoQ-10) vitamin B complex with C-folic 1 tab PO DAILY 12/02/19 04/16/21 History acid 0.8 mg-zinc citrate 50 mg tablet nitroglycerin 0.4 mg sublingual 0.4 mg SUBLINGUAL UD PRN 30 Days 12/04/19 04/16/21 Rx tablet (Nitrostat) #60 tab alpha lipoic acid 600 mg capsule 600 mg PO HS 02/18/20 04/16/21 History aspirin 81 mg tablet,delayed 81 mg PO HS 02/18/20 04/16/21 History release (Ecotrin Low Strength) ezetimibe 10 mg tablet 10 mg PO BID 02/18/20 04/16/21 History azelastine 205.5 mcg (0.15 %) 2 spray INTNAS DAILY PRN #90 ml 06/16/20 04/16/21 Rx nasal spray isosorbide mononitrate 30 mg 30 mg PO BID 30 Days #60 tab 08/26/20 04/16/21 Rx tablet,extended release 24 hr cholecalciferol (vitamin D3) 50 50 mcg PO DAILY 08/28/20 04/16/21 History mcg (2,000 unit) capsule mecobalamin (vitamin B12) 1,000 1,000 mcg PO DAILY 08/28/20 04/16/21 History mcg chewable tablet cinnamon bark 500 mg capsule 500 mg PO DAILY 09/08/20 04/16/21 History (Cinnamon) duloxetine 60 mg capsule,delayed 60 mg PO BID #180 cap 10/21/20 04/16/21 Rx release famotidine 40 mg tablet 40 mg PO BID #180 tab 10/21/20 04/16/21 Rx trazodone 150 mg tablet 150 mg PO HS #90 tab 01/15/21 04/16/21 Rx pregabalin 75 mg capsule (Lyrica) 150 mg PO TID 30 Days #180 cap 02/07/21 04/16/21 Rx carvedilol 12.5 mg tablet 12.5 mg PO BID #180 tab 03/10/21 04/16/21 Rx oxycodone-acetaminophen 5 mg-325 1 tab PO TID PRN #90 tab 04/12/21 04/16/21 Rx mg tablet ergocalciferol (vitamin D2) 1,250 1,250 mcg PO WK 04/16/21 04/16/21 History mcg (50,000 unit) capsule (Vitamin D2) hydralazine 10 mg tablet 10 mg PO TID 04/16/21 04/16/21 History Patient History Medical History Acute pain of left hip Alopecia Anxiety Arthritis Bilateral leg pain Blepharochalasis CAD (coronary artery disease) Cervicalgia Chronic back pain Chronic blood loss anemia Chronic pain syndrome Constipation COVID-19 hx of, diagnosed 05/29/2020 @ [facility]--sinus pressure, stuffy nose, loss of taste/smell (still does not have back) Cystitis reason for Elmiron Depression Dermatochalasis Dyslipidemia Dyspareunia Dysuria Eczema Excessive menstruation with irregular cycle Fall Fatigue Fibromyalgia IMAN (generalized anxiety disorder) GERD (gastroesophageal reflux disease) Glaucoma Gross hematuria Heartburn Hip pain, bilateral History of urinary frequency History of urinary hesitancy History of urinary urgency Hypertension Hypokalemia Hyponatremia Interstitial cystitis Left knee pain Lipoma Lumbar degenerative disc disease Malaise and fatigue Muscle spasm Numbness and tingling of left side of face On anticoagulant therapy plavix daily Osteoarthritis Osteopenia Otitis externa, acute Pain, pelvic, female Postmenopausal status Psychological disorder Resistant hypertension Rhinitis Shortness of breath Sinus headache STEMI (ST elevation myocardial infarction) 01/26/2019 Dr Nova Steroid-induced hyperglycemia Subacute vulvitis Trigger finger Trochanteric bursitis Urinary tract infection symptoms Uterine leiomyoma Surgical History H/O dilation and curettage H/O: hysterectomy History of blepharoplasty History of cardiac cath x2--[place] -> 01/26/19--had 4 stents placed @ [facility] 11/2019 @ [facility], no stents placed History of cataract surgery bilateral History of colonoscopy with polypectomy History of heart artery stent x4 01/2019 @ [facility] History of lumbar spinal fusion S/P cardiac catheterization 12/03/19 Dr. Uri Maravilla- No intervention Status post trigger finger release Family History Mother Myocardial infarction Hypertension Heart disease Brother Myocardial infarction Heart disease Grandmother Ovarian cancer Diabetes Father Diabetes Hypertension Family hx colonic polyps Grandmother (Maternal) Stroke Grandfather (Maternal) Stroke Grandmother (Paternal) Cancer Grandfather (Paternal) Cirrhosis of liver Uncle Heart disease Aunt Heart disease Other No family history of adverse response to anesthesia Denies family history of Prostate cancer Breast cancer Colorectal cancer Social History Smoking Status: Never smoker Second Hand Exposure: No; Do You Dip or Chew Tobacco: No; Tobacco Cessation Education Requested by Patient: No Hx Alcohol Use: No Hx Substance Use: No Preferred Language: Uruguayan Communication Ability: Effective Technical Expert Required: No Beliefs That Will Affect Care: Spiritual Spiritual Healthcare Practices: Jainism marital status: Current Living Situation: Spouse current occupational status: retired How many Children do You have: 2 Other Information That Helps Us Care for You: No Feels Safe at Home: Yes Safety Concerns: Feels Safe At This Time during the past year weight has: remained stable Dental Care, Regularly: Yes Physical Activity Frequency: Does not Exercise Seatbelt Use: always Do you think of yourself as: straight/heterosexual Assistive Devices: Glasses Assistive Devices Comment: knee brace LLE Review of Systems Review of Systems: All systems reviewed & are unremarkable except as noted in HPI & below Physical Exam Constitutional: WD/WN, vitals as above Respiratory: normal respiratory effort, lungs clear to auscultation Cardiovascular: RRR, no murmur, no edema Gastrointestinal (Abdomen): abdomen non tender to palpation Musculoskeletal: tender left shoulder to palpation Skin: no rashes, warm and dry Neurologic: moves all extremities and awake Psychiatric: A+Ox3, euthymic affect Results & Data ([facility]) Vital Signs (Past 12 Hours) Vital Signs Temp Pulse Pulse Resp BP BP BP 04/16/21 07:50 37.1 C 66 18 118/70 04/16/21 03:30 36.7 C 63 17 160/88 H 04/16/21 02:30 62 17 195/99 H 04/16/21 01:30 77 17 169/65 H 04/16/21 00:42 64 15 178/112 H 04/15/21 22:46 36.4 C L 71 18 193/95 H Pulse Ox 04/16/21 07:50 95 04/16/21 03:30 94 04/16/21 02:30 96 04/16/21 01:30 97 04/16/21 00:42 95 04/15/21 22:46 94 (1) Chest pain Chest pain type: unspecified Qualified Code(s): R07.9 - Chest pain, unspecified
--- NOTE | 2021-04-16 08:31 | XRay Report ---
XR chest 1V portable HISTORY: Atypical Chest Pain COMPARISON: Chest 08/25/2020. FINDINGS: The lungs are clear. Cardiac silhouette is normal in size. No pleural effusions. No pneumot horax. IMPRESSION: No acute process. ACT 112: Negative or not required by law. Electronically signed by: Andrez Santana M.D. 04/16/2021 8:29 AM
[2021-04-16] MEDS ORDERED: CLOPIDOGREL BISULFATE 75 MG TAB PO SCH (09:00)
[2021-04-16] MEDS ORDERED: EZETIMIBE 10 MG TABLET PO SCH (09:00)
[2021-04-16] MEDS ORDERED: carvediloL 12.5 MG TAB PO SCH (09:00)
[2021-04-16] MEDS ORDERED: FAMOTIDINE 40 MG TABLET PO SCH (09:00)
[2021-04-16] MEDS ORDERED: CYANOCOBALAMIN 500 MCG TABLET (VITAMIN B-12) PO SCH (09:00)
[2021-04-16] MEDS ORDERED: ISOSORBIDE MONO EXTENDED REL 30 MG TABCR PO SCH (09:00)
[2021-04-16] MEDS ORDERED: lisinopril 40 MG TAB PO SCH (09:00)
[2021-04-16] MEDS ORDERED: CHOLECALCIFEROL 1,000 UNITS 25 MCG TAB PO SCH (09:00)
[2021-04-16] MEDS ORDERED: VITAMIN B COMPLEX TAB PO SCH (09:00)
[2021-04-16] MEDS ORDERED: amLODIPine BESYLATE 5 MG TAB PO SCH (09:00)
[2021-04-16] MEDS ORDERED: DULoxetine HCL 60 MG CAP PO SCH (09:00)
--- NOTE | 2021-04-16 09:28 | XCELERA ---
[id number]
[2021-04-16] MEDS: PREGABALIN 150 MG CAP PO SCH ×2 (09:31→14:04)
[2021-04-16] MEDS: hydrALAZINE 10 MG TAB PO SCH ×2 (09:31→14:04)
--- NOTE | 2021-04-16 10:33 | Electrocardiogram Report ---
Test Reason : Blood Pressure : / mmHG Vent. Rate : 070 BPM Atrial Rate : 070 BPM P-R Int : 150 ms QRS Dur : 084 ms QT Int : 396 ms P-R-T Axes : 052 023 047 degrees QTc Int : 427 ms Normal sinus rhythm Normal ECG When compared with ECG of 26-AUG-2020 08:52, No significant change was found Confirmed by Boston Ruelas ([id number]) on 04/16/2021 10:33:34 AM Referred By: REFERRED SELF Confirmed By:Boston Ruelas
--- NOTE | 2021-04-16 10:59 | Electrocardiogram Report ---
Test Reason : Blood Pressure : / mmHG Vent. Rate : 065 BPM Atrial Rate : 065 BPM P-R Int : 156 ms QRS Dur : 086 ms QT Int : 438 ms P-R-T Axes : 035 012 022 degrees QTc Int : 455 ms Normal sinus rhythm Normal ECG When compared with ECG of 15-APR-2021 22:46, No significant change was found Confirmed by Boston Ruelas ([id number]) on 04/16/2021 10:59:00 AM Referred By: REFERRED SELF Confirmed By:Boston Ruelas
[2021-04-16] MEDS: SUCRALFATE 1 GM/10 ML UDC PO SCH ×3 (11:52→16:09)
--- NOTE | 2021-04-16 16:49 | Discharge Summary ---
Date of Service April 16, 2021 Admission HPI Per Admitting Provider The patient is a 65-year-old female with a past medical history including CAD,hypertension,history of AK,coronary artery stents x4, esophageal ulcer, hyperlipidemia, alopecia universe Krista, severe fibromyalgia, interstitial cystitis, left lateral femoral cutaneous neuropathy, GERD, anxiety, depression and lumbar degenerative disc disease. She presents with symptoms as noted above, and due to concerns regarding similarity of the symptoms to previous AK she presented to the ED for assessment. Patient reports no significant change in physical activity over the past few days, and reports taking all her medications as directed. Principal Diagnosis Noncardiac chest pain Discharge Exam Constitutional WD/WN, vitals as above Neck trachea midline, no thyromegaly +TTP and muscle spasm palpable over bilat trapezius muscle Respiratory normal respiratory effort, lungs clear to auscultation Cardiovascular RRR, no murmur, no edema Chest (Breasts) Chest: normal inspection of chest Additional Comments: no TTP over sternum or chest wall Gastrointestinal (Abdomen) normal bowel sounds, soft, nontender, no hepatosplenomegaly Musculoskeletal Extremities: extremities normal to inspection; no cyanosis and no clubbing Skin no rashes, warm and dry Neurologic moves all extremities and awake; no focal motor deficits Psychiatric A+Ox3, euthymic affect Lymphatic no lymphedema Discharge Data Allergies Allergy/AdvReac Type Severity Reaction Status Date / Time No Known Allergies Allergy NONE Verified 04/16/21 01:10 Consultations 04/16/21 02:57 ED Decision to Admit Stat 04/16/21 04:18 Consult Cardiology Routine Hospital Course (1) Chest pain: Noncardiac, likely GI related central, sharp in nature, radiated to bilateral shoulders, came on at rest, went away on own and then had mild return relieved with carafate has h/o esophageal ulcer, GERD troponin seriall yneg, ECHO no WMA, ECGs no ischemic changes Cardiology did not think was cardiac related ambulated halls without pain prior to discharge vitals stable -start Prevacid 30mg po daily x 2 week trial to see if prevents return dc to home (2) CAD (coronary artery disease): h/o multiple stents, AK continue usual meds (3) Hypertension: BPs elevated initially now improved with taking home po meds (4) Hyperlipidemia: Continue Zetia 10 mg p.o. twice daily (5) Esophageal ulcer: Esophageal ulcer/GERD- Continue famotidine 40 mg p.o. twice daily adding PPI on discharge (6) GERD (gastroesophageal reflux disease): See above (7) Fibromyalgia: Fibromyalgia/anxiety/depression- Continue duloxetine 60 mg p.o. twice daily, oxycodone/acetaminophen 5/325 1 p.o. 3 times daily as needed moderate pain, pregabalin 150 mg p.o. 3 times daily and trazodone 50 mg p.o. at bedtime (8) Anxiety: See above (9) Depression: See above Dispo-dc to home Total Time Total Time Spent Total Time Spent (In Minutes): 35 min Total Time Includes: Examination of the Patient, Discharge Planning, Medication Reconciliation and Communication With Other Providers (Cardiology FILLER IN) Discharge Plan Discharge Items Patient Disposition: Home - Self-Care Reason For Visit: UNSTABLE ANGINA Discharge Diagnosis: Chest and shoulder pain-GI related versus musculoskeletal Condition on Discharge: Good Activity: Resume your previous activity Non-emergency contact: Primary Care Provider Call non-emergency contact if: you have any medication questions, your symptoms worsen and your pain is not controlled Follow-up/Referrals: Natasha Saldaña MD [Primary Care Provider] - (Follow up with your PCP within 1-2 weeks.) Diet: Heart Healthy Addtl Attending Provider Instructions: You were admitted for chest and shoulder pain that was determined to be non- cardiac in nature. This may be related to acid reflux. Please start taking your lansoprazole again once daily x 2 weeks to see if this resolves your pain. Pending Studies at Discharge: No Stand-Alone Forms: My [facility] Medications and DC Order Prescriptions: New lansoprazole 30 mg capsule,delayed release(DR/EC) 30 mg PO DAILY 14 Days Qty: 14 RF: 0 Continued azelastine 0.15 % (205.5 mcg) spray,non-aerosol 2 spray INTNAS DAILY PRN (Reason: Nasal Congestion) Qty: 90 RF: 1 famotidine 40 mg tablet 40 mg PO BID Qty: 180 RF: 1 trazodone 150 mg tablet 150 mg PO HS Qty: 90 RF: 1 pregabalin [Lyrica] 75 mg capsule 150 mg PO TID 30 Days Qty: 180 RF: 2 carvedilol 12.5 mg tablet 12.5 mg PO BID Qty: 180 RF: 3 oxycodone-acetaminophen 5-325 mg tablet 1 tab PO TID PRN (Reason: Pain) Qty: 90 RF: 0 mecobalamin (vitamin B12) 1,000 mcg tablet,chewable 1,000 mcg PO DAILY RF: 0 cholecalciferol (vitamin D3) 50 mcg (2,000 unit) capsule 50 mcg PO DAILY RF: 0 lisinopril 40 mg tablet 40 mg PO QAM RF: 0 amlodipine 5 mg tablet 2.5 mg PO QAM RF: 0 duloxetine 60 mg capsule,delayed release(DR/EC) 60 mg PO BID Qty: 180 RF: 1 clopidogrel 75 mg Tablet 75 mg PO QAM Qty: 30 RF: 2 aspirin [Ecotrin Low Strength] 81 mg tablet,delayed release (DR/EC) 81 mg PO HS RF: 0 ezetimibe 10 mg tablet 10 mg PO BID RF: 0 alpha lipoic acid 600 mg capsule 600 mg PO HS RF: 0 vitamin B [id number] cit 0.8-50 mg Tablet 1 tab PO DAILY RF: 0 coenzyme Q10 [CoQ-10] 100 mg Capsule 200 mg PO HS RF: 0 nitroglycerin [Nitrostat] 0.4 mg Tablet, Sublingual 0.4 mg sublingual UD PRN (Reason: chest pain) 30 Days Qty: 60 RF: 1 isosorbide mononitrate 30 mg Tablet Extended Release 24 Hr 30 mg PO BID 30 Days Qty: 60 RF: 1 hydralazine 10 mg tablet 10 mg PO TID RF: 0 ergocalciferol (vitamin D2) [Vitamin D2] 1,250 mcg (50,000 unit) Capsule 1,250 mcg PO WK RF: 0 cinnamon bark [Cinnamon] 500 mg Capsule 500 mg PO DAILY RF: 0 Discharge Orders: Discharge Order (Routine); Ordered 04/16/21 Ordered By: Jaleesa Rodriguez Admission Data Admit Date/Time: 04/16/21 02:36 Attending Provider: Jaleesa Rodriguez Admit Provider: Nick Burns Primary Care Provider: Natasha Saldaña Other Providers: Nick Burns ; Madhu Nova Coding Level of Care Code 30494 OBS Care - Discharge Diagnoses CAD (coronary artery disease) I25.10 Hypertension I10 Hypertension type: essential hypertension Hyperlipidemia E78.5 Esophageal ulcer K22.10 Esophageal ulcer bleeding: without bleeding GERD (gastroesophageal reflux disease) K21.9 Esophagitis presence: without esophagitis Fibromyalgia M79.7 Anxiety F41.9 Depression F32.9 Depression Type: reactive depression Chest pain R07.9 Chest pain type: unspecified
[2021-04-16] MEDS ORDERED: NON-FORMULARY MEDICATION (Coenzyme Q10 [Coq-10] 100 mg Capsule) PO SCH (21:00)
[2021-04-16] MEDS ORDERED: traZODone HCL 50 MG TAB PO SCH (21:00)
[2021-04-16] MEDS ORDERED: ASPIRIN 81 MG ECTAB PO SCH (21:00)
--- NOTE | 2021-04-22 12:51 | Coding Query ---
CHEST PAIN To promote full compliance with coding requirements relating to patient care physician participation is requested in all cases of oncology nurse uncertainty. Please assist us with the question(s) below: DS stated chest pain due to non-cadiac source , likely GI in nature. Pt with history of GERD and Esophageal Ulcer. Please document the etiology of the chest pain (GI) if known or suspected Thank you . JEREMY Snigh CCS Please list a more specific chest pain diagnosis or cause of chest pain if known by placing an X within the parenthesis (x): ( x) Atypical Chest Pain ( ) Chest Wall Pain ( ) Midsternal Chest Pain ( ) Musculoskeletal Chest Pain ( ) Pleuritic Chest Pain ( ) Substernal Chest Pain ( ) Costochondral Chest Pain ( ) Other (please Specify) ( ) Unable to Determine Thank you Willy BIRD
== END 2021-04-16 17:12 | disposition home or self-care (01) | DRG 313 ==
LOC: ED 22:42 → SUATTDRO 04-16 02:36 → EDINP 04-16 02:36

== ENCOUNTER 2021-07-08 06:36 | Inpatient (IN) ==
[2021-07-08] MEDS ORDERED: MoRPHine SULFATE 4 MG/ML 1 ML CARP\\VIAL IV STA ×3 (07:26→09:43)
[2021-07-08] MEDS ORDERED: ONDANSETRON INJ 2 MG/ML 2 ML VIAL IV STA (07:26)
--- NOTE | 2021-07-08 07:37 | Emergency Department Note ---
History of Present Illness General Chief complaint: Groin Pain Stated complaint: SEVERE PAIN IN GROIN,HIP,THIGH AND BUTT Time Seen by Provider: 07/08/21 07:17 Source: patient Mode of arrival: ambulatory Limitations: no limitations History of Present Illness This patient is a 65-year-old female who has history of back problems and fibromyalgia among other medical issues, comes in after having pain in her right hip which radiates to her groin. Started hurting on Monday is worse with movement. She was standing for several hours at a and got worse. Certain positions make it feel better. She has no change in bowel or bladder f unction no fever or chills she has not had the COVID-vaccine but has had no respiratory symptoms nausea or vomiting or cough. no dysuria or . She has been taking her Oxy IR at home. Hurts when she tries to flex her hip. She points to the low back near the SI joint. No rash. No trauma or injury. Home Medications Medication Instructions Recorded Confirmed Type clopidogrel 75 mg tablet 75 mg PO QAM #30 tab 01/28/19 07/08/21 Rx amlodipine 5 mg tablet 2.5 mg PO QAM 06/24/19 07/08/21 History lisinopril 40 mg tablet 40 mg PO QAM 06/24/19 07/08/21 History coenzyme Q10 100 mg capsule 200 mg PO HS 12/02/19 07/08/21 History (CoQ-10) vitamin B complex with C-folic 1 tab PO DAILY 12/02/19 07/08/21 History acid 0.8 mg-zinc citrate 50 mg tablet nitroglycerin 0.4 mg sublingual 0.4 mg SUBLINGUAL UD PRN 30 Days 12/04/19 07/08/21 Rx tablet (Nitrostat) #60 tab alpha lipoic acid 600 mg capsule 600 mg PO HS 02/18/20 07/08/21 History aspirin 81 mg tablet,delayed 81 mg PO HS 02/18/20 07/08/21 History release (Ecotrin Low Strength) ezetimibe 10 mg tablet 10 mg PO BID 02/18/20 07/08/21 History azelastine 205.5 mcg (0.15 %) 2 spray INTNAS DAILY PRN #90 ml 06/16/20 07/08/21 Rx nasal spray isosorbide mononitrate 30 mg 30 mg PO BID 30 Days #60 tab 08/26/20 07/08/21 Rx tablet,extended release 24 hr cholecalciferol (vitamin D3) 50 50 mcg PO DAILY 08/28/20 07/08/21 History mcg (2,000 unit) capsule carvedilol 12.5 mg tablet 12.5 mg PO BID #180 tab 03/10/21 07/08/21 Rx diclofenac sodium 1 % topical gel 2 g TOPICAL QID #100 g 05/03/21 07/08/21 Rx (Voltaren Arthritis Pain) hydralazine 10 mg tablet 20 mg PO TID tab 05/03/21 07/08/21 History lansoprazole 30 mg capsule,delayed 30 mg PO DAILY 05/03/21 07/08/21 History release fluoxetine 20 mg capsule 20 mg PO DAILY #30 cap 05/25/21 07/08/21 Rx pregabalin 75 mg capsule (Lyrica) 150 mg PO TID 30 Days #180 cap 06/07/21 07/08/21 Rx trazodone 150 mg tablet 150 mg PO HS #90 tab 06/09/21 07/08/21 Rx oxycodone-acetaminophen 5 mg-325 1 tab PO TID PRN #90 tab 07/06/21 07/08/21 Rx mg tablet duloxetine 60 mg capsule,delayed 60 mg PO BID 07/08/21 07/08/21 History release Allergies Allergy/AdvReac Type Severity Reaction Status Date / Time No Known Allergies Allergy NONE Verified 07/08/21 09:03 Past Med/Surg History Medical History (Updated 07/08/21 @ 14:22 by Rivera Hartmann MD) Acute pain of left hip Alopecia Anxiety Arthritis Bilateral leg pain Blepharochalasis CAD (coronary artery disease) Cervicalgia Chronic back pain Chronic blood loss anemia Chronic pain syndrome Constipation COVID-19 hx of, diagnosed 05/29/2020 @ [facility]--sinus pressure, stuffy nose, loss of taste/smell (still does not have back) Cystitis reason for [place] Depression Dermatochalasis Dyslipidemia Dyspareunia Dysuria Eczema Excessive menstruation with irregular cycle Fall Fatigue Fibromyalgia IMAN (generalized anxiety disorder) GERD (gastroesophageal reflux disease) Glaucoma Gross hematuria Heartburn Hip pain, bilateral History of urinary frequency History of urinary hesitancy History of urinary urgency Hypertension Hypokalemia Hyponatremia Interstitial cystitis Left knee pain Lipoma Lumbar degenerative disc disease Malaise and fatigue Muscle spasm Numbness and tingling of left side of face On anticoagulant therapy plavix daily Osteoarthritis Osteopenia Otitis externa, acute Pain, pelvic, female Postmenopausal status Psychological disorder Resistant hypertension Rhinitis Shortness of breath Sinus headache STEMI (ST elevation myocardial infarction) 01/26/2019 Dr Nova Steroid-induced hyperglycemia Subacute vulvitis Trigger finger Trochanteric bursitis Urinary tract infection symptoms Uterine leiomyoma Surgical History H/O dilation and curettage H/O: hysterectomy History of blepharoplasty History of cardiac cath x2--IN -> 01/26/19--had 4 stents placed @ [facility] 11/2019 @ [facility], no stents placed History of cataract surgery bilateral History of colonoscopy with polypectomy History of heart artery stent x4 01/2019 @ [facility] History of lumbar spinal fusion S/P cardiac catheterization 12/03/19 Dr. Uri Maravilla- No intervention Status post trigger finger release Family History Mother Myocardial infarction Hypertension Heart disease Brother Myocardial infarction Heart disease Grandmother Ovarian cancer Diabetes Father Diabetes Hypertension Family hx colonic polyps Grandmother (Maternal) Stroke Grandfather (Maternal) Stroke Grandmother (Paternal) Cancer Grandfather (Paternal) Cirrhosis of liver Uncle Heart disease Aunt Heart disease Other No family history of adverse response to anesthesia Denies family history of Prostate cancer Breast cancer Colorectal cancer Social History Smoking Status: Never smoker Second Hand Exposure: No; Hx Alcohol Use: No Hx Substance Use: No Preferred Language: Japanese Communication Ability: Effective Electric Blanket Packer Required: No Beliefs That Will Affect Care: None marital status: Current Living Situation: Spouse current occupational status: retired How many Children do You have: 2 Other Information That Helps Us Care for You: No Feels Safe at Home: Yes during the past year weight has: remained stable Dental Care, Regularly: Yes Physical Activity Frequency: Does not Exercise Seatbelt Use: always Do you think of yourself as: straight/heterosexual Assistive Devices: Glasses Review of Systems A total of 10 systems reviewed and were otherwise negative Physical Exam Vital Signs Vital Signs - 24 hr 07/08/21 06:42 07/08/21 07:48 07/08/21 08:06 Temperature 36.4 C L Temperature Source Temporal Artery Scan Pulse Rate 65 64 65 Pulse Rate from SpO2 Sensor 63 64 Respiratory Rate 18 18 18 Respiratory Depth Normal Blood Pressure 177/88 H 158/87 H Blood Pressure Mean 117 110 Pulse Oximetry 95 95 94 Oxygen Delivery Method Room Air Sepsis New/Unexplained Change in Mental Status N/A Sepsis Action Taken by Nursing No Action Required 07/08/21 08:28 07/08/21 08:30 07/08/21 09:00 Temperature Temperature Source Pulse Rate 64 56 L 59 L Pulse Rate from SpO2 Sensor 65 55 L 63 Respiratory Rate 18 13 15 Respiratory Depth Blood Pressure 154/86 H 140/79 136/78 Blood Pressure Mean 108 99 97 Pulse Oximetry 89 L 93 94 Oxygen Delivery Method Sepsis New/Unexplained Change in Mental Status Sepsis Action Taken by Nursing 07/08/21 09:30 07/08/21 09:31 07/08/21 10:00 Temperature Temperature Source Pulse Rate 53 L 61 61 Pulse Rate from SpO2 Sensor 52 L 58 L 61 Respiratory Rate 20 15 13 Respiratory Depth Blood Pressure 155/87 H 169/83 H Blood Pressure Mean 109 111 Pulse Oximetry 91 93 92 Oxygen Delivery Method Sepsis New/Unexplained Change in Mental Status Sepsis Action Taken by Nursing General: Well developed well nourished middle-aged female who is complaining of pain in her leg but otherwise in no acute distress, breathing comfortably on room air. Normal speech HEENT: Normal cephalic atraumatic. Pupils are equal round and reactive to light. Extraocular movements are intact. Oropharynx is pink with moist mucous membranes. No swelling of the mouth lips or tongue. Neck: Supple with a midline trachea. No meningeal signs or stiffness, no JVD or bruits. No Stridor. Chest: Clear to auscultation bilaterally. No wheezes or rhonchi. No increased work of breathing. Heart: Regular rate and rhythm without murmurs or gallops. Abdomen: Soft nontender, nondistended without rebound guarding or rigidity. Extremities: No cyanosis clubbing or edema. No calf tenderness or assymetry. Pain with movement of the hip and straight leg raise Spine/Back. Non tender to palpation along the SI joint. No CVA tenderness. No redness or warmth or rash. Skin: Good turgor without rashes. Neurologic exam: Cranial nerves two through 12 are intact. Motor and sensation are intact and symmetrical throughout. Reflexes are symmetrical and intact with patella and Achilles bilaterally Course Administered Medications Acetaminophen (Acetaminophen 500 Mg Tab) 1,000 mg PO TID RINA Stop: 08/07/21 13:59 Last Admin: 07/08/21 12:48 Dose: 1,000 mg Documented by: [id number] Diclofenac Sodium (Diclofenac Sod 1% Gel 100 Gm Tube) 2 gm EXT QID RINA Stop: 08/07/21 12:59 Last Admin: 07/08/21 12:48 Dose: 2 gm Documented by: [id number] Hydralazine HCl (Hydralazine 10 Mg Tab) 20 mg PO TID RINA Stop: 08/07/21 13:59 Last Admin: 07/08/21 12:49 Dose: 20 mg Documented by: [id number] Dexamethasone 4 mg/ Syringe 1 mls @ 1 mls/min IV DAILY RINA Stop: 08/07/21 12:59 Last Admin: 07/08/21 14:12 Dose: 1 mls/min Documented by: [id number] Lidocaine (Lidocaine 5% 1 Patch) 1 patch TD QAM RINA Stop: 08/07/21 12:22 Last Admin: 07/08/21 12:47 Dose: 1 patch Documented by: [id number] Pregabalin (Pregabalin 150 Mg Cap) 150 mg PO TID RINA Stop: 08/07/21 13:59 Last Admin: 07/08/21 14:12 Dose: 150 mg Documented by: [id number] Discontinued Medications Acetaminophen (Acetaminophen 325 Mg Tab) 325 mg PO Q6 RINA Stop: 08/07/21 11:59 Last Admin: 07/08/21 12:25 Dose: Not Given Documented by: [id number] Ketorolac Tromethamine (Ketorolac Tromethamine 15 Mg/Ml Vial) 15 mg IV NOW ONE Stop: 07/08/21 12:01 Last Admin: 07/08/21 12:52 Dose: 15 mg Documented by: [id number] Miscellaneous (Patient's Height And/Or Weight Needed) 1 ea N/A Q2H RINA Stop: 07/08/21 22:46 Last Admin: 07/08/21 12:47 Dose: 1 ea Documented by: [id number] Morphine Sulfate (Morphine Sulfate 4 Mg/Ml 1 Ml Carp\Vial) 4 mg IV NOW STA Stop: 07/08/21 07:27 Last Admin: 07/08/21 07:45 Dose: 4 mg Documented by: [id number] Morphine Sulfate (Morphine Sulfate 4 Mg/Ml 1 Ml Carp\Vial) 4 mg IV NOW STA Stop: 07/08/21 08:57 Last Admin: 07/08/21 09:02 Dose: 4 mg Documented by: [id number] Morphine Sulfate (Morphine Sulfate 4 Mg/Ml 1 Ml Carp\Vial) 4 mg IV NOW STA Stop: 07/08/21 09:44 Last Admin: 07/08/21 09:47 Dose: 4 mg Documented by: [id number] Ondansetron HCl (Ondansetron Inj 2 Mg/Ml 2 Ml Vial) 4 mg IV NOW STA Stop: 07/08/21 07:27 Last Admin: 07/08/21 07:45 Dose: 4 mg Documented by: [id number] Medical Decision Making Differential Diagnosis Lumbar disc disease, sciatica, infection, electrolyte or metabolic abnormality, urinary tract infection, fibromyalgia, fracture Medical Records Attestation: I reviewed the patient's medical records. Home Medications Current Medication List: was personally reviewed by me Laboratory Data Attestation: I reviewed the patient's lab results. Result diagrams: 07/08/21 07:39 07/08/21 07:39 Lab Results 07/08/21 07/08/21 07/08/21 Range/Units 07:39 07:39 09:38 WBC 6.72 (4.8-10.8) K/uL RBC 4.70 (4.2-5.4) M/uL Hgb 14.2 (12.0-16.0) g/dL Hct 41.8 (37-47) % MCV 88.9 (80-100) fL MCH 30.2 (25-34) pg MCHC 34.0 (32-36) g/dL RDW Std Deviation 42.9 (36.4-46.3) fL RDW Coeff of [place] 13.1 (11.5-14.5) % Plt Count 173 (130-400) K/uL MPV 10.0 (7.4-10.4) fL Immature Gran % (Auto) 0.1 % Neut % (Auto) 74.7 % Lymph % (Auto) 14.4 % [place] % (Auto) 9.7 % Eos % (Auto) 1.0 % Baso % (Auto) 0.1 % Neut # (Auto) 5.01 (1.4-6.5) K/uL Lymph # (Auto) 0.97 L (1.2-3.4) K/uL [place] # (Auto) 0.65 H (0.11-0.59) K/uL Eos # (Auto) 0.07 (0-0.5) K/uL Baso # (Auto) 0.01 (0-0.2) K/uL Immature Gran # (Auto) 0.01 (0.00-0.02) K/uL Sodium 139 (136-145) mmol/L Potassium 3.3 L (3.5-5.1) mmol/L Chloride 107 (98-107) mmol/L Carbon Dioxide 24 (21-32) mmol/L Anion Gap 8 (3-11) BUN 13 (6-23) mg/dl Creatinine 0.65 (0.6-1.2) mg/dl Est Cr Clr Drug Dosing Not Reportable Est GFR ( Amer) 108.0 ml/min Est GFR (Non-Af Amer) 93.2 ml/min BUN/Creatinine Ratio 20.0 (10-20) Glucose 127 H (70-99) mg/dl Calcium 8.7 (8.5-10.1) mg/dl Total Bilirubin 0.6 (0.2-1.0) mg/dl AST 16 (13-39) U/L ALT 24 (7-52) U/L Alkaline Phosphatase 67 (34-104) U/L Total Protein 6.4 (6.0-8.3) gm/dl Albumin 3.9 (3.4-5.0) gm/dl Globulin 2.5 (2.5-4.0) gm/dl Albumin/Globulin Ratio 1.6 (0.9-2) Urine Color Yellow Urine Appearance Cloudy A (Clear) Urine pH 6.5 (4.5-7.5) Ur Specific [place] 1.005 (1.000-1.030) Urine Protein Negative (Negative) Urine Glucose (UA) Negative (Negative) Urine Ketones Negative (Negative) Urine Blood Negative (Negative) Urine Nitrite Negative (Negative) Urine Bilirubin Negative (Negative) Urine Urobilinogen Negative (Negative) Ur Leukocyte Esterase 3+ H (Negative) Urine WBC (Auto) >30 H (0-5) /hpf Urine RBC (Auto) 0-4 (0-4) /hpf U Hyaline Cast (Auto) 1-5 (0-5) /lpf U Epithel Cells (Auto) >30 H (0-5) /lpf Urine Bacteria (Auto) 1+ H (Negative) SARS-CoV-2, RNA, NAAT (NEGATIVE) 07/08/21 Range/Units 09:49 WBC (4.8-10.8) K/uL RBC (4.2-5.4) M/uL Hgb (12.0-16.0) g/dL Hct (37-47) % MCV (80-100) fL MCH (25-34) pg MCHC (32-36) g/dL RDW Std Deviation (36.4-46.3) fL RDW Coeff of [place] (11.5-14.5) % Plt Count (130-400) K/uL MPV (7.4-10.4) fL Immature Gran % (Auto) % Neut % (Auto) % Lymph % (Auto) % [place] % (Auto) % Eos % (Auto) % Baso % (Auto) % Neut # (Auto) (1.4-6.5) K/uL Lymph # (Auto) (1.2-3.4) K/uL [place] # (Auto) (0.11-0.59) K/uL Eos # (Auto) (0-0.5) K/uL Baso # (Auto) (0-0.2) K/uL Immature Gran # (Auto) (0.00-0.02) K/uL Sodium (136-145) mmol/L Potassium (3.5-5.1) mmol/L Chloride (98-107) mmol/L Carbon Dioxide (21-32) mmol/L Anion Gap (3-11) BUN (6-23) mg/dl Creatinine (0.6-1.2) mg/dl Est Cr Clr Drug Dosing Est GFR ( Amer) ml/min Est GFR (Non-Af Amer) ml/min BUN/Creatinine Ratio (10-20) Glucose (70-99) mg/dl Calcium (8.5-10.1) mg/dl Total Bilirubin (0.2-1.0) mg/dl AST (13-39) U/L ALT (7-52) U/L Alkaline Phosphatase (34-104) U/L Total Protein (6.0-8.3) gm/dl Albumin (3.4-5.0) gm/dl Globulin (2.5-4.0) gm/dl Albumin/Globulin Ratio (0.9-2) Urine Color Urine Appearance (Clear) Urine pH (4.5-7.5) Ur Specific [place] (1.000-1.030) Urine Protein (Negative) Urine Glucose (UA) (Negative) Urine Ketones (Negative) Urine Blood (Negative) Urine Nitrite (Negative) Urine Bilirubin (Negative) Urine Urobilinogen (Negative) Ur Leukocyte Esterase (Negative) Urine WBC (Auto) (0-5) /hpf Urine RBC (Auto) (0-4) /hpf U Hyaline Cast (Auto) (0-5) /lpf U Epithel Cells (Auto) (0-5) /lpf Urine Bacteria (Auto) (Negative) SARS-CoV-2, RNA, NAAT NEGATIVE (NEGATIVE) Imaging Data Radiologist's Impression: Lumbar Spine CT 07/08/21 07:25 CT lumbar spine wo con, CT pelvis wo con HISTORY: 65 years-old Female right back pain . Acute low back and pelvis pain COMPARISON: MRI lumbar spine 06/05/2020, CT abdomen and pelvis 02/01/2017 TECHNIQUE: Multiple axial CT images of the pelvis and lumbar spine were obtained without the use of IV contrast. A dose lowering technique was used consistent with the principals of ALARA. FINDINGS: LUMBAR SPINE: Posterior interbody daniela and screw fusion with discectomy changes at L4-L5 redemonstrated. There is fusion of the facets with approximately 50% incomplete bony fusion of the vertebral bodies. The hardware appears intact. Mild lucency surrounds the pedicle screws, notably involving the left greater than right L5 pedicle screws. There is mild multilevel spondylitic spurring with facet arthrosis. No acute fracture or subluxation. No endplate erosions. There is minimal mid lumbar dextroscoliosis. Moderate to severe L5-S1 facet arthrosis. Evaluation of the central canal and neuroforamina is better assessed by MRI. L3-L4: Small posterior annular disc bulge with ligamentum flavum thickening and moderate facet arthrosis. There is mild central canal stenosis with mild to moderate right and mild left neural foraminal narrowing. L4-L5: Artifact from the hardware limits evaluation of this interspace. L5-S1: Mild spondylitic spurring with small posterior annular disc bulge and equivocal small central disc protrusion. Ligamentum flavum thickening with moderate to severe facet arthrosis. The central canal is patent. Mild right with mild to moderate left neural foraminal narrowing. 4 mm nonobstructing left renal calculus. Atherosclerosis of the aorta and iliac arteries. No paravertebral edema. PELVIS: Moderate urinary bladder distention. Hysterectomy. There is no bowel obstruction or bowel wall thickening. Normal appendix. No ascites or mesenteric inflammation. No adnexal mass lesions. Fat filled periumbilical hernia with diastases of 2 cm. Minimal osteoarthritis of the femoral acetabular joints. No acute fracture, dislocation or avascular necrosis. There are no osseous erosions. IMPRESSION: 1. No acute fracture or subluxation identified involving the lumbar spine or bony pelvis. 2. Prior laminectomy with posterior interbody daniela and screw fusion and discectomy at L4-L5. There are findings of suggested hardware loosening. 3. Lumbar spine degenerative changes as above. 4. No acute intrapelvic abnormality. ACT 112: Negative or not required by law. The above report was generated using voice recognition software. It may contain grammatical, syntax or spelling errors. Electronically signed by: Austin Wilkins M.D. 07/08/2021 8:[address] 07/08/21 07:25 CT lumbar spine wo con, CT pelvis wo con HISTORY: 65 years-old Female right back pain . Acute low back and pelvis pain COMPARISON: MRI lumbar spine 06/05/2020, CT abdomen and pelvis 02/01/2017 TECHNIQUE: Multiple axial CT images of the pelvis and lumbar spine were obtained without the use of IV contrast. A dose lowering technique was used consistent with the principals of ALARA. FINDINGS: LUMBAR SPINE: Posterior interbody daniela and screw fusion with discectomy changes at L4-L5 redemonstrated. There is fusion of the facets with approximately 50% incomplete bony fusion of the vertebral bodies. The hardware appears intact. Mild lucency surrounds the pedicle screws, notably involving the left greater than right L5 pedicle screws. There is mild multilevel spondylitic spurring with facet arthrosis. No acute fracture or subluxation. No endplate erosions. There is minimal mid lumbar dextroscoliosis. Moderate to severe L5-S1 facet arthrosis. Evaluation of the central canal and neuroforamina is better assessed by MRI. L3-L4: Small posterior annular disc bulge with ligamentum flavum thickening and moderate facet arthrosis. There is mild central canal stenosis with mild to moderate right and mild left neural foraminal narrowing. L4-L5: Artifact from the hardware limits evaluation of this interspace. L5-S1: Mild spondylitic spurring with small posterior annular disc bulge and equivocal small central disc protrusion. Ligamentum flavum thickening with moder ate to severe facet arthrosis. The central canal is patent. Mild right with mild to moderate left neural foraminal narrowing. 4 mm nonobstructing left renal calculus. Atherosclerosis of the aorta and iliac arteries. No paravertebral edema. PELVIS: Moderate urinary bladder distention. Hysterectomy. There is no bowel obstruction or bowel wall thickening. Normal appendix. No ascites or mesenteric inflammation. No adnexal mass lesions. Fat filled periumbilical hernia with diastases of 2 cm. Minimal osteoarthritis of the femoral acetabular joints. No acute fracture, dislocation or avascular necrosis. There are no osseous erosions. IMPRESSION: 1. No acute fracture or subluxation identified involving the lumbar spine or bony pelvis. 2. Prior laminectomy with posterior interbody daniela and screw fusion and discectomy at L4-L5. There are findings of suggested hardware loosening. 3. Lumbar spine degenerative changes as above. 4. No acute intrapelvic abnormality. ACT 112: Negative or not required by law. The above report was generated using voice recognition software. It may contain grammatical, syntax or spelling errors. Electronically signed by: Austin Wilkins M.D. 07/08/2021 8:26 AM [facility] Narrative This patient comes in as described above. She was placed in room C 11. Her is at the bedside and driving. She is having back pain. she has no neurologic deficits she does have some discomfort with movement. She was given morphine 4 mg IV and Zofran 4 mg IV. She is on Plavix. I did order a CT of the lumbar spine and pelvis as well as blood work and urine. She was reassessed. And she continues to have pain she was given additional morphine 4 mg IV x2. She attempted to ambulate and says she catches as she is in too much pain CAT scans of the lumbar spine and pelvis not show any acute fracture or abnormality she has nothing suggest infection. she has no acute electrolyte or metabolic abnormalities. At this point she does not feel she is safe to go home I have consulted the admitting team to see her for these measures Impression & Plan Back pain, Fibromyalgia, Lumbar degenerative disc disease, Lab test negative for COVID-19 virus, Ambulatory dysfunction Discharge Plan Visit Data Chief Complaint: Groin Pain Stated Complaint: SEVERE PAIN IN GROIN,HIP,THIGH AND BUTT ED Provider: Rivera Hartmann Discharge Problem: Back pain, Fibromyalgia, Lumbar degenerative disc disease, Lab test negative for COVID-19 virus, Ambulatory dysfunction Patient Disposition: Admitted As Inpatient Discharge Instructions Interventions: ED Discharge Assessment Last Done: 07/08/21 11:30 Discharge Problem: Back pain Qualifiers: Back pain location: low back pain Chronicity: acute Back pain laterality: right Sciatica presence: with sciatica Sciatica laterality: sciatica of right side Qualified Code(s): M54.41 - Lumbago with sciatica, right side
[2021-07-08 07:50] LABS: Basophils # (auto) 0.01 K/uL (0-0.2); Basophils % (auto) 0.1 %; Eosinophils # (auto) 0.07 K/uL (0-0.5); Hematocrit (blood only) 41.8 % (37-47); Hemoglobin 14.2 g/dL (12.0-16.0); Immature Granulocytes # (auto) 0.01 K/uL (0.00-0.02); Immature Granulocytes % (auto) 0.1 %; Lymphocytes # (auto) 0.97 K/uL (1.2-3.4); Lymphocytes % (auto) 14.4 %; Mean Corpuscular Hemoglobin 30.2 pg (25-34); Mean Corpuscular Volume 88.9 fL (80-100); Monocytes # (auto) 0.65 K/uL (0.11-0.59); Monocytes % (auto) 9.7 %; Neutrophils # (auto) 5.01 K/uL (1.4-6.5); Neutrophils % (auto) 74.7 %; Platelet Count 173 K/uL (130-400); RDW Coefficient of Variation 13.1 % (11.5-14.5); RDW Standard Deviation 42.9 fL (36.4-46.3); White Blood Count 6.72 K/uL (4.8-10.8)
[2021-07-08 08:10] LABS: Albumin Level 3.9 gm/dl (3.4-5.0); Anion Gap 8 (3-11); Bilirubin,Total 0.6 mg/dl (0.2-1.0); Calcium 8.7 mg/dl (8.5-10.1); Carbon Dioxide 24 mmol/L (21-32); Chloride 107 mmol/L (98-107); Potassium 3.3 mmol/L (3.5-5.1); Sodium 139 mmol/L (136-145)
[2021-07-08 08:16] LABS: Alanine Aminotransferase 24 U/L (7-52); Albumin Globulin Ratio 1.6 (0.9-2); Alkaline Phosphatase 67 U/L (34-104); Aspartate Aminotransferase 16 U/L (13-39); Blood Urea Nitrogen 13 mg/dl (6-23); Est GFR (Non-African American) 93.2 ml/min; Globulin 2.5 gm/dl (2.5-4.0); Glucose 127 mg/dl (70-99); Total Protein 6.4 gm/dl (6.0-8.3)
--- NOTE | 2021-07-08 08:27 | CT Scan Report ---
CT lumbar spine wo con, CT pelvis wo con HISTORY: 65 years-old Female right back pain . Acute low back and pelvis pain COMPARISON: MRI lumbar spine 06/05/2020, CT abdomen and pelvis 02/01/2017 TECHNIQUE: Multiple axial CT images of the pelvis and lumbar spine were obtained without the use of I V contrast. A dose lowering technique was used consistent with the principals of NAIDA. FINDINGS: LUMBAR SPINE: Posterior interbody daniela and screw fusion with discectomy changes at L4-L5 redemonstrated. There is fu malena of the facets with approximately 50% incomplete bony fusion of the vertebral bodies. The hardwar e appears intact. Mild lucency surrounds the pedicle screws, notably involving the left greater than right L5 pedicle screws. There is mild multilevel spondylitic spurring with facet arthrosis. No acute fracture or subluxation. No endplate erosions. There is minimal mid lumbar dextroscoliosis. Moderate to severe L5-S1 facet arthrosis. Evaluation of the central canal and neuroforamina is better assesse d by MRI. L3-L4: Small posterior annular disc bulge with ligamentum flavum thickening and moderate facet arthro sis. There is mild central canal stenosis with mild to moderate right and mild left neural foraminal narrowing. L4-L5: Artifact from the hardware limits evaluation of this interspace. L5-S1: Mild spondylitic spurring with small posterior annular disc bulge and equivocal small central disc protrusion. Ligamentum flavum thickening with moderate to severe facet arthrosis. The central ca nal is patent. Mild right with mild to moderate left neural foraminal narrowing. 4 mm nonobstructing left renal calculus. Atherosclerosis of the aorta and iliac arteries. No paravert ebral edema. PELVIS: Moderate urinary bladder distention. Hysterectomy. There is no bowel obstruction or bowel wall thicke alphonso. Normal appendix. No ascites or mesenteric inflammation. No adnexal mass lesions. Fat filled per iumbilical hernia with diastases of 2 cm. Minimal osteoarthritis of the femoral acetabular joints. No acute fracture, dislocation or avascular necrosis. There are no osseous erosions. IMPRESSION: 1. No acute fracture or subluxation identified involving the lumbar spine or bony pelvis. 2. Prior laminectomy with posterior interbody daniela and screw fusion and discectomy at L4-L5. There are findings of suggested hardware loosening. 3. Lumbar spine degenerative changes as above. 4. No acute intrapelvic abnormality. ACT 112: Negative or not required by law. The above report was generated using voice recognition software. It may contain grammatical, syntax o r spelling errors. Electronically signed by: Austin Wilkins M.D. 07/08/2021 8:26 AM
[2021-07-08 09:56] LABS: Appearance Urine Cloudy (Clear); Bacteria Urine Automated 1+ (Negative); Bilirubin Urine Negative (Negative); Blood Urine Negative (Negative); Color Urine Yellow; Epithelial Cell Urine Auto >30 /lpf (0-5); Glucose Urine UA Negative (Negative); Ketones Urine Negative (Negative); Leukocyte Esterase Urine 3+ (Negative); Nitrite Urine Negative (Negative); Protein Urine Negative (Negative); RBC Urine Automated 0-4 /hpf (0-4); Specific Gravity Urine 1.005 (1.000-1.030); Urobilinogen Urine Negative (Negative); WBC Urine Automated >30 /hpf (0-5); pH Urine 6.5 (4.5-7.5)
--- NOTE | 2021-07-08 10:19 | History & Physical Report ---
Date of Service July 08, 2021 Assessment & Plan (1) CAD (coronary artery disease): Plan: pt typically is on Coreg aspirin and plavix, will hold DAPT as is 18 months after stent as will be evaluated by ortho spine with concern for loosened hardware on imaged Unstable angina 11/2019 withLeft heart CAth, small vessel disease with a 95% ostial very small second diagonal branch which was likely the culprit and a 60% ostial small third diagonal branch; 40% ostial circumflex; widely patent proximal to mid LAD stents Status post angioplasty and stenting with 4 drug-eluting stents to the mid to distal LAD for high-grade stenosis; residual 90% ostial D2 lesion (01/2019). Hypertension with a negative renal artery duplex, 04/2019. (2) Anxiety: (3) Depression: History of Present Illness Primary Care Provider: Natasha Saldaña MD Allergies Allergy/AdvReac Type Severity Reaction Status Date / Time No Known Allergies Allergy NONE Verified 07/08/21 09:03 Home Medications Medication Instructions Recorded Confirmed Type clopidogrel 75 mg tablet 75 mg PO QAM #30 tab 01/28/19 07/08/21 Rx amlodipine 5 mg tablet 2.5 mg PO QAM 06/24/19 07/08/21 History lisinopril 40 mg tablet 40 mg PO QAM 06/24/19 07/08/21 History coenzyme Q10 100 mg capsule 200 mg PO HS 12/02/19 07/08/21 History (CoQ-10) vitamin B complex with C-folic 1 tab PO DAILY 12/02/19 07/08/21 History acid 0.8 mg-zinc citrate 50 mg tablet nitroglycerin 0.4 mg sublingual 0.4 mg SUBLINGUAL UD PRN 30 Days 12/04/19 07/08/21 Rx tablet (Nitrostat) #60 tab alpha lipoic acid 600 mg capsule 600 mg PO HS 02/18/20 07/08/21 History aspirin 81 mg tablet,delayed 81 mg PO HS 02/18/20 07/08/21 History release (Ecotrin Low Strength) ezetimibe 10 mg tablet 10 mg PO BID 02/18/20 07/08/21 History azelastine 205.5 mcg (0.15 %) 2 spray INTNAS DAILY PRN #90 ml 06/16/20 07/08/21 Rx nasal spray isosorbide mononitrate 30 mg 30 mg PO BID 30 Days #60 tab 08/26/20 07/08/21 Rx tablet,extended release 24 hr cholecalciferol (vitamin D3) 50 50 mcg PO DAILY 08/28/20 07/08/21 History mcg (2,000 unit) capsule carvedilol 12.5 mg tablet 12.5 mg PO BID #180 tab 03/10/21 07/08/21 Rx diclofenac sodium 1 % topical gel 2 g TOPICAL QID #100 g 05/03/21 07/08/21 Rx (Voltaren Arthritis Pain) hydralazine 10 mg tablet 20 mg PO TID tab 05/03/21 07/08/21 History lansoprazole 30 mg capsule,delayed 30 mg PO DAILY 05/03/21 07/08/21 History release fluoxetine 20 mg capsule 20 mg PO DAILY #30 cap 05/25/21 07/08/21 Rx pregabalin 75 mg capsule (Lyrica) 150 mg PO TID 30 Days #180 cap 06/07/21 07/08/21 Rx trazodone 150 mg tablet 150 mg PO HS #90 tab 06/09/21 07/08/21 Rx oxycodone-acetaminophen 5 mg-325 1 tab PO TID PRN #90 tab 07/06/21 07/08/21 Rx mg tablet duloxetine 60 mg capsule,delayed 60 mg PO BID 07/08/21 07/08/21 History release Past Med/Surg History Medical History (Updated 07/08/21 @ 10:17 by Nirmal Rothman MD) Acute pain of left hip Alopecia Anxiety Arthritis Bilateral leg pain Blepharochalasis CAD (coronary artery disease) Cervicalgia Chronic back pain Chronic blood loss anemia Chronic pain syndrome Constipation COVID-19 hx of, diagnosed 05/29/2020 @ [facility]--sinus pressure, stuffy nose, loss of taste/smell (still does not have back) Cystitis reason for [place] Depression Dermatochalasis Dyslipidemia Dyspareunia Dysuria Eczema Excessive menstruation with irregular cycle Fall Fatigue Fibromyalgia IMAN (generalized anxiety disorder) GERD (gastroesophageal reflux disease) Glaucoma Gross hematuria Heartburn Hip pain, bilateral History of urinary frequency History of urinary hesitancy History of urinary urgency Hypertension Hypokalemia Hyponatremia Interstitial cystitis Left knee pain Lipoma Lumbar degenerative disc disease Malaise and fatigue Muscle spasm Numbness and tingling of left side of face On anticoagulant therapy plavix daily Osteoarthritis Osteopenia Otitis externa, acute Pain, pelvic, female Postmenopausal status Psychological disorder Resistant hypertension Rhinitis Shortness of breath Sinus headache STEMI (ST elevation myocardial infarction) 01/26/2019 Dr Nova Steroid-induced hyperglycemia Subacute vulvitis Trigger finger Trochanteric bursitis Urinary tract infection symptoms Uterine leiomyoma Surgical History H/O dilation and curettage H/O: hysterectomy History of blepharoplasty History of cardiac cath x2--ID -> 01/26/19--had 4 stents placed @ [facility] 11/2019 @ [facility], no stents placed History of cataract surgery bilateral History of colonoscopy with polypectomy History of heart artery stent x4 01/2019 @ [facility] History of lumbar spinal fusion S/P cardiac catheterization 12/03/19 Dr. Uri Maravilla- No intervention Status post trigger finger release Family History Mother Myocardial infarction Hypertension Heart disease Brother Myocardial infarction Heart disease Grandmother Ovarian cancer Diabetes Father Diabetes Hypertension Family hx colonic polyps Grandmother (Maternal) Stroke Grandfather (Maternal) Stroke Grandmother (Paternal) Cancer Grandfather (Paternal) Cirrhosis of liver Uncle Heart disease Aunt Heart disease Other No family history of adverse response to anesthesia Denies family history of Prostate cancer Breast cancer Colorectal cancer Social History Smoking Status: Never smoker Second Hand Exposure: No; Hx Alcohol Use: No Hx Substance Use: No Preferred Language: Kittitian Communication Ability: Effective Projects Manager Required: No Beliefs That Will Affect Care: Spiritual Spiritual Healthcare Practices: Lutheran marital status: Current Living Situation: Spouse current occupational status: retired How many Children do You have: 2 Feels Safe at Home: Yes during the past year weight has: remained stable Dental Care, Regularly: Yes Physical Activity Frequency: Does not Exercise Seatbelt Use: always Do you think of yourself as: straight/heterosexual Assistive Devices: Glasses Results & Data Results & Data ([facility]) Vital Signs (Past 12 Hours) Vital Signs Temp Pulse Resp BP Pulse Ox 07/08/21 10:00 61 13 169/83 H 92 07/08/21 09:31 61 15 155/87 H 93 07/08/21 09:30 53 L 20 91 07/08/21 09:00 59 L 15 136/78 94 07/08/21 08:30 56 L 13 140/79 93 07/08/21 08:28 64 18 154/86 H 89 L 07/08/21 08:06 65 18 94 07/08/21 07:48 64 18 158/87 H 95 07/08/21 06:42 97.5 F L 65 18 177/88 H 95 Code Status & VTE Plan VTE Prophylaxis Plan VTE Prophylaxis will be ordered: Yes PG Care Time/CCT Total # of Minutes Spent Total Time Spent with Patient: Total time spent is greater than 50% in coordination of care (as documented) at patient's floor/unit and/or counseling patient: Coding Diagnoses CAD (coronary artery disease) I25.10 Anxiety F41.9 Depression F32.9 Depression Type: reactive depression (1) Depression Depression Type: reactive depression Qualified Code(s): F32.9 - Major depressive disorder, single episode, unspecified
--- NOTE | 2021-07-08 11:32 | History & Physical Report ---
Date of Service July 08, 2021 Assessment & Plan (1) Back pain: Plan: -Lumbar CT today shows findings suggestive of loose hardware. MRI from August 2020 did not indicate evidence of loose hardware, however patient's presentation today is more consistent with sacroiliitis. If pain is uncontrolled, will consult orthopedic surgery for further evaluation. UTI/pyelonephritis unlikely as patient does not have an elevated WBC count and denies urinary symptoms, however a urine sample did show leukocyte esterase and some bacteria. Likely that sample was contaminated, however urine cultures have been sent. -One time dose of IV Toradol 15 mg -IV morphine as needed -PO oxycodone as needed -Tylenol 1000 mg TID -Decadron 4mg IV QD -Lidocaine patch QD -K pad as needed -Consult PT/OT (2) CAD (coronary artery disease): Plan: -Unstable angina 11/2019 with left heart Cath,small vessel disease with a 95% ostial very small second diagonal branch which was likely the culprit and a 60% ostial small third diagonal branch; 40% ostial circumflex; widely patent proximal to mid LAD stents -Continue Coreg and DAPT (Plavix and Aspirin). (3) Hypertension: Plan: -Continue lisinopril, hydralazine, and amlodipine. (4) GERD (gastroesophageal reflux disease): Plan: -Continue lansoprazole. (5) Fibromyalgia: Plan: Continue duloxetine, oxycodone/acetaminophen, pregabalin, and trazodone (6) Anxiety: Plan: -See above (7) Depression: Plan: -See above (8) DVT prophylaxis: Plan: -SCDs -Loveonx 40mg SC Q12 History of Present Illness Chief Complaint: Back pain Primary Care Provider: Natasha Saldaña MD 65 y/o female with a PMH of CAD, s/p angioplasty and stent placement in 2019, hypertension, fibromyalgia, GERD, and gastritis who presents today with low back pain x 5 days. Patient states she noticed the pain Monday evening after standing for an extended period of time that afternoon. Pain is throbbing, originates in her right low back and radiates to her right hip, groin, and anterior thigh. Sitting, laying down, and leaning forward alleviate the pain somewhat. She has taken her prescribed oxycodone and an unknown muscle relaxer at home which she reports has not helped much. She denies fver/chills, weakness, numbness/tingling, decreased sensation, or incontinence. She does not report any recent falls. Lumbar spine CT revealed a prior laminectomy with posterior interbody daniela and screw fusion and discectomy at L4-L5. There are findings of suggested hardware loosening. CT pelvic revealed 4 mm nonobstructing left renal calculus. Allergies Allergy/AdvReac Type Severity Reaction Status Date / Time No Known Allergies Allergy NONE Verified 07/08/21 09:03 Home Medications Medication Instructions Recorded Confirmed Type clopidogrel 75 mg tablet 75 mg PO QAM #30 tab 01/28/19 07/08/21 Rx amlodipine 5 mg tablet 2.5 mg PO QAM 06/24/19 07/08/21 History lisinopril 40 mg tablet 40 mg PO QAM 06/24/19 07/08/21 History coenzyme Q10 100 mg capsule 200 mg PO HS 12/02/19 07/08/21 History (CoQ-10) vitamin B complex with C-folic 1 tab PO DAILY 12/02/19 07/08/21 History acid 0.8 mg-zinc citrate 50 mg tablet nitroglycerin 0.4 mg sublingual 0.4 mg SUBLINGUAL UD PRN 30 Days 12/04/19 07/08/21 Rx tablet (Nitrostat) #60 tab alpha lipoic acid 600 mg capsule 600 mg PO HS 02/18/20 07/08/21 History aspirin 81 mg tablet,delayed 81 mg PO HS 02/18/20 07/08/21 History release (Ecotrin Low Strength) ezetimibe 10 mg tablet 10 mg PO BID 02/18/20 07/08/21 History azelastine 205.5 mcg (0.15 %) 2 spray INTNAS DAILY PRN #90 ml 06/16/20 07/08/21 Rx nasal spray isosorbide mononitrate 30 mg 30 mg PO BID 30 Days #60 tab 08/26/20 07/08/21 Rx tablet,extended release 24 hr cholecalciferol (vitamin D3) 50 50 mcg PO DAILY 08/28/20 07/08/21 History mcg (2,000 unit) capsule carvedilol 12.5 mg tablet 12.5 mg PO BID #180 tab 03/10/21 07/08/21 Rx diclofenac sodium 1 % topical gel 2 g TOPICAL QID #100 g 05/03/21 07/08/21 Rx (Voltaren Arthritis Pain) hydralazine 10 mg tablet 20 mg PO TID tab 05/03/21 07/08/21 History lansoprazole 30 mg capsule,delayed 30 mg PO DAILY 05/03/21 07/08/21 History release fluoxetine 20 mg capsule 20 mg PO DAILY #30 cap 05/25/21 07/08/21 Rx pregabalin 75 mg capsule (Lyrica) 150 mg PO TID 30 Days #180 cap 06/07/21 07/08/21 Rx trazodone 150 mg tablet 150 mg PO HS #90 tab 06/09/21 07/08/21 Rx oxycodone-acetaminophen 5 mg-325 1 tab PO TID PRN #90 tab 07/06/21 07/08/21 Rx mg tablet duloxetine 60 mg capsule,delayed 60 mg PO BID 07/08/21 07/08/21 History release Past Med/Surg History Medical History Acute pain of left hip Alopecia Anxiety Arthritis Bilateral leg pain Blepharochalasis CAD (coronary artery disease) Cervicalgia Chronic back pain Chronic blood loss anemia Chronic pain syndrome Constipation COVID-19 hx of, diagnosed 05/29/2020 @ [facility]--sinus pressure, stuffy nose, loss of taste/smell (still does not have back) Cystitis reason for [place] Depression Dermatochalasis Dyslipidemia Dyspareunia Dysuria Eczema Excessive menstruation with irregular cycle Fall Fatigue Fibromyalgia IMAN (generalized anxiety disorder) GERD (gastroesophageal reflux disease) Glaucoma Gross hematuria Heartburn Hip pain, bilateral History of urinary frequency History of urinary hesitancy History of urinary urgency Hypertension Hypokalemia Hyponatremia Interstitial cystitis Left knee pain Lipoma Lumbar degenerative disc disease Malaise and fatigue Muscle spasm Numbness and tingling of left side of face On anticoagulant therapy plavix daily Osteoarthritis Osteopenia Otitis externa, acute Pain, pelvic, female Postmenopausal status Psychological disorder Resistant hypertension Rhinitis Shortness of breath Sinus headache STEMI (ST elevation myocardial infarction) 01/26/2019 Dr Nova Steroid-induced hyperglycemia Subacute vulvitis Trigger finger Trochanteric bursitis Urinary tract infection symptoms Uterine leiomyoma Surgical History H/O dilation and curettage H/O: hysterectomy History of blepharoplasty History of cardiac cath x2--OK -> 01/26/19--had 4 stents placed @ [facility] 11/2019 @ [facility], no stents placed History of cataract surgery bilateral History of colonoscopy with polypectomy History of heart artery stent x4 01/2019 @ [facility] History of lumbar spinal fusion S/P cardiac catheterization 12/03/19 Dr. Uri Maravilla- No intervention Status post trigger finger release Family History Mother Myocardial infarction Hypertension Heart disease Brother Myocardial infarction Heart disease Grandmother Ovarian cancer Diabetes Father Diabetes Hypertension Family hx colonic polyps Grandmother (Maternal) Stroke Grandfather (Maternal) Stroke Grandmother (Paternal) Cancer Grandfather (Paternal) Cirrhosis of liver Uncle Heart disease Aunt Heart disease Other No family history of adverse response to anesthesia Denies family history of Prostate cancer Breast cancer Colorectal cancer Social History Smoking Status: Never smoker Second Hand Exposure: No; Hx Alcohol Use: No Hx Substance Use: No Preferred Language: Serbian Communication Ability: Effective National Account Executive Required: No Beliefs That Will Affect Care: None marital status: Current Living Situation: Spouse current occupational status: retired How many Children do You have: 2 Other Information That Helps Us Care for You: No Feels Safe at Home: Yes during the past year weight has: remained stable Dental Care, Regularly: Yes Physical Activity Frequency: Does not Exercise Seatbelt Use: always Do you think of yourself as: straight/heterosexual Assistive Devices: Glasses Review of Systems Review of Systems: Review of systems: Constitutional: No fever, sweats or chills Eyes: No diplopia, no worsening or blurred vision ENT: normal hearing, no trouble swallowing Respiratory: No cough, sputum, dyspnea at rest or on exertion Cardiovascular: No chest pain, tightness or palpitations Abdomen: No pain, nausea, vomiting, diarrhea or constipation Musculoskeletal: Endorses low back, hip joint pain; Denies calf pain, swelling Neurologic: No weakness, numbness/tingling, or balance problems Psychiatric: No anxiety or depression Skin: No rash or itch Physical Exam Physical Exam: General: awake, alert, no apparent distress Head: Normocephalic, atraumatic ENT: PERRL, EOMI, no pharyngeal exudate, mucous membranes moist Chest: Clear to auscultation, on room air, no adventitious breath sounds Cardiac: Regular rate and rhythm, no murmur, no JVD, normal peripheral pulses, good capillary refill Abdominal: NABS x 4 quadrants, soft, nontender to palpation, no rebound, guarding or tenderness Extremities: Full aROM of b/l hips, negative straight leg test, normal inspection, no peripheral edema or erythema, calfs nontender to palpation Psych: Normal mood and affect Neuro: AAO x 3, strength intact bilaterally and rated 5/5, no motor deficits, speech is clear, no peripheral sensory deficits Skin: no rash or erythema Results & Data Results & Data ([facility]) Vital Signs (Past 12 Hours) Vital Signs Temp Pulse Resp BP Pulse Ox 07/08/21 11:00 67 22 164/88 H 91 07/08/21 10:30 65 16 167/89 H 95 07/08/21 10:00 61 13 169/83 H 92 07/08/21 09:31 61 15 155/87 H 93 07/08/21 09:30 53 L 20 91 07/08/21 09:00 59 L 15 136/78 94 07/08/21 08:30 56 L 13 140/79 93 07/08/21 08:28 64 18 154/86 H 89 L 07/08/21 08:06 65 18 94 07/08/21 07:48 64 18 158/87 H 95 07/08/21 06:42 36.4 C L 65 18 177/88 H 95 Laboratory Results Abnormal lab results 07/08/21 07/08/21 07/08/21 Range/Units 07:39 07:39 09:38 Lymph # (Auto) 0.97 L (1.2-3.4) K/uL [place] # (Auto) 0.65 H (0.11-0.59) K/uL Potassium 3.3 L (3.5-5.1) mmol/L Glucose 127 H (70-99) mg/dl Urine Appearance Cloudy A (Clear) Ur Leukocyte Esterase 3+ H (Negative) Urine WBC (Auto) >30 H (0-5) /hpf U Epithel Cells (Auto) >30 H (0-5) /lpf Urine Bacteria (Auto) 1+ H (Negative) Diagnostic Findings Lumbar Spine CT 07/08/21 07:25 CT lumbar spine wo con, CT pelvis wo con HISTORY: 65 years-old Female right back pain . Acute low back and pelvis pain COMPARISON: MRI lumbar spine 06/05/2020, CT abdomen and pelvis 02/01/2017 TECHNIQUE: Multiple axial CT images of the pelvis and lumbar spine were obtained without the use of IV contrast. A dose lowering technique was used consistent with the principals of ALARA. FINDINGS: LUMBAR SPINE: Posterior interbody daniela and screw fusion with discectomy changes at L4-L5 redemonstrated. There is fusion of the facets with approximately 50% incomplete bony fusion of the vertebral bodies. The hardware appears intact. Mild lucency surrounds the pedicle screws, notably involving the left greater than right L5 pedicle screws. There is mild multilevel spondylitic spurring with facet arthrosis. No acute fracture or subluxation. No endplate erosions. There is minimal mid lumbar dextroscoliosis. Moderate to severe L5-S1 facet arthrosis. Evaluation of the central canal and neuroforamina is better assessed by MRI. L3-L4: Small posterior annular disc bulge with ligamentum flavum thickening and moderate facet arthrosis. There is mild central canal stenosis with mild to moderate right and mild left neural foraminal narrowing. L4-L5: Artifact from the hardware limits evaluation of this interspace. L5-S1: Mild spondylitic spurring with small posterior annular disc bulge and equivocal small central disc protrusion. Ligamentum flavum thickening with moderate to severe facet arthrosis. The central canal is patent. Mild right with mild to moderate left neural foraminal narrowing. 4 mm nonobstructing left renal calculus. Atherosclerosis of the aorta and iliac arteries. No paravertebral edema. PELVIS: Moderate urinary bladder distention. Hysterectomy. There is no bowel obstruction or bowel wall thickening. Normal appendix. No ascites or mesenteric inflammation. No adnexal mass lesions. Fat filled periumbilical hernia with diastases of 2 cm. Minimal osteoarthritis of the femoral acetabular joints. No acute fracture, dislocation or avascular necrosis. There are no osseous erosions. IMPRESSION: 1. No acute fracture or subluxation identified involving the lumbar spine or bony pelvis. 2. Prior laminectomy with posterior interbody daniela and screw fusion and discectomy at L4-L5. There are findings of suggested hardware loosening. 3. Lumbar spine degenerative changes as above. 4. No acute intrapelvic abnormality. ACT 112: Negative or not required by law. The above report was generated using voice recognition software. It may contain grammatical, syntax or spelling errors. Electronically signed by: Austin Wilkins M.D. 07/08/2021 8:[address] 07/08/21 07:25 CT lumbar spine wo con, CT pelvis wo con HISTORY: 65 years-old Female right back pain . Acute low back and pelvis pain COMPARISON: MRI lumbar spine 06/05/2020, CT abdomen and pelvis 02/01/2017 TECHNIQUE: Multiple axial CT images of the pelvis and lumbar spine were obtained without the use of IV contrast. A dose lowering technique was used consistent with the principals of ALARA. FINDINGS: LUMBAR SPINE: Posterior interbody daniela and screw fusion with discectomy changes at L4-L5 redemonstrated. There is fusion of the facets with approximately 50% incomplete bony fusion of the vertebral bodies. The hardware appears intact. Mild lucency surrounds the pedicle screws, notably involving the left greater than right L5 pedicle screws. There is mild multilevel spondylitic spurring with facet arthrosis. No acute fracture or subluxation. No endplate erosions. There is minimal mid lumbar dextroscoliosis. Moderate to severe L5-S1 facet arthrosis. Evaluation of the central canal and neuroforamina is better assessed by MRI. L3-L4: Small posterior annular disc bulge with ligamentum flavum thickening and moderate facet arthrosis. There is mild central canal stenosis with mild to moderate right and mild left neural foraminal narrowing. L4-L5: Artifact from the hardware limits evaluation of this interspace. L5-S1: Mild spondylitic spurring with small posterior annular disc bulge and equivocal small central disc protrusion. Ligamentum flavum thickening with moderate to severe facet arthrosis. The central canal is patent. Mild right with mild to moderate left neural foraminal narrowing. 4 mm nonobstructing left renal calculus. Atherosclerosis of the aorta and iliac arteries. No paravertebral edema. PELVIS: Moderate urinary bladder distention. Hysterectomy. There is no bowel obstruction or bowel wall thickening. Normal appendix. No ascites or mesenteric inflammation. No adnexal mass lesions. Fat filled periumbilical hernia with diastases of 2 cm. Minimal osteoarthritis of the femoral acetabular joints. No acute fracture, dislocation or avascular necrosis. There are no osseous erosions. IMPRESSION: 1. No acute fracture or subluxation identified involving the lumbar spine or bony pelvis. 2. Prior laminectomy with posterior interbody daniela and screw fusion and discectomy at L4-L5. There are findings of suggested hardware loosening. 3. Lumbar spine degenerative changes as above. 4. No acute intrapelvic abnormality. ACT 112: Negative or not required by law. The above report was generated using voice recognition software. It may contain grammatical, syntax or spelling errors. Electronically signed by: Austin Wilkins M.D. 07/08/2021 8:26 AM Code Status & VTE Plan VTE Prophylaxis Plan VTE Prophylaxis will be ordered: Yes Supervising Physician Co-Signing Physician Notes Patient was seen and examined independently I discussed the case with Leah LEVIN I reviewed pertinent past medical social family history and also the plan of care and agree with the plan of care. pt has non radicular back pain and a history of fibromyalgia and previous spinal surgery, the pain seems to be centered around the right SI joint and Gr Trochanter of femur. WE did have spine surgeon review scans as comments of loose hardware and he did not feel there was imminent concern for hardware failure or imaging suggestion of situations that could clinically correlate to her pain will try a multimodal pain management approach and if not improved to consider pain management consult for further recommendations Any exceptions will be noted below PG Care Time/CCT Total # of Minutes Spent Total Time Spent with Patient: Total time spent is greater than 50% in coordination of care (as documented) at patient's floor/unit and/or counseling patient: Coding Level of Care Code INT OBSERVATION CARE 50M LVL 2 Diagnoses CAD (coronary artery disease) I25.10 Fibromyalgia M79.7 Hypertension I10 Hypertension type: essential hypertension Anxiety F41.9 Depression F32.9 Depression Type: reactive depression Back pain M54.9 Back pain laterality: right Back pain location: low back pain Chronicity: acute DVT prophylaxis Z29.9 GERD (gastroesophageal reflux disease) K21.9 Esophagitis presence: without esophagitis (1) Back pain Back pain laterality: right Back pain location: low back pain Chronicity: acute (2) Depression Depression Type: reactive depression Qualified Code(s): F32.9 - Major depressive disorder, single episode, unspecified (3) GERD (gastroesophageal reflux disease) Esophagitis presence: without esophagitis Qualified Code(s): K21.9 - Gastro- esophageal reflux disease without esophagitis (4) Hypertension Hypertension type: essential hypertension Qualified Code(s): I10 - Essential (primary) hypertension
[2021-07-08] MEDS ORDERED: KETOROLAC TROMETHAMINE 15 MG/ML VIAL IV ONE (12:00)
[2021-07-08] MEDS ORDERED: ACETAMINOPHEN 325 MG TAB PO SCH (12:00)
[2021-07-08] MEDS ORDERED: MoRPHine SULFATE 4 MG/ML 1 ML CARP\\VIAL IV PRN (12:23)
[2021-07-08] MEDS ORDERED: NITROGLYCERIN SL 0.4 MG/TAB TAB SL PRN (12:23)
[2021-07-08] MEDS ORDERED: MoRPHine SULFATE 2 MG/ML CARP IV PRN (12:23)
[2021-07-08] MEDS ORDERED: ONDANSETRON INJ 2 MG/ML 2 ML VIAL IV PRN (12:23)
[2021-07-08] MEDS ORDERED: ALUMINUM/MAGNESIUM SUSP 30 ML UDC PO PRN (12:23)
[2021-07-08] MEDS ORDERED: POLYETHYLENE (MIRALAX) 17 GM PACK PO PRN (12:23)
[2021-07-08] MEDS ORDERED: AZELASTINE HCL 0.1% NASAL 200 SPRAYS/27,400 MCG BTL PRN (12:31)
[2021-07-08] MEDS ORDERED: PATIENT'S HEIGHT AND/OR WEIGHT NEEDED SCH (12:45)
[2021-07-08] MEDS: LIDOCAINE 5% 1 PATCH TD SCH (12:47)
[2021-07-08] MEDS: ACETAMINOPHEN 500 MG TAB PO SCH ×2 (12:48→20:34)
[2021-07-08] MEDS: DICLOFENAC SOD 1% GEL 100 GM TUBE EXT SCH ×3 (12:48→20:36)
[2021-07-08] MEDS: hydrALAZINE 10 MG TAB PO SCH ×2 (12:49→20:36)
[2021-07-08] MEDS ORDERED: DICLOFENAC SOD 1% GEL 100 GM TUBE EXT SCH (13:00)
[2021-07-08] MEDS: dexAMETHasone 4 MG in SYRINGE 0 ML IV SCH (14:12)
[2021-07-08] MEDS: PREGABALIN 150 MG CAP PO SCH ×2 (14:12→20:33)
[2021-07-08] MEDS: ENOXAPARIN INJ 40 MG/0.4 ML SYR SQ SCH (16:10)
[2021-07-08] MEDS: oxyCODONE HCL IR 5 MG TAB (IMMEDIATE RELEASE) PO PRN (19:48)
[2021-07-08] MEDS: carvediloL 12.5 MG TAB PO SCH (20:33)
[2021-07-08] MEDS: ISOSORBIDE MONO EXTENDED REL 30 MG TABCR PO SCH (20:34)
[2021-07-08] MEDS: POTASSIUM CHLORIDE CRTAB 20 MEQ TABCR PO SCH (20:35)
[2021-07-08] MEDS: traZODone HCL 50 MG TAB PO SCH (20:35)
[2021-07-08] MEDS: DULoxetine HCL 60 MG CAP PO SCH (20:36)
[2021-07-08] MEDS ORDERED: NON-FORMULARY MEDICATION (Coenzyme Q10 [Coq-10] 100 mg Capsule) PO SCH (21:00)
[2021-07-09] MEDS: oxyCODONE HCL IR 5 MG TAB (IMMEDIATE RELEASE) PO PRN ×2 (05:53→16:26)
[2021-07-09] MEDS: LIDOCAINE 5% 1 PATCH TD SCH (07:08)
[2021-07-09] MEDS: DULoxetine HCL 60 MG CAP PO SCH ×2 (07:08→20:34)
[2021-07-09] MEDS: DICLOFENAC SOD 1% GEL 100 GM TUBE EXT SCH ×4 (07:08→20:35)
[2021-07-09] MEDS: dexAMETHasone 4 MG in SYRINGE 0 ML IV SCH (07:08)
[2021-07-09] MEDS: ISOSORBIDE MONO EXTENDED REL 30 MG TABCR PO SCH ×2 (07:09→20:34)
[2021-07-09] MEDS: hydrALAZINE 10 MG TAB PO SCH ×3 (07:09→20:32)
[2021-07-09] MEDS: ACETAMINOPHEN 500 MG TAB PO SCH ×3 (07:09→20:33)
[2021-07-09] MEDS: lisinopril 40 MG TAB PO SCH (07:10)
[2021-07-09] MEDS: CHOLECALCIFEROL 1,000 UNITS 25 MCG TAB PO SCH (07:10)
[2021-07-09] MEDS: carvediloL 12.5 MG TAB PO SCH ×2 (07:10→20:35)
[2021-07-09] MEDS: VITAMIN B COMPLEX TAB PO SCH (07:10)
[2021-07-09] MEDS: EZETIMIBE 10 MG TABLET PO SCH (07:11)
[2021-07-09] MEDS: PANTOprazole 40 MG TAB PO SCH (07:11)
[2021-07-09] MEDS: ENOXAPARIN INJ 40 MG/0.4 ML SYR SQ SCH (07:12)
[2021-07-09] MEDS: POTASSIUM CHLORIDE CRTAB 20 MEQ TABCR PO SCH ×2 (07:12→20:35)
[2021-07-09] MEDS: PREGABALIN 150 MG CAP PO SCH ×3 (07:18→20:44)
[2021-07-09] MEDS: KETOROLAC TROMETHAMINE 15 MG/ML VIAL IV PRN ×3 (07:19→20:45)
[2021-07-09] MEDS: FLUoxetine HCL 20 MG CAP PO SCH (07:22)
[2021-07-09] MEDS ORDERED: LIDOCAINE 5% 1 PATCH TD SCH (09:00)
[2021-07-09] MEDS ORDERED: amLODIPine BESYLATE 5 MG TAB PO SCH (09:00)
--- NOTE | 2021-07-09 09:01 | Hospitalist Progress Note ---
Date of Service July 09, 2021 Assessment & Plan (1) Ambulatory dysfunction: (2) CAD (coronary artery disease): (3) Fibromyalgia: (4) GERD (gastroesophageal reflux disease): (5) Hyperlipidemia: (6) Hypertension: (7) Interstitial cystitis: (8) Lumbar degenerative disc disease: (9) Lumbar radiculopathy: (10) Sacroiliitis: (11) UTI (urinary tract infection) due to Enterococcus: Plan: Acute low back pain with radiculopathy symptoms, history of lumbar DJD with prior lumbar surgery-CT scan suggest possible loosening of hardware [id number] etiology of patient's severe pain. Differential diagnosis disc herniation versus sacroiliitis versus other. -imaging studies reviewed with Dr. Villela from Radiology. Suggest MRI of lumbar spine without contrast -pain management consultation-discussed with Dr. Stone -activity as tolerated. PT and OT consult already ordered. -continue current pain treatment-can be adjusted by pain management as needed. -aspirin and Plavix currently on hold in case patient needs a procedure Possible UTI-prelim culture growing Enterococcus-Add Amoxil 1000 mg Q 12 hr x 3 days. It is possible this is just asymptomatic bacturia but given pain and kidney stone will rx. Hyperglycemia-possibly steroid induced but also noted on prior admission. -check A1c. -carb consistent diet. Hypokalemia-noted on admission. Currently on potassium 20 mEq b.i.d - 2 more doses ordered. -recheck electrolytes. Hypertension-currently treated with amlodipine 2.5 mg p.o. q.a.m., increase to 5 mg q.a.m. given elevated blood pressure on this visit as well as recent visit. Left kidney stone -[address] scan-asymptomatic. Coronary artery disease/STEMI 2018/status post angioplasty with 4 drug-eluting stents mid to distal LAD January 2019- followed by Dr. Nova -as noted above aspirin and Plavix on hold in the event she needs a procedure. Resume when able. -no current cardiopulmonary symptoms. -echo 04/16/2021-normal LV EF 55-60%, mild MR, mild TR-volume status stable the present Hyperlipidemia-intolerant to statins. Treated with Zetia. History of depression with anxiety stable the present time History of fibromyalgia GERD-stable. Ppi changed to Protonix will admitted. History of interstitial cystitis-resume Elmiron 100 mg TID. DVT prophylaxis-Lovenox 40 mg subQ q.day. Disposition-currently pending further evaluation. Anticipate discharge to home when ready for discharge. Admission and Anticipated Discharge Date Admission Date: July 08, 2021 Subjective 65-year-old female whose primary care provider is from [place], [place] was admitted 07/08/2021 with severe right low back pain and secondary gait dysfunction. Patient has a history prior laminectomy with posterior interbody daniela and screw fusion and discectomy at L4-L5. Surgery was performed by Dr. Be. CT findings on admission suggested possible loosening of hardware. CT also suggested a 4 mm nonobstructing left renal calculus. Patient notes her pain started approximately 5 days prior to admission. Her father recently and she was standing for a long time several days prior to admission. On admission she had severe right low back pain radiating to her right buttock, hamstring and quadriceps region. She noted she could not walk because of the pain. Has no current numbness or tingling in the leg. Denies bowel or bladder dysfunction. No fevers, chills, sweats. No recent trauma. No falls. Denies dysuria or hematuria. Denies vaginal bleeding or pain. Denies bloody stool. Chronic medical problems include coronary artery disease with prior angioplasty and stent in 2019, STEMI 01/26/2019, hypertension, fibromyalgia, GERD/gastritis. On admission patient started on p.r.n. morphine, p.r.n. oxycodone, Tylenol, Decadron 4 mg IV q.day, lidocaine patch. Patient notes pain improved this morning compared to yesterday but still has at least moderate to severe pain. Notes pain with movement of the right leg (straight leg raise). Pain continues to radiate to her proximal leg and buttock. Patient denies chest pain, palpitations, shortness of breath, abdominal pain and as noted above. Review of Systems Review of Systems: As noted in the subjective Physical Exam Constitutional: no acute distress Neck: trachea midline Respiratory: normal respiratory effort, lungs clear to auscultation Auscultation: no rales, no rhonchi and no wheezes Cardiovascular: RRR, no murmur, no edema Gastrointestinal (Abdomen): normal bowel sounds, soft, nontender, no hepatosplenomegaly Musculoskeletal: No focal motor weakness noted. Tender to palpation right sacroiliac joint. No palpable spinal tenderness. No tenderness to palpation over the right hip or right thigh. Femoral pulse normal on the right side. No dependent edema. With range of motion of the hip patient has some discomfort but not severe. Straight leg raise to about 10 causes the patient to complain of pain. Skin: no rashes, warm and dry Psychiatric: Orientation: cooperative Eye Contact: good eye contact Results & Data Results & Data ([facility]) Vital Signs (Past 12 Hours) Vital Signs Temp Pulse Resp BP Pulse Ox 07/09/21 07:06 98.1 F 65 16 182/89 H 96 07/08/21 22:40 98.1 F 66 15 131/73 93 Primary Care Results Results Primary Care Results: WBC 6.72 K/uL (4.8-10.8) 07/08/21 RBC 4.70 M/uL (4.2-5.4) 07/08/21 Hgb 14.2 g/dL (12.0-16.0) 07/08/21 Hct 41.8 % (37-47) 07/08/21 MCV 88.9 fL (80-100) 07/08/21 MCH 30.2 pg (25-34) 07/08/21 MCHC 34.0 g/dL (32-36) 07/08/21 RDW Coefficient of Variation 13.1 % (11.5-14.5) 07/08/21 Plt Count 173 K/uL (130-400) 07/08/21 MPV 10.0 fL (7.4-10.4) 07/08/21 Immature Granulocyte % (Auto) 0.1 % 07/08/21 Neutrophils (%) (Auto) 74.7 % 07/08/21 Lymphocytes (%) (Auto) 14.4 % 07/08/21 INR 1.0 (0.9-1.1) 04/15/21 APTT 24.5 Seconds (21.0-31.0) 04/15/21 Na 139 mmol/L (136-145) 07/08/21 K 3.3 mmol/L (3.5-5.1) L 07/08/21 Cl 107 mmol/L (98-107) 07/08/21 CO2 24 mmol/L (21-32) 07/08/21 Anion Gap 8 (3-11) 07/08/21 BUN 13 mg/dl (6-23) 07/08/21 Creatinine 0.65 mg/dl (0.6-1.2) 07/08/21 Est Cr Clr Drug Dosing Not Reportable 07/08/21 Estimated GFR ( Amer) 108.0 ml/min 07/08/21 Estimated GFR (Non-Af Amer) 93.2 ml/min 07/08/21 BUN/Creatinine Ratio 20.0 (10-20) 07/08/21 Glu 127 mg/dl (70-99) H 07/08/21 Ca 8.7 mg/dl (8.5-10.1) 07/08/21 Total Bilirubin 0.6 mg/dl (0.2-1.0) 07/08/21 AST 16 U/L (13-39) 07/08/21 ALT 24 U/L (7-52) 07/08/21 Alkaline Phosphatase 67 U/L (34-104) 07/08/21 Total Protein 6.4 gm/dl (6.0-8.3) 07/08/21 Albumin 3.9 gm/dl (3.4-5.0) 07/08/21 Globulin 2.5 gm/dl (2.5-4.0) 07/08/21 Albumin/Globulin Ratio 1.6 (0.9-2) 07/08/21 Triglycerides 304 mg/dl (0-150) H 12/04/20 Cholesterol Level 170 mg/dl (0-200) 12/04/20 LDL Cholesterol, Calculated 71 mg/dl 12/04/20 VLDL Cholesterol, Calculated 61 mg/dl 12/04/20 HDL Cholesterol 38 mg/dl 12/04/20 Cholesterol/HDL Ratio 5 12/04/20 Urine Color Yellow 07/08/21 Urine Appearance Cloudy (Clear) A 07/08/21 Urine pH 6.5 (4.5-7.5) 07/08/21 Urine Specific [place] 1.005 (1.000-1.030) 07/08/21 Urine Protein Negative (Negative) 07/08/21 Urine Glucose (UA) Negative (Negative) 07/08/21 Urine Ketones Negative (Negative) 07/08/21 Urine Blood Negative (Negative) 07/08/21 Urine Nitrite Negative (Negative) 07/08/21 Urine Bilirubin Negative (Negative) 07/08/21 Urine Urobilinogen Negative (Negative) 07/08/21 Urine Leukocyte Esterase 3+ (Negative) H 07/08/21 Urine WBC (Auto) >30 /hpf (0-5) H 07/08/21 Urine RBC (Auto) 0-4 /hpf (0-4) 07/08/21 U Hyaline Casts (Auto) 1-5 /lpf (0-5) 07/08/21 U Epithelial Cells (Auto) >30 /lpf (0-5) H 07/08/21 Urine Bacteria (Auto) 1+ (Negative) H 07/08/21 PG Care Time/CCT Total # of Minutes Spent Total Time Spent: 60 Total Time Spent with Patient: Total time spent is greater than 50% in coordination of care (as documented) at patient's floor/unit and/or counseling patient: Coding Level of Care Code 19047 Subseq Hosp Care Lvl 3 Diagnoses Ambulatory dysfunction R26.2 CAD (coronary artery disease) I25.10 Fibromyalgia M79.7 GERD (gastroesophageal reflux disease) K21.9 Esophagitis presence: without esophagitis Hyperlipidemia E78.5 Hypertension I10 Hypertension type: essential hypertension Interstitial cystitis N30.10 Lumbar degenerative disc disease M51.36 Lumbar radiculopathy M54.16 Sacroiliitis M46.1 UTI (urinary tract infection) due to Enterococcus N39.0; B95.2 (1) GERD (gastroesophageal reflux disease) Esophagitis presence: without esophagitis Qualified Code(s): K21.9 - Gastro- esophageal reflux disease without esophagitis (2) Hypertension Hypertension type: essential hypertension Qualified Code(s): I10 - Essential (primary) hypertension
[2021-07-09] MEDS ORDERED: amLODIPine BESYLATE 5 MG TAB PO ONE (09:22)
--- NOTE | 2021-07-09 14:11 | Magnetic Resonance Report ---
MRI OF THE LUMBAR SPINE WITHOUT IV CONTRAST CLINICAL HISTORY: Right lower extremity radiculopathy. COMPARISON STUDY: CT of the lumbar spine dated 07/08/2021. MRI of the lumbar spine dated 08/06/2019. TECHNIQUE: MRI of the lumbar spine is performed utilizing various T1 and T2 weighted sequences in the axial and sagittal planes. IV contrast was not administered for this examination. FINDINGS: Lumbar spine: Vertebral body height and alignment are maintained throughout the lumbar spine. Small a nterior and lateral marginal osteophytes are seen throughout. The patient is status post laminectomy and posterior fusion at L4-L5. Intrapedicular screws are in place. The transverse processes appear in tact. No destructive bony lesion is seen. Small hemangiomas are noted in the bodies of T12, L1, and L 3. There is advanced chronic degenerative endplate change noted at L4-L5. No significant endplate robert ma is seen. Intervertebral discs: There has been discectomy at L4-L5. Disc desiccation is seen at the remaining l umbar levels. There is mild loss of height at L3-L4. Spinal cord: The visualized spinal cord is normal in morphology and signal intensity. The conus medul eduardo terminates at the T12-L1 interspace. The nerve roots of the cauda equina are normal in morpholo gy. L1-L2: Unremarkable. L2-L3: Unremarkable. L3-L4: Minimal posterior disc bulge abuts the transiting nerve roots. There is a right laterally extr uded and possibly sequestered disc fragment, best seen on axial image #13. This measures up to 1.4 cm . This contributes to severe right-sided neural foraminal stenosis at this level and impinges on the exiting right L3 nerve root. There is no significant acquired compromise of the central canal. Facet arthropathy is of no consequence. The left neural foramen is patent. L4-L5: The central canal and neural foramina are grossly clear. L5-S1: There is minimal posterior disc bulge. There is a large left lateral disc bulge, best seen on axial image #26. This contributes to subarticular stenosis and may impinge on the exiting left L5 ner ve root. This also abuts the transiting left S1 nerve root. In conjunction with facet arthropathy the re is mild to moderate left-sided neural foraminal stenosis at this level. An 8 mm synovial cyst is s een posterior to the left facet joint at this level on axial image #27. Sacrum: The visualized sacrum is normal in morphology and signal intensity. Soft tissues: There is postoperative change posterior to the thecal sac at L4-L5. The paraspinous sof t tissues are otherwise normal in appearance. The retroperitoneal structures are grossly unremarkable but incompletely evaluated. IMPRESSION: 1. There is a 1.4 cm right laterally extruded and possibly sequestered disc fragment at L3-L4. This c auses severe right-sided neural foraminal narrowing and impinges on the exiting right L3 nerve root. 2. Spondylotic and postoperative changes at additional levels as above. See discussion for detailed l evel by level analysis. 3. No destructive bony process is seen. Dictated: 07/09/2021 1:07 PM Transcribed: 07/09/2021 1:44 PM Sonia [phone] [facility] Electronically signed by: Checo Titus M.D. 07/09/2021 2:09 PM
--- NOTE | 2021-07-09 16:00 | Pain Management Consultation ---
Date of Consultation July 09, 2021 Assessment & Plan (1) Lumbar radiculopathy: (2) Sacroiliac joint pain: (3) Fibromyalgia: 1. Patient's presenting complaints appear to correspond with her right- sided L3-4 disc extrusion causing impingement of the L3 nerve root. Her reported history of multiple epidural steroid injections with Dr. Noel most recently 1 month ago will need to be investigated further prior to any decision making regarding her candidacy for lumbar PAMELA. Dr. Noel reportedly indicated she would unable to pursue any further epidural steroid injections until September--may be a byproduct of steroid burden, but unknown at this time. Dr. Noel office was contacted, but they are closed until Monday. They will be contacted on Monday in an attempt to obtain records. 2. Will consult Dr. Tapia due to her disc extrusion, right lower extremity pain, report of possible pedicle screw loosening and her potential inability to undergo interventional treatment. 3. Would recommend continuing with corticosteroid therapy which appears to have diminished the severity of her pain complaints. Consider transition to Medrol Dosepak. 4. Patient will continue with her current breakthrough pain medication without change in recommendations 5. Patient has chronically been on pregabalin therapy 150 mg 3 times daily- would not recommend adjustment in dose at this time Thank you for allowing us to participate in the care of Mrs. Dietrich. History of Present Illness Reason for Consultation: Intractable low back and right lower extremity pain Requesting Physician: Uri Knox MD Attending Physician: Uri Knox MD History of Present Illness Mrs. Dietrich is a 65-year-old white female who was admitted due to intractable pain and weakness of the right lower extremity. Patient reported onset of pain in the right lumbosacral region extending into the gluteal, lateral hip/groin and anterior thigh stopping at the knee approximately 3 days ago without known injury. Patient indicates that her pain was a 10/10 upon admission and was extremely sharp and shooting in characteristic. She reports any attempted sitting or ambulatory activity were significant exacerbating factors. These activities remain exacerbating factors but her pain is not quite as severe. She is rating her pain at a 4-8/10. Her pain is diminished in the supine position. The pain can radiate into the groin and anterior thigh. Her pain is 70% radicular and 30% axial. She reports a history of chronic low back pain and does have history of prior L4-5 fusion with reported history of loosening of hardware. Her surgery was completed by Dr. Be. She has recently been under the care of Dr. Noel in [place] who performed a caudal epidural per her report approximately 1 month ago. She has had chronic pain in the left lumbosacral region since the time of her prior surgery. Dr. Noel reportedly indicated that she was unable to pursue any further injections until September and has tentatively discussed pursuing spinal cord stimulator implantation. She reports weakness of the right lower extremity since the time of her acute onset of pain 3-4 days ago and denied pain in similar location, characteristic or weakness prior to this recent onset of symptoms. She denies bowel or bladder incontinence or saddle anesthesia. She is not experiencing pain in the left lower extremity at this time. Patient has no further constitutional complaints. Plan of care discussed with Dr. Myrna Yang. Pain Assessment Full Body Front + Back: 1. Right lumbosacral spine 2. Right groin 3. Right anterior thigh stopping at knee Pain scale - at its best (0-10): 4 Pain scale - at its worst (0-10): 10 Allergies Allergy/AdvReac Type Severity Reaction Status Date / Time No Known Allergies Allergy NONE Verified 07/08/21 09:03 Home Medications Medication Instructions Recorded Confirmed Type clopidogrel 75 mg tablet 75 mg PO QAM #30 tab 01/28/19 07/08/21 Rx amlodipine 5 mg tablet 2.5 mg PO QAM 06/24/19 07/08/21 History lisinopril 40 mg tablet 40 mg PO QAM 06/24/19 07/08/21 History coenzyme Q10 100 mg capsule 200 mg PO HS 12/02/19 07/08/21 History (CoQ-10) vitamin B complex with C-folic 1 tab PO DAILY 12/02/19 07/08/21 History acid 0.8 mg-zinc citrate 50 mg tablet nitroglycerin 0.4 mg sublingual 0.4 mg SUBLINGUAL UD PRN 30 Days 12/04/19 07/08/21 Rx tablet (Nitrostat) #60 tab alpha lipoic acid 600 mg capsule 600 mg PO HS 02/18/20 07/08/21 History aspirin 81 mg tablet,delayed 81 mg PO HS 02/18/20 07/08/21 History release (Ecotrin Low Strength) ezetimibe 10 mg tablet 10 mg PO BID 02/18/20 07/08/21 History azelastine 205.5 mcg (0.15 %) 2 spray INTNAS DAILY PRN #90 ml 06/16/20 07/08/21 Rx nasal spray isosorbide mononitrate 30 mg 30 mg PO BID 30 Days #60 tab 08/26/20 07/08/21 Rx tablet,extended release 24 hr cholecalciferol (vitamin D3) 50 50 mcg PO DAILY 08/28/20 07/08/21 History mcg (2,000 unit) capsule carvedilol 12.5 mg tablet 12.5 mg PO BID #180 tab 03/10/21 07/08/21 Rx diclofenac sodium 1 % topical gel 2 g TOPICAL QID #100 g 05/03/21 07/08/21 Rx (Voltaren Arthritis Pain) hydralazine 10 mg tablet 20 mg PO TID tab 05/03/21 07/08/21 History lansoprazole 30 mg capsule,delayed 30 mg PO DAILY 05/03/21 07/08/21 History release fluoxetine 20 mg capsule 20 mg PO DAILY #30 cap 05/25/21 07/08/21 Rx pregabalin 75 mg capsule (Lyrica) 150 mg PO TID 30 Days #180 cap 06/07/21 07/08/21 Rx trazodone 150 mg tablet 150 mg PO HS #90 tab 06/09/21 07/08/21 Rx oxycodone-acetaminophen 5 mg-325 1 tab PO TID PRN #90 tab 07/06/21 07/08/21 Rx mg tablet duloxetine 60 mg capsule,delayed 60 mg PO BID 07/08/21 07/08/21 History release Pain History Pain Intensity Pain scale - at its best (0-10): 4 Pain scale - at its worst (0-10): 10 Patient History Medical History (Updated 07/09/21 @ 16:13 by Jay Adams PA-C) Acute pain of left hip Alopecia Anxiety Arthritis Bilateral leg pain Blepharochalasis CAD (coronary artery disease) Cervicalgia Chronic back pain Chronic blood loss anemia Chronic pain syndrome Constipation COVID-19 hx of, diagnosed 05/29/2020 @ [facility]--sinus pressure, stuffy nose, loss of taste/smell (still does not have back) Cystitis reason for Elmiron Depression Dermatochalasis Dyslipidemia Dyspareunia Dysuria Eczema Excessive menstruation with irregular cycle Fall Fatigue Fibromyalgia IMAN (generalized anxiety disorder) GERD (gastroesophageal reflux disease) Glaucoma Gross hematuria Heartburn Hip pain, bilateral History of urinary frequency History of urinary hesitancy History of urinary urgency Hypertension Hypokalemia Hyponatremia Interstitial cystitis Left knee pain Lipoma Lumbar degenerative disc disease Malaise and fatigue Muscle spasm Numbness and tingling of left side of face On anticoagulant therapy plavix daily Osteoarthritis Osteopenia Otitis externa, acute Pain, pelvic, female Postmenopausal status Psychological disorder Resistant hypertension Rhinitis Sacroiliac joint pain Shortness of breath Sinus headache STEMI (ST elevation myocardial infarction) 01/26/2019 Dr Nova Steroid-induced hyperglycemia Subacute vulvitis Trigger finger Trochanteric bursitis Urinary tract infection symptoms Uterine leiomyoma Surgical History H/O dilation and curettage H/O: hysterectomy History of blepharoplasty History of cardiac cath x2--[place] -> 01/26/19--had 4 stents placed @ [facility] 11/2019 @ [facility], no stents placed History of cataract surgery bilateral History of colonoscopy with polypectomy History of heart artery stent x4 01/2019 @ [facility] History of lumbar spinal fusion S/P cardiac catheterization 12/03/19 Dr. Uri Maravilla- No intervention Status post trigger finger release Family History Mother Myocardial infarction Hypertension Heart disease Brother Myocardial infarction Heart disease Grandmother Ovarian cancer Diabetes Father Diabetes Hypertension Family hx colonic polyps Grandmother (Maternal) Stroke Grandfather (Maternal) Stroke Grandmother (Paternal) Cancer Grandfather (Paternal) Cirrhosis of liver Uncle Heart disease Aunt Heart disease Other No family history of adverse response to anesthesia Denies family history of Prostate cancer Breast cancer Colorectal cancer Social History Smoking Status: Never smoker Second Hand Exposure: No; Hx Alcohol Use: No Hx Substance Use: No Preferred Language: Chadian Communication Ability: Effective Hide House Supervisor Required: No Beliefs That Will Affect Care: None marital status: Current Living Situation: Spouse current occupational status: retired How many Children do You have: 2 Other Information That Helps Us Care for You: No Feels Safe at Home: Yes during the past year weight has: remained stable Dental Care, Regularly: Yes Physical Activity Frequency: Does not Exercise Seatbelt Use: always Do you think of yourself as: straight/heterosexual Assistive Devices: Brace/Splint/Immobilizer Physical Exam Physical Exam: General: Patient lying quietly in exam room in no acute distress. Speech and thought process appropriate. Mood and affect appropriate. Cognition intact. Patient accompanied by her . Head: Normocephalic and atraumatic. ENT: No evidence of nasal or oral mucosal lesions. Mucous membranes are moist. Eyes: Pupils equal round reactive to light. Neck: Supple without adenopathy and full range of motion. Muscular patient has diffuse myofascial tenderness. She is tender at greater than 11/18 sites identified by ACR relating to fibromyalgia. Abdomen: Soft and nondistended. No organomegaly. Bowel sounds active. Back/spine: Patient has loss of lumbar lordosis. Well-healed midline surgical incision over the lower lumbar spine. Patient is tender over the right SI joint greater than left to provocative testing. No focal facet joint tenderness provocative testing. Patient exquisitely tender over the mid superior gluteal musculature bilaterally without spasm or myoneural trigger points. Patient is able to logroll towards her right side for visual inspection and physical exam. Lower extremities: SLR positive on the right reproducing pain into the right groin and anterior thigh at approximately 25 degrees. SLR negative on the left. Right hip nontender with internal/external rotation. Sensation intact without deficit. Strength testing 4/5 in the entire right lower extremity and 5/5 on the left. Neurologic: Cranial nerves grossly intact. Ambulatory function not witnessed. Babinski downgoing bilaterally. Results (Pain [facility]) Diagnostic Review MRI Findings: [facility], [place] [phone] Magnetic Resonance Report Patient:JALIL DIETRICH Admit Date:07/08/21 MR#:[id number] Address1:[address] [place] [address] Acct ID:[id number] Address2: Date:1955 [facility] Zip:[place] [address] Age:65 Location:3E Sex:F Room/Bed:[facility] Att Phy:Uri Knox MD Diagnosis:INTRACTABLE BACK PAIN Haleigh Phy:Natasha Saldaña MD Service Date:07/09/21 [facility] Phy: Interpreting Phy:Checo Titus [facility] Phy:Nirmal Rothman MD Ordering Phy:Uri Knox MD cc: ~ MRI OF THE LUMBAR SPINE WITHOUT IV CONTRAST CLINICAL HISTORY: Right lower extremity radiculopathy. COMPARISON STUDY: CT of the lumbar spine dated 07/08/2021. MRI of the lumbar spine dated 08/06/2019. TECHNIQUE: MRI of the lumbar spine is performed utilizing various T1 and T2 weighted sequences in the axial and sagittal planes. IV contrast was not administered for this examination. FINDINGS: Lumbar spine: Vertebral body height and alignment are maintained throughout the lumbar spine. Small anterior and lateral marginal osteophytes are seen throughout. The patient is status post laminectomy and posterior fusion at L4- L5. Intrapedicular screws are in place. The transverse processes appear intact. No destructive bony lesion is seen. Small hemangiomas are noted in the bodies of T12, L1, and L3. There is advanced chronic degenerative endplate change noted at L4-L5. No significant endplate edema is seen. Intervertebral discs: There has been discectomy at L4-L5. Disc desiccation is seen at the remaining lumbar levels. There is mild loss of height at L3-L4. Spinal cord: The visualized spinal cord is normal in morphology and signal intensity. The conus medullaris terminates at the T12-L1 interspace. The nerve roots of the cauda equina are normal in morphology. L1-L2: Unremarkable. L2-L3: Unremarkable. L3-L4: Minimal posterior disc bulge abuts the transiting nerve roots. There is a right laterally extruded and possibly sequestered disc fragment, best seen on axial image #13. This measures up to 1.4 cm. This contributes to severe right-sided neural foraminal stenosis at this level and impinges on the exiting right L3 nerve root. There is no significant acquired compromise of the central canal. Facet arthropathy is of no consequence. The left neural foramen is patent. L4-L5: The central canal and neural foramina are grossly clear. L5-S1: There is minimal posterior disc bulge. There is a large left lateral disc bulge, best seen on axial image #26. This contributes to subarticular stenosis and may impinge on the exiting left L5 nerve root. This also abuts the transiting left S1 nerve root. In conjunction with facet arthropathy there is mild to moderate left-sided neural foraminal stenosis at this level. An 8 mm synovial cyst is seen posterior to the left facet joint at this level on axial image #27. Sacrum: The visualized sacrum is normal in morphology and signal intensity. Soft tissues: There is postoperative change posterior to the thecal sac at L4- L5. The paraspinous soft tissues are otherwise normal in appearance. The retroperitoneal structures are grossly unremarkable but incompletely evaluated. IMPRESSION: 1. There is a 1.4 cm right laterally extruded and possibly sequestered disc fragment at L3-L4. This causes severe right-sided neural foraminal narrowing and impinges on the exiting right L3 nerve root. 2. Spondylotic and postoperative changes at additional levels as above. See discussion for detailed level by level analysis. 3. No destructive bony process is seen. Dictated: 07/09/2021 1:07 PM Transcribed: 07/09/2021 1:44 PM S[facility] [id number] [facility] Electronically signed by: Checo Titus M.D. 07/09/2021 2:09 PM Dictated:07/09/21 1307 Transcribed: 07/09/21 1344 Previous Records Review Previous Records: personally reviewed by
[2021-07-09] MEDS: traZODone HCL 50 MG TAB PO SCH (20:33)
[2021-07-09] MEDS: AMOXICILLIN 500 MG CAP PO SCH (20:44)
[2021-07-09] MEDS: LATANOPROST 0.005% OP SOLN 2.5 ML BTL OPB SCH (20:50)
[2021-07-10] MEDS: KETOROLAC TROMETHAMINE 15 MG/ML VIAL IV PRN ×2 (07:46→20:35)
[2021-07-10] MEDS: lisinopril 40 MG TAB PO SCH (08:39)
[2021-07-10] MEDS: PREGABALIN 150 MG CAP PO SCH ×3 (08:39→20:37)
[2021-07-10] MEDS: ISOSORBIDE MONO EXTENDED REL 30 MG TABCR PO SCH ×2 (08:39→20:39)
[2021-07-10] MEDS: VITAMIN B COMPLEX TAB PO SCH (08:39)
[2021-07-10] MEDS: EZETIMIBE 10 MG TABLET PO SCH (08:40)
[2021-07-10] MEDS: hydrALAZINE 10 MG TAB PO SCH ×3 (08:40→20:38)
[2021-07-10] MEDS: PANTOprazole 40 MG TAB PO SCH (08:40)
[2021-07-10] MEDS: ACETAMINOPHEN 500 MG TAB PO SCH ×3 (08:41→20:37)
[2021-07-10] MEDS: dexAMETHasone 4 MG in SYRINGE 0 ML IV SCH (08:41)
[2021-07-10] MEDS: DULoxetine HCL 60 MG CAP PO SCH ×2 (08:42→20:39)
[2021-07-10] MEDS: CHOLECALCIFEROL 1,000 UNITS 25 MCG TAB PO SCH (08:42)
[2021-07-10] MEDS: amLODIPine BESYLATE 5 MG TAB PO SCH (08:42)
[2021-07-10] MEDS: carvediloL 12.5 MG TAB PO SCH ×2 (08:43→20:39)
[2021-07-10] MEDS: AMOXICILLIN 500 MG CAP PO SCH ×2 (08:43→20:38)
[2021-07-10] MEDS: FLUoxetine HCL 20 MG CAP PO SCH (08:43)
[2021-07-10] MEDS: ENOXAPARIN INJ 40 MG/0.4 ML SYR SQ SCH (08:44)
[2021-07-10] MEDS: DICLOFENAC SOD 1% GEL 100 GM TUBE EXT SCH ×4 (08:44→20:40)
[2021-07-10] MEDS: LIDOCAINE 5% 1 PATCH TD SCH (08:45)
--- NOTE | 2021-07-10 08:48 | Orthopedic Consultation ---
Date of Consultation July 10, 2021 Assessment & Plan (1) Lumbar radiculopathy: Patient presents with a large foraminal disc herniation at L3-4 above her fusion. Given the size and location of the disc herniation and the fact that she is not able to bear full weight on her right-hand side this may require surgical intervention. Surgically would have to remove the hardware at L4-5 explore the fusion and decompress and fuse the L3-4 segment above her previous fusion. The main benefit of surgery significant chance of reduction of her radicular complaints and preservation of neurologic function. We have discussed the precise nature of the surgery as well as the risks and benefits. She is going to consider her options and we will follow-up with her and proceed with the surgery if she decides to proceed. History of Present Illness Attending Physician: Oscar Geurra MD History of Present Illness Patient is a pleasant 65-year-old female who has history significant for previous lumbar decompression fusion at L4-[address] Be she believes in 2016. She did well after the surgery. For the past several months she has had burning pain on the left lower hand side of the back this past she started having severe pain on the right-hand side going down the right leg into the groin and thigh. The pain progressed to the point where she could not bear weight on it and was brought to the emergency room. She was admitted to the medical service. She was seen by pain management. They performed an MRI and consulted our service. She still is having quite severe pain. She is unable to bear full weight on the right-hand side with the leg will buckle. She needs assistance just getting up and going to the bathroom. She is not having any weakness on the left-hand side. She denies any other numbness, tingling, or paresthesias. Allergies Allergy/AdvReac Type Severity Reaction Status Date / Time No Known Allergies Allergy NONE Verified 07/08/21 09:03 Home Medications Medication Instructions Recorded Confirmed Type clopidogrel 75 mg tablet 75 mg PO QAM #30 tab 01/28/19 07/08/21 Rx amlodipine 5 mg tablet 2.5 mg PO QAM 06/24/19 07/08/21 History lisinopril 40 mg tablet 40 mg PO QAM 06/24/19 07/08/21 History coenzyme Q10 100 mg capsule 200 mg PO HS 12/02/19 07/08/21 History (CoQ-10) vitamin B complex with C-folic 1 tab PO DAILY 12/02/19 07/08/21 History acid 0.8 mg-zinc citrate 50 mg tablet nitroglycerin 0.4 mg sublingual 0.4 mg SUBLINGUAL UD PRN 30 Days 12/04/19 07/08/21 Rx tablet (Nitrostat) #60 tab alpha lipoic acid 600 mg capsule 600 mg PO HS 02/18/20 07/08/21 History aspirin 81 mg tablet,delayed 81 mg PO HS 02/18/20 07/08/21 History release (Ecotrin Low Strength) ezetimibe 10 mg tablet 10 mg PO BID 02/18/20 07/08/21 History azelastine 205.5 mcg (0.15 %) 2 spray INTNAS DAILY PRN #90 ml 06/16/20 07/08/21 Rx nasal spray isosorbide mononitrate 30 mg 30 mg PO BID 30 Days #60 tab 08/26/20 07/08/21 Rx tablet,extended release 24 hr cholecalciferol (vitamin D3) 50 50 mcg PO DAILY 08/28/20 07/08/21 History mcg (2,000 unit) capsule carvedilol 12.5 mg tablet 12.5 mg PO BID #180 tab 03/10/21 07/08/21 Rx diclofenac sodium 1 % topical gel 2 g TOPICAL QID #100 g 05/03/21 07/08/21 Rx (Voltaren Arthritis Pain) hydralazine 10 mg tablet 20 mg PO TID tab 05/03/21 07/08/21 History lansoprazole 30 mg capsule,delayed 30 mg PO DAILY 05/03/21 07/08/21 History release fluoxetine 20 mg capsule 20 mg PO DAILY #30 cap 05/25/21 07/08/21 Rx pregabalin 75 mg capsule (Lyrica) 150 mg PO TID 30 Days #180 cap 06/07/21 07/08/21 Rx trazodone 150 mg tablet 150 mg PO HS #90 tab 06/09/21 07/08/21 Rx oxycodone-acetaminophen 5 mg-325 1 tab PO TID PRN #90 tab 07/06/21 07/08/21 Rx mg tablet duloxetine 60 mg capsule,delayed 60 mg PO BID 07/08/21 07/08/21 History release Patient History Medical History Acute pain of left hip Alopecia Anxiety Arthritis Bilateral leg pain Blepharochalasis CAD (coronary artery disease) Cervicalgia Chronic back pain Chronic blood loss anemia Chronic pain syndrome Constipation COVID-19 hx of, diagnosed 05/29/2020 @ [facility]--sinus pressure, stuffy nose, loss of taste/smell (still does not have back) Cystitis reason for Elmiron Depression Dermatochalasis Dyslipidemia Dyspareunia Dysuria Eczema Excessive menstruation with irregular cycle Fall Fatigue Fibromyalgia IMAN (generalized anxiety disorder) GERD (gastroesophageal reflux disease) Glaucoma Gross hematuria Heartburn Hip pain, bilateral History of urinary frequency History of urinary hesitancy History of urinary urgency Hypertension Hypokalemia Hyponatremia Interstitial cystitis Left knee pain Lipoma Lumbar degenerative disc disease Malaise and fatigue Muscle spasm Numbness and tingling of left side of face On anticoagulant therapy plavix daily Osteoarthritis Osteopenia Otitis externa, acute Pain, pelvic, female Postmenopausal status Psychological disorder Resistant hypertension Rhinitis Sacroiliac joint pain Shortness of breath Sinus headache STEMI (ST elevation myocardial infarction) 01/26/2019 Dr Nova Steroid-induced hyperglycemia Subacute vulvitis Trigger finger Trochanteric bursitis Urinary tract infection symptoms Uterine leiomyoma Surgical History H/O dilation and curettage H/O: hysterectomy History of blepharoplasty History of cardiac cath x2--[place] -> 01/26/19--had 4 stents placed @ [facility] 11/[address] [facility], no stents placed History of cataract surgery bilateral History of colonoscopy with polypectomy History of heart artery stent x4 01/[address] [facility] History of lumbar spinal fusion S/P cardiac catheterization 12/03/19 Dr. Uri Maravilla- No intervention Status post trigger finger release Family History Mother Myocardial infarction Hypertension Heart disease Brother Myocardial infarction Heart disease Grandmother Ovarian cancer Diabetes Father Diabetes Hypertension Family hx colonic polyps Grandmother (Maternal) Stroke Grandfather (Maternal) Stroke Grandmother (Paternal) Cancer Grandfather (Paternal) Cirrhosis of liver Uncle Heart disease Aunt Heart disease Other No family history of adverse response to anesthesia Denies family history of Prostate cancer Breast cancer Colorectal cancer Social History Smoking Status: Never smoker Second Hand Exposure: No; Hx Alcohol Use: No Hx Substance Use: No Preferred Language: Italian Communication Ability: Effective Paraplanner Required: No Beliefs That Will Affect Care: None marital status: Current Living Situation: Spouse current occupational status: retired How many Children do You have: 2 Other Information That Helps Us Care for You: No Feels Safe at Home: Yes during the past year weight has: remained stable Dental Care, Regularly: Yes Physical Activity Frequency: Does not Exercise Seatbelt Use: always Do you think of yourself as: straight/heterosexual Assistive Devices: Walker Physical Exam Physical Exam: On exam she is alert and oriented. She communicates clearly. Her lower extreme motor exam reveals no focal atrophy strength 5 out of 5 to detailed muscle testing with exception of the abductors on the right as compared to the left with a strength of 4 out of 5. The quadricep also has a strength of 4 out of 5 on the right as compared to left. Her sensation is intact to light touch proprioception is also intact. Her gait was not observed she is nontender along the lower portion of her lumbar spine. Results & Data ([facility]) Vital Signs (Past 12 Hours) Vital Signs Temp Pulse Resp BP Pulse Ox 07/10/21 07:42 36.9 C 64 16 165/83 H 95 07/09/21 22:26 37.1 C 65 16 167/83 H 92 Diagnostic Findings MRI of the lumbar spine performed recently is available for review this reveals postoperative changes noted at L4-5. The spinal canal is widely decompressed. There is no evidence of infection. L5-S1 has mild degenerative disc disease facet arthropathy of the is also noted at this level. Dominant findings at L3-4 where she has a foraminal disc herniation which is quite large in nature.
[2021-07-10 11:37] LABS: Basophils # (auto) 0.01 K/uL (0-0.2); Basophils % (auto) 0.1 %; Eosinophils # (auto) 0.02 K/uL (0-0.5); Eosinophils % (auto) 0.2 %; Hematocrit (blood only) 41.5 % (37-47); Immature Granulocytes # (auto) 0.03 K/uL (0.00-0.02); Immature Granulocytes % (auto) 0.3 %; Lymphocytes # (auto) 0.74 K/uL (1.2-3.4); Lymphocytes % (auto) 6.9 %; Mean Corpuscular Hgb Conc 33.7 g/dL (32-36); Mean Corpuscular Volume 88.9 fL (80-100); Mean Platelet Volume 10.6 fL (7.4-10.4); Monocytes # (auto) 0.57 K/uL (0.11-0.59); Monocytes % (auto) 5.3 %; Neutrophils # (auto) 9.42 K/uL (1.4-6.5); Neutrophils % (auto) 87.2 %; Platelet Count 198 K/uL (130-400); RDW Standard Deviation 42.5 fL (36.4-46.3); Red Blood Count 4.67 M/uL (4.2-5.4); White Blood Count 10.79 K/uL (4.8-10.8)
[2021-07-10 11:51] LABS: Partial Thromboplastin Ratio 0.9; Partial Thromboplastin Time 23.9 Seconds (21.0-31.0); Prothrombin Time 9.9 Seconds (9.0-12.0)
[2021-07-10 12:01] LABS: Calcium 8.8 mg/dl (8.5-10.1); Est GFR (African American) 68.5 ml/min; Est GFR (Non-African American) 59.1 ml/min; Magnesium 1.9 mg/dl (1.7-2.4); Potassium 4.3 mmol/L (3.5-5.1)
--- NOTE | 2021-07-10 12:05 | Cardiology Consultation ---
Date of Consultation July 10, 2021 History of Present Illness Reason for Consultation: Known CAD; Need for preoperative evaluation Attending Physician: Oscar Guerra MD History of Present Illness Patient has had progressive leg discomfort and leg weakness to the point that her right leg is giving out. Consultation with pain management as well as spine surgery it appears the recommendation is going to be to proceed with back surgery early next week. She has not had any further anginal symptoms on her current medical regimen over the last 6 months or so she is limited due to fibromyalgia. She can walk in the grocery store and push the cart. She can climb the basement steps with a small amount of laundry without any symptoms. She denies any lightheadedness dizziness presyncope syncope. She has a lower extremity edema. She denies any TIA or strokelike symptoms. Her appetite and weight have been stable. She denies any orthopnea. She is tolerating her outpatient medical regimen without significant side effects. The rest of her complete her systems otherwise negative Allergies Allergy/AdvReac Type Severity Reaction Status Date / Time No Known Allergies Allergy NONE Verified 07/08/21 09:03 Home Medications Medication Instructions Recorded Confirmed Type clopidogrel 75 mg tablet 75 mg PO QAM #30 tab 01/28/19 07/08/21 Rx amlodipine 5 mg tablet 2.5 mg PO QAM 06/24/19 07/08/21 History lisinopril 40 mg tablet 40 mg PO QAM 06/24/19 07/08/21 History coenzyme Q10 100 mg capsule 200 mg PO HS 12/02/19 07/08/21 History (CoQ-10) vitamin B complex with C-folic 1 tab PO DAILY 12/02/19 07/08/21 History acid 0.8 mg-zinc citrate 50 mg tablet nitroglycerin 0.4 mg sublingual 0.4 mg SUBLINGUAL UD PRN 30 Days 12/04/19 07/08/21 Rx tablet (Nitrostat) #60 tab alpha lipoic acid 600 mg capsule 600 mg PO HS 02/18/20 07/08/21 History aspirin 81 mg tablet,delayed 81 mg PO HS 02/18/20 07/08/21 History release (Ecotrin Low Strength) ezetimibe 10 mg tablet 10 mg PO BID 02/18/20 07/08/21 History azelastine 205.5 mcg (0.15 %) 2 spray INTNAS DAILY PRN #90 ml 06/16/20 07/08/21 Rx nasal spray isosorbide mononitrate 30 mg 30 mg PO BID 30 Days #60 tab 08/26/20 07/08/21 Rx tablet,extended release 24 hr cholecalciferol (vitamin D3) 50 50 mcg PO DAILY 08/28/20 07/08/21 History mcg (2,000 unit) capsule carvedilol 12.5 mg tablet 12.5 mg PO BID #180 tab 03/10/21 07/08/21 Rx diclofenac sodium 1 % topical gel 2 g TOPICAL QID #100 g 05/03/21 07/08/21 Rx (Voltaren Arthritis Pain) hydralazine 10 mg tablet 20 mg PO TID tab 05/03/21 07/08/21 History lansoprazole 30 mg capsule,delayed 30 mg PO DAILY 05/03/21 07/08/21 History release fluoxetine 20 mg capsule 20 mg PO DAILY #30 cap 05/25/21 07/08/21 Rx pregabalin 75 mg capsule (Lyrica) 150 mg PO TID 30 Days #180 cap 06/07/21 07/08/21 Rx trazodone 150 mg tablet 150 mg PO HS #90 tab 06/09/21 07/08/21 Rx oxycodone-acetaminophen 5 mg-325 1 tab PO TID PRN #90 tab 07/06/21 07/08/21 Rx mg tablet duloxetine 60 mg capsule,delayed 60 mg PO BID 07/08/21 07/08/21 History release Patient History Medical History Acute pain of left hip Alopecia Anxiety Arthritis Bilateral leg pain Blepharochalasis CAD (coronary artery disease) Cervicalgia Chronic back pain Chronic blood loss anemia Chronic pain syndrome Constipation COVID-19 hx of, diagnosed 05/29/2020 @ [facility]--sinus pressure, stuffy nose, loss of taste/smell (still does not have back) Cystitis reason for [place] Depression Dermatochalasis Dyslipidemia Dyspareunia Dysuria Eczema Excessive menstruation with irregular cycle Fall Fatigue Fibromyalgia IMAN (generalized anxiety disorder) GERD (gastroesophageal reflux disease) Glaucoma Gross hematuria Heartburn Hip pain, bilateral History of urinary frequency History of urinary hesitancy History of urinary urgency Hypertension Hypokalemia Hyponatremia Interstitial cystitis Left knee pain Lipoma Lumbar degenerative disc disease Malaise and fatigue Muscle spasm Numbness and tingling of left side of face On anticoagulant therapy plavix daily Osteoarthritis Osteopenia Otitis externa, acute Pain, pelvic, female Postmenopausal status Psychological disorder Resistant hypertension Rhinitis Sacroiliac joint pain Shortness of breath Sinus headache STEMI (ST elevation myocardial infarction) 01/26/2019 Dr Nova Steroid-induced hyperglycemia Subacute vulvitis Trigger finger Trochanteric bursitis Urinary tract infection symptoms Uterine leiomyoma Surgical History H/O dilation and curettage H/O: hysterectomy History of blepharoplasty History of cardiac cath x2--OR -> 01/26/19--had 4 stents placed @ [facility] 11/2019 @ [facility], no stents placed History of cataract surgery bilateral History of colonoscopy with polypectomy History of heart artery stent x4 01/2019 @ [facility] History of lumbar spinal fusion S/P cardiac catheterization 12/03/19 Dr. Uri Maravilla- No intervention Status post trigger finger release Family History Mother Myocardial infarction Hypertension Heart disease Brother Myocardial infarction Heart disease Grandmother Ovarian cancer Diabetes Father Diabetes Hypertension Family hx colonic polyps Grandmother (Maternal) Stroke Grandfather (Maternal) Stroke Grandmother (Paternal) Cancer Grandfather (Paternal) Cirrhosis of liver Uncle Heart disease Aunt Heart disease Other No family history of adverse response to anesthesia Denies family history of Prostate cancer Breast cancer Colorectal cancer Social History Smoking Status: Never smoker Second Hand Exposure: No; Hx Alcohol Use: No Hx Substance Use: No Preferred Language: Armenian Communication Ability: Effective 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 Required: No Beliefs That Will Affect Care: None marital status: Current Living Situation: Spouse current occupational status: retired How many Children do You have: 2 Other Information That Helps Us Care for You: No Feels Safe at Home: Yes during the past year weight has: remained stable Dental Care, Regularly: Yes Physical Activity Frequency: Does not Exercise Seatbelt Use: always Do you think of yourself as: straight/heterosexual Assistive Devices: Walker Results & Data ([facility]) Vital Signs (Past 12 Hours) Vital Signs Temp Pulse Resp BP Pulse Ox 07/10/21 07:42 36.9 C 64 16 165/83 H 95 She is awake alert and oriented x3 she is in no acute distress HEENT: 2+ carotid upstrokes no carotid bruits Lungs: Clear to auscultation bilaterally no rales rhonchi or wheezing Heart: Regular rate and rhythm there is a soft systolic ejection murmur at the right sternal border Abdomen: Soft nontender senna positive bowel sounds Extremities: No clubbing cyanosis or edema For inpatient studies were reviewed IMPRESSIONS: 1A. Preoperative valuation prior to low back surgery 1b. Unstable angina 11/2019 with small vessel disease with a 95% ostial very small second diagonal branch which was likely the culprit and a 60% ostial small third diagonal branch; 40% ostial circumflex; widely patent proximal to mid LAD stents 2. Unstable angina disease 02/12/2019) status post angioplasty and stenting with 4 drug-eluting stents to the mid to distal LAD for high-grade stenosis; residual 90% ostial D2 lesion (01/2019). 3. Normal biventricular size and function by echo 03/2021 with an EF in the range of 65% and no regional wall motion abnormalities. 4. Hypertension. 5. Hypertension with a negative renal artery duplex, 04/2019. 6. Worsening myalgias on statin therapy with her fibromyalgia, tolerating Zetia. 7. Hx of Hyponatremia secondary to hydrochlorothiazide. My standpoint she can proceed with surgery. With her current medical regimen she has been very stable as an outpatient without any anginal symptoms. Discussed with her that I believe her risk of cardiac complications is in the range of 2 to 3% and this includes heart attack dying from cardiac causes arrhythmias and congestive heart failure. I think her greatest risk would be that of angina postoperatively. The good news is she is in a fair amount of discomfort currently which is driving her blood pressure and she is not having worsening anginal symptoms. It with her being off Plavix for the procedure. She needs to remain on 81 mg of aspirin given the extent of her coronary artery disease. If her blood pressures continue to remain elevated options include increasing her amlodipine from 5 mg to 10 mg more increasing her hydralazine to 25 mg 3 times daily. I am sure that her blood pressure is being driven due to her leg discomfort as well as her own stress and anxiety over the potential need for surgery. We will continue to follow her with you
--- NOTE | 2021-07-10 12:33 | XRay Report ---
XR chest 2V PA/lateral CLINICAL HISTORY: Preoperative evaluation. COMPARISON STUDY: Chest radiograph April 15, 2021. FINDINGS: Lung volumes are at the lower limits of normal, unchanged. There is no pneumothorax or pleu ral effusion. There is no consolidation or evidence for pulmonary edema. Subtle lower lung interstiti al thickening is unchanged and probably chronic. Cardiomediastinal silhouette is stable. Minimal ling ular opacity favors atelectasis. IMPRESSION: No acute cardiopulmonary findings. ACT 112: Negative or not required by law. Electronically signed by: Zack Villela M.D. 07/10/2021 12:31 PM
[2021-07-10] MEDS: ASPIRIN 81 MG ECTAB PO SCH (13:41)
[2021-07-10 13:56] LABS: Appearance Urine Clear (Clear); Bacteria Urine Automated Negative (Negative); Bilirubin Urine Negative (Negative); Blood Urine Negative (Negative); Cast Urine Automated 0 /lpf (0-5); Color Urine Yellow; Epithelial Cell Urine Auto 20-30 /lpf (0-5); Glucose Urine UA Negative (Negative); Ketones Urine Negative (Negative); Leukocyte Esterase Urine 2+ (Negative); Nitrite Urine Negative (Negative); Protein Urine Negative (Negative); RBC Urine Automated 0-4 /hpf (0-4); Specific Gravity Urine 1.014 (1.000-1.030); Urobilinogen Urine Negative (Negative)
--- NOTE | 2021-07-10 14:07 | Hospitalist Progress Note ---
Date of Service July 10, 2021 Assessment & Plan (1) Lumbar degenerative disc disease: Plan: Patient presented to the ED with increased back pain X 5 days (abrupt in onset causing inability to ambulate) with radiculopathy to the right lower extremity. No bowel or bladder incontinence or saddle anesthesias noted -Pain management on board. Pain improved but not resolved. Patient receiving -- Decadron 4 mg IV daily -- Oxycodone 10 mg every 6 hours as needed -- IV morphine sulfate for breakthrough pain -MRI showing severe right foraminal narrowing and impingement of the nerve root with questionable sequestered fragments of L3-L4 -Spine surgeon consulted. Seen today and plan is for potential surgical intervention Monday or Monday -We will need PT/OT postoperatively -Preoperative work-up will be completedsee below (2) UTI (urinary tract infection): Plan: - Likely asymptomatic bacteria but given need for potential surgical intervention, treated. - Urine culture with Enterococcus. Rx: Amoxil. Will need 3 days of Tx for uncomplicated UTI (3) CAD (coronary artery disease): Plan: - Patient with underlying CAD. Follows Dr. Hinds - Per review of records, last cardiac catheterization 12/13: with small vessel disease with a 95% ostial very small second diagonal branch and a 60% ostial small third diagonal branch; 40% ostial circumflex; widely patent proximal to mid LAD stents - echocardiogram: EF 55-60%/ LV wall motion normal. Moderate concentric LVH. Grade I DD. Mild MR. Mild TR. 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 Appreciate recommendations. Her cardiac risk assessment is 2+ (4) Fibromyalgia: Plan: Chronic and ongoing -Continue Cymbalta. Noted the patient also taking Prozac in addition, she reports that she is prescribed both of these medications (5) Hypertension: Plan: BP currently 165/83. (has been elevated) -Takes lisinopril, Norvasc, Imdur, Hydralazine, and carvedilol -Accelerated BP may be pain related. -add clonidine prn (with parameters) -monitor and adjust routine meds if needed (6) Anxiety: Plan: - Continue Prozac, Cymbalta, Plan: change to FA given improved but continued pain and potential need for surgical intervention. Ortho (Dr. Tapia) and Cardiology (Dr. Nova) on board. plan of care to be d/w Dr. Guerra. Further orders as warranted. Admission and Anticipated Discharge Date Admission Date: July 10, 2021 Subjective Patient seen on daily rounds today. Reports improvement in her low back pain but still with pain and radiation of pain into her right lower extremity which is causing persistent ambulatory dysfunction. Was seen by Ortho/spine surgeon and there is consideration for surgical intervention early next week. Patient does have an underlying history of cardiac disease and follows Dr. Partida. Patient with history of NSTEMI. Cardiac catheterization done 05/14 resulting in 4 drug-eluting stents to the mid to distal LAD for high-grade stenosis. Follow-up cardiac catheterization done 12/13: with small vessel disease with a 95% ostial very small second diagonal branch and a 60% ostial small third diagonal branch; 40% ostial circumflex; widely patent proximal to mid LAD stents echo done 04/15: EF 55-60%/ LV wall motion normal. Moderate concentric LVH. Grade I DD. Mild MR. Mild TR. Currently, patient denies chest pain, shortness of breath, abdominal pain, nausea or vomiting. She is able to ambulate up and down the stairs (typically) without chest pain. Ultimately, having issues ambulating at the moment given her increased back discomfort. Review of Systems Review of Systems: All systems reviewed and are unremarkable except as noted in HPI and below Denies fevers, chills, headache, nasal congestion, sore throat, cough, chest pain, shortness of breath, palpitations, orthopnea, PND, abdominal pain, nausea, vomiting, diarrhea, constipation, dysuria, hematuria, frequency, back pain, or swelling, easy bruising or bleeding, skin lesions or rashes. Physical Exam Physical Exam: General: Resting comfortably in her hospital bed. NAD. HEENT: Head is AT/NC buccal mucosa is moist and pink Neck: No JVD. Negative hepatojugular reflex Cardiac: RRR with 1/6 to 2/6 LAITH Lungs: CTA without W/R/R Abdomen: Normoactive X4. Soft and nontender in all quadrants. Extremities: Positive straight leg raise on the right Neuro: A&O X4 cranial nerves II through XII are grossly intact no focal neuro deficits Skin: No obvious skin lesions or rashes Psych: Appropriate affect pleasant and cooperative Results & Data Results & Data ([facility]) Vital Signs (Past 12 Hours) Vital Signs Temp Pulse Resp BP Pulse Ox 07/10/21 07:42 36.9 C 64 16 165/83 H 95 Laboratory Results 07/10/21 11:01 07/10/21 11:01 PG Care Time/CCT Total # of Minutes Spent Total Time Spent with Patient: Total time spent is greater than 50% in coordination of care (as documented) at patient's floor/unit and/or counseling patient: Coding Level of Care Code 52748 Subseq Hosp Care Lvl 2 Diagnoses Lumbar degenerative disc disease M51.36 UTI (urinary tract infection) N39.0 CAD (coronary artery disease) I25.10 Fibromyalgia M79.7 Hypertension I10 Hypertension type: essential hypertension Anxiety F41.9 (1) Hypertension Hypertension type: essential hypertension Qualified Code(s): I10 - Essential (primary) hypertension
[2021-07-10] MEDS ORDERED: cloNIDine HCL 0.1 MG TAB PO PRN (14:29)
[2021-07-10] MEDS: traZODone HCL 50 MG TAB PO SCH (20:36)
[2021-07-10] MEDS: LATANOPROST 0.005% OP SOLN 2.5 ML BTL OPB SCH (20:40)
[2021-07-10] MEDS: PENTOSAN POLYSULFATE SODIUM 100 MG CAP PO SCH (20:41)
[2021-07-11] MEDS: KETOROLAC TROMETHAMINE 15 MG/ML VIAL IV PRN ×2 (05:49→13:04)
[2021-07-11] MEDS: ACETAMINOPHEN 500 MG TAB PO SCH ×3 (07:37→21:03)
[2021-07-11] MEDS: oxyCODONE HCL IR 5 MG TAB (IMMEDIATE RELEASE) PO PRN ×2 (07:37→14:10)
[2021-07-11] MEDS: carvediloL 12.5 MG TAB PO SCH ×2 (07:38→21:04)
[2021-07-11] MEDS: ISOSORBIDE MONO EXTENDED REL 30 MG TABCR PO SCH ×2 (07:38→21:05)
[2021-07-11] MEDS: VITAMIN B COMPLEX TAB PO SCH (07:39)
[2021-07-11] MEDS: DULoxetine HCL 60 MG CAP PO SCH ×2 (07:39→21:05)
[2021-07-11] MEDS: amLODIPine BESYLATE 5 MG TAB PO SCH ×2 (07:40→09:48)
[2021-07-11] MEDS: ASPIRIN 81 MG ECTAB PO SCH (07:40)
[2021-07-11] MEDS: EZETIMIBE 10 MG TABLET PO SCH (07:40)
[2021-07-11] MEDS: AMOXICILLIN 500 MG CAP PO SCH ×2 (07:41→21:04)
[2021-07-11] MEDS: lisinopril 40 MG TAB PO SCH (07:43)
[2021-07-11] MEDS: ENOXAPARIN INJ 40 MG/0.4 ML SYR SQ SCH (07:43)
[2021-07-11] MEDS: FLUoxetine HCL 20 MG CAP PO SCH (07:43)
[2021-07-11] MEDS: PANTOprazole 40 MG TAB PO SCH (07:43)
[2021-07-11] MEDS: CHOLECALCIFEROL 1,000 UNITS 25 MCG TAB PO SCH (07:44)
[2021-07-11] MEDS: hydrALAZINE 10 MG TAB PO SCH ×3 (07:45→21:05)
[2021-07-11] MEDS: DICLOFENAC SOD 1% GEL 100 GM TUBE EXT SCH ×4 (07:46→21:04)
[2021-07-11] MEDS: dexAMETHasone 4 MG in SYRINGE 0 ML IV SCH (07:46)
[2021-07-11] MEDS: PREGABALIN 150 MG CAP PO SCH ×3 (07:47→21:06)
[2021-07-11] MEDS: PENTOSAN POLYSULFATE SODIUM 100 MG CAP PO SCH ×3 (07:47→21:06)
[2021-07-11] MEDS: LIDOCAINE 5% 1 PATCH TD SCH (07:47)
[2021-07-11 08:02] LABS: BUN Creatinine Ratio 30.3 (10-20); Calcium 8.7 mg/dl (8.5-10.1); Creatinine Clr Calc Pharmacy 86.4 ml/min; Est GFR (African American) 107.4 ml/min; Est GFR (Non-African American) 92.7 ml/min; Potassium 3.7 mmol/L (3.5-5.1)
--- NOTE | 2021-07-11 08:06 | Hospitalist Progress Note ---
Date of Service July 11, 2021 Assessment & Plan (1) Lumbar degenerative disc disease: Plan: Patient presented to the ED with increased back pain X 5 days (acute on c hronic-- now causing inability to ambulate) with radiculopathy to the right lower extremity. No bowel or bladder incontinence or saddle anesthesias noted -Pain management on board. Pain improved but not resolved. Patient receiving -- Decadron 4 mg IV daily -- Oxycodone 10 mg every 6 hours as needed -- IV morphine sulfate for breakthrough pain -MRI showing severe right foraminal narrowing and impingement of the nerve root with questionable sequestered fragments of L3-L4 -Spine surgeon consulted. Plan is for potential surgical intervention Monday or Monday (will make NPO after midnight tonight and hold AM lovenox in plan for potential surgical intervention tomorrow) -We will need PT/OT postoperatively -Preoperative work-up completed and seen by cardiology and deemed appropriate risk for surgery with recommendations to continue ASA perioperatively (2) UTI (urinary tract infection): Plan: - Likely asymptomatic bacteria but given need for potential surgical intervention, treated. - Urine culture with Enterococcus. Rx: Amoxil. Will need 3 days of Tx for uncomplicated UTI (last day 07/12) (3) CAD (coronary artery disease): Plan: - Patient with underlying CAD. Follows Dr. Hinds - Per review of records, last cardiac catheterization 12/13: with small vessel disease with a 95% ostial very small second diagonal branch and a 60% ostial small third diagonal branch; 40% ostial circumflex; widely patent proximal to mid LAD stents - echocardiogram: EF 55-60%/ LV wall motion normal. Moderate concentric LVH. Grade I DD. Mild MR. Mild TR. 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 Noted the patient also taking Prozac in addition-- she reports that she is prescribed BOTH of these medications (5) Hypertension: Plan: BP currently 177/99. (has been elevated). Reports "always high" but pain and anxiety of surgery and being in a hospital could be contributing -Takes lisinopril, Norvasc, Imdur, Hydralazine, and carvedilol -increase norvasc to 10mg -clonidine prn on board(with parameters) -monitor and continue to adjust routine meds if needed (6) Anxiety: Plan: - Continue Prozac, Cymbalta, Plan: Ortho (Dr. Tapia) and Cardiology (Dr. Nova) on board. plan of care to be d/w Dr. Guerra. Further orders as warranted. Admission and Anticipated Discharge Date Admission Date: July 10, 2021 Subjective Patient seen on daily rounds today. Having significant pain in her right leg and lower back this morning. BP increased with this. Has been seen by cardiology and deemed appropriate for surgery. Currently, denies F/C, CP, SOB, abd pain, N/V. Review of Systems Review of Systems: All systems reviewed and are unremarkable except as noted in HPI and below Denies fevers, chills, headache, nasal congestion, sore throat, cough, chest pain, shortness of breath, palpitations, orthopnea, PND, abdominal pain, nausea, vomiting, diarrhea, constipation, dysuria, hematuria, frequency, or swelling, easy bruising or bleeding, skin lesions or rashes. Physical Exam Physical Exam: General: Resting comfortably in her hospital bed. NAD. HEENT: Head is AT/NC buccal mucosa is moist and pink Neck: No JVD. Negative hepatojugular reflex Cardiac: RRR with 1/6 to 2/6 LAITH Lungs: CTA without W/R/R Abdomen: Normoactive X4. Soft and nontender in all quadrants. Extremities: Positive straight leg raise on the right Neuro: A&O X4 cranial nerves II through XII are grossly intact no focal neuro deficits Skin: No obvious skin lesions or rashes Psych: Appropriate affect pleasant and cooperative Results & Data Results & Data ([facility]) Vital Signs (Past 12 Hours) Vital Signs Temp Pulse Resp BP Pulse Ox 07/11/21 07:34 36.5 C 59 L 16 177/99 H 94 07/10/21 23:57 36.7 C 60 16 164/83 H 95 07/10/21 20:41 64 170/94 H Laboratory Results 07/10/21 11:01 07/11/21 06:50 PG Care Time/CCT Total # of Minutes Spent Total Time Spent with Patient: Total time spent is greater than 50% in coordination of care (as documented) at patient's floor/unit and/or counseling patient: Coding Level of Care Code 02781 Subseq Hosp Care Lvl 2 Diagnoses Lumbar degenerative disc disease M51.36 UTI (urinary tract infection) N39.0 CAD (coronary artery disease) I25.10 Fibromyalgia M79.7 Hypertension I10 Hypertension type: essential hypertension Anxiety F41.9 (1) Hypertension Hypertension type: essential hypertension Qualified Code(s): I10 - Essential (primary) hypertension
--- NOTE | 2021-07-11 11:16 | Cardiology Progress Note ---
Date of Service July 11, 2021 Assessment & Plan Admission and Anticipated Discharge Date Admission Date: July 10, 2021 Subjective She remains in a fair amount of discomfort this morning. She denies any chest pain chest pressure chest heaviness. She has any shortness of breath. She has a lightheadedness dizziness presyncope syncope. She has no lower extremity edema. She anticipates surgery either tomorrow or Monday. She denies any palpitations or fluttering. Results & Data ([facility]) Vital Signs (Past 12 Hours) Vital Signs Temp Pulse Resp BP Pulse Ox 07/11/21 09:49 100/60 07/11/21 07:34 36.5 C 59 L 16 177/99 H 94 07/10/21 23:57 36.7 C 60 16 164/83 H 95 She is awake alert and oriented x3 she is in no acute distress HEENT: 2+ carotid upstrokes no carotid bruits Lungs: Clear to auscultation bilaterally no rales rhonchi or wheezing Heart: Regular rate and rhythm there is a soft systolic ejection murmur at the right sternal border Abdomen: Soft nontender senna positive bowel sounds Extremities: No clubbing cyanosis or edema For inpatient studies were reviewed IMPRESSIONS: 1A. Preoperative valuation prior to low back surgery 1b. Unstable angina 11/2019 with small vessel disease with a 95% ostial very small second diagonal branch which was likely the culprit and a 60% ostial small third diagonal branch; 40% ostial circumflex; widely patent proximal to mid LAD stents 2. Unstable angina disease 02/12/2019) status post angioplasty and stenting with 4 drug-eluting stents to the mid to distal LAD for high-grade stenosis; residual 90% ostial D2 lesion (01/2019). 3. Normal biventricular size and function by echo 03/2021 with an EF in the range of 65% and no regional wall motion abnormalities. 4. Hypertension. 5. Hypertension with a negative renal artery duplex, 04/2019. 6. Worsening myalgias on statin therapy with her fibromyalgia, tolerating Zetia. 7. Hx of Hyponatremia secondary to hydrochlorothiazide. My standpoint she can proceed with surgery. With her current medical regimen she has been very stable as an outpatient without any anginal symptoms. Discussed with her that I believe her risk of cardiac complications is in the range of 2 to 3% and this includes heart attack dying from cardiac causes arrhythmias and congestive heart failure. I think her greatest risk would be that of angina postoperatively. The good news is she is in a fair amount of discomfort currently which is driving her blood pressure and she is not having worsening anginal symptoms. It is okay with her being off Plavix for the procedure. She needs to remain on 81 mg of aspirin given the extent of her coronary artery disease. Her amlodipine was increased today to 10 mg. If her blood pressure still remains elevated especially postoperatively with adequate pain control her hydralazine can be increased to 25 mg 3 times daily and potentially to 50 mg 3 times daily if necessary. Currently she is not having anginal symptoms or heart failure symptoms and is overall relatively stable. There is no room to increase her beta-blockers given her relative bradycardia.
--- NOTE | 2021-07-11 13:37 | Orthopedic Progress Note ---
Date of Service July 11, 2021 Assessment & Plan (1) Lumbar radiculopathy: Plan: Assessment foraminal disc herniation L3-L4 on the right with severe radiculopathy and progressive strength deficit. She also exhibits neuroforaminal disease L5-S1 on the left which has been more chronic in nature and is failed extensive course of nonoperative care. At this time she has clear neural deficit progressive pain and would like to consider surgical mention. Would require a lumbar decompression fusion L3-L4 with possible decompression fusion L5-S1 and removal of instrumentation L4-L5. Risk benefits pros cons alternatives were outlined in detail. This time we will make her n.p.o. and plan for possible surgery as soon as tomorrow. Admission and Anticipated Discharge Date Admission Date: July 10, 2021 Subjective Patient continues to complain of severe right anterior thigh pain as well as left buttock pain. She does have a history of undergoing several epidural injections prickly with attempts at controlling left buttock pain. They have failed any long-term relief. Apparently there is been some discussion in the past about the dorsal column stimulator. Physical Exam Physical Exam: Patient is in obvious distress. She does have deficits to right quadricep and hip flexors. Results & Data ([facility]) Vital Signs (Past 12 Hours) Vital Signs Temp Pulse Resp BP Pulse Ox 07/11/21 09:49 100/60 07/11/21 07:34 36.5 C 59 L 16 177/99 H 94
[2021-07-11] MEDS: oxyCODONE/ACETAMINOPHEN 5mg/325mg TAB PO PRN (21:03)
[2021-07-11] MEDS: LATANOPROST 0.005% OP SOLN 2.5 ML BTL OPB SCH (21:05)
[2021-07-11] MEDS: traZODone HCL 50 MG TAB PO SCH (21:06)
[2021-07-12] MEDS: ISOSORBIDE MONO EXTENDED REL 30 MG TABCR PO SCH ×2 (07:50→21:21)
[2021-07-12] MEDS: PENTOSAN POLYSULFATE SODIUM 100 MG CAP PO SCH ×3 (07:50→21:21)
[2021-07-12] MEDS: PREGABALIN 150 MG CAP PO SCH ×3 (07:50→21:22)
[2021-07-12] MEDS: hydrALAZINE 10 MG TAB PO SCH ×3 (07:51→21:20)
[2021-07-12] MEDS: AMOXICILLIN 500 MG CAP PO SCH ×2 (07:51→21:18)
[2021-07-12] MEDS: ACETAMINOPHEN 500 MG TAB PO SCH ×3 (07:51→21:18)
[2021-07-12] MEDS: carvediloL 12.5 MG TAB PO SCH ×2 (07:51→21:20)
[2021-07-12] MEDS: DULoxetine HCL 60 MG CAP PO SCH ×2 (07:51→21:20)
[2021-07-12] MEDS: lisinopril 40 MG TAB PO SCH (07:52)
[2021-07-12] MEDS: PANTOprazole 40 MG TAB PO SCH (07:53)
[2021-07-12] MEDS: EZETIMIBE 10 MG TABLET PO SCH (07:53)
[2021-07-12] MEDS: CHOLECALCIFEROL 1,000 UNITS 25 MCG TAB PO SCH (07:53)
[2021-07-12] MEDS: amLODIPine BESYLATE 5 MG TAB PO SCH (07:53)
[2021-07-12] MEDS: dexAMETHasone 4 MG in SYRINGE 0 ML IV SCH (07:54)
[2021-07-12] MEDS: VITAMIN B COMPLEX TAB PO SCH (07:54)
[2021-07-12] MEDS: ASPIRIN 81 MG ECTAB PO SCH (07:54)
[2021-07-12] MEDS: DICLOFENAC SOD 1% GEL 100 GM TUBE EXT SCH ×4 (07:55→21:20)
[2021-07-12] MEDS: LIDOCAINE 5% 1 PATCH TD SCH ×2 (07:55→09:35)
--- NOTE | 2021-07-12 09:27 | Hospitalist Progress Note ---
Date of Service July 12, 2021 Assessment & Plan (1) Lumbar degenerative disc disease: Plan: Patient presented to the ED with increased back pain X 5 days (acute on chronic-- now causing inability to ambulate) with radiculopathy to the right lower extremity. No bowel or bladder incontinence or saddle anesthesias noted -Has been seen by Pain mgmt.Ffailing conservative measure at this point with -- Decadron 4 mg IV daily -- Oxycodone 10 mg every 6 hours as needed -- IV morphine sulfate for breakthrough pain -MRI showing severe right foraminal narrowing and impingement of the nerve root with questionable sequestered fragments of L3-L4 -seen by Spine surgeon and plan is for surgical intervention today -We will need PT/OT postoperatively -Preoperative work-up completed and seen by cardiology. Deemed appropriate risk for surgery with recommendations to continue ASA perioperatively (2) UTI (urinary tract infection): Plan: - Likely asymptomatic bacteria but given need for potential surgical intervention, treated. - Urine culture with Enterococcus. Rx: Amoxil. Will need 3 days of Tx for uncomplicated UTI (last day 07/12) (3) CAD (coronary artery disease): Plan: - Patient with underlying CAD. Follows Dr. Hinds - Per review of records, last cardiac catheterization 12/13: with small vessel disease with a 95% ostial very small second diagonal branch and a 60% ostial small third diagonal branch; 40% ostial circumflex; widely patent proximal to mid LAD stents - echocardiogram: EF 55-60%/ LV wall motion normal. Moderate concentric LVH. Grade I DD. Mild MR. Mild TR. - see by cardiology who is recommending continuation or ASA perioperatively and withholding plavix (which will be started 48 hours postoperatively) - deemed appropriate risk for surgery by cardiology-- appreciate recommendations - continue Imdur, BB, Zetia as [employer] (4) Fibromyalgia: Plan: Chronic and ongoing -Continue Cymbalta. -was noted to be on Prozac in addition. Patient now reporting that she no longer takes this medication. EMAR adjusted to reflect this. (5) Hypertension: Plan: BP currently 177/99. (has been elevated). Reports "always high" but pain and anxiety of surgery and being in a hospital could be contributing -Takes lisinopril, Norvasc, Imdur, Hydralazine, and carvedilol -Norvasc increased to 10mg (BP currently elevated at 171/85 but hasn't yet had am meds. yesterday afternoon was 100/60) -clonidine prn on board (with parameters) -monitor and continue to adjust routine meds if needed (6) Anxiety: Plan: - Continue Cymbalta, Plan: Ortho (Dr. Tapia) and Cardiology (Dr. Nova) on board. plan of care to be d/w Dr. Guerra. Further orders as warranted. Admission and Anticipated Discharge Date Admission Date: July 10, 2021 Subjective Patient seen on daily rounds today. Reports back pain "pretty intense". Seen by Dr. Tapia lastnight and plan is for OR today for surgical intervention. Currently, denies F/c, CP, SOB, abd pain, N/V. Review of Systems Review of Systems: All systems reviewed and are unremarkable except as noted in HPI and below Denies fevers, chills, headache, nasal congestion, sore throat, cough, chest pain, shortness of breath, palpitations, orthopnea, PND, abdominal pain, nausea, vomiting, diarrhea, constipation, dysuria, hematuria, frequency, or swelling, easy bruising or bleeding, skin lesions or rashes. Physical Exam Physical Exam: General: Resting comfortably in her hospital bed. NAD. HEENT: Head is AT/NC buccal mucosa is moist and pink Neck: No JVD. Negative hepatojugular reflex Cardiac: RRR with 1/6 to 2/6 LAITH Lungs: CTA without W/R/R Abdomen: Normoactive X4. Soft and nontender in all quadrants. Extremities: Positive straight leg raise on the right Neuro: A&O X4 cranial nerves II through XII are grossly intact no focal neuro deficits Skin: No obvious skin lesions or rashes Psych: Appropriate affect pleasant and cooperative Results & Data Results & Data ([facility]) Vital Signs (Past 12 Hours) Vital Signs Temp Pulse Resp BP Pulse Ox 07/12/21 07:44 36.8 C 65 18 181/83 H 95 PG Care Time/CCT Total # of Minutes Spent Total Time Spent with Patient: Total time spent is greater than 50% in coordination of care (as documented) at patient's floor/unit and/or counseling patient: Coding Level of Care Code 95631 Subseq Hosp Care Lvl 1 Diagnoses Lumbar degenerative disc disease M51.36 UTI (urinary tract infection) N39.0 CAD (coronary artery disease) I25.10 Fibromyalgia M79.7 Hypertension I10 Hypertension type: essential hypertension Anxiety F41.9 (1) Hypertension Hypertension type: essential hypertension Qualified Code(s): I10 - Essential (primary) hypertension
--- NOTE | 2021-07-12 09:28 | Orthopedic Progress Note ---
Date of Service July 12, 2021 Assessment & Plan (1) Lumbar disc herniation with radiculopathy: Plan: This time awaiting formal authorization for much-needed procedure. She is requiring IV narcotics for pain control. There is currently some staffing limitations in the OR today and subsequently I would allow her to eat and plan for surgery tomorrow in the a.m. Admission and Anticipated Discharge Date Admission Date: July 10, 2021 Subjective Patient continues to have severe right leg pain and left buttock discomfort. Physical Exam Physical Exam: Patient is currently in the chair at bedside. She is not comfortable standing and walking any distance. She patient is then used to demonstrate evidence of strength deficit to the right quadricep. Results & Data ([facility]) Vital Signs (Past 12 Hours) Vital Signs Temp Pulse Resp BP Pulse Ox 07/12/21 07:44 36.8 C 65 18 181/83 H 95
--- NOTE | 2021-07-12 11:21 | Electrocardiogram Report ---
Test Reason : Blood Pressure : / mmHG Vent. Rate : 065 BPM Atrial Rate : 065 BPM P-R Int : 140 ms QRS Dur : 084 ms QT Int : 402 ms P-R-T Axes : 059 047 033 degrees QTc Int : 418 ms Normal sinus rhythm Normal ECG When compared with ECG of 16-APR-2021 04:57, No significant change was found Confirmed by Boston Ruelas ([id number]) on 07/12/2021 11:20:31 AM Referred By: REFERRED SELF Confirmed By:Boston Ruelas
--- NOTE | 2021-07-12 12:38 | Anesthesiology Consultation ---
Date of Service July 12, 2021 Assessment & Plan (1) Encounter for pre-operative examination: Chart Review Chart Review: Acceptable Risk for Surgery and Patient NOT seen in Pre Admission Testing Consults Requested none Per consult note place by Dr. Nova 07/10/2021 "IMPRESSIONS: 1A. Preoperative valuation prior to low back surgery 1b. Unstable angina 11/2019 with small vessel disease with a 95% ostial very small second diagonal branch which was likely the culprit and a 60% ostial small third diagonal branch; 40% ostial circumflex; widely patent proximal to mid LAD stents 2. Unstable angina disease 02/12/2019) status post angioplasty and stenting with 4 drug-eluting stents to the mid to distal LAD for high-grade stenosis; residual 90% ostial D2 lesion (01/2019). 3. Normal biventricular size and function by echo 03/2021 with an EF in the range of 65% and no regional wall motion abnormalities. 4. Hypertension. 5. Hypertension with a negative renal artery duplex, 04/2019. 6. Worsening myalgias on statin therapy with her fibromyalgia, tolerating Zetia. 7. Hx of Hyponatremia secondary to hydrochlorothiazide. My standpoint she can proceed with surgery. With her current medical regimen s he has been very stable as an outpatient without any anginal symptoms. Discussed with her that I believe her risk of cardiac complications is in the range of 2 to 3% and this includes heart attack dying from cardiac causes arrhythmias and congestive heart failure. I think her greatest risk would be that of angina postoperatively. The good news is she is in a fair amount of discomfort currently which is driving her blood pressure and she is not having worsening anginal symptoms." Additional Notes 65 yo female with multiple comorbidities scheduled for L4/L5 lumbar decompression, fusion and hardware removal. Per cardiology evaluation patient is higher risk for perioperative cardiac complications but currently optimized for planned procedure. Type and screen order placed. History Surgery Operation Date: 07/12/21 07:00 Proposed Procedures p L3-L4 L5-S1 Decompression Fusion L4-L5 Hardware Removal - Connor Tapia DO Operation Date: 07/13/21 12:40 Proposed Procedures p L3-L4, L5-S1 Decompression Fusion, L4-L5 Hardware Removal - Connor Tapia DO Height/Weight Height: 5 ft 5 in Weight: 75.5 kg Allergies Allergy/AdvReac Type Severity Reaction Status Date / Time No Known Allergies Allergy NONE Verified 07/08/21 09:03 Medications Home Medications Medication Instructions Recorded Confirmed Last Taken clopidogrel 75 mg tablet 75 mg PO QAM #30 tab 01/28/19 07/08/21 04/15/21 amlodipine 5 mg tablet 2.5 mg PO QAM 06/24/19 07/08/21 04/15/21 lisinopril 40 mg tablet 40 mg PO QAM 06/24/19 07/08/21 04/15/21 coenzyme Q10 100 mg capsule 200 mg PO HS 12/02/19 07/08/21 04/14/21 (CoQ-10) vitamin B complex with C-folic 1 tab PO DAILY 12/02/19 07/08/21 04/15/21 acid 0.8 mg-zinc citrate 50 mg tablet nitroglycerin 0.4 mg sublingual 0.4 mg SUBLINGUAL UD PRN 30 Days 12/04/19 07/08/21 Unknown tablet (Nitrostat) #60 tab alpha lipoic acid 600 mg capsule 600 mg PO HS 02/18/20 07/08/21 04/14/21 aspirin 81 mg tablet,delayed 81 mg PO HS 02/18/20 07/08/21 04/14/21 release (Ecotrin Low Strength) ezetimibe 10 mg tablet 10 mg PO BID 02/18/20 07/08/21 04/15/21 08:00 azelastine 205.5 mcg (0.15 %) 2 spray INTNAS DAILY PRN #90 ml 06/16/20 07/08/21 Unknown nasal spray isosorbide mononitrate 30 mg 30 mg PO BID 30 Days #60 tab 08/26/20 07/08/21 04/15/21 08:00 tablet,extended release 24 hr cholecalciferol (vitamin D3) 50 50 mcg PO DAILY 08/28/20 07/08/21 04/15/21 mcg (2,000 unit) capsule carvedilol 12.5 mg tablet 12.5 mg PO BID #180 tab 03/10/21 07/08/21 04/15/21 08:00 diclofenac sodium 1 % topical gel 2 g TOPICAL QID #100 g 05/03/21 07/08/21 Unknown (Voltaren Arthritis Pain) hydralazine 10 mg tablet 20 mg PO TID tab 05/03/21 07/08/21 Unknown lansoprazole 30 mg capsule,delayed 30 mg PO DAILY 05/03/21 07/08/21 Unknown release fluoxetine 20 mg capsule 20 mg PO DAILY #30 cap 05/25/21 07/08/21 Unknown pregabalin 75 mg capsule (Lyrica) 150 mg PO TID 30 Days #180 cap 06/07/21 07/08/21 Unknown trazodone 150 mg tablet 150 mg PO HS #90 tab 06/09/21 07/08/21 Unknown oxycodone-acetaminophen 5 mg-325 1 tab PO TID PRN #90 tab 07/06/21 07/08/21 Unknown mg tablet duloxetine 60 mg capsule,delayed 60 mg PO BID 07/08/21 07/08/21 Unknown release Active Medications Generic Name Dose Route Start Last Admin Trade Name Freq PRN Reason Stop Dose Admin Acetaminophen 1,000 mg 07/08/21 14:00 07/12/21 07:51 Acetaminophen 500 Mg Tab PO 08/07/21 13:59 1,000 mg TID RINA Administration Amlodipine Besylate 10 mg 07/11/21 09:00 07/12/21 07:53 Amlodipine Besylate 5 Mg Tab PO 08/10/21 08:59 10 mg QAM RINA Administration Amoxicillin 1,000 mg 07/09/21 21:00 07/12/21 07:51 Amoxicillin 500 Mg Cap PO 07/14/21 20:59 1,000 mg BID RINA Administration Aspirin 81 mg 07/10/21 12:15 07/12/21 07:54 Aspirin 81 Mg Ectab PO 08/09/21 12:14 Not Given QAM RINA Carvedilol 12.5 mg 07/08/21 21:00 07/12/21 07:51 Carvedilol 12.5 Mg Tab PO 08/07/21 20:59 12.5 mg BID RINA Administration Clonidine HCl 0.1 mg 07/10/21 14:29 07/11/21 07:42 Clonidine Hcl 0.1 Mg Tab PO 08/09/21 14:28 0.1 mg Q6H PRN Administration sbp >/=160, DBP >/=110 Diclofenac Sodium 2 gm 07/08/21 13:00 07/12/21 07:55 Diclofenac Sod 1% Gel 100 Gm Tube EXT 08/07/21 12:59 2 gm QID RINA Administration Duloxetine HCl 60 mg 07/08/21 21:00 07/12/21 07:51 Duloxetine Hcl 60 Mg Cap PO 08/07/21 20:59 60 mg BID RINA Administration Ezetimibe 10 mg 07/09/21 09:00 07/12/21 07:53 Ezetimibe 10 Mg Tablet PO 08/08/21 08:59 10 mg DAILY RINA Administration Protocol Enoxaparin Sodium 40 mg 07/10/21 09:00 07/11/21 07:43 Enoxaparin Inj 40 Mg/0.4 Ml Syr SQ 08/09/21 08:59 40 mg QAM RINA Administration Hydralazine HCl 20 mg 07/08/21 14:00 07/12/21 07:51 Hydralazine 10 Mg Tab PO 08/07/21 13:59 20 mg TID RINA Administration Dexamethasone 4 mg/ Syringe 1 mls @ 1 mls/min 07/08/21 13:00 07/12/21 07:54 IV 08/07/21 12:59 1 mls/min DAILY RINA Administration Isosorbide Mononitrate 30 mg 07/08/21 21:00 07/12/21 07:50 Isosorbide [place] Extended Rel 30 Mg Tabcr PO 08/07/21 20:59 30 mg BID RINA Administration Ketorolac Tromethamine 15 mg 07/08/21 20:00 07/11/21 13:04 Ketorolac Tromethamine 15 Mg/Ml Vial IV 07/13/21 19:59 15 mg Q6H PRN Administration Pain Latanoprost 1 drops 07/09/21 21:00 07/11/21 21:05 Latanoprost 0.005% Op Soln 2.5 Ml Btl OPB 08/08/21 20:59 1 drops HS RINA Administration Lidocaine 1 patch 07/08/21 12:23 07/12/21 09:35 Lidocaine 5% 1 Patch TD 08/07/21 12:22 1 patch QAM RINA Administration Lisinopril 40 mg 07/09/21 09:00 07/12/21 07:52 Lisinopril 40 Mg Tab PO 08/08/21 08:59 40 mg QAM RINA Administration Miscellaneous 1 ea 07/08/21 21:00 07/11/21 21:06 Remove Lidoderm Patch N/A 08/07/21 20:59 1 ea DAILY@2100 RINA Administration Morphine Sulfate 2 mg 07/08/21 12:23 07/11/21 09:53 Morphine Sulfate 2 Mg/Ml Carp IV 07/22/21 12:22 2 mg Q4 PRN Administration Pain2-6/10 Oxycodone HCl 10 mg 07/08/21 12:23 07/11/21 14:10 Oxycodone Hcl Ir 5 Mg Tab (Immediate Release) PO 07/22/21 12:22 10 mg Q6H PRN Administration Moderate Pain 4-6/10 Oxycodone/Acetaminophen 1 tab 07/08/21 12:23 07/11/21 21:03 Oxycodone/Acetaminophen 5mg/325mg Tab PO 07/22/21 12:22 1 tab TID PRN Administration Pain Pantoprazole Sodium 40 mg 07/09/21 09:00 07/12/21 07:53 Pantoprazole 40 Mg Tab PO 08/08/21 08:59 40 mg DAILY RINA Administration Pentosan Polysulfate Sodium 100 mg 07/10/21 21:00 07/12/21 07:50 Pentosan Polysulfate Sodium 100 Mg Cap PO 08/09/21 20:59 100 mg TID RINA Administration Protocol Pregabalin 150 mg 07/08/21 14:00 07/12/21 07:50 Pregabalin 150 Mg Cap PO 08/07/21 13:59 150 mg TID RINA Administration Trazodone HCl 150 mg 07/08/21 21:00 07/11/21 21:06 Trazodone Hcl 50 Mg Tab PO 08/07/21 20:59 150 mg HS RINA Administration Vitamin B Complex 1 tab 07/09/21 09:00 07/12/21 07:54 Vitamin B Complex Tab PO 08/08/21 08:59 1 tab DAILY RINA Administration Vitamin D 2,000 units 07/09/21 09:00 07/12/21 07:53 Cholecalciferol 1,000 Units 25 Mcg Tab PO 08/08/21 08:59 2,000 units DAILY RINA Administration Past Medical History Medical History Acute pain of left hip Alopecia Anxiety Arthritis Bilateral leg pain Blepharochalasis CAD (coronary artery disease) Cervicalgia Chronic back pain Chronic blood loss anemia Chronic pain syndrome Constipation COVID-19 hx of, diagnosed 05/29/2020 @ [facility]--sinus pressure, stuffy nose, loss of taste/smell (still does not have back) Cystitis reason for [place] Depression Dermatochalasis Dyslipidemia Dyspareunia Dysuria Eczema Excessive menstruation with irregular cycle Fall Fatigue Fibromyalgia IMAN (generalized anxiety disorder) GERD (gastroesophageal reflux disease) Glaucoma Gross hematuria Heartburn Hip pain, bilateral History of urinary frequency History of urinary hesitancy History of urinary urgency Hypertension Hypokalemia Hyponatremia Interstitial cystitis Left knee pain Lipoma Lumbar degenerative disc disease Malaise and fatigue Muscle spasm Numbness and tingling of left side of face On anticoagulant therapy plavix daily Osteoarthritis Osteopenia Otitis externa, acute Pain, pelvic, female Postmenopausal status Psychological disorder Resistant hypertension Rhinitis Sacroiliac joint pain Shortness of breath Sinus headache STEMI (ST elevation myocardial infarction) 01/26/2019 Dr Nova Steroid-induced hyperglycemia Subacute vulvitis Trigger finger Trochanteric bursitis Urinary tract infection symptoms Uterine leiomyoma Past Family History Family History Mother Myocardial infarction Hypertension Heart disease Brother Myocardial infarction Heart disease Grandmother Ovarian cancer Diabetes Father Diabetes Hypertension Family hx colonic polyps Grandmother (Maternal) Stroke Grandfather (Maternal) Stroke Grandmother (Paternal) Cancer Grandfather (Paternal) Cirrhosis of liver Uncle Heart disease Aunt Heart disease Other No family history of adverse response to anesthesia Denies family history of Prostate cancer Breast cancer Colorectal cancer Past Surgical History Surgical History H/O dilation and curettage H/O: hysterectomy History of blepharoplasty History of cardiac cath x2--[place] -> 01/26/19--had 4 stents placed @ [facility] 11/2019 @ [facility], no stents placed History of cataract surgery bilateral History of colonoscopy with polypectomy History of heart artery stent x4 01/2019 @ [facility] History of lumbar spinal fusion S/P cardiac catheterization 12/03/19 Dr. Uri Maravilla- No intervention Status post trigger finger release Social History Smoking Status: Never smoker Hx Alcohol Use: No Hx Substance Use: No substance use type: does not use Physical Exam Vital Signs Last Vital Signs Temp 36.8 C 07/12/21 07:44 Pulse 65 07/12/21 07:44 Resp 18 07/12/21 07:44 BP 181/83 H 07/12/21 07:44 Pulse Ox 95 07/12/21 07:44 Testing Laboratory Results 07/10/21 11:01 07/11/21 06:50 PT 9.9 Seconds (9.0-12.0) 07/10/21 11:23 INR 1.0 (0.9-1.1) 07/10/21 11:23 APTT 23.9 Seconds (21.0-31.0) 07/10/21 11:23 Urine Color Yellow 07/10/21 13:46 Urine Appearance Clear (Clear) 07/10/21 13:46 Urine pH 5.0 (4.5-7.5) 07/10/21 13:46 Ur Specific Eure 1.014 (1.000-1.030) 07/10/21 13:46 Urine Protein Negative (Negative) 07/10/21 13:46 Urine Glucose (UA) Negative (Negative) 07/10/21 13:46 Urine Ketones Negative (Negative) 07/10/21 13:46 Urine Nitrite Negative (Negative) 07/10/21 13:46 Ur Leukocyte Esterase 2+ (Negative) H 07/10/21 13:46 Urine WBC (Auto) 10-30 /hpf (0-5) H 07/10/21 13:46 Urine RBC (Auto) 0-4 /hpf (0-4) 07/10/21 13:46 U Hyaline Cast (Auto) 0 /lpf (0-5) 07/10/21 13:46 U Epithel Cells (Auto) 20-30 /lpf (0-5) H 07/10/21 13:46 Urine Bacteria (Auto) Negative (Negative) 07/10/21 13:46 07/10/21 13:56 Urine Culture - Final Urine,Clean Catch No growth - less than 1,000 colonies/mL. 07/08/21 09:38 Urine Culture - Final Urine,Straight Cath Enterococcus faecalis Electrocardiogram Date: 07/10/21 Findings: + NSR @ (65) When compared with ECG of 16-APR-2021 04:57, No significant change was found Chest X-Ray Date: 07/10/21 FINDINGS: Lung volumes are at the lower limits of normal, unchanged. There is no pneumothorax or pleural effusion. There is no consolidation or evidence for pu lmonary edema. Subtle lower lung interstitial thickening is unchanged and probably chronic. Cardiomediastinal silhouette is stable. Minimal lingular opacity favors atelectasis. Echocardiogram Date: 04/16/21 EF: 55-60% LV Function: normal RWMA: + none Other Findings: + LVH (moderate, concentric) and + diastolic dysfunction (grade 1) Valvular Disease: + MR (mild) mild tricuspid regurg, RV systolic pressure normal Cardiac Catheterization Date: 12/03/19 Summary: 1. Mild to moderate stable major epicardial vessel coronary artery disease - Widely patent proximal to mid LAD stents -40% ostial circumflex 2. Severe small branch vessel disease. - 95% ostial very small second diagonal (likely acute culprit). - 60% ostial small third diagonal 3. Normal intracardiac filling pressure Recommendations: Very small second diagonal too small for intervention. Recommend medical management. Further titration of antianginal therapy per Dr. Nova
[2021-07-12] MEDS: LATANOPROST 0.005% OP SOLN 2.5 ML BTL OPB SCH (21:21)
[2021-07-12] MEDS: traZODone HCL 50 MG TAB PO SCH (21:22)
[2021-07-13] MEDS: PENTOSAN POLYSULFATE SODIUM 100 MG CAP PO SCH ×3 (07:12→21:29)
[2021-07-13] MEDS: ASPIRIN 81 MG ECTAB PO SCH (07:13)
[2021-07-13] MEDS: hydrALAZINE 10 MG TAB PO SCH ×3 (07:13→21:29)
[2021-07-13] MEDS: LIDOCAINE 5% 1 PATCH TD SCH (07:13)
[2021-07-13] MEDS: DULoxetine HCL 60 MG CAP PO SCH ×2 (07:16→21:28)
[2021-07-13] MEDS: carvediloL 12.5 MG TAB PO SCH ×2 (07:16→21:27)
[2021-07-13] MEDS: ISOSORBIDE MONO EXTENDED REL 30 MG TABCR PO SCH ×2 (07:16→21:28)
[2021-07-13] MEDS: ACETAMINOPHEN 500 MG TAB PO SCH ×3 (07:17→21:27)
[2021-07-13] MEDS: AMOXICILLIN 500 MG CAP PO SCH (07:17)
[2021-07-13] MEDS: PANTOprazole 40 MG TAB PO SCH (07:18)
[2021-07-13] MEDS: lisinopril 40 MG TAB PO SCH (07:18)
[2021-07-13] MEDS: amLODIPine BESYLATE 5 MG TAB PO SCH (07:18)
[2021-07-13] MEDS: VITAMIN B COMPLEX TAB PO SCH (07:18)
[2021-07-13] MEDS: CHOLECALCIFEROL 1,000 UNITS 25 MCG TAB PO SCH (07:18)
[2021-07-13] MEDS: dexAMETHasone 4 MG in SYRINGE 0 ML IV SCH (07:19)
[2021-07-13] MEDS: EZETIMIBE 10 MG TABLET PO SCH (07:19)
[2021-07-13] MEDS: DICLOFENAC SOD 1% GEL 100 GM TUBE EXT SCH ×4 (07:19→21:27)
[2021-07-13] MEDS: PREGABALIN 150 MG CAP PO SCH ×3 (07:25→21:28)
[2021-07-13] MEDS ORDERED: fentaNYL citrate 100 MCG/2 ML VIAL ONE (10:03)
[2021-07-13] MEDS ORDERED: MIDAZOLAM HCL 1 MG/ML 2ML VIAL ONE (10:03)
[2021-07-13] MEDS ORDERED: hydrALAZINE HCL 20 MG/ML VIAL IV PRN (10:25)
--- NOTE | 2021-07-13 10:37 | History & Physical Bridge Note ---
Date of Service July 13, 2021 History & Physical Bridge Note I have examined the patient, reviewed the History & Physical and in the interval since the performance of the History & Physical I have noted the following changes of clinical significance: no changes noted Decompression fusion L3-L4 L5-S1 hardware removal L4-L5
[2021-07-13] MEDS ORDERED: ceFAZolin 2000MG 2,000 MG/15 ML SYR IV SCH (10:44)
[2021-07-13] MEDS ORDERED: ceFAZolin 330 MG/ML 1 GM VIAL ONE (10:46)
[2021-07-13] MEDS ORDERED: EPINEPHrine INJ 1 MG/ML AMP ONE (10:46)
[2021-07-13] MEDS ORDERED: BUPIVACAINE 0.5 % 5 MG/1 ML MPF 30ML VIAL ONE (10:46)
[2021-07-13] MEDS ORDERED: PROMETHAZINE HCL 12.5 MG in SODIUM CHLORIDE 0.9% 50 ML IV PRN (11:07)
[2021-07-13] MEDS ORDERED: ATROPINE SULFATE 0.1 MG/ML 10ML SYR IV PRN (11:07)
[2021-07-13] MEDS ORDERED: HYDROmorphone INJ 2 MG/ML SYR/VIAL IV PRN (11:07)
[2021-07-13] MEDS ORDERED: ePHEDrine sulfate 50 MG/ML AMP IV PRN (11:07)
[2021-07-13] MEDS ORDERED: ONDANSETRON INJ 2 MG/ML 2 ML VIAL IV PRN (11:07)
[2021-07-13] MEDS ORDERED: ROCURONIUM BROMIDE 10 MG/ML 5 ML VIAL IV ONE (11:45)
[2021-07-13] MEDS ORDERED: ONDANSETRON INJ 2 MG/ML 2 ML VIAL ONE (11:45)
[2021-07-13] MEDS ORDERED: PROPOFOL IV EMULSION 10 MG/ML 20 ML VIAL IV ONE (11:45)
[2021-07-13] MEDS ORDERED: NEOSTIGMINE METHYLSULFATE 1 MG/ML 10ML VIAL ONE (11:45)
[2021-07-13] MEDS ORDERED: DEXAMETHASONE SOD INJ 4 MG/ML VIAL ONE (11:45)
[2021-07-13] MEDS ORDERED: LIDOCAINE 2% 2 ML VIAL/AMP(20MG/ML) INFIL ONE (11:45)
[2021-07-13] MEDS ORDERED: GLYCOPYRROLATE 0.2 MG/ML VIAL ONE (11:45)
[2021-07-13] MEDS ORDERED: ePHEDrine sulfate 50 MG/ML SYR ONE (11:50)
[2021-07-13] MEDS ORDERED: FLOSEAL HEMOSTATIC MATRIX 10ML TOP ONE (11:56)
[2021-07-13] MEDS ORDERED: HYDROmorphone INJ 2 MG/ML SYR/VIAL ONE (12:37)
--- NOTE | 2021-07-13 13:31 | Operative Report ---
Post Operative Report Pre & Post Diagnosis Operation Date: 07/12/21 07:00 <No data on this case meets the specified criteria> Operation Date: 07/13/21 12:40 Pre-Op Diagnosis: Lumbar spinal stenosis with hernia nucleus pulposus and radiculopathy Post-Op Diagnosis: Same I identified the patient and participated in the time-out.: Yes Procedure Operation Date: 07/12/21 07:00 <No data on this case meets the specified criteria> Operation Date: 07/13/21 12:40 Actual Procedures #1 removal of posterior instrumentation L4-L5. #2 exploration of fusion L4-L5. #3 revision lumbar decompression with bilateral medial facetectomies and foraminotomies L3-L4 L5-S1. #4 posterior spinal fusion L3-L4 L5-S1. #5 placement of posterior instrumentation L3-S1. #6 interbody fusion L3-L4 L5-S1. #7 placement of peek cage 13 22 mm at L3-L4 and 14 x 22 mm at L4-L5. #8 placement locally harvested morselized autograft in the posterior lateral gutters. #9 placement infuse collagen sponge, master graft in the posterior gutters and I factor interbody space. Surgeon Connor Tapia, Form Setter Supervisor Roberta Mohr Estimated Blood Loss 100 Findings Consistent with Post-Op Diagnosis Specimens None Indications This is a 65-year-old female who presents above-mentioned diagnosis after failing since course of nonoperative care is here for the above-mentioned procedure. Description of Procedure Patient met with identified informed consent obtained. Patient was then taken to the operative suite underwent ablation placed in a prone position the Gormania table top Clay frame. All bony prominences well-padded eyes inspected to ensure no external pressure placed upon the. This point lumbar spine was prepped and draped in a sterile fashion. Sharp dissection with the assistance of Bovie cautery was performed down to and exposing the lamina and transverse processes of L3 and instrumentation at L4-L5 and the sacral ala bilaterally. I then proceeded move the hardware at L4-L5 bilaterally. Explored the fusion mass noting it to be mature and intact. Then performed a complete revision laminectomy of L5 including medial facetectomies and foraminotomies. This was followed by complete laminectomy bilateral medial facetectomies at L3-L4 including evidence of massive disc herniation involving the L3-L4 neural foramen. After complete decompression pedicle screws were placed in L3-L4-L5 and S1 levels bilaterally with assistance of fluoroscopy and appropriately sized daniela placed. By way of a transforaminal approach on the right complete discectomy L5-S1 was performed endplates curetted to subcortical bleeding bone and a 14 x 22 mm peek cage filled with I factor tapped in position. Then proceeded to L3-L4 and again by way the transforaminal approach on the right complete discectomy performed endplates curetted to subcortical bleeding bone and a 13 x 22 mm peek cage filled with I factor tapped in position. The rods then compressed locked in final position bilaterally. The transverse processes of L3-L4-L5 and the sacral ala burred to subcortical bleeding bone. Infuse collagen sponge master graft and local autograft was placed in the posterior gutters. 15 round ANNA drain inserted. The incision was then closed with 1 Vi cryl the fascia 2-0 Vicryl subcutaneously and 4 Monocryl for final skin closure. Steri-Strip sterile dressings placed. Patient waken taken PACU stable condition. Please note spinal cord monitoring was utilized at the procedure no changes noted. Lastly Roberta Mohr was present at the entire surgery involved the patient positioning complex portions of the surgery and final skin closure. I attest to the content of the Intraoperative Record and any orders documented therein. Any exceptions are noted below.
--- NOTE | 2021-07-13 13:46 | Fluoroscopy Report ---
FL lumbar spine 2-3V CLINICAL HISTORY: L3-S1 DECOMPRESSION AND FUSION TECHNIQUE: 2 views were obtained with the C-arm in the OR with the above procedure. Total fluoroscopy time was 27.7 seconds. Total skin dose was 18.6 mGy. Comparison: None available at the time of this dictation. FINDINGS/IMPRESSION: Intraoperative images were obtained of lumbar decompression and fusion. Please correlate with intraoperative fluoroscopy and operative report. ACT 112: Negative or not required by law. Electronically signed by: Eyad Keane M.D. 07/13/2021 1:44 PM
--- NOTE | 2021-07-13 13:51 | Hospitalist Progress Note ---
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 No bowel or bladder incontinence or saddle anesthesias noted -Has been seen by Pain mgmt.Ffailing conservative measure at this point with -- Decadron 4 mg IV daily -- Oxycodone 10 mg every 6 hours as needed -- IV morphine sulfate for breakthrough pain -MRI showing severe right foraminal narrowing and impingement of the nerve root with questionable sequestered fragments of L3-L4 -seen by Spine surgeon and plan is for surgical intervention today -We will need PT/OT postoperatively (determined to be discharged to home if able). Lives with a in a 1 story home with a "few" steps to get into the home -Preoperative work-up completed and seen by cardiology. Deemed appropriate risk for surgery with recommendations to continue ASA perioperatively (2) UTI (urinary tract infection): Plan: - Likely asymptomatic bacteria but given need for potential surgical intervention, treated. - Urine culture with Enterococcus. completed full course of amoxil - repeat urinalysis not grossly infected and repeat UC showing no growth (3) CAD (coronary artery disease): Plan: - Patient with underlying CAD. Follows Dr. Hinds - Per review of records, last cardiac catheterization 12/13: with small vessel disease with a 95% ostial very small second diagonal branch and a 60% ostial small third diagonal branch; 40% ostial circumflex; widely patent proximal to mid LAD stents - echocardiogram: EF 55-60%/ LV wall motion normal. Moderate concentric LVH. Grade I DD. Mild MR. Mild TR. - see by cardiology who is recommending continuation or ASA perioperatively and withholding plavix (which will be started 48 hours postoperatively) - deemed appropriate risk for surgery by cardiology-- appreciate recommendations - continue Imdur, BB, Zetia as TOURISM RADIO PRESENTER (4) Fibromyalgia: Plan: Chronic and ongoing -Continue Cymbalta. -was noted to be on Prozac in addition. Patient now reporting that she no longer takes this medication. EMAR adjusted to reflect this. (5) Hypertension: Plan: BP currently 177/99. (has been elevated). Reports "always high" but pain and anxiety of surgery and being in a hospital could be contributing -Takes lisinopril, Norvasc, Imdur, Hydralazine, and carvedilol -Norvasc increased to 10mg (BP remains variable-- ? how much is pain induced). Follow closely post-operatively and further adjust meds as needed -clonidine prn on board (with parameters) -monitor and continue to adjust routine meds if needed (6) Anxiety: Plan: - Continue Cymbalta, Plan: Ortho (Dr. Tapia) and Cardiology (Dr. Nova) on board. plan of care to be d/w Dr. Guerra. Further orders as warranted. Admission and Anticipated Discharge Date Admission Date: July 10, 2021 Subjective Patient seen on daily rounds today. Was to go to the OR yesterday but given lack of staff, this had to be pushed back until today. Still with back pain. BP elevated this morning but again, still with significant pain. Lengthy discussion about disposition and she is determined to go home if able Review of Systems Review of Systems: All systems reviewed and are unremarkable except as noted in HPI and below Denies fevers, chills, headache, nasal congestion, sore throat, cough, chest pain, shortness of breath, palpitations, orthopnea, PND, abdominal pain, nausea, vomiting, diarrhea, constipation, dysuria, hematuria, frequency, or swelling, easy bruising or bleeding, skin lesions or rashes. Physical Exam Physical Exam: General: Resting comfortably in her hospital bed. NAD. HEENT: Head is AT/NC buccal mucosa is moist and pink Neck: No JVD. Negative hepatojugular reflex Cardiac: RRR with 1/6 to 2/6 LAITH Lungs: CTA without W/R/R Abdomen: Normoactive X4. Soft and nontender in all quadrants. Extremities: Positive straight leg raise on the right Neuro: A&O X4 cranial nerves II through XII are grossly intact no focal neuro deficits Skin: No obvious skin lesions or rashes Psych: Appropriate affect pleasant and cooperative Results & Data Results & Data ([facility]) Vital Signs (Past 12 Hours) Vital Signs Temp Pulse Pulse Resp BP Pulse Ox 07/13/21 10:33 36.6 C 20 L 20 166/86 H 95 07/13/21 07:26 36.7 C 62 18 182/99 H 96 Laboratory Results No lab data today PG Care Time/CCT Total # of Minutes Spent Total Time Spent with Patient: Total time spent is greater than 50% in coordination of care (as documented) at patient's floor/unit and/or counseling patient: Coding Level of Care Code 81715 Subseq Hosp Care Lvl 1 Diagnoses Lumbar degenerative disc disease M51.36 UTI (urinary tract infection) N39.0 CAD (coronary artery disease) I25.10 Fibromyalgia M79.7 Hypertension I10 Hypertension type: essential hypertension Anxiety F41.9 (1) Hypertension Hypertension type: essential hypertension Qualified Code(s): I10 - Essential (primary) hypertension
[2021-07-13] MEDS: fentaNYL citrate 100 MCG/2 ML VIAL IV PRN ×2 (14:08→14:24)
--- NOTE | 2021-07-13 14:47 | Anesthesiology Progress Note ---
Date of Service July 13, 2021 Anesthesia Post Procedure Vital Signs Vital Signs: Temp Pulse Pulse Pulse Pulse Resp BP 07/13/21 14:35 54 L 13 134/66 07/13/21 14:25 36.5 C 55 L 16 130/70 07/13/21 14:15 60 13 146/73 H 07/13/21 14:05 59 L 16 152/81 H 07/13/21 13:55 72 13 154/77 H 07/13/21 13:46 36.3 C L 68 19 163/85 H 07/13/21 10:33 36.6 C 20 L 20 166/86 H 07/13/21 07:26 36.7 C 62 18 182/99 H 07/12/21 22:06 36.4 C L 66 16 149/74 H 07/12/21 21:19 62 166/84 H Pulse Ox 07/13/21 14:35 97 07/13/21 14:25 97 07/13/21 14:15 97 07/13/21 14:05 98 07/13/21 13:55 99 07/13/21 13:46 98 07/13/21 10:33 95 07/13/21 07:26 96 07/12/21 22:06 94 07/12/21 21:19 Pain Intensity Back: Pain Intensity: 4 Right Hip: Pain Intensity: 4 Transfer of Care Handoff Completed per policy Notes Mental Status: alert / awake / arousable and participated in evaluation Patient Amnestic to Procedure: Yes Nausea / Vomiting: adequately controlled Pain: adequately controlled Airway Patency, RR, SpO2: stable & adequate BP & HR: stable & adequate Hydration State: stable & adequate Anesthetic Complications: no major complications apparent
[2021-07-13] MEDS: LACTATED RINGER'S 1,000 ML IV SCH (16:24)
[2021-07-13] MEDS: oxyCODONE/ACETAMINOPHEN 5mg/325mg TAB PO PRN (17:46)
[2021-07-13] MEDS: traZODone HCL 50 MG TAB PO SCH (21:28)
[2021-07-13] MEDS: LATANOPROST 0.005% OP SOLN 2.5 ML BTL OPB SCH (21:28)
[2021-07-13] MEDS: oxyCODONE HCL IR 5 MG TAB (IMMEDIATE RELEASE) PO PRN (21:28)
[2021-07-14] MEDS: LACTATED RINGER'S 1,000 ML IV SCH (00:09)
[2021-07-14] MEDS ORDERED: COUGH DROP (SUGAR FREE) LOZ 24 LOZ/1 BOX BUCCAL PRN (02:25)
[2021-07-14 06:55] LABS: Hematocrit (blood only) 34.2 % (37-47); Hemoglobin 11.8 g/dL (12.0-16.0); Immature Granulocytes # (auto) 0.03 K/uL (0.00-0.02); Immature Granulocytes % (auto) 0.3 %; Lymphocytes # (auto) 0.99 K/uL (1.2-3.4); Mean Corpuscular Hemoglobin 30.7 pg (25-34); Mean Corpuscular Hgb Conc 34.5 g/dL (32-36); Mean Corpuscular Volume 89.1 fL (80-100); Mean Platelet Volume 9.9 fL (7.4-10.4); Monocytes # (auto) 0.79 K/uL (0.11-0.59); Neutrophils # (auto) 8.09 K/uL (1.4-6.5); Neutrophils % (auto) 81.7 %; Platelet Count 163 K/uL (130-400); RDW Coefficient of Variation 13.4 % (11.5-14.5); RDW Standard Deviation 43.9 fL (36.4-46.3); Red Blood Count 3.84 M/uL (4.2-5.4)
[2021-07-14 07:26] LABS: BUN Creatinine Ratio 25.4 (10-20); Calcium 8.2 mg/dl (8.5-10.1); Creatinine Clr Calc Pharmacy 90.5 ml/min; Est GFR (African American) 109.1 ml/min; Est GFR (Non-African American) 94.1 ml/min; Magnesium 1.8 mg/dl (1.7-2.4); Potassium 3.7 mmol/L (3.5-5.1)
[2021-07-14] MEDS: ISOSORBIDE MONO EXTENDED REL 30 MG TABCR PO SCH ×2 (08:06→21:04)
[2021-07-14] MEDS: hydrALAZINE 10 MG TAB PO SCH ×3 (08:06→21:05)
[2021-07-14] MEDS: carvediloL 12.5 MG TAB PO SCH ×2 (08:06→21:05)
[2021-07-14] MEDS: lisinopril 40 MG TAB PO SCH (08:07)
[2021-07-14] MEDS: PANTOprazole 40 MG TAB PO SCH (08:07)
[2021-07-14] MEDS: VITAMIN B COMPLEX TAB PO SCH (08:07)
[2021-07-14] MEDS: ACETAMINOPHEN 500 MG TAB PO SCH ×3 (08:07→21:03)
[2021-07-14] MEDS: DULoxetine HCL 60 MG CAP PO SCH ×2 (08:07→21:04)
[2021-07-14] MEDS: CHOLECALCIFEROL 1,000 UNITS 25 MCG TAB PO SCH (08:09)
[2021-07-14] MEDS: ASPIRIN 81 MG ECTAB PO SCH (08:09)
[2021-07-14] MEDS: DICLOFENAC SOD 1% GEL 100 GM TUBE EXT SCH ×4 (08:09→21:03)
[2021-07-14] MEDS: EZETIMIBE 10 MG TABLET PO SCH (08:09)
[2021-07-14] MEDS: amLODIPine BESYLATE 5 MG TAB PO SCH (08:09)
[2021-07-14] MEDS: LIDOCAINE 5% 1 PATCH TD SCH (08:10)
[2021-07-14] MEDS: dexAMETHasone 4 MG in SYRINGE 0 ML IV SCH (08:11)
[2021-07-14] MEDS: PENTOSAN POLYSULFATE SODIUM 100 MG CAP PO SCH ×3 (08:11→21:06)
[2021-07-14] MEDS: PREGABALIN 150 MG CAP PO SCH ×3 (08:15→21:02)
[2021-07-14] MEDS: oxyCODONE HCL IR 5 MG TAB (IMMEDIATE RELEASE) PO PRN ×2 (09:17→21:12)
--- NOTE | 2021-07-14 09:51 | Orthopedic Progress Note ---
Date of Service July 14, 2021 Assessment & Plan (1) Lumbar disc herniation with radiculopathy: Plan: At this time we will initiate physical therapy monitor ANNA output. If she progresses appropriately over the next few days hopefully will be home Monday or this weekend. Admission and Anticipated Discharge Date Admission Date: July 10, 2021 Subjective Back pain controlled radicular pain improved. Still noting some strength deficits to the right quadricep. Physical Exam Physical Exam: On exam she sitting up in bed. She appears comfortable. Plantarflexion dorsiflexion intact. Deficits to right quadricep and hip flexor. Results & Data ([facility]) Vital Signs (Past 12 Hours) Vital Signs Temp Pulse Pulse Resp BP Pulse Ox 07/14/21 07:53 37.0 C 64 16 147/77 H 95 07/14/21 02:23 37.0 C 65 16 133/77 94 07/13/21 22:18 37.0 C 57 L 15 126/70 93
--- NOTE | 2021-07-14 17:39 | Hospitalist Progress Note ---
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 No bowel or bladder incontinence or saddle anesthesias noted - s/p Lumbar decompression with fusion and removal of hardware- POD #1- Dr. Tapia - Failed conservative measure - MRI showed severe right foraminal narrowing and impingement of the nerve root with questionable sequestered fragments of L3-L4 - PT/OT needed postoperatively (patient determined to be discharged to home if able). Lives with a in a 1 story home with a "few" steps to get into the home - (did have pre-op W/U and seen by Cardiology) - D/C Santos catheter today and encouraged patient to get OOB - Also encouraged to NOT let pain get out of control prior to taking her pain medication. - D/C Decadron at this time (needed upfront given nerve compression but has completed a full 7 days) (2) UTI (urinary tract infection): Plan: - Likely asymptomatic bacteria but given need for potential surgical intervention, treated. - Urine culture with Enterococcus. completed full course of amoxil - repeat urinalysis not grossly infected and repeat UC showing no growth (3) CAD (coronary artery disease): Plan: - Patient with underlying CAD. Follows Dr. Hinds - Per review of records, last cardiac catheterization 12/13: with small vessel disease with a 95% ostial very small second diagonal branch and a 60% ostial small third diagonal branch; 40% ostial circumflex; widely patent proximal to mid LAD stents - echocardiogram: EF 55-60%/ LV wall motion normal. Moderate concentric LVH. Grade I DD. Mild MR. Mild TR. - see by cardiology who recommended continuation or ASA perioperatively and withholding plavix (which will be started 48 hours postoperatively) - deemed appropriate risk for surgery by cardiology-- appreciate recommendations - continue Imdur, BB, Zetia as DIET CLERK (4) Fibromyalgia: Plan: Chronic and ongoing -Continue Cymbalta. -was noted to be on Prozac in addition. Patient now reporting that she no longer takes this medication. EMAR adjusted to reflect this. (5) Hypertension: Plan: BP was elevated pre-operatively - Takes lisinopril, Norvasc, Imdur, Hydralazine, and carvedilol - Norvasc increased to 10mg (BP remains variable-- ? how much is pain induced). - BP now 119/69 - prn on board (with parameters) - monitor and continue to adjust routine meds if needed (6) Anxiety: Plan: - Continue Cymbalta, Plan: Ortho (Dr. Tapia) and Cardiology (Dr. Nova) on board. plan of care to be d/w Dr. Guerra. Further orders as warranted. Admission and Anticipated Discharge Date Admission Date: July 10, 2021 Subjective Patient seen on daily rounds today. She is POD #1. Ultimately, pain is improved but still having discomfort in her back. She has not taken anything for pain today and rates her pain as a 5/10. The inguinal pain that she was experiencing has improved greatly. Denies loss of bowel or bladder function. Still has a Santos catheter in place. Denies fevers, chills, chest pain, shortness of breath, abdominal pain, nausea or vomiting. Nursing voices no complaints or concerns. Review of Systems Review of Systems: All systems reviewed and are unremarkable except as noted in HPI and below Denies fevers, chills, headache, nasal congestion, sore throat, cough, chest pain, shortness of breath, palpitations, orthopnea, PND, abdominal pain, nausea, vomiting, diarrhea, constipation, dysuria, hematuria, frequency, back pain, joint pain or swelling, easy bruising or bleeding, skin lesions or rashes. Physical Exam Physical Exam: General: Resting comfortably in her hospital bed. NAD. HEENT: Head is AT/NC buccal mucosa is moist and pink Neck: No JVD. Negative hepatojugular reflex Cardiac: RRR with 1/6 to 2/6 LAITH Lungs: CTA without W/R/R Abdomen: Normoactive X4. Soft and nontender in all quadrants. Extremities: still with difficulty lifting the right leg from the bed Neuro: A&O X4 cranial nerves II through XII are grossly intact no focal neuro deficits Skin: No obvious skin lesions or rashes Psych: Appropriate affect pleasant and cooperative Results & Data Results & Data ([facility]) Vital Signs (Past 12 Hours) Vital Signs Temp Pulse Resp BP Pulse Ox 07/14/21 15:16 37.0 C 68 16 119/69 93 07/14/21 07:53 37.0 C 64 16 147/77 H 95 Laboratory Results 07/14/21 06:41 07/14/21 06:41 PG Care Time/CCT Total # of Minutes Spent Total Time Spent with Patient: Total time spent is greater than 50% in coordination of care (as documented) at patient's floor/unit and/or counseling patient: Coding Level of Care Code 73508 Subseq Hosp Care Lvl 2 Diagnoses Lumbar degenerative disc disease M51.36 UTI (urinary tract infection) N39.0 CAD (coronary artery disease) I25.10 Fibromyalgia M79.7 Hypertension I10 Hypertension type: essential hypertension Anxiety F41.9 (1) Hypertension Hypertension type: essential hypertension Qualified Code(s): I10 - Essential (primary) hypertension
[2021-07-14] MEDS: LATANOPROST 0.005% OP SOLN 2.5 ML BTL OPB SCH (21:02)
[2021-07-14] MEDS: traZODone HCL 50 MG TAB PO SCH (21:05)
[2021-07-15 06:14] LABS: Eosinophils # (auto) 0.01 K/uL (0-0.5); Eosinophils % (auto) 0.1 %; Hematocrit (blood only) 34.6 % (37-47); Hemoglobin 11.5 g/dL (12.0-16.0); Immature Granulocytes # (auto) 0.04 K/uL (0.00-0.02); Immature Granulocytes % (auto) 0.5 %; Lymphocytes # (auto) 0.98 K/uL (1.2-3.4); Lymphocytes % (auto) 12.6 %; Mean Corpuscular Hemoglobin 29.9 pg (25-34); Mean Corpuscular Hgb Conc 33.2 g/dL (32-36); Mean Corpuscular Volume 90.1 fL (80-100); Mean Platelet Volume 10.2 fL (7.4-10.4); Monocytes # (auto) 0.82 K/uL (0.11-0.59); Monocytes % (auto) 10.5 %; Neutrophils # (auto) 5.95 K/uL (1.4-6.5); Neutrophils % (auto) 76.3 %; Platelet Count 162 K/uL (130-400); RDW Coefficient of Variation 13.6 % (11.5-14.5); RDW Standard Deviation 44.9 fL (36.4-46.3); Red Blood Count 3.84 M/uL (4.2-5.4)
[2021-07-15 06:57] LABS: BUN Creatinine Ratio 29.7 (10-20); Calcium 8.3 mg/dl (8.5-10.1); Creatinine Clr Calc Pharmacy 89.1 ml/min; Est GFR (African American) 108.5 ml/min; Est GFR (Non-African American) 93.6 ml/min; Potassium 3.7 mmol/L (3.5-5.1)
[2021-07-15] MEDS: CHOLECALCIFEROL 1,000 UNITS 25 MCG TAB PO SCH (07:57)
[2021-07-15] MEDS: amLODIPine BESYLATE 5 MG TAB PO SCH (07:57)
[2021-07-15] MEDS: PANTOprazole 40 MG TAB PO SCH (07:57)
[2021-07-15] MEDS: lisinopril 40 MG TAB PO SCH (07:57)
[2021-07-15] MEDS: VITAMIN B COMPLEX TAB PO SCH (07:57)
[2021-07-15] MEDS: ASPIRIN 81 MG ECTAB PO SCH (07:57)
[2021-07-15] MEDS: carvediloL 12.5 MG TAB PO SCH ×2 (07:58→21:14)
[2021-07-15] MEDS: ACETAMINOPHEN 500 MG TAB PO SCH ×3 (07:58→21:13)
[2021-07-15] MEDS: EZETIMIBE 10 MG TABLET PO SCH (07:58)
[2021-07-15] MEDS: DULoxetine HCL 60 MG CAP PO SCH ×2 (07:58→21:13)
[2021-07-15] MEDS: DICLOFENAC SOD 1% GEL 100 GM TUBE EXT SCH ×4 (07:58→21:13)
[2021-07-15] MEDS: LIDOCAINE 5% 1 PATCH TD SCH (07:59)
[2021-07-15] MEDS: ISOSORBIDE MONO EXTENDED REL 30 MG TABCR PO SCH ×2 (07:59→21:14)
[2021-07-15] MEDS: hydrALAZINE 10 MG TAB PO SCH ×3 (07:59→21:15)
[2021-07-15] MEDS: PENTOSAN POLYSULFATE SODIUM 100 MG CAP PO SCH ×3 (08:00→21:15)
[2021-07-15] MEDS: PREGABALIN 150 MG CAP PO SCH ×3 (08:04→21:13)
--- NOTE | 2021-07-15 08:49 | Orthopedic Progress Note ---
Date of Service July 15, 2021 Assessment & Plan (1) Lumbar disc herniation with radiculopathy: Plan: At this time continue physical therapy monitor ANNA output anticipate discharge home tomorrow. Admission and Anticipated Discharge Date Admission Date: July 10, 2021 Subjective Patient's leg pain is markedly improved. Still struggling some strength deficits. Tolerated physical therapy well. Physical Exam Physical Exam: Patient is in the chair at bedside has good strength testing. Appears comfortable. Results & Data ([facility]) Vital Signs (Past 12 Hours) Vital Signs Temp Pulse Pulse Resp BP Pulse Ox 07/15/21 07:32 36.9 C 61 16 138/72 92 07/14/21 22:30 36.3 C L 71 17 135/80 94 07/14/21 21:01 67 131/76
[2021-07-15] MEDS ORDERED: POLYETHYLENE (MIRALAX) 17 GM PACK PO PRN (15:19)
--- NOTE | 2021-07-15 15:28 | Hospitalist Progress Note ---
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 No bowel or bladder incontinence or saddle anesthesias noted - s/p Lumbar decompression with fusion and removal of hardware- POD #2- Dr. Tapia - Failed conservative measure - MRI showed severe right foraminal narrowing and impingement of the nerve root with questionable sequestered fragments of L3-L4 - Nearly meeting her therapy goals including step training. Therapy leapt believe she would benefit from 1 additional day of in-house rehab to improve overall strength/activity tolerance - Overall, pain significantly improved. Tolerating pain medication without ill effects. Add bowel regimen including Colace scheduled and as needed MiraLAX - Decadron utilized X 7 days for associated nerve impingement - (did have pre-op W/U and seen by Cardiology) (2) UTI (urinary tract infection): Plan: - Likely asymptomatic bacteria but given need for surgical intervention, treated. - Urine culture with Enterococcus. completed full course of amoxil - repeat urinalysis not grossly infected and repeat UC showing no growth (3) CAD (coronary artery disease): Plan: - Patient with underlying CAD. Follows Dr. Hinds - Per review of records, last cardiac catheterization 12/13: with small vessel disease with a 95% ostial very small second diagonal branch and a 60% ostial small third diagonal branch; 40% ostial circumflex; widely patent proximal to mid LAD stents - echocardiogram: EF 55-60%/ LV wall motion normal. Moderate concentric LVH. Grade I DD. Mild MR. Mild TR. - see by cardiology who recommended continuation or ASA perioperatively and withholding plavix (which will be started 48 hours postoperatively)-- resume 07/16 - deemed appropriate risk for surgery by cardiology-- appreciate recommendations - continue Imdur, BB, Zetia as SALT MINER (4) Fibromyalgia: Plan: Chronic and ongoing -Continue Cymbalta. (5) Hypertension: Plan: BP was elevated pre-operatively - Takes lisinopril, Norvasc, Imdur, Hydralazine, and carvedilol - Norvasc increased to 10mg during this hospitalization given aceelerated BP (at recommendations of established spacecraft systems engineer)-- suspect some of this was pain related - BP now 115/69 - prn on board (with parameters) - monitor and continue to adjust routine meds if needed (6) Anxiety: Plan: - Continue Cymbalta, Plan: Ortho (Dr. Tapia) and Cardiology (Dr. Nova) on board. plan of care to be d/w Dr. Guerra. Further orders as warranted. suspect D/C within the next 24 hours Admission and Anticipated Discharge Date Admission Date: July 10, 2021 Subjective Patient seen on daily rounds today. Overall pain has significantly improved. Complaining more of a "discomfort" than the pain. Rated as a 1-2/10. No longer having pain in her right leg but describes this more as a "heaviness". Last bowel movement was prior to surgery. Denies any abdominal pain, nausea or vom iting. Is passing flatus. Ambulating to and from the bathroom without difficulty. Is meeting her therapy goals including step training. Hoping for discharge tomorrow. Nursing voices no complaints or concerns. Review of Systems Review of Systems: All systems reviewed and are unremarkable except as noted in HPI and below Denies fevers, chills, headache, nasal congestion, sore throat, cough, chest pain, shortness of breath, palpitations, orthopnea, PND, abdominal pain, nausea, vomiting, diarrhea, constipation, dysuria, hematuria, frequency, back pain, joint pain or swelling, easy bruising or bleeding, skin lesions or rashes. Physical Exam Physical Exam: General: Resting comfortably in bedside chair. NAD. HEENT: Head is AT/NC buccal mucosa is moist and pink Neck: No JVD. Negative hepatojugular reflex Cardiac: RRR with 1/6 to 2/6 LAITH Lungs: CTA without W/R/R Abdomen: Normoactive X4. Soft and nontender in all quadrants. Extremities: Able to lift her right knee towards the ceiling with less diffic ulty today Neuro: A&O X4 cranial nerves II through XII are grossly intact no focal neuro deficits Skin: No obvious skin lesions or rashes Psych: Appropriate affect pleasant and cooperative Results & Data Results & Data ([facility]) Vital Signs (Past 12 Hours) Vital Signs Temp Pulse Pulse Resp BP Pulse Ox 07/15/21 14:36 36.9 C 63 16 115/69 94 07/15/21 07:32 36.9 C 61 16 138/72 92 Laboratory Results 07/15/21 05:58 07/15/21 05:58 PG Care Time/CCT Total # of Minutes Spent Total Time Spent with Patient: Total time spent is greater than 50% in coordination of care (as documented) at patient's floor/unit and/or counseling patient: Coding Level of Care Code 99226 Subseq Hosp Care Lvl 1 Diagnoses Lumbar degenerative disc disease M51.36 UTI (urinary tract infection) N39.0 CAD (coronary artery disease) I25.10 Fibromyalgia M79.7 Hypertension I10 Hypertension type: essential hypertension Anxiety F41.9 (1) Hypertension Hypertension type: essential hypertension Qualified Code(s): I10 - Essential (primary) hypertension
[2021-07-15] MEDS: DOCUSATE SODIUM 100 MG CAP PO SCH (21:14)
[2021-07-15] MEDS: traZODone HCL 50 MG TAB PO SCH (21:15)
[2021-07-15] MEDS: LATANOPROST 0.005% OP SOLN 2.5 ML BTL OPB SCH (21:15)
[2021-07-16] MEDS: LIDOCAINE 5% 1 PATCH TD SCH (07:39)
[2021-07-16] MEDS: ASPIRIN 81 MG ECTAB PO SCH (07:40)
[2021-07-16] MEDS: lisinopril 40 MG TAB PO SCH (07:40)
[2021-07-16] MEDS: EZETIMIBE 10 MG TABLET PO SCH (07:40)
[2021-07-16] MEDS: DOCUSATE SODIUM 100 MG CAP PO SCH (07:40)
[2021-07-16] MEDS: ISOSORBIDE MONO EXTENDED REL 30 MG TABCR PO SCH (07:41)
[2021-07-16] MEDS: carvediloL 12.5 MG TAB PO SCH (07:41)
[2021-07-16] MEDS: CHOLECALCIFEROL 1,000 UNITS 25 MCG TAB PO SCH (07:41)
[2021-07-16] MEDS: PREGABALIN 150 MG CAP PO SCH ×2 (07:41→14:28)
[2021-07-16] MEDS: VITAMIN B COMPLEX TAB PO SCH (07:41)
[2021-07-16] MEDS: hydrALAZINE 10 MG TAB PO SCH ×2 (07:41→14:28)
[2021-07-16] MEDS: DULoxetine HCL 60 MG CAP PO SCH (07:41)
[2021-07-16] MEDS: amLODIPine BESYLATE 5 MG TAB PO SCH (07:41)
[2021-07-16] MEDS: PENTOSAN POLYSULFATE SODIUM 100 MG CAP PO SCH (07:42)
[2021-07-16] MEDS: PANTOprazole 40 MG TAB PO SCH (07:42)
[2021-07-16] MEDS: ACETAMINOPHEN 500 MG TAB PO SCH ×2 (07:42→14:28)
[2021-07-16] MEDS: DICLOFENAC SOD 1% GEL 100 GM TUBE EXT SCH (10:17)
--- NOTE | 2021-07-16 16:52 | Discharge Summary ---
Date of Service July 16, 2021 Admission HPI Per Admitting Provider 65 y/o female with a PMH of CAD, s/p angioplasty and stent placement in 2019, hypertension, fibromyalgia, GERD, and gastritis who presents today with low back pain x 5 days. Patient states she noticed the pain Monday evening after standing for an extended period of time that afternoon. Pain is throbbing, originates in her right low back and radiates to her right hip, groin, and anterior thigh. Sitting, laying down, and leaning forward alleviate the pain somewhat. She has taken her prescribed oxycodone and an unknown muscle relaxer at home which she reports has not helped much. She denies fver/chills, weakness, numbness/tingling, decreased sensation, or incontinence. She does not report any recent falls. Lumbar spine CT revealed a prior laminectomy with posterior interbody daniela and screw fusion and discectomy at L4-L5. There are findings of suggested hardware loosening. CT pelvic revealed 4 mm nonobstructing left renal calculus. Principal Diagnosis 1. Lumbar degenerative disease s/p lumbar decompression with fusion 2. Asymptomatic bacteriuriatreated given plan for surgical intervention 3. Accelerated HTNimproved Discharge Exam General: Resting comfortably in bedside chair. NAD. HEENT: Head is AT/NC buccal mucosa is moist and pink Neck: No JVD. Negative hepatojugular reflex Cardiac: RRR with 1/6 to 2/6 LAITH Lungs: CTA without W/R/R Abdomen: Normoactive X4. Soft and nontender in all quadrants. Extremities: Able to lift her right knee towards the ceiling with less difficulty today Neuro: A&O X4 cranial nerves II through XII are grossly intact no focal neuro deficits Skin: No obvious skin lesions or rashes Psych: Appropriate affect pleasant and cooperative Discharge Data Allergies Allergy/AdvReac Type Severity Reaction Status Date / Time No Known Allergies Allergy NONE Verified 07/13/21 10:32 Consultations 07/08/21 09:56 ED Decision to Admit Stat 07/09/21 09:25 Consult Pain Management Routine 07/09/21 16:17 Consult Orthopedic Surgery Routine 07/10/21 11:10 Consult Cardiology Routine Procedures Performed Operation Date: 07/12/21 07:00 <No data on this case meets the specified criteria> Operation Date: 07/13/21 12:40 Actual Procedures p L3-L4, L5-S1 Decompression Fusion, with spinal cord monitoring(Not Applicable) - Connor Tapia DO s L4-L5 Hardware Removal(Not Applicable) - Connor Tapia DO Ordered Studies 07/08/21 07:25 CT lumbar spine wo con Stat CT pelvis wo con Stat 07/09/21 09:19 MR lumbar spine wo con Urgent 07/13/21 [place] lumbar spine 2-3V Routine Hospital Course (1) Lumbar degenerative disc disease: Patient presented to the ED with 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 No bowel or bladder incontinence or saddle anesthesias noted - s/p Lumbar decompression with fusion and removal of hardware- POD #3- Dr. Tapia - Failed conservative measure - MRI showed severe right foraminal narrowing and impingement of the nerve root with questionable sequestered fragments of L3-L4 - Nearly meeting her therapy goals including step training. - ANNA drain has since been removed - Overall, pain significantly improved. Tolerating pain medication without ill effects. moveing her bowel with added bowel regimen - Decadron utilized X 7 days for associated nerve impingement but stopped 07/15 - (did have pre-op W/U and seen by Cardiology) (2) UTI (urinary tract infection): - Likely asymptomatic bacteria but given need for surgical intervention, treated. - Urine culture with Enterococcus. completed full course of amoxil - repeat urinalysis not grossly infected and repeat UC showing no growth (3) CAD (coronary artery disease): - Patient with underlying CAD. Follows Dr. Hinds - Per review of records, last cardiac catheterization 12/13: with small vessel disease with a 95% ostial very small second diagonal branch and a 60% ostial small third diagonal branch; 40% ostial circumflex; widely patent proximal to mid LAD stents - echocardiogram: EF 55-60%/ LV wall motion normal. Moderate concentric LVH. Grade I DD. Mild MR. Mild TR. 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 (5) Hypertension: BP was elevated pre-operatively - Takes lisinopril, Norvasc, Imdur, Hydralazine, and carvedilol - Norvasc increased to 10mg during this hospitalization given aceelerated BP (at recommendations of established laboratory technology teacher)-- suspect some of this was pain related - BP now 115/69 - prn on board (with parameters) - monitor and continue to adjust routine meds if needed (6) Anxiety: - Continue Cymbalta, Ortho (Dr. Tapia) and Cardiology (Dr. Nova) on board while in house D/C to home after seen and agreed upon by Dr. Guerra Total Time Total Time Spent Total Time Spent (In Minutes): 45 including time spent with the patient, coordination of care, discussion with specialist, and preparation of documentation Discharge Plan Discharge Items Patient Disposition: Home - Self-Care Reason For Visit: INTRACTABLE BACK PAIN Discharge Diagnosis: 1. Lumbar spinal stenosis with herniated was herniated pulposis and radiculopathy s/p spinal surgery 2. Accelerated Hypertension (elevated blood pressure-- improved) Activity: As commented below Non-emergency contact: Primary Care Provider Call non-emergency contact if: you have any medication questions Follow-up/Referrals: Natasha Saldaña MD [Primary Care Provider] - Connor Tapia DO [Surgeon] - 07/28/21 1:20 pm Diet: Regular Addtl Attending Provider Instructions: ACTIVITY RECOMMENDATIONS: SELF CARE INSTRUCTIONS AFTER THORACIC/LUMBAR FUSIONS 1. You may walk to your tolerance. It is good exercise for your legs and back. Expect some back and intermittent leg aches and pains. 2. You may perform "counter-top" level activities (make a sandwich, romeo with a project, etc.). 3. No bending or lifting of more than 10 pounds or back twisting of any nature (roll like a log when turning in bed). 4. You may ride in a car for 20-30 minutes at a time. No driving until after your first visit with your doctor. 5. Frequent changes of position and restricting sitting to 30 minutes at a time will help limit the amount of back spasms and stiffness you may experience. 6. You may discontinue the use of ambulatory aids (cane, crutches, etc.) once your strength and confidence allow. 7. You may chief nursing executive the shower and let water strike your incision when you arrive home at least once daily. Do not take a tub bath, sit in a hot tub or go into a swimming pool until after your first recheck in the office. SPECIAL CARE INSTRUCTIONS: VERY IMPORTANT TO READ AND REVIEW A. Your surgical incision has been closed with a cosmetic suture under the skin that will dissolve in about 6 weeks. In 14 days, you can use a pair of clean scissors and cut the suture that is left outside of the skin at the ends of your incision. 1. The small skin tapes can be removed 7 days after surgery if they have not fallen off by that point. 2. You may keep the wound open to air as much as possible to promote healing after post-op day number 5 unless told otherwise by your doctor. 3. If you think the wound looks like it is becoming infected (redness or worsening drainage) and/or you are experiencing fever, chill or worsening back pain and muscle spasms, contact the office so that we may evaluate you as soon as possible. B. Complications are uncommon, but please contact us if you have any signs or symptoms of: 1. wound infection (fever higher than 102.5 degrees F, redness, separation of wound, drainage, or increasing pain from the incision) 2. blood clots in legs (pain, swelling, redness and warmth in legs) 3. urinary tract infection (fever higher than 102.5 degrees F, burning upon urination or increased frequency of urination) 4. nerve problems (inability to walk on your toes or heels, numbness, loss of bowel or bladder control) 5. any other symptoms that concern you C. Please call the office at if you have any concerns or questions about your operation or recovery. D. No smoking! Smoking drastically decreases the chance of a solid fusion. E. Do not take any anti-inflammatory medications (Indocin, Advil, Motrin, Aspirin, Naprosyn, etc.) as these may inhibit the chance of a solid fusion. Tylenol is okay to take for pain. MANAGING PAIN AFTER SPINAL SURGERY 1. Narcotic medication is intended for short-term use and will be provided for surgical pain. Surgical pain usually lasts for a period of 4-6 weeks. Narcotic medication includes Percocet, Vicodin, Darvocet, Tylenol #3 or Lortab. 2. Longer-term pain is more appropriately treated with non-narcotic medication such as Tylenol ES. 3. Muscle spasm is not appropriately treated with narcotics. Muscle relaxers such as Soma, Flexeril or Skelaxin can be used along with Tylenol ES. 4. Remember that we all live with some "aches and pains". This is not unusual or uncommon after an injury or as we get older. a. Back pain is expected and may include muscle spasms for 4 to 6 weeks after surgery. The pain should gradually improve. If the pain worsens for no apparent reason, please contact the office. b. Intermittent leg pain may also be experienced and should not be concerned about unless it worsens for no apparent reason. If so, please contact the office. 5. We will provide appropriate medication within the normal guidelines of their prescribed use. We will also be very cautious and aware of potential abuse and extended duration of patients' medication needs. a. Pain medications are for your comfort and to assist with sleep and rest so that the tissue can heal. They are not provided in order to return to normal activity and should not be used through the day. To do so or worsening pain at night can result from ongoing tissue damage and development of tolerance to the prescribed medicine. 6. Please allow 2-3 days to process refills. Prescriptions will not be mailed but must be picked up at the office. FOLLOW UP VISIT: Keep your scheduled follow-up appointment. Any questions, please call the office at . -Note that your blood pressure medication was increased during this hospitalization (as encouraged by cardiology). You are now to take Norvasc 10 mg daily -Because pain medication can be constipating, you have been started on Colace (stool softener) to take twice a day. In addition, you may utilize [id number] MiraLAX as needed for constipation -If you are having loose stools, stop Colace -Your aspirin has been continued throughout this. Plavix was on hold but okay to resume this starting tomorrow -Follow-up with your spine surgeon as outlined by them -Return to the ED for any new or worsening symptoms Pending Studies at Discharge: No Stand-Alone Forms: My [employer], Smoking Cessation Medications and [place] Order Prescriptions: New tramadol 50 mg tablet 50 mg PO Q6H PRN (Reason: pain, moderate) Qty: 30 RF: 0 oxycodone 5 mg tablet 5 mg PO Q6H PRN (Reason: pain, severe) Qty: 30 RF: 0 amlodipine [Norvasc] 10 mg tablet 10 mg PO DAILY Qty: 30 RF: 0 docusate sodium [Stool Softener] 100 mg capsule 100 mg PO BID Qty: 60 RF: 0 Continued azelastine 0.15 % (205.5 mcg) spray,non-aerosol 2 spray INTNAS DAILY PRN (Reason: Nasal Congestion) Qty: 90 RF: 1 carvedilol 12.5 mg tablet 12.5 mg PO BID Qty: 180 RF: 3 fluoxetine 20 mg capsule 20 mg PO DAILY Qty: 30 RF: 2 pregabalin [Lyrica] 75 mg capsule 150 mg PO TID 30 Days Qty: 180 RF: 2 trazodone 150 mg tablet 150 mg PO HS Qty: 90 RF: 1 oxycodone-acetaminophen 5-325 mg tablet 1 tab PO TID PRN (Reason: Pain) Qty: 90 RF: 0 cholecalciferol (vitamin D3) 50 mcg (2,000 unit) capsule 50 mcg PO DAILY RF: 0 lisinopril 40 mg tablet 40 mg PO QAM RF: 0 lansoprazole 30 mg capsule,delayed release(DR/EC) 30 mg PO DAILY RF: 0 diclofenac sodium [Voltaren Arthritis Pain] 1 % gel 2 g topical QID Qty: 100 RF: 2 clopidogrel 75 mg Tablet 75 mg PO QAM Qty: 30 RF: 2 aspirin [Ecotrin Low Strength] 81 mg tablet,delayed release (DR/EC) 81 mg PO HS RF: 0 ezetimibe 10 mg tablet 10 mg PO BID RF: 0 alpha lipoic acid 600 mg capsule 600 mg PO HS RF: 0 vitamin B [id number] cit 0.8-50 mg Tablet 1 tab PO DAILY RF: 0 coenzyme Q10 [CoQ-10] 100 mg Capsule 200 mg PO HS RF: 0 nitroglycerin [Nitrostat] 0.4 mg Tablet, Sublingual 0.4 mg sublingual UD PRN (Reason: chest pain) 30 Days Qty: 60 RF: 1 isosorbide mononitrate 30 mg Tablet Extended Release 24 Hr 30 mg PO BID 30 Days Qty: 60 RF: 1 hydralazine 10 mg tablet 20 mg PO TID RF: 0 duloxetine 60 mg capsule,delayed release(DR/EC) 60 mg PO BID RF: 0 Discontinued amlodipine 5 mg tablet 2.5 mg PO QAM RF: 0 Discharge Orders: Discharge Order (Routine); Ordered 07/16/21 Ordered By: Myrna Judge/Other Patient Handouts: Preventing Deep Vein Thrombosis Admission Data Admit Date/Time: 07/10/21 11:15 Attending Provider: Oscar Guerra Admit Provider: Nirmal Rothman Primary Care Provider: Natasha Saldaña Other Providers: Shalom Deshpande ; Jay Adams ; Myrna Yang ; Remy Boyd ; Jennifer Amanda ; Madhu Nova ; Connor Tapia Other Interventions: Discharge Summary Assessment (RN) Last Done: 07/16/21 12:46 Supervising Physician Co-Signing Physician Notes I supervised Myrna Ott PA-C on the care of this patient. I interviewed and examined the patient independently of her. The plan is as written in her note except for any following changes/exceptions: None Doing well today. Minimal amount of pain. Feels her legs are slightly weak, but improving. I did discuss at length the idea that as long as things are improving, this is to be expected given her surgery and length of stay. However, if she should get more weak or have any new numbness, discoordination, changes in bowel or bladder, that this would all warrant notifying Dr. Tapia and going immediately to the hospital. Coding Level of Care Code D/C DAY MANAGEMENT >30 MINS Diagnoses Lumbar degenerative disc disease M51.36 UTI (urinary tract infection) N39.0 CAD (coronary artery disease) I25.10 Fibromyalgia M79.7 Hypertension I10 Hypertension type: essential hypertension Anxiety F41.9
== END 2021-07-16 14:41 | disposition home or self-care (01) | DRG 454 ==
LOC: 3E 06:36 → ED 06:36 → SUATTDRO 10:13 → 3E 11:30

== ENCOUNTER 2022-03-30 15:43 | Observation (INO) ==
[2022-03-30 16:56] LABS: Partial Thromboplastin Ratio 0.7; Partial Thromboplastin Time 20.4 Seconds (21.0-31.0); Prothrombin Time 10.4 Seconds (9.0-12.0)
[2022-03-30 16:59] LABS: Troponin I High Sensitivity 3.2 pg/ml (0-14)
[2022-03-30 17:05] LABS: Basophils # (auto) 0.05 K/uL (0-0.2); Basophils % (auto) 0.8 %; Eosinophils # (auto) 0.15 K/uL (0-0.50); Eosinophils % (auto) 2.5 %; Hematocrit (blood only) 41.2 % (34.1-44.9); Hemoglobin 14.2 g/dl (12.0-16.0); Immature Granulocytes # (auto) 0.03 K/uL (0.00-0.02); Immature Granulocytes % (auto) 0.5 %; Lymphocytes # (auto) 1.47 K/uL (1.2-3.4); Mean Corpuscular Hemoglobin 29.2 pg (25.0-34.0); Mean Corpuscular Hgb Conc 34.5 g/dL (32.0-36.0); Mean Corpuscular Volume 84.8 fL (80.0-100.0); Mean Platelet Volume 10.3 fL (9.4-12.3); Monocytes # (auto) 0.47 K/uL (0.24-0.82); Monocytes % (auto) 7.7 %; Neutrophils # (auto) 3.95 K/uL (1.4-6.5); Neutrophils % (auto) 64.5 %; Platelet Count 181 K/uL (130-400); RDW Coefficient of Variation 13.4 % (11.5-14.5); RDW Standard Deviation 41.3 fL (36.4-46.3); Red Blood Count 4.86 M/uL (3.93-5.22); White Blood Count 6.12 K/ul (4.8-10.8)
[2022-03-30 17:07] LABS: Albumin Level 4.3 gm/dl (3.4-5.0); Bilirubin,Total 0.9 mg/dl (0.2-1.0); Calcium 9.3 mg/dl (8.5-10.1); Creatinine Clr Calc Pharmacy 70.9 ml/min; Est GFR (African American) 90.4 ml/min; Globulin 2.1 gm/dl (2.5-4.0); Potassium 3.6 mmol/L (3.5-5.1); Total Protein 6.4 gm/dl (6.0-8.3)
[2022-03-30 17:28] LABS: D Dimer 1450 ug/L FEU (0-500)
--- NOTE | 2022-03-30 17:35 | XRay Report ---
XR chest 1V portable HISTORY: Atypical Chest Pain COMPARISON: Chest 07/10/2021. FINDINGS: No pneumothorax. No pleural effusions. The cardiac silhouette remains mildly enlarged. No e vidence for pulmonary edema. No new focal lung consolidations to suggest a pneumonia. Mild interstiti al thickening at the lung bases, unchanged. This is likely chronic. IMPRESSION: No significant change compared to the prior study. No acute process. ACT 112: Negative or not required by law. Electronically signed by: Andrez Santana M.D. 03/30/2022 5:33 PM
--- NOTE | 2022-03-30 18:11 | Emergency Department Note ---
Impression & Plan Retrosternal chest pain, Elevated d-dimer, Stented coronary artery ED Provider Note INFORMANT: Patient ED PROVIDER(S): Mumtaz Rowland MD CHIEF COMPLAINT: Chest pain PLAN: Disposition: Admitted Condition: Good Outpatient prescription management: none Referral: None MEDICAL DECISION MAKING: Patient presented with retrosternal chest pain. ECG was done after the pain episode had nearly subsided. There is no ischemia. Chest x-ray was unremarkable. Patient CBC and chemistry panel unremarkable. Troponin was negative. D-dimer was significantly elevated. This prompted chest CT imaging. Chest CT imaging was performed and was negative. No pulm emboli noted. Patient was reassessed and was doing well. Her results were discussed with her and her . Given her history and type of pain that she experienced further management in the hospital for cardiac rule out was felt to be appropriate. Consultation was made with Dr. Escobedo of the internal medicine service. Patient was evaluated in the ER and admitted for further management. Triage Nursing notes reviewed and agree them. Vital Signs: reviewed and remarkable for no significant abnormalities Differential diagnosis: Cardiac ischemia, aortic dissection, pulmonary embolism, pneumothorax, pneumonia, pericarditis, myocarditis, esophageal rupture, GERD, cholecystitis, pancreatitis, musculoskeletal, as well as other pathologies. Diagnostics interpreted by me: EC Lead ECG performed and revealed Normal sinus rhythm at 73, normal [place], QRS normal. No elevation or depression. No PACs or PVCs. When compared to ECG of 10 July 2021 there is anterior T wave flattening. Cardiac Monitoring: Cardiac monitoring ordered by me: The patient was placed on continuous cardiac monitoring and observed. It revealed a normal sinus rhythm at 77 beats per minute without ectopy or evidence of dysrhythmia. Imaging studies: Chest x-ray and CT scan as noted below HPI: The patient is a 66 year old female who presents to the Emergency Room with complaints of chest pain. This started just prior to arrival and is nearly resolved. The patient also notes the following associated symptoms, neck pain. The patient has taken no medication for relieving factors. Current pain is rated as 1 or 2/10. Patient states pain was over 7 pt denies LOC, headache, fevers, chills, diaphoresis, visual changes, leg swelling, breathing diff iculties, nausea, vomiting, abdominal pain, back pain, melena, hematochezia, urinary symptoms, numbness, weakness, lymphadenopathy, rash, or other complaints. ROS: See above HPI for pertinent positives & negatives. A total of 10 systems reviewed and were otherwise negative. PAST MEDICAL HISTORY:See Below , CAD PAST SURGICAL HISTORY:See Below, stented coronary artery FAMILY HISTORY:See Below SOCIAL HISTORY:See Below, HOME MEDICATIONS:See Below ALLERGIES:See Below VITALS:See Below PHYSICAL EXAMINATION: GENERAL: Awake, alert, well-appearing, in no distress HENT: Normocephalic, atraumatic. Oropharynx unremarkable. EYES: Normal conjunctiva. Sclera non-icteric. NECK: Inspection normal. Non-tender. Supple. No nuchal rigidity. FROM. No mas ses. RESPIRATORY: Clear to auscultation. No wheezes. No rales. Normal respiratory effort. CARDIAC: Normal rate. Normal rhythm. No murmurs. No rubs. Extremities warm and well perfused. Pulses equal. No JVD. GI: Soft, non-distended. No tenderness to palpation. No rebound or guarding. No masses. RECTAL: Deferred. MUSCULOSKELETAL: Atraumatic. Chest examination reveals no tenderness. The back is symmetrical on inspection without obvious abnormality. There is no CVA tenderness to palpation. No joint edema. LOWER EXTREMITIES: Calves are equal size bilaterally and non-tender. No edema. No discoloration. NEURO: Normal sensorium. No sensory or motor deficits noted. SKIN: No rash or jaundice noted. Mumtaz Rowland MD Past Med/Surg History Medical History Alopecia Anxiety Arthritis Bilateral leg pain Blepharochalasis CAD (coronary artery disease) Cervicalgia Chronic back pain Chronic blood loss anemia Chronic pain syndrome Constipation COVID-19 Cystitis Depression Dermatochalasis Dyslipidemia Dyspareunia Dysuria Eczema Excessive menstruation with irregular cycle Fall Fatigue Fibromyalgia IMAN (generalized anxiety disorder) GERD (gastroesophageal reflux disease) Glaucoma Gross hematuria Heartburn Hypertension Hypokalemia Hyponatremia Interstitial cystitis Left knee pain Lipoma Lumbar degenerative disc disease Malaise and fatigue Muscle spasm Numbness and tingling of left side of face On anticoagulant therapy Osteoarthritis Osteopenia Otitis externa, acute Pain, pelvic, female Postmenopausal status Psychological disorder Resistant hypertension Rhinitis Shortness of breath Sinus headache STEMI (ST elevation myocardial infarction) Steroid-induced hyperglycemia Subacute vulvitis Uterine leiomyoma Surgical History H/O dilation and curettage H/O: hysterectomy History of blepharoplasty History of cardiac cath History of cataract surgery History of colonoscopy with polypectomy History of heart artery stent History of lumbar spinal fusion S/P cardiac catheterization S/P lumbar spine operation Status post trigger finger release Family History Mother Myocardial infarction Hypertension Heart disease Brother Myocardial infarction Heart disease Grandmother Ovarian cancer Diabetes Father Diabetes Hypertension Family hx colonic polyps Grandmother (Maternal) Stroke Grandfather (Maternal) Stroke Grandmother (Paternal) Cancer Grandfather (Paternal) Cirrhosis of liver Uncle Heart disease Aunt Heart disease Other No family history of adverse response to anesthesia Denies family history of Prostate cancer Breast cancer Colorectal cancer Social History Smoking Status: Never smoker Second Hand Exposure: No; Hx Alcohol Use: No Hx Substance Use: No Preferred Language: Kyrgyz Communication Ability: Effective Visual Impairment: No Limitations Hearing Ability: Normal Shift Mgr Required: No Beliefs That Will Affect Care: None marital status: Current Living Situation: Spouse current occupational status: retired How many Children do You have: 2 Feels Safe at Home: Yes Childhood Exposure to Second-Hand Smoke: No Diet Comment: regular caffeine: Yes during the past year weight has: remained stable Dental Care, Regularly: Yes Physical Activity Frequency: Does not Exercise Seatbelt Use: always Do you think of yourself as: straight/heterosexual Assistive Devices: Cane and Glasses Allergies Allergies Allergy/AdvReac Type Severity Reaction Status Date / Time No Known Allergies Allergy NONE Verified 03/30/22 19:08 Home Meds Home Medications Medication Instructions Recorded Confirmed lisinopril 40 mg tablet 40 mg PO QAM 06/24/19 03/30/22 vitamin B complex with C-folic 1 tab PO DAILY 12/02/19 03/30/22 acid 0.8 mg-zinc citrate 50 mg tablet alpha lipoic acid 600 mg capsule 600 mg PO HS 02/18/20 03/30/22 aspirin 81 mg tablet,delayed 81 mg PO HS 02/18/20 03/30/22 release (Ecotrin Low Strength) ezetimibe 10 mg tablet 10 mg PO BID 02/18/20 03/30/22 cholecalciferol (vitamin D3) 50 50 mcg PO DAILY 08/28/20 03/30/22 mcg (2,000 unit) capsule coenzyme Q10 100 mg capsule 200 mg PO HS 02/10/22 03/30/22 (CoQ-10) hydralazine 50 mg tablet 50 mg PO TID 02/14/22 03/30/22 carvedilol 12.5 mg tablet 12.5 mg PO BID 03/30/22 03/30/22 diclofenac sodium 1 % topical gel 2 g topical QID PRN Pain 03/30/22 03/30/22 (Voltaren Arthritis Pain) Previous Rx's Medication Instructions Recorded nitroglycerin 0.4 mg sublingual 0.4 mg sublingual UD PRN chest 12/04/19 tablet (Nitrostat) pain 30 days #60 tabs azelastine 205.5 mcg (0.15 %) 2 spray intranasal DAILY PRN Nasal 06/16/20 nasal spray Congestion #90 mL isosorbide mononitrate 30 mg 30 mg PO BID 30 days #60 tabs 08/26/20 tablet,extended release 24 hr amlodipine 10 mg tablet (Norvasc) 10 mg PO DAILY #30 tabs 07/16/21 duloxetine 60 mg capsule,delayed 60 mg PO BID #180 caps 12/20/21 release trazodone 150 mg tablet 150 mg PO HS #90 tabs 01/11/22 oxycodone-acetaminophen 5 mg-325 1 tab PO TID PRN Pain #90 tabs 02/10/22 mg tablet tramadol 50 mg tablet 50 mg PO Q6H PRN pain, moderate 02/10/22 #30 tabs baclofen 20 mg tablet See Rx Instructions .Route 02/14/22 .COMPLEX #270 tabs pentosan polysulfate sodium 100 mg 100 mg PO TID 90 days #270 caps 02/18/22 capsule (Elmiron) pregabalin 25 mg capsule See Rx Instructions PO DAILY 30 03/08/22 days #42 caps lansoprazole 30 mg capsule,delayed 30 mg PO DAILY #90 caps 03/17/22 release Results & Data (ED) Vital Signs Vital Signs - 24 hr 03/30/22 15:49 03/30/22 17:18 03/30/22 17:43 Temperature 36.9 C Temperature Source Temporal Artery Scan Pulse Rate 81 Pulse Rate [Apical] 77 Pulse Rhythm [Apical] Pulse Strength [Apical] Respiratory Rate 16 18 Respiratory Effort / Characteristics Respiratory Depth Respiratory Pattern Blood Pressure 134/74 Blood Pressure [Left Arm] 132/86 Blood Pressure Mean 94 Blood Pressure Mean [Left Arm] 101 Pulse Oximetry 94 95 97 Oxygen Delivery Method Room Air Room Air Room Air Sepsis Recent Fever Within 48 Hours No Sepsis New/Unexplained Change in Mental Status N/A Sepsis Action Taken by Nursing No Action Required 03/30/22 18:49 03/30/22 19:19 03/30/22 19:30 Temperature Temperature Source Pulse Rate Pulse Rate [Apical] 75 69 66 Pulse Rhythm [Apical] Regular Pulse Strength [Apical] Normal Respiratory Rate 18 18 18 Respiratory Effort / Characteristics Non-Labored Non-Labored Spontaneous Respiratory Depth Normal Normal Respiratory Pattern Regular Blood Pressure Blood Pressure [Left Arm] 155/87 H 137/82 Blood Pressure Mean Blood Pressure Mean [Left Arm] 109 100 Pulse Oximetry 94 95 94 Oxygen Delivery Method Room Air Room Air Room Air Sepsis Recent Fever Within 48 Hours Sepsis New/Unexplained Change in Mental Status Sepsis Action Taken by Nursing 03/30/22 20:00 03/30/22 21:00 Temperature Temperature Source Pulse Rate Pulse Rate [Apical] 65 65 Pulse Rhythm [Apical] Pulse Strength [Apical] Respiratory Rate 16 18 Respiratory Effort / Characteristics Non-Labored Spontaneous Non-Labored Spontaneous Respiratory Depth Normal Normal Respiratory Pattern Regular Blood Pressure Blood Pressure [Left Arm] 106/67 180/94 H Blood Pressure Mean Blood Pressure Mean [Left Arm] 80 122 Pulse Oximetry 94 96 Oxygen Delivery Method Room Air Room Air Sepsis Recent Fever Within 48 Hours Sepsis New/Unexplained Change in Mental Status Sepsis Action Taken by Nursing Laboratory Data Result diagrams: 03/30/22 16:54 03/30/22 16:05 Lab Results 03/30/22 03/30/22 03/30/22 Range/Units 16:05 16:05 16:05 WBC Cancelled RBC Cancelled Hgb Cancelled Hct Cancelled MCV Cancelled MCH Cancelled MCHC Cancelled RDW Std Deviation Cancelled RDW Coeff of [place] Cancelled Plt Count Cancelled MPV Cancelled Immature Gran % (Auto) Cancelled Neut % (Auto) Cancelled Lymph % (Auto) Cancelled Elliott % (Auto) Cancelled Eos % (Auto) Cancelled Baso % (Auto) Cancelled Neut # (Auto) Cancelled Lymph # (Auto) Cancelled Elliott # (Auto) Cancelled Eos # (Auto) Cancelled Baso # (Auto) Cancelled Immature Gran # (Auto) Cancelled Absolute Nucleated RBC Cancelled Nucleated RBC % (auto) Cancelled Neutrophils % (Manual) Cancelled Band Neutrophils % Cancelled Lymphocytes % (Manual) Cancelled Prolymphocyte % Cancelled Reactive Lymphs % (Man) Cancelled Monocytes % (Manual) Cancelled Eosinophils % (Manual) Cancelled Basophils % (Manual) Cancelled Metamyelocytes % (Man) Cancelled Myelocytes % (Man) Cancelled Promyelocytes % (Man) Cancelled Blast Cells % (Manual) Cancelled Plasma Cell % (Manual) Cancelled Other Cells % Cancelled Nucleated RBC % Cancelled Neutrophils # (Manual) Cancelled Band Neutrophils # Cancelled Total Absolute Neuts Cancelled Lymphocytes # (Manual) Cancelled Prolymphocyte # Cancelled Reactive Lymphs # Cancelled Total Abs Lymphocytes Cancelled Monocytes # (Manual) Cancelled Eosinophils # (Manual) Cancelled Basophils # (Manual) Cancelled Metamyelocytes # (Man) Cancelled Myelocytes # (Manual) Cancelled Promyelocytes # (Man) Cancelled Blast Cells # (Man) Cancelled Plasma Cell # (Manual) Cancelled Other Cells # Cancelled Nucleated RBCs # (Man) Cancelled Hypersegmented Neuts Cancelled Hyposegmented Neuts Cancelled Hypogranular Neuts Cancelled Large Granular Lymphs Cancelled # Lrg Granular Lymphs Cancelled Hairy Cells Cancelled Smudge Cells Cancelled Toxic Granulation Cancelled Toxic Vacuolation Cancelled Dohle Bodies Cancelled Dinh Rods Cancelled Platelet Estimate Cancelled Hypogranular Platelets Cancelled Clumped Platelets Cancelled Giant Platelets Cancelled Platelet Satelliting Cancelled RBC Morphology Cancelled Polychromasia Cancelled Hypochromasia Cancelled Poikilocytosis Cancelled Basophilic Stippling Cancelled Anisocytosis Cancelled Microcytosis Cancelled Macrocytosis Cancelled Spherocytes Cancelled Pappenheimer Bodies Cancelled Sickle Cells Cancelled Target Cells Cancelled Tear Drop Cells Cancelled Ovalocytes Cancelled Stomatocytes Cancelled [place] Bodies Cancelled Echinocytes Cancelled Acanthocytes (Spur) Cancelled Rouleaux Cancelled RBC Agglutinates Cancelled Schistocytes Cancelled Sezary Cell Cancelled PT 10.4 (9.0-12.0) Seconds INR 1.0 (0.9-1.1) APTT 20.4 L (21.0-31.0) Seconds PTT Ratio 0.7 D-Dimer (0-500) ug/L FEU Sodium 139 (136-145) mmol/L Potassium 3.6 (3.5-5.1) mmol/L Chloride 106 (98-107) mmol/L Carbon Dioxide 25 (21-32) mmol/L Anion Gap 8 (3-11) BUN 15 (6-23) mg/dl Creatinine 0.79 (0.6-1.2) mg/dl Est Cr Clr Drug Dosing 70.9 ml/min Est GFR ( Amer) 90.4 ml/min Est GFR (Non-Af Amer) 78.0 ml/min BUN/Creatinine Ratio 19.0 (10-20) Glucose 142 H (70-99(Fasting)) mg/dl Calcium 9.3 (8.5-10.1) mg/dl Total Bilirubin 0.9 (0.2-1.0) mg/dl AST 25 (13-39) U/L ALT 26 (7-52) U/L Alkaline Phosphatase 88 (34-104) U/L Troponin I High Sens 3.2 (0-14) pg/ml Total Protein 6.4 (6.0-8.3) gm/dl Albumin 4.3 (3.4-5.0) gm/dl Globulin 2.1 L (2.5-4.0) gm/dl Albumin/Globulin Ratio 2.0 (0.9-2) SARS-CoV-2, RNA, NAAT (NEGATIVE) Blood Parasites ID Cancelled 03/30/22 03/30/22 03/30/22 Range/Units 16:54 16:54 20:06 WBC 6.12 RBC 4.86 Hgb 14.2 Hct 41.2 MCV 84.8 MCH 29.2 MCHC 34.5 RDW Std Deviation 41.3 RDW Coeff of [place] 13.4 Plt Count 181 MPV 10.3 Immature Gran % (Auto) 0.5 Neut % (Auto) 64.5 Lymph % (Auto) 24.0 Elliott % (Auto) 7.7 Eos % (Auto) 2.5 Baso % (Auto) 0.8 Neut # (Auto) 3.95 Lymph # (Auto) 1.47 Elliott # (Auto) 0.47 Eos # (Auto) 0.15 Baso # (Auto) 0.05 Immature Gran # (Auto) 0.03 H Absolute Nucleated RBC Nucleated RBC % (auto) Neutrophils % (Manual) Band Neutrophils % Lymphocytes % (Manual) Prolymphocyte % Reactive Lymphs % (Man) Monocytes % (Manual) Eosinophils % (Manual) Basophils % (Manual) Metamyelocytes % (Man) Myelocytes % (Man) Promyelocytes % (Man) Blast Cells % (Manual) Plasma Cell % (Manual) Other Cells % Nucleated RBC % Neutrophils # (Manual) Band Neutrophils # Total Absolute Neuts Lymphocytes # (Manual) Prolymphocyte # Reactive Lymphs # Total Abs Lymphocytes Monocytes # (Manual) Eosinophils # (Manual) Basophils # (Manual) Metamyelocytes # (Man) Myelocytes # (Manual) Promyelocytes # (Man) Blast Cells # (Man) Plasma Cell # (Manual) Other Cells # Nucleated RBCs # (Man) Hypersegmented Neuts Hyposegmented Neuts Hypogranular Neuts Large Granular Lymphs # Lrg Granular Lymphs Hairy Cells Smudge Cells Toxic Granulation Toxic Vacuolation Dohle Bodies Dinh Rods Platelet Estimate Hypogranular Platelets Clumped Platelets Giant Platelets Platelet Satelliting RBC Morphology Polychromasia Hypochromasia Poikilocytosis Basophilic Stippling Anisocytosis Microcytosis Macrocytosis Spherocytes Pappenheimer Bodies Sickle Cells Target Cells Tear Drop Cells Ovalocytes Stomatocytes [place] Bodies Echinocytes Acanthocytes (Spur) Rouleaux RBC Agglutinates Schistocytes Sezary Cell PT (9.0-12.0) Seconds INR (0.9-1.1) APTT (21.0-31.0) Seconds PTT Ratio D-Dimer 1450 H* (0-500) ug/L FEU Sodium (136-145) mmol/L Potassium (3.5-5.1) mmol/L Chloride (98-107) mmol/L Carbon Dioxide (21-32) mmol/L Anion Gap (3-11) BUN (6-23) mg/dl Creatinine (0.6-1.2) mg/dl Est Cr Clr Drug Dosing ml/min Est GFR ( Amer) ml/min Est GFR (Non-Af Amer) ml/min BUN/Creatinine Ratio (10-20) Glucose (70-99(Fasting)) mg/dl Calcium (8.5-10.1) mg/dl Total Bilirubin (0.2-1.0) mg/dl AST (13-39) U/L ALT (7-52) U/L Alkaline Phosphatase (34-104) U/L Troponin I High Sens (0-14) pg/ml Total Protein (6.0-8.3) gm/dl Albumin (3.4-5.0) gm/dl Globulin (2.5-4.0) gm/dl Albumin/Globulin Ratio (0.9-2) SARS-CoV-2, RNA, NAAT NEGATIVE (NEGATIVE) Blood Parasites ID 03/30/22 Range/Units 20:35 WBC RBC Hgb Hct MCV MCH MCHC RDW Std Deviation RDW Coeff of [place] Plt Count MPV Immature Gran % (Auto) Neut % (Auto) Lymph % (Auto) Elliott % (Auto) Eos % (Auto) Baso % (Auto) Neut # (Auto) Lymph # (Auto) Elliott # (Auto) Eos # (Auto) Baso # (Auto) Immature Gran # (Auto) Absolute Nucleated RBC Nucleated RBC % (auto) Neutrophils % (Manual) Band Neutrophils % Lymphocytes % (Manual) Prolymphocyte % Reactive Lymphs % (Man) Monocytes % (Manual) Eosinophils % (Manual) Basophils % (Manual) Metamyelocytes % (Man) Myelocytes % (Man) Promyelocytes % (Man) Blast Cells % (Manual) Plasma Cell % (Manual) Other Cells % Nucleated RBC % Neutrophils # (Manual) Band Neutrophils # Total Absolute Neuts Lymphocytes # (Manual) Prolymphocyte # Reactive Lymphs # Total Abs Lymphocytes Monocytes # (Manual) Eosinophils # (Manual) Basophils # (Manual) Metamyelocytes # (Man) Myelocytes # (Manual) Promyelocytes # (Man) Blast Cells # (Man) Plasma Cell # (Manual) Other Cells # Nucleated RBCs # (Man) Hypersegmented Neuts Hyposegmented Neuts Hypogranular Neuts Large Granular Lymphs # Lrg Granular Lymphs Hairy Cells Smudge Cells Toxic Granulation Toxic Vacuolation Dohle Bodies Dinh Rods Platelet Estimate Hypogranular Platelets Clumped Platelets Giant Platelets Platelet Satelliting RBC Morphology Polychromasia Hypochromasia Poikilocytosis Basophilic Stippling Anisocytosis Microcytosis Macrocytosis Spherocytes Pappenheimer Bodies Sickle Cells Target Cells Tear Drop Cells Ovalocytes Stomatocytes [place] Bodies Echinocytes Acanthocytes (Spur) Rouleaux RBC Agglutinates Schistocytes Sezary Cell PT (9.0-12.0) Seconds INR (0.9-1.1) APTT (21.0-31.0) Seconds PTT Ratio D-Dimer (0-500) ug/L FEU Sodium (136-145) mmol/L Potassium (3.5-5.1) mmol/L Chloride (98-107) mmol/L Carbon Dioxide (21-32) mmol/L Anion Gap (3-11) BUN (6-23) mg/dl Creatinine (0.6-1.2) mg/dl Est Cr Clr Drug Dosing ml/min Est GFR ( Amer) ml/min Est GFR (Non-Af Amer) ml/min BUN/Creatinine Ratio (10-20) Glucose (70-99(Fasting)) mg/dl Calcium (8.5-10.1) mg/dl Total Bilirubin (0.2-1.0) mg/dl AST (13-39) U/L ALT (7-52) U/L Alkaline Phosphatase (34-104) U/L Troponin I High Sens 3.0 (0-14) pg/ml Total Protein (6.0-8.3) gm/dl Albumin (3.4-5.0) gm/dl Globulin (2.5-4.0) gm/dl Albumin/Globulin Ratio (0.9-2) SARS-CoV-2, RNA, NAAT (NEGATIVE) Blood Parasites ID Administered Medications Discontinued Medications Ioversol (Optiray 300 500ml) 109 ml IV ONCE ONE Stop: 03/30/22 18:33 Last Admin: 03/30/22 18:33 Dose: 109 ml Documented By: [facility] Data Radiologist's Impression: Chest X-Ray 03/30/22 15:51 XR chest 1V portable HISTORY: Atypical Chest Pain COMPARISON: Chest 07/10/2021. FINDINGS: No pneumothorax. No pleural effusions. The cardiac silhouette remains mildly enlarged. No evidence for pulmonary edema. No new focal lung consolidations to suggest a pneumonia. Mild interstitial thickening at the lung bases, unchanged. This is likely chronic. IMPRESSION: No significant change compared to the prior study. No acute process. ACT 112: Negative or not required by law. Electronically signed by: Andrez Santana M.D. 03/30/2022 5:33 PM Chest CTA 03/30/22 17:42 CHEST CTA for PULMONARY ARTERIES CT DOSE: 287.12 mGy.cm HISTORY: Atypical chest pain, +dimer TECHNIQUE: Multiaxial CT images of the chest were performed following the intravenous administration of contrast to evaluate the pulmonary arteries. Ma ximal intensity projection images were also obtained. A dose lowering technique was utilized adhering to the principles of ALARA. COMPARISON STUDY: None. FINDINGS: Limited views of the upper abdomen demonstrate a normal spleen and adrenal glands. There is mild hepatic steatosis. The thyroid gland enhances normally. Normal esophagus. No mediastinal or hilar lymphadenopathy. No pleural or pericardial effusions. The heart is mildly enlarged. No fractures within the visualized osseous structures. No evidence for an aortic dissection. No filling defects within the pulmonary arteries to suggest a pulmonary embolus. No pneumothorax. There is mild bronchial wall thickening. Otherwise, the central airways are patent. There are low lung volumes. Patchy groundglass densities within the lung bases favor mild dependent change from the poor inspiratory effort. Otherwise, no focal lung consolidations to suggest a pneumonia. No evidence for pulmonary edema. There is a punctate calcified granuloma within the lingula. IMPRESSION: 1. No evidence for pulmonary embolus. 2. Mild cardiomegaly, unchanged. 3. Mild hepatic steatosis. 4. Low lung volumes with mild dependent changes at the lung bases. ACT 112: Negative or not required by law. Electronically signed by: Andrez Santana M.D. 03/30/2022 6:47 PM Discharge Plan Visit Data Chief Complaint: Chest Pain Stated Complaint: CHEST PAIN, HEART DISEASE ED Provider: Mumtaz Rowland Discharge Problem: Retrosternal chest pain, Elevated d-dimer, Stented coronary artery Forms Stand Alone Forms: My [employer] Prescriptions Prescriptions: No Action azelastine 0.15 % (205.5 mcg) spray,non-aerosol 2 spray INTNAS DAILY PRN (Reason: Nasal Congestion) Qty: 90 1RF Rx Instructions: administer into each nostril duloxetine 60 mg capsule,delayed release(DR/EC) 60 mg PO BID Qty: 180 1RF trazodone 150 mg tablet 150 mg PO HS Qty: 90 1RF pregabalin 25 mg capsule See Rx Instructions PO DAILY 30 Days Qty: 42 0RF Rx Instructions: Take 2 pills daily x 2 wks, then 1 pill daily x 2 wks lansoprazole 30 mg capsule,delayed release(DR/EC) 30 mg PO DAILY Qty: 90 3RF cholecalciferol (vitamin D3) 50 mcg (2,000 unit) capsule 50 mcg PO DAILY hydralazine 50 mg tablet 50 mg PO TID baclofen 20 mg tablet See Rx Instructions .ROUTE .COMPLEX Qty: 270 3RF Rx Instructions: 1 tab po BID, make take up to TID if needed and tolerated. lisinopril 40 mg tablet 40 mg PO QAM Elmiron 100 mg capsule 100 mg PO TID 90 Days Qty: 270 1RF oxycodone-acetaminophen 5-325 mg tablet 1 tab PO TID PRN (Reason: Pain) Qty: 90 0RF Rx Instructions: PDMP-Last filled on 02/10/22 FOR 90 TABS/90 DAYS. tramadol 50 mg tablet 50 mg PO Q6H PRN (Reason: pain, moderate) Qty: 30 0RF aspirin [Ecotrin Low Strength] 81 mg tablet,delayed release (DR/EC) 81 mg PO HS ezetimibe 10 mg tablet 10 mg PO BID alpha lipoic acid 600 mg capsule 600 mg PO HS vitamin B [id number] cit 0.8-50 mg Tablet 1 tab PO DAILY nitroglycerin [Nitrostat] 0.4 mg Tablet, Sublingual 0.4 mg sublingual UD PRN (Reason: chest pain) 30 Days Qty: 60 1RF Rx Instructions: take every 15 minutes for chest pain, if you take 3 tablets in 24 hours call coenzyme Q10 [CoQ-10] 100 mg capsule 200 mg PO HS isosorbide mononitrate 30 mg Tablet Extended Release 24 Hr 30 mg PO BID 30 Days Qty: 60 1RF carvedilol 12.5 mg tablet 12.5 mg PO BID diclofenac sodium [Voltaren Arthritis Pain] 1 % gel 2 g topical QID PRN (Reason: Pain) Rx Instructions: apply to single elbow, wrist or hand; for hand includes palm/fingers/back of hand amlodipine [Norvasc] 10 mg tablet 10 mg PO DAILY Qty: 30 0RF Referrals Referrals: Natasha Saldaña MD [Primary Care Provider] -
[2022-03-30] MEDS ORDERED: OPTIRAY 300 500mL IV ONE (18:32)
--- NOTE | 2022-03-30 18:49 | CT Scan Report ---
CHEST CTA for PULMONARY ARTERIES CT DOSE: 287.12 mGy.cm HISTORY: Atypical chest pain, +dimer TECHNIQUE: Multiaxial CT images of the chest were performed following the intravenous administration of contrast to evaluate the pulmonary arteries. Maximal intensity projection images were also obtaine d. A dose lowering technique was utilized adhering to the principles of ALARA. COMPARISON STUDY: None. FINDINGS: Limited views of the upper abdomen demonstrate a normal spleen and adrenal glands. There is mild hepatic steatosis. The thyroid gland enhances normally. Normal esophagus. No mediastinal or hil ar lymphadenopathy. No pleural or pericardial effusions. The heart is mildly enlarged. No fractures w ithin the visualized osseous structures. No evidence for an aortic dissection. No filling defects wit hin the pulmonary arteries to suggest a pulmonary embolus. No pneumothorax. There is mild bronchial w all thickening. Otherwise, the central airways are patent. There are low lung volumes. Patchy groundg lass densities within the lung bases favor mild dependent change from the poor inspiratory effort. Ot herwise, no focal lung consolidations to suggest a pneumonia. No evidence for pulmonary edema. There is a punctate calcified granuloma within the lingula. IMPRESSION: 1. No evidence for pulmonary embolus. 2. Mild cardiomegaly, unchanged. 3. Mild hepatic steatosis. 4. Low lung volumes with mild dependent changes at the lung bases. ACT 112: Negative or not required by law. Electronically signed by: Andrez Santana M.D. 03/30/2022 6:47 PM
--- NOTE | 2022-03-30 20:23 | History & Physical Report ---
Date of Service March 30, 2022 Assessment & Plan (1) Retrosternal chest pain: (2) Elevated d-dimer: (3) Fibromyalgia: (4) Hypertension: (5) Hyperlipidemia: Plan Selina is a 66 y/o female who presented to the ED for evaluation of sudden onset, sharp chest pain at that began earlier this afternoon. Her PMH includes HTN, HLD (resistant to statins), GERD, fibromyalgia, meningioma, and CAD with 2 previous GA's: s/p cardiac cath with 4 stents (2018) and cardiac cath w/o stent (2019). Atypical Chest Pain/Known CAD Given patient's strong medical history of GA/CAD, plan to admit for observation to rule-out ACS. -HEART score: 4 (moderate) -Initial troponin: 3.2, repeat 4 hours later was 3.0, continue q6 troponin -EKG: normal sinus rhythm, no ST deviation -Consider outpatient cardiology follow up/stress test Elevated D-Dimer Patient denies any shortness of breath, O2 sat 96% room air -D-Dimer:1450 -CTA chest: no evidence of pulmonary embolus Hypertension -Hypertensive in ED (180/94) -Continue home meds of Amlodipine, Carvedilol, Hydralazine, Lisinopril Hyperlipidemia -Continue Ezetimibe Diet: Heart healthy DVT PPx: Lovenox Code Status: Conditional Dispo: Observation/Telemetry History of Present Illness Chief Complaint: Chest pain Primary Care Provider: Natasha Saldaña MD Selina Hopkins is a 66 y/o female who presents to the ED today with complaint of chest pain. Her PMH includes HTN, HLD (resistant to statins - on Ezetimibe), GERD, fibromyalgia, meningioma, and CAD with 2 previous GA's: s/p cardiac cath with 4 stents (2018) and cardiac cath w/o stent (2019). Her chest pain began at about 3pm today, she noted a sudden sharp pain at the center of her chest (7/10 intensity), the intense/sharp pain lasted for several minutes and then decreased but did not go away. She was sitting in the car when the pain began, tried leaning forwards and laying backwards but neither helped. She states that this pain is different from her past heart attacks- she states that previous pain was a "squeezing" sensation across her chest and back. She notes that she had done some light housework earlier in the day, but does not exercise/ambulate much due to her fibromyalgia. Admits that she had some discomfort at her neck after the chest pain began, although states she does have chronic pain in her neck. Denies any pain radiating to the jaw or arm. States that since arriving at the ED, her pain has decreased and is now at a 1/10 which she now describes as more of a "pressure." Follows with Dr. Nova/[facility], notes she has not had any chest pain/pressure since her most recent GA in 2019. Denies any shortness of breath or increased pain with deep breaths. Denies N/V/abdominal pain/fever/chills/dizziness/syncope. Denies any palpitations/racing heart. Lives at home with her . Notes that she recently started taking medical marijuana for her fibromyalgia. Cardiology discontinued her Plavix in 2021 (completed 2 years of DAPT), but denies any other recent changes to her medications. Allergies Allergy/AdvReac Type Severity Reaction Status Date / Time No Known Allergies Allergy NONE Verified 03/30/22 19:08 Home Medications Medication Instructions Recorded Confirmed Type lisinopril 40 mg tablet 40 mg PO QAM 06/24/19 03/30/22 History vitamin B complex with C-folic 1 tab PO DAILY 12/02/19 03/30/22 History acid 0.8 mg-zinc citrate 50 mg tablet nitroglycerin 0.4 mg sublingual 0.4 mg sublingual UD PRN chest 12/04/19 03/30/22 Rx tablet (Nitrostat) pain 30 days #60 tabs alpha lipoic acid 600 mg capsule 600 mg PO HS 02/18/20 03/30/22 History aspirin 81 mg tablet,delayed 81 mg PO HS 02/18/20 03/30/22 History release (Ecotrin Low Strength) ezetimibe 10 mg tablet 10 mg PO BID 02/18/20 03/30/22 History azelastine 205.5 mcg (0.15 %) 2 spray intranasal DAILY PRN Nasal 06/16/20 03/30/22 Rx nasal spray Congestion #90 mL isosorbide mononitrate 30 mg 30 mg PO BID 30 days #60 tabs 08/26/20 03/30/22 Rx tablet,extended release 24 hr cholecalciferol (vitamin D3) 50 50 mcg PO DAILY 08/28/20 03/30/22 History mcg (2,000 unit) capsule amlodipine 10 mg tablet (Norvasc) 10 mg PO DAILY #30 tabs 07/16/21 03/30/22 Rx duloxetine 60 mg capsule,delayed 60 mg PO BID #180 caps 12/20/21 03/30/22 Rx release trazodone 150 mg tablet 150 mg PO HS #90 tabs 01/11/22 03/30/22 Rx coenzyme Q10 100 mg capsule 200 mg PO HS 02/10/22 03/30/22 History (CoQ-10) oxycodone-acetaminophen 5 mg-325 1 tab PO TID PRN Pain #90 tabs 02/10/22 03/30/22 Rx mg tablet tramadol 50 mg tablet 50 mg PO Q6H PRN pain, moderate 02/10/22 03/30/22 Rx #30 tabs baclofen 20 mg tablet See Rx Instructions .Route 02/14/22 03/30/22 Rx .COMPLEX #270 tabs hydralazine 50 mg tablet 50 mg PO TID 02/14/22 03/30/22 History pentosan polysulfate sodium 100 mg 100 mg PO TID 90 days #270 caps 02/18/22 03/30/22 Rx capsule (Elmiron) pregabalin 25 mg capsule See Rx Instructions PO DAILY 30 03/08/22 03/30/22 Rx days #42 caps lansoprazole 30 mg capsule,delayed 30 mg PO DAILY #90 caps 03/17/22 03/30/22 Rx release carvedilol 12.5 mg tablet 12.5 mg PO BID 03/30/22 03/30/22 History diclofenac sodium 1 % topical gel 2 g topical QID PRN Pain 03/30/22 03/30/22 History (Voltaren Arthritis Pain) Past Med/Surg History Medical History Alopecia Anxiety Arthritis Bilateral leg pain Blepharochalasis CAD (coronary artery disease) Cervicalgia Chronic back pain Chronic blood loss anemia Chronic pain syndrome Constipation COVID-19 Cystitis Depression Dermatochalasis Dyslipidemia Dyspareunia Dysuria Eczema Excessive menstruation with irregular cycle Fall Fatigue Fibromyalgia IMAN (generalized anxiety disorder) GERD (gastroesophageal reflux disease) Glaucoma Gross hematuria Heartburn Hypertension Hypokalemia Hyponatremia Interstitial cystitis Left knee pain Lipoma Lumbar degenerative disc disease Malaise and fatigue Muscle spasm Numbness and tingling of left side of face On anticoagulant therapy Osteoarthritis Osteopenia Otitis externa, acute Pain, pelvic, female Postmenopausal status Psychological disorder Resistant hypertension Rhinitis Shortness of breath Sinus headache STEMI (ST elevation myocardial infarction) Steroid-induced hyperglycemia Subacute vulvitis Uterine leiomyoma Surgical History H/O dilation and curettage H/O: hysterectomy History of blepharoplasty History of cardiac cath History of cataract surgery History of colonoscopy with polypectomy History of heart artery stent History of lumbar spinal fusion S/P cardiac catheterization S/P lumbar spine operation Status post trigger finger release Family History Mother Myocardial infarction Hypertension Heart disease Brother Myocardial infarction Heart disease Grandmother Ovarian cancer Diabetes Father Diabetes Hypertension Family hx colonic polyps Grandmother (Maternal) Stroke Grandfather (Maternal) Stroke Grandmother (Paternal) Cancer Grandfather (Paternal) Cirrhosis of liver Uncle Heart disease Aunt Heart disease Other No family history of adverse response to anesthesia Denies family history of Prostate cancer Breast cancer Colorectal cancer Social History Smoking Status: Never smoker Second Hand Exposure: No; Hx Alcohol Use: No Hx Substance Use: No Preferred Language: Sami Communication Ability: Effective Visual Impairment: No Limitations Hearing Ability: Normal 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 Beliefs That Will Affect Care: None marital status: Current Living Situation: Spouse current occupational status: retired How many Children do You have: 2 Feels Safe at Home: Yes Childhood Exposure to Second-Hand Smoke: No Diet Comment: regular caffeine: Yes during the past year weight has: remained stable Dental Care, Regularly: Yes Physical Activity Frequency: Does not Exercise Seatbelt Use: always Do you think of yourself as: straight/heterosexual Assistive Devices: Cane and Glasses Review of Systems Review of Systems: As per HPI Physical Exam Constitutional: WD/WN, vitals as above Eyes: PERRL, conjunctivae normal, anicteric sclerae Neck: trachea midline, no thyromegaly Respiratory: normal respiratory effort, lungs clear to auscultation Cardiovascular: RRR, no murmur, no edema Chest (Breasts): Additional Comments: no reproducible chest pain with palpation Gastrointestinal (Abdomen): normal bowel sounds, soft, nontender, no hepatosp lenomegaly Skin: no rashes, warm and dry Psychiatric: A+Ox3, euthymic affect Results & Data Results & Data ([facility]) Vital Signs (Past 12 Hours) Vital Signs Temp Pulse Pulse Resp BP BP Pulse Ox 03/30/22 20:00 65 16 106/67 94 03/30/22 19:30 66 18 137/82 94 03/30/22 19:19 69 18 155/87 H 95 03/30/22 18:49 75 18 94 03/30/22 17:43 77 18 132/86 97 03/30/22 17:18 95 03/30/22 15:49 36.9 C 81 16 134/74 94 O2 Del Method 03/30/22 20:00 Room Air 03/30/22 19:30 Room Air 03/30/22 19:19 Room Air 03/30/22 18:49 Room Air 03/30/22 17:43 Room Air 03/30/22 17:18 Room Air 03/30/22 15:49 Room Air Laboratory Results 03/30/22 03/30/22 03/30/22 Range/Units 20:06 16:54 16:54 WBC 6.12 RBC 4.86 Hgb 14.2 Hct 41.2 MCV 84.8 MCH 29.2 MCHC 34.5 RDW Std Deviation 41.3 RDW Coeff of Beka 13.4 Plt Count 181 MPV 10.3 Immature Gran % (Auto) 0.5 Neut % (Auto) 64.5 Lymph % (Auto) 24.0 Lassen % (Auto) 7.7 Eos % (Auto) 2.5 Baso % (Auto) 0.8 Neut # (Auto) 3.95 Lymph # (Auto) 1.47 Lassen # (Auto) 0.47 Eos # (Auto) 0.15 Baso # (Auto) 0.05 Immature Gran # (Auto) 0.03 H Absolute Nucleated RBC Nucleated RBC % (auto) Neutrophils % (Manual) Band Neutrophils % Lymphocytes % (Manual) Prolymphocyte % Reactive Lymphs % (Man) Monocytes % (Manual) Eosinophils % (Manual) Basophils % (Manual) Metamyelocytes % (Man) Myelocytes % (Man) Promyelocytes % (Man) Blast Cells % (Manual) Plasma Cell % (Manual) Other Cells % Nucleated RBC % Neutrophils # (Manual) Band Neutrophils # Total Absolute Neuts Lymphocytes # (Manual) Prolymphocyte # Reactive Lymphs # Total Abs Lymphocytes Monocytes # (Manual) Eosinophils # (Manual) Basophils # (Manual) Metamyelocytes # (Man) Myelocytes # (Manual) Promyelocytes # (Man) Blast Cells # (Man) Plasma Cell # (Manual) Other Cells # Nucleated RBCs # (Man) Hypersegmented Neuts Hyposegmented Neuts Hypogranular Neuts Large Granular Lymphs # Lrg Granular Lymphs Hairy Cells Smudge Cells Toxic Granulation Toxic Vacuolation Dohle Bodies Dinh Rods Platelet Estimate Hypogranular Platelets Clumped Platelets Giant Platelets Platelet Satelliting RBC Morphology Polychromasia Hypochromasia Poikilocytosis Basophilic Stippling Anisocytosis Microcytosis Macrocytosis Spherocytes Pappenheimer Bodies Sickle Cells Target Cells Tear Drop Cells Ovalocytes Stomatocytes Rogers-Geyser Bodies Echinocytes Acanthocytes (Spur) Rouleaux RBC Agglutinates Schistocytes Sezary Cell PT (9.0-12.0) Seconds INR (0.9-1.1) APTT (21.0-31.0) Seconds PTT Ratio D-Dimer 1450 H* (0-500) ug/L FEU Sodium (136-145) mmol/L Potassium (3.5-5.1) mmol/L Chloride (98-107) mmol/L Carbon Dioxide (21-32) mmol/L Anion Gap (3-11) BUN (6-23) mg/dl Creatinine (0.6-1.2) mg/dl Est Cr Clr Drug Dosing ml/min Est GFR ( Amer) ml/min Est GFR (Non-Af Amer) ml/min BUN/Creatinine Ratio (10-20) Glucose (70-99(Fasting)) mg/dl Calcium (8.5-10.1) mg/dl Total Bilirubin (0.2-1.0) mg/dl AST (13-39) U/L ALT (7-52) U/L Alkaline Phosphatase (34-104) U/L Troponin I High Sens (0-14) pg/ml Total Protein (6.0-8.3) gm/dl Albumin (3.4-5.0) gm/dl Globulin (2.5-4.0) gm/dl Albumin/Globulin Ratio (0.9-2) SARS-CoV-2, RNA, NAAT NEGATIVE (NEGATIVE) Blood Parasites ID 03/30/22 03/30/22 03/30/22 Range/Units 16:05 16:05 16:05 WBC Cancelled RBC Cancelled Hgb Cancelled Hct Cancelled MCV Cancelled MCH Cancelled MCHC Cancelled RDW Std Deviation Cancelled RDW Coeff of Beka Cancelled Plt Count Cancelled MPV Cancelled Immature Gran % (Auto) Cancelled Neut % (Auto) Cancelled Lymph % (Auto) Cancelled Lassen % (Auto) Cancelled Eos % (Auto) Cancelled Baso % (Auto) Cancelled Neut # (Auto) Cancelled Lymph # (Auto) Cancelled Lassen # (Auto) Cancelled Eos # (Auto) Cancelled Baso # (Auto) Cancelled Immature Gran # (Auto) Cancelled Absolute Nucleated RBC Cancelled Nucleated RBC % (auto) Cancelled Neutrophils % (Manual) Cancelled Band Neutrophils % Cancelled Lymphocytes % (Manual) Cancelled Prolymphocyte % Cancelled Reactive Lymphs % (Man) Cancelled Monocytes % (Manual) Cancelled Eosinophils % (Manual) Cancelled Basophils % (Manual) Cancelled Metamyelocytes % (Man) Cancelled Myelocytes % (Man) Cancelled Promyelocytes % (Man) Cancelled Blast Cells % (Manual) Cancelled Plasma Cell % (Manual) Cancelled Other Cells % Cancelled Nucleated RBC % Cancelled Neutrophils # (Manual) Cancelled Band Neutrophils # Cancelled Total Absolute Neuts Cancelled Lymphocytes # (Manual) Cancelled Prolymphocyte # Cancelled Reactive Lymphs # Cancelled Total Abs Lymphocytes Cancelled Monocytes # (Manual) Cancelled Eosinophils # (Manual) Cancelled Basophils # (Manual) Cancelled Metamyelocytes # (Man) Cancelled Myelocytes # (Manual) Cancelled Promyelocytes # (Man) Cancelled Blast Cells # (Man) Cancelled Plasma Cell # (Manual) Cancelled Other Cells # Cancelled Nucleated RBCs # (Man) Cancelled Hypersegmented Neuts Cancelled Hyposegmented Neuts Cancelled Hypogranular Neuts Cancelled Large Granular Lymphs Cancelled # Lrg Granular Lymphs Cancelled Hairy Cells Cancelled Smudge Cells Cancelled Toxic Granulation Cancelled Toxic Vacuolation Cancelled Dohle Bodies Cancelled Dinh Rods Cancelled Platelet Estimate Cancelled Hypogranular Platelets Cancelled Clumped Platelets Cancelled Giant Platelets Cancelled Platelet Satelliting Cancelled RBC Morphology Cancelled Polychromasia Cancelled Hypochromasia Cancelled Poikilocytosis Cancelled Basophilic Stippling Cancelled Anisocytosis Cancelled Microcytosis Cancelled Macrocytosis Cancelled Spherocytes Cancelled Pappenheimer Bodies Cancelled Sickle Cells Cancelled Target Cells Cancelled Tear Drop Cells Cancelled Ovalocytes Cancelled Stomatocytes Cancelled Rogers-Geyser Bodies Cancelled Echinocytes Cancelled Acanthocytes (Spur) Cancelled Rouleaux Cancelled RBC Agglutinates Cancelled Schistocytes Cancelled Sezary Cell Cancelled PT 10.4 (9.0-12.0) Seconds INR 1.0 (0.9-1.1) APTT 20.4 L (21.0-31.0) Seconds PTT Ratio 0.7 D-Dimer (0-500) ug/L FEU Sodium 139 (136-145) mmol/L Potassium 3.6 (3.5-5.1) mmol/L Chloride 106 (98-107) mmol/L Carbon Dioxide 25 (21-32) mmol/L Anion Gap 8 (3-11) BUN 15 (6-23) mg/dl Creatinine 0.79 (0.6-1.2) mg/dl Est Cr Clr Drug Dosing 70.9 ml/min Est GFR ( Amer) 90.4 ml/min Est GFR (Non-Af Amer) 78.0 ml/min BUN/Creatinine Ratio 19.0 (10-20) Glucose 142 H (70-99(Fasting)) mg/dl Calcium 9.3 (8.5-10.1) mg/dl Total Bilirubin 0.9 (0.2-1.0) mg/dl AST 25 (13-39) U/L ALT 26 (7-52) U/L Alkaline Phosphatase 88 (34-104) U/L Troponin I High Sens 3.2 (0-14) pg/ml Total Protein 6.4 (6.0-8.3) gm/dl Albumin 4.3 (3.4-5.0) gm/dl Globulin 2.1 L (2.5-4.0) gm/dl Albumin/Globulin Ratio 2.0 (0.9-2) SARS-CoV-2, RNA, NAAT (NEGATIVE) Blood Parasites ID Cancelled Diagnostic Findings Chest X-Ray 03/30/22 15:51 XR chest 1V portable HISTORY: Atypical Chest Pain COMPARISON: Chest 07/10/2021. FINDINGS: No pneumothorax. No pleural effusions. The cardiac silhouette remains mildly enlarged. No evidence for pulmonary edema. No new focal lung consolidations to suggest a pneumonia. Mild interstitial thickening at the lung bases, unchanged. This is likely chronic. IMPRESSION: No significant change compared to the prior study. No acute process. ACT 112: Negative or not required by law. Electronically signed by: Andrez Santana M.D. 03/30/2022 5:33 PM Chest CTA 03/30/22 17:42 CHEST CTA for PULMONARY ARTERIES CT DOSE: 287.12 mGy.cm HISTORY: Atypical chest pain, +dimer TECHNIQUE: Multiaxial CT images of the chest were performed following the intravenous administration of contrast to evaluate the pulmonary arteries. Maximal intensity projection images were also obtained. A dose lowering technique was utilized adhering to the principles of ALARA. COMPARISON STUDY: None. FINDINGS: Limited views of the upper abdomen demonstrate a normal spleen and adrenal glands. There is mild hepatic steatosis. The thyroid gland enhances normally. Normal esophagus. No mediastinal or hilar lymphadenopathy. No pleural or pericardial effusions. The heart is mildly enlarged. No fractures within the visualized osseous structures. No evidence for an aortic dissection. No filling defects within the pulmonary arteries to suggest a pulmonary embolus. No pneumothorax. There is mild bronchial wall thickening. Otherwise, the central airways are patent. There are low lung volumes. Patchy groundglass densities within the lung bases favor mild dependent change from the poor inspiratory effort. Otherwise, no focal lung consolidations to suggest a pneumonia. No evidence for pulmonary edema. There is a punctate calcified granuloma within the lingula. IMPRESSION: 1. No evidence for pulmonary embolus. 2. Mild cardiomegaly, unchanged. 3. Mild hepatic steatosis. 4. Low lung volumes with mild dependent changes at the lung bases. ACT 112: Negative or not required by law. Electronically signed by: Andrez Santana M.D. 03/30/2022 6:47 PM Supervising Physician Co-Signing Physician Notes Patient seen and examined, chart reviewed, case discussed with Dr. Kilgore and I agree with the assessment and plan as above. In brief, patient is a 66yo female with history of HTN, HLP and CAD with history of STEMI s/p cardiac catheterization with placement of ROLAN x 4 on 01/28/2019. Patient remains on ASA, statin intolerant on Ezetimibe. She typically does not experience chest pain or exertional symptoms. She did have an episode of chest pain as described above prior to arrival. Presently with dull discomfort 1/10 in severity On exam she is afebrile, HD stable, NAD Skin - intact, no rashes/lesions HEENT - NC/AT, PERRL, MMM Heart - +S1/S2, regular, no m/r/g, no chest wall tenderness, no epigastric pain Lungs - CTA Abd - +BS, soft, NT/ND Ext - warm, well perfused, no clubbing/cyanosis or edema Labs and images reviewed Troponin x 2 negative No ischemic changes on EKG Assessment/Plan: 66yo female with CAD, HTN, HLP presenting with atypical chest pain. Troponin x 2 NEG, EKG with no ischemic changes. Do not highly suspect ACS as underlying cause -Trend troponin -Continue home medications -Remainder as above Resident Activity Tracking Resident Involvement: Resident Care Provided Care Provided: Adult Hospital Medicine (1) Hypertension Hypertension type: essential hypertension Qualified Code(s): I10 - Essential (primary) hypertension
[2022-03-30] MEDS ORDERED: traZODone HCL 50 MG TAB PO STA (22:40)
[2022-03-30] MEDS ORDERED: EZETIMIBE 10 MG TABLET PO STA (22:40)
[2022-03-30] MEDS ORDERED: carvediloL 12.5 MG TAB PO ONE (22:40)
[2022-03-30] MEDS ORDERED: DULoxetine HCL 60 MG CAP PO STA (22:40)
[2022-03-30] MEDS ORDERED: ISOSORBIDE MONO EXTENDED REL 30 MG TABCR PO ONE (22:40)
[2022-03-30] MEDS ORDERED: hydrALAZINE TAB 50 MG TAB PO STA (22:40)
--- NOTE | 2022-03-30 23:50 | Billing Data ---
Date of Service March 30, 2022 Coding Level of Care Code INT OBSERVATION CARE 70M LVL 3
[2022-03-30] MEDS ORDERED: traMADol HCL 50 MG TABLET PO PRN (23:53)
[2022-03-30] MEDS ORDERED: NITROGLYCERIN SL 0.4 MG/TAB TAB SL PRN (23:53)
[2022-03-31] MEDS ORDERED: BACLOFEN 20 MG TAB PO PRN (00:02)
[2022-03-31] MEDS ORDERED: ENOXAPARIN INJ 40 MG/0.4 ML SYR SQ SCH (06:00)
--- NOTE | 2022-03-31 08:16 | Electrocardiogram Report ---
Test Reason : Blood Pressure : / mmHG Vent. Rate : 073 BPM Atrial Rate : 073 BPM P-R Int : 134 ms QRS Dur : 088 ms QT Int : 388 ms P-R-T Axes : 049 026 047 degrees QTc Int : 427 ms Normal sinus rhythm Normal ECG When compared with ECG of 10-JUL-2021 12:49, Nonspecific T wave abnormality now evident in Anterior leads Confirmed by Uri Pino ([id number]) on 03/31/2022 8:16:04 AM Referred By: Confirmed By:Aayush Pion
[2022-03-31] MEDS ORDERED: PENTOSAN POLYSULFATE SODIUM 100 MG CAP PO SCH (09:00)
[2022-03-31] MEDS ORDERED: hydrALAZINE TAB 50 MG TAB PO SCH (09:00)
[2022-03-31] MEDS ORDERED: BACLOFEN 20 MG TAB PO SCH (09:00)
[2022-03-31] MEDS ORDERED: PREGABALIN 25 MG CAP PO SCH (09:00)
[2022-03-31] MEDS ORDERED: DULoxetine HCL 60 MG CAP PO SCH (09:00)
[2022-03-31] MEDS ORDERED: EZETIMIBE 10 MG TABLET PO SCH (09:00)
[2022-03-31] MEDS ORDERED: lisinopril 40 MG TAB PO SCH (09:00)
[2022-03-31] MEDS ORDERED: amLODIPine BESYLATE 5 MG TAB PO SCH (09:00)
[2022-03-31] MEDS ORDERED: carvediloL 12.5 MG TAB PO SCH (09:00)
[2022-03-31] MEDS ORDERED: ISOSORBIDE MONO EXTENDED REL 30 MG TABCR PO SCH (09:00)
[2022-03-31] MEDS ORDERED: ASPIRIN 81 MG ECTAB PO SCH (09:00)
[2022-03-31] MEDS ORDERED: PANTOprazole 40 MG TAB PO SCH (09:00)
[2022-03-31] MEDS ORDERED: DOBUTamine HCL 12.5 MG/ML 20 ML VIAL IV ONE (10:11)
[2022-03-31] MEDS ORDERED: METOPROLOL TARTRATE 1 MG/ML VIAL IV ONE (10:11)
[2022-03-31] MEDS ORDERED: ATROPINE SULFATE 0.1 MG/ML 10ML SYR IV ONE (10:11)
[2022-03-31] MEDS ORDERED: PERFLUTREN LIPID MICROSPHERE (DEFINITY) IV ONE (11:23)
[2022-03-31] MEDS ORDERED: PREGABALIN 150 MG CAP PO SCH (12:15)
--- NOTE | 2022-03-31 12:53 | XCELERA ---
[id number]
[2022-03-31] MEDS ORDERED: hydrALAZINE HCL 25 MG TAB PO SCH (14:00)
--- NOTE | 2022-03-31 18:52 | Discharge Summary ---
Date of Service March 31, 2022 Admission HPI Per Admitting Provider Selina Hopkins is a 66 y/o female who presents to the ED today with complaint of chest pain. Her PMH includes HTN, HLD (resistant to statins - on Ezetimibe), GERD, fibromyalgia, meningioma, and CAD with 2 previous KS's: s/p cardiac cath with 4 stents (2018) and cardiac cath w/o stent (2019). Her chest pain began at about 3pm today, she noted a sudden sharp pain at the center of her chest (7/10 intensity), the intense/sharp pain lasted for several minutes and then decreased but did not go away. She was sitting in the car when the pain began, tried leaning forwards and laying backwards but neither helped. She states that this pain is different from her past heart attacks- she states that previous pain was a "squeezing" sensation across her chest and back. She notes that she had done some light housework earlier in the day, but does not exercise/ambulate much due to her fibromyalgia. Admits that she had some discomfort at her neck after the chest pain began, although states she does have chronic pain in her neck. Denies any pain radiating to the jaw or arm. States that since arriving at the ED, her pain has decreased and is now at a 1/10 which she now describes as more of a "pressure." Follows with Dr. [facility], notes she has not had any chest pain/pressure since her most recent KS in 2019. Denies any shortness of breath or increased pain with deep breaths. Denies N/V/abdominal pain/fever/chills/dizziness/syncope. Denies any palpitations/racing heart. Lives at home with her . Notes that she recently started taking medical marijuana for her fibromyalgia. Cardiology discontinued her Plavix in 2021 (completed 2 years of DAPT), but denies any other recent changes to her medications. Principal Diagnosis non cardiac chest pain negative dobutamine stress testing Discharge Exam The patient appeared stable Vital signs as documented. Lungs are clear to auscultation and appear unlabored Cardiac exam, Rhythm is regular.. No murmurs, rubs or gallops. Abdominal exam reveals normal bowel sounds, soft non tender, no masses Extremities are nonedematous and both pedal pulses are normal. Neurologic exam is alert and oriented, no focal loss of strength or sensation Skin is without bruises or rashes Psychologically is without concerns for anxiety or depression. Discharge Data Allergies Allergy/AdvReac Type Severity Reaction Status Date / Time No Known Allergies Allergy NONE Verified 03/30/22 19:08 Consultations 03/30/22 20:12 ED Decision to Admit Stat Ordered Studies 03/30/22 17:42 CT angio chest PE protocol Stat Hospital Course (1) CAD (coronary artery disease): - Patient with underlying CAD. Follows Dr. Hinds - Per review of records, last cardiac catheterization 12/13: with small vessel disease with a 95% ostial very small second diagonal branch and a 60% ostial small third diagonal branch; 40% ostial circumflex; widely patent proximal to mid LAD stents - echocardiogram: EF 55-60%/ LV wall motion normal. Moderate concentric LVH. Grade I DD. Mild MR. Mild TR. -Patient had dobutamine stress echo today which was negative for suggestions of ischemic change normal systolic function. Additional work-up for her chest pain included troponins which are negative and CT angiogram showing no PE or derangement of muscles or organs within her chest cavity Patient is relieved to hear these results and will be discharged home with outpatient follow-up with her primary care physician (2) Fibromyalgia: Chronic and ongoing -Continue Cymbalta. (3) Hypertension: BP was elevated pre-operatively - Takes lisinopril, Norvasc, Imdur, Hydralazine, and carvedilol (4) Anxiety: - Continue Cymbalta, Total Time Total Time Spent Total Time Spent (In Minutes): It required greater than 30 minutes to prepare this patient for discharge Discharge Plan Discharge Items Patient Disposition: Home - Self-Care Reason For Visit: CHEST PAIN Discharge Diagnosis: non cardiac chest pain Activity: Resume your previous activity Non-emergency contact: Primary Care Provider and Supervisor Final Call non-emergency contact if: your symptoms worsen Follow-up/Referrals: Natasha Saldaña MD [Primary Care Provider] - 04/04/22 2:00 pm (with [facility] PIMENT[facility]) Diet: Low Fat Addtl Attending Provider Instructions: please follow up with your primary care, consider a low fat diet always return if worse Pending Studies at Discharge: No Stand-Alone Forms: My [facility], Smoking Cessation Medications and DC Order Prescriptions: Continued azelastine 0.15 % (205.5 mcg) spray,non-aerosol 2 spray INTNAS DAILY PRN (Reason: Nasal Congestion) Qty: 90 1RF Rx Instructions: administer into each nostril duloxetine 60 mg capsule,delayed release(DR/EC) 60 mg PO BID Qty: 180 1RF trazodone 150 mg tablet 150 mg PO HS Qty: 90 1RF pregabalin 25 mg capsule See Rx Instructions PO DAILY 30 Days Qty: 42 0RF Rx Instructions: Take 2 pills daily x 2 wks, then 1 pill daily x 2 wks lansoprazole 30 mg capsule,delayed release(DR/EC) 30 mg PO DAILY Qty: 90 3RF cholecalciferol (vitamin D3) 50 mcg (2,000 unit) capsule 50 mcg PO DAILY baclofen 20 mg tablet See Rx Instructions .ROUTE .COMPLEX Qty: 270 3RF Rx Instructions: 1 tab po BID, make take up to TID if needed and tolerated. lisinopril 40 mg tablet 40 mg PO QAM Elmiron 100 mg capsule 100 mg PO TID 90 Days Qty: 270 1RF oxycodone-acetaminophen 5-325 mg tablet 1 tab PO TID PRN (Reason: Pain) Qty: 90 0RF Rx Instructions: PDMP-Last filled on 02/10/22 FOR 90 TABS/90 DAYS. tramadol 50 mg tablet 50 mg PO Q6H PRN (Reason: pain, moderate) Qty: 30 0RF aspirin [Ecotrin Low Strength] 81 mg tablet,delayed release (DR/EC) 81 mg PO HS ezetimibe 10 mg tablet 10 mg PO BID alpha lipoic acid 600 mg capsule 600 mg PO HS vitamin B [id number] cit 0.8-50 mg Tablet 1 tab PO DAILY nitroglycerin [Nitrostat] 0.4 mg Tablet, Sublingual 0.4 mg sublingual UD PRN (Reason: chest pain) 30 Days Qty: 60 1RF Rx Instructions: take every 15 minutes for chest pain, if you take 3 tablets in 24 hours call coenzyme Q10 [CoQ-10] 100 mg capsule 200 mg PO HS isosorbide mononitrate 30 mg Tablet Extended Release 24 Hr 30 mg PO BID 30 Days Qty: 60 1RF carvedilol 12.5 mg tablet 12.5 mg PO BID diclofenac sodium [Voltaren Arthritis Pain] 1 % gel 2 g topical QID PRN (Reason: Pain) Rx Instructions: apply to single elbow, wrist or hand; for hand includes palm/fingers/back of hand amlodipine [Norvasc] 10 mg tablet 10 mg PO DAILY Qty: 30 0RF Changed hydralazine 50 mg tablet 25 mg PO TID Qty: 90 0RF Discharge Orders: Discharge Order (Routine); Ordered 03/31/22 Ordered By: Nirmal Rothman Admission Data Admit Date/Time: 03/30/22 23:02 Attending Provider: Nirmal Rothman Admit Provider: Desire Kilgore Primary Care Provider: Natasha Saldaña Other Providers: Caroline Escobedo Other Interventions: Discharge Summary Assessment (RN) Last Done: 03/31/22 14:36 Coding Level of Care Code 52084 OBS Care - Discharge Diagnoses CAD (coronary artery disease) I25.10 Fibromyalgia M79.7 Hypertension I10 Hypertension type: essential hypertension Anxiety F41.9
== END 2022-03-31 15:38 | disposition home or self-care (01) ==
LOC: 4W 15:43 → ED 15:43 → SUATTDRO 23:02 → 4W 23:39
DX: R79.89 Other specified abnormal findings of blood chemistry; Z79.82 Long term (current) use of aspirin; Z86.16 Personal history of COVID-19; R07.89 Other chest pain; Z79.899 Other long term (current) drug therapy; I10 Essential (primary) hypertension; I25.10 Atherosclerotic heart disease of native coronary artery without angina pectoris; M79.7 Fibromyalgia; F41.9 Anxiety disorder, unspecified